=== PATIENT | male | born 1935 | race Caucasian/White ===

== ENCOUNTER 2019-03-05 07:21 | Emergency (ER) | payer MEDICARE, OTHER ==
[~2019-03-05] VITALS: Ht 182.9 cm; Wt 88.5 kg
--- OUTSIDE RECORDS SUMMARY | 2019-03-05 07:28 | XMS REPORT | Continuity of Care Document ---
Author Author [facility] Interface Address Unknown Phone Unavailable Problems Problem Status Onset Date Classification Date Reported Comments Source BLADDER CANCER W/LYMPHATIC METS Active 02/24/2019 [facility] LYMPHATIC CANCER FOLLOW UP Active 02/24/2019 [facility] LYMPHATIC CANCERFOLLOW UP Active 02/24/2019 [facility] CHEST PAIN Active 02/20/2019 [facility] LYMPHATIC CANCER CONSULT Active 02/09/2019 [facility] ACUTE PANCREATITIS, RECURRENT ABDOMINAL Active 02/04/2019 [facility] ABD PAIN, CHOLELITHIASIS Active 01/23/2019 [facility] OTHER Active 01/23/2019 [facility] DX: R10.11=RIGHT UPPER QUADRANT PAIN Active 01/20/2019 [facility] URINARY SYMPTOMS Active 01/11/2019 [facility] ABDOMINAL PAIN, ACUTE Active 01/11/2019 [facility] DX: C67.9=MALIGNANT NEOPLASM OF BLADDER, Active 11/04/2018 [facility] C18.2 / E55.9 / D62 / C67.9 / Z51.11 / Z Active 07/18/2018 [facility] C67.8 Active 03/02/2018 [facility] C87.8 Active 03/02/2018 [facility] C67.9, Z51.11 Active 08/23/2017 [facility] A FIB W/ RVR Active 06/25/2017 [facility] PALPATATIONS Active 06/25/2017 [facility] UNK Active 06/17/2017 [facility] C67.9 Active 02/16/2017 [facility] DX; C67.9=MALIGNANT NEOPLASM OF BLADDER, Active 11/23/2016 [facility] Discharge Diagnosis: Generalized weakness 11/09/2016 11/12/2016 [facility] Discharge Diagnosis: Acute UTI 11/09/2016 11/12/2016 [facility] Discharge Diagnosis: Dehydration 11/09/2016 11/12/2016 [facility] SYNCOPE Active 11/09/2016 [facility] BLADDER CA Active 06/10/2016 [facility] DX: C57.8=MALIGNANT NEOPLASM OF OVERLAPP Active 05/26/2016 [facility] C67.2 MALIGNANT NEOPLASM OF LATERAL WALL Active 03/10/2016 [facility] CHEST PAIN RULE OUT ACS Active 12/11/2015 [facility] I88.9 Active 06/17/2015 [facility] 599.71 GROSS HEMATURIA / 236.7 BLADDER N Active 05/29/2015 [facility] 591 ABNORMAL RENAL FUNCTION Active 02/12/2015 [facility] Discharge Diagnosis: Weakness 01/29/2015 02/01/2015 [facility] FATIGUE Active 01/29/2015 [facility] 236.7/36528 Active 12/19/2014 [facility] MASS Active 11/20/2014 [facility] LIVER LESIONS Active 11/20/2014 [facility] COLONA CANCER Active 10/30/[address] [facility] [address] UROGRAM DX:599.72=BENIGN ESSENTIAL M Active 10/16/2014 [facility] BLADDER CANCER Active 10/16/2014 [facility] [place] - Myocardial infarction Resolved 09/27/2006 Problem 03/02/2019 [facility] Anemia Active Problem 03/02/2019 [facility] Benign bladder tumor Active Problem 03/02/2019 [facility] Cancer of colon Resolved Problem 03/02/2019 [facility] CHF - Congestive heart failure Active Problem 03/02/2019 [facility] Hematuria Resolved Problem 03/02/2019 [facility] HTN - Hypertension Active Problem 03/02/2019 [facility] CAD (<span ID="[id number]">Confirmed</span>) Active Problem 03/02/2019 [facility] Colostomy in place Resolved Problem 03/02/2019 [facility] COUSHATTA (<span ID="[id number]">Confirmed</span>) Resolved Problem 03/02/2019 [facility] Bladder cancer Active Problem 03/02/2019 [facility] Pacemaker Resolved Problem 03/02/2019 [facility] Primary colon cancer Resolved Problem 03/02/2019 [facility] Vitamin D deficiency, unspecified 02/20/2019 [facility] Encounter for screening for other disorder 02/20/2019 [facility] Acute pancreatitis without necrosis or infection, unspecified 02/09/2019 [facility] Chronic kidney disease, unspecified Active Problem 02/24/2019 [facility] Mixed hyperlipidemia Active Problem 02/24/2019 [facility], [place] Pulmonary hypertension, secondary Active Problem 02/24/2019 [facility], [facility] Atherosclerotic heart disease of [place] coronary artery with unspecified angina pectoris Active Problem 02/24/2019 Reed Plaza MD, ANTOINETTE Mixed hyperlipidemia Active Problem 02/24/2019 [facility], [place] Atherosclerotic heart disease of [place] coronary artery without angina pectoris Active Problem 02/24/2019 Reed Plaza MD, ANTOINETTE Bradycardia, unspecified Active Problem 02/24/2019 Reed Plaza MD, ANTOINETTE Peripheral vascular disease, unspecified Active Problem 02/24/2019 Reed Plaza MD, ANTOINETTE Ventricular premature depolarization Active Problem 02/24/2019 Reed Plaza MD, ANTOINETTE Old myocardial infarction Active Problem 02/24/2019 [facility], [place] Coronary angioplasty status Active Problem 02/24/2019 Reed Plaza MD PA Other premature beats Active Problem 02/24/2019 [facility], [facility] Peripheral vascular disease Active Problem 02/24/2019 [facility], [facility] Chronic kidney disease, unspecified Active Problem 02/24/2019 [facility], [facility] Malignant neoplasm of ascending colon Active Problem 02/24/2019 [facility], [facility] Coronary atherosclerosis of [place] coronary artery Active Problem 02/24/2019 [facility] MD, [place] Malignant neoplasm of bladder, part unspecified Active Problem 02/24/2019 [facility], [place] Postprocedural PCI status Active Problem 02/24/2019 [facility], [place] Malignant neoplasm of bladder, unspecified [facility] Old [facility] infarction Active Problem 02/24/2019 [facility], [place] Malignant neoplasm of ascending colon Active [facility] Sick sinus syndrome Active Problem 02/24/2019 [facility] MD, [place] Chronic kidney disease, stage 3 Active Problem 02/24/2019 Reed [facility] MD, [place] Presence of cardiac pacemaker Active Problem 02/24/2019 [facility] MD, [place] Unspecified atherosclerosis of [place] arteries of extremities, left leg Active Problem 02/24/2019 [facility] MD, [place] Paroxysmal atrial fibrillation Active Problem 02/24/2019 Reed [facility] MD, [place] MICROSCOPIC HEMATURIA Active [facility] BLADDER NEOPLASM NOS Active [facility] MALIG RODRIGO ASCEND COLON Active [facility] LIVER DISORDERS NEC Active [facility] UNC BEHAV RODRIGO BLADDER Active [facility] GROSS HEMATURIA Active [facility] HYDRONEPHROSIS Active [facility] MALIGNANT NEOPLASM OF ASCENDING COLON Active [facility] MALIG RODRIGO BLADDER NOS Active [facility] MALIGNANT NEOPLASM OF LATERAL WALL OF BL Active [facility] MALIGNANT NEOPLASM OF BLADDER, UNSPECIFI Active [facility] MALIGNANT NEOPLASM OF OVERLAPPING SITES Active [facility] ENCOUNTER FOR ANTINEOPLASTIC CHEMOTHERAP Active [facility] UNSPECIFIED ATRIAL FIBRILLATION Active [facility] VITAMIN D DEFICIENCY, UNSPECIFIED Active [facility] ACUTE POSTHEMORRHAGIC ANEMIA Active [facility] RIGHT UPPER QUADRANT PAIN Active [facility] ACUTE PANCREATITIS WITHOUT NECROSIS OR I Active [facility] UNSPECIFIED ABDOMINAL PAIN Active [facility] MALIGNANT NEOPLASM OF PROSTATE Active [facility] CHEST PAIN, UNSPECIFIED Active [facility] SECONDARY AND UNSP MALIGNANT NEOPLASM OF Active [facility] Medications Medication Details Route Status Patient Instructions Ordering Provider Order Date Source clopidogrel 75 mg, 1 tab, Route: PO, Drug form: TAB, Daily, Dosing Weight 90.909, kg, Start date: 02/24/19 9:00:00 CDT, Duration: 30 day, Stop date: 03/25/19 9:00:00 CDTNotes: (Same As: Plavix) No Longer Active 02/24/2019 [facility] Aspirin 81 MG Enteric Coated Tablet 81 mg, Route: PO, Drug form: ECTAB, Daily, Dosing Weight 90.909, kg, Start date: 02/24/19 9:00:00 CDT, Duration: 30 day, Stop date: 03/25/19 9:00:00 CDT No Longer Active 02/24/2019 [facility] lisinopril 2.5 mg oral tablet 2.5 mg=1 tab, PO, Daily, # 30 tab, 0 Refill(s), Pharmacy: [facility] [id number] Active 02/24/2019 [facility] pantoprazole 40 mg oral enteric coated tablet 40 mg=1 tab, PO, Before Breakfast, # 30 tab, 0 Refill(s), Pharmacy: [place] [id number] Active 02/23/2019 [facility] clopidogrel 75 mg oral tablet 75 mg=1 tab, PO, Daily, # 30 tab, 0 Refill(s), Pharmacy: [place] [id number] Active 02/23/2019 [facility] Aspirin 81 MG Enteric Coated Tablet 81 mg=1 tab, PO, Daily, # 30 tab, 0 Refill(s), Pharmacy: [place] [id number] Active 02/23/2019 [facility] Nitroglycerin 0.4 mg, 1 tab, Route: SL, Drug form: TAB, Q5Min, Dosing Weight 90.909, kg, PRN Chest Pain, Start date: 02/23/19 12:15:00 CDT, Duration: 3 doses or times, Stop date: Limited # of timesNotes: (Same as: Nitroquick, Nitrostat) "Do Not Crush" Sublingual tablet Inactive 02/23/2019 [facility] Sodium Chloride 0.9% IV 750 mL 750 mL, Rate: 75 ml/hr, Infuse over: 10 hr, Route: IV, Dosing Weight 90.909 kg, Total Volume: 750, Start date: 02/23/19 12:15:00 CDT, Duration: 10 hr, Stop date: 02/23/19 22:14:00 CDT, 2.16, m2 Inactive 02/23/2019 [facility] Plavix 1 tablet Orally Active 75 mg Orally Once a day [place] 02/23/2019 Reed [facility] [place], [place] Sodium Chloride 0.9% (Bolus) IV 250 mL, 250 ml/hr, Infuse Over: 1 hr, Route: IV, 250, Drug form: INJ, ONCALL, Priority: Routine, Dosing Weight 90.909 kg, Start date: 02/22/19 13:00:00 CDT, Duration: 1 doses or times, Stop date: 02/23/19 0:00:00 CDT No Longer Active 02/22/2019 [facility] Sodium Chloride 0.9% IV 750 mL 750 mL, Rate: 75 ml/hr, Infuse over: 10 hr, Route: IV, Dosing Weight 90.909 kg, Total Volume: 750, Start date: 02/22/19 12:47:00 CDT, Duration: 24 hr, Stop date: 02/23/19 12:46:00 CDT, 2.16, m2 No Longer Active 02/22/2019 [facility] 24 HR Metoprolol Tartrate 50 MG Extended Release Tablet [Toprol] 50 mg, 1 tab, Route: PO, Drug form: ERTAB, Daily, Start date: 02/22/19 9:00:00 CDT, Duration: 30 day, Stop date: 03/23/19 9:00:00 CDTNotes: (Same as: Toprol XL) May split tab, but do not crush. No Longer Active 02/22/2019 [facility] Simvastatin 40 mg, 1 tab, Route: PO, Drug form: TAB, Bedtime, Dosing Weight 90.909, kg, Start date: 02/21/19 21:00:00 CDT, Duration: 30 day, Stop date: 03/22/19 21:00:00 CDTNotes: (Same as: Zocor) No Longer Active 02/22/2019 [facility] Eliquis 5 mg, 1 tab, Route: PO, Drug form: TAB, Q12H, Dosing Weight 90.909, kg, Start date: 02/21/19 21:00:00 CDT, Duration: 30 day, Stop date: 03/23/19 9:00:00 CDTNotes: Same as: Eliquis No Longer Active 02/22/2019 [facility] Aspirin 81 MG Enteric Coated Tablet 81 mg, 1 tab, Route: PO, Drug form: ECTAB, Daily, Dosing Weight 90.909, kg, Start date: 02/21/19 9:00:00 CDT, Duration: 30 day, Stop date: 03/22/19 9:00:00 CDTNotes: Do not crush or chew. (Same As: Ecotrin) No Longer Active 02/21/2019 [facility] Protonix 40 mg, 1 tab, Route: PO, Drug form: ECTAB, Before Breakfast, Dosing Weight 90.909, kg, Start date: 02/21/19 7:30:00 CDT, Duration: 30 day, Stop date: 03/22/19 7:30:00 CDTNotes: Tablet should not be c hewed or crushed. (Same as: Protonix) No Longer Active 02/21/2019 [facility] cefdinir 300 MG Oral Capsule [Omnicef] 300 mg, 1 cap, Route: PO, Drug form: CAP, [id number], Dosing Weight 90.909, kg, Start date: 02/20/19 23:00:00 CDT, Duration: 5 day, Stop date: 02/25/19 11:00:00 CDTNotes: (Same As: Omnicef) No Longer Active 02/21/2019 [facility] Dilaudid 0.5 mg, 0.5 mL, Route: IVP, Drug form: SOLN, Q4H, Dosing Weight 90.909, kg, PRN Pain Score 7-10, Start date: 02/20/19 17:50:00 CDT, Duration: 30 day, Stop date: 03/22/19 17:49:00 CDTNotes: (Same as: Dilaudid) No Longer Active 02/20/2019 [facility] Tessalon Perles 100 mg, 1 cap, Route: PO, Drug form: CAP, TID, Dosing Weight 90.909, kg, PRN Cough, Start date: 02/20/19 17:12:00 CDT, Duration: 30 day, Stop date: 03/22/19 17:11:00 CDTNotes: (Same As: Tessalon Alayna es) "Do Not Crush" No Longer Active 02/20/2019 [facility] Seroquel 25 mg, 1 tab, Route: PO, Drug form: TAB, BID, Dosing Weight 90.909, kg, PRN Agitation, Start date: 02/20/19 17:12:00 CDT, Duration: 30 day, Stop date: 03/22/19 17:11:00 CDTNotes: (Same as: SEROquel) No Longer Active 02/20/2019 [facility] Acetaminophen 325 MG / Hydrocodone Bitartrate 5 MG Oral Tablet [[place] 5/325] 1 tab, Route: PO, Drug Form: TAB, Dosing Weight 90.909, kg, Q6H, PRN Pain Score 1-3, Start date: 02/20/19 17:12:00 CDT, Duration: 30 day, Stop date: 03/22/19 17:11:00 CDTNotes: (Same as: [place] 325/5) Do not exceed 4gm/day of acetaminophen. No Longer Active 02/20/2019 [facility] Simethicone 80 mg, 1 tab, Route: CHEW, Drug form: CHEWTAB, QID-After Meals, Dosing Weight 90.909, kg, PRN as needed for gas, Start date: 02/20/19 17:12:00 CDT, Duration: 30 day, Stop date: 03/22/19 17:11:00 CDTNotes: (Same as: Mylicon) No Longer Active 02/20/2019 [facility] Mucinex 600 mg, 1 tab, Route: PO, Drug form: ERTAB, Q12H, Dosing Weight 90.909, kg, PRN Congestion, Start date: 02/20/19 17:12:00 CDT, Duration: 30 day, Stop date: 03/22/19 17:11:00 CDTNotes: (Same as: Guaifenesin LA, Humibid LA, Mucinex) "Do Not Crush" Take medication with plenty of water. No Longer Active 02/20/2019 [facility] Albuterol 0.833 MG/ML / Ipratropium [place] 0.167 MG/ML Inhalant Solution [DuoNeb] 3 ml, Route: NEB, Drug Form: SOLN, Dosing Weight 90.909, kg, PRN, PRN Respiratory Pathway, Start date: 02/20/19 17:12:00 CDT, Duration: 30 day, Stop date: 03/22/19 17:11:00 CDTNotes: (Same as: Duoneb) No Longer Active 02/20/2019 [facility] Maalox Advanced Regular Strength SUSP 30 mL, Route: PO, Drug Form: SUSP, Dosing Weight 90.909, kg, QID-After Meals, PRN as needed for indigestion, Routine, Start date: 02/20/19 17:12:00 CDT, Duration: 30 day, Stop date: 03/22/19 17:11:00 CDTNotes: (aluminum hydroxide-magnesium hyd-simethicone [phone]/5ml 30 ml ud SALEEM) No Longer Active 02/20/2019 [facility] Nicotine 21 mg, 1 patch, Route: TOP, Drug form: ERFILM, Daily, Dosing Weight 90.909, kg, PRN as needed for smoking cessation, Start date: 02/20/19 17:12:00 CDT, Duration: 30 day, Stop date: 03/22/19 17:11:00 CDT Notes: (Same as: Habitrol) "Remove old patch before application of new patch" WASTE: F/P - P Waste Black; E - P Waste Black No Longer Active 02/20/2019 [facility] Hydralazine 10 mg, 0.5 mL, Route: IVP, Drug form: INJ, Q4H, Dosing Weight 90.909, kg, PRN Hypertension, Priority: Routine, Start date: 02/20/19 17:12:00 CDT, Duration: 30 day, Stop date: 03/22/19 17:11:00 CDTNotes: (Same as: Apresoline) Push over 5 minutes No Longer Active 02/20/2019 [facility] Bisacodyl 10 mg, 1 supp, Route: UT, Drug form: SUPP, Daily, Dosing Weight 90.909, kg, PRN Constipation, Start date: 02/20/19 17:12:00 CDT, Duration: 30 day, Stop date: 03/22/19 17:11:00 CDTNotes: (Same As: Dulcolax, Bisco-Lax) No Longer Active 02/20/2019 [facility] Ondansetron 4 mg, 2 mL, Route: IVP, Drug form: INJ, Q6H, Dosing Weight 90.909, kg, PRN Nausea & Vomiting, Start date: 02/20/19 17:12:00 CDT, Duration: 30 day, Stop date: 03/22/19 17:11:00 CDTNotes: (Same as: Zofran) MEDICATION WASTE Product Size: 4 mg Product Wasted: ___ mg No Longer Active 02/20/2019 [facility] Trazodone 50 mg, 1 tab, Route: PO, Drug form: TAB, Bedtime, Dosing Weight 90.909, kg, PRN Insomnia, Start date: 02/20/19 17:12:00 CDT, Duration: 30 day, Stop date: 03/22/19 17:11:00 CDTNotes: (Same As: Desyrel) No Longer Active 02/20/2019 [facility] Melatonin 3 mg, 1 tab, Route: PO, Drug form: TAB, Bedtime, Dosing Weight 90.909, kg, PRN Insomnia, Start date: 02/20/19 17:12:00 CDT, Duration: 30 day, Stop date: 03/22/19 17:11:00 CDTNotes: (Same as: Melatonin) No Longer Active 02/20/2019 [facility] Diphenhydramine 25 mg, 1 tab, Route: PO, Drug form: TAB, Q6H, Dosing Weight 90.909, kg, PRN as needed for allergy symptoms, Start date: 02/20/19 17:12:00 CDT, Duration: 30 day, Stop date: 03/22/19 17:11:00 CDT No Longer Active 02/20/2019 [facility] Glucagon 1 mg, Route: IM, Drug form: PDR/INJ, PRN, Dosing Weight 90.909, kg, PRN Blood Glucose Results, Start date: 02/20/19 17:12:00 CDT, Duration: 30 day, Stop date: 03/22/19 17:11:00 CDT No Longer Active 02/20/2019 [facility] Dextrose 50% Syringe 25 gm, 50 mL, Route: IVP, Drug Form: INJ, Dosing Weight 90.909, kg, PRN, PRN Blood Glucose Results, Start date: 02/20/19 17:12:00 CDT, Duration: 30 day, Stop date: 03/22/19 17:11:00 CDT No Longer Active 02/20/2019 [facility] POLYETHYLENE GLYCOL 3350 17 gm, 1 pkt, Route: PO, Drug form: PWDR, Daily, Dosing Weight 90.909, kg, PRN Constipation, Start date: 02/20/19 17:12:00 CDT, Duration: 30 day, Stop date: 03/22/19 17:11:00 CDTNotes: Dissolve in 8 oz of water or juice. (Same as: Miralax) No Longer Active 02/20/2019 [facility] Docusate 100 mg, 1 cap, Route: PO, Drug form: CAP, BID, Dosing Weight 90.909, kg, PRN as needed for constipation, Start date: 02/20/19 17:12:00 CDT, Duration: 30 day, Stop date: 03/22/19 17:11:00 CDTNotes: (Same as: Colace) (Do Not Crush) No Longer Active 02/20/2019 [facility] Acetaminophen 650 mg, 2 tab, Route: PO, Drug form: TAB, Q6H, Dosing Weight 90.909, kg, PRN For Temp > 100.4 F, Start date: 02/20/19 17:12:00 CDT, Duration: 30 day, Stop date: 03/22/19 17:11:00 CDTNotes: Do not exceed 4 gm/day. (Same as: Tylenol) No Longer Active 02/20/2019 [facility] heparin additive 25,000 unit [11 unit/kg/hr] + Premix Diluent Dextrose 5% 500 mL 500 mL, Rate: 20 ml/hr, Infuse over: 25 hr, Route: IV, Dosing Weight 90.909 kg, Total Volume: 500 mL, Start date: 02/20/19 16:17:00 CDT, Duration: 30 day, Stop date: 03/22/19 16:16:00 CDT, 2.16, m2 Inactive 02/20/2019 [facility] Heparin 30 unit/kg Bolus (Heparin Dosing Weight) Route: IVP, PRN, 2,700 unit, 2.7 mL, Drug form: INJ, PRN, Heparin Protocol, Start date: 02/20/19 16:17:00 CDT Stop date: 03/22/19 16:16:00 CDT, 30 day Inactive 02/20/2019 [facility] Aspirin 324 mg, 4 tab, Route: CHEW, Drug form: CHEWTAB, ONCE, Dosing Weight 90.909, kg, Priority: STAT, Start date: 02/20/19 16:16:00 CDT, Stop date: 02/20/19 16:16:00 CDTNotes: Take with food. Inactive 02/20/2019 [facility] Dilaudid 0.5 mg, 0.5 mL, Route: IVP, Drug form: SOLN, ONCE, Dosing Weight 90.909, kg, Priority: STAT, Start date: 02/20/19 15:32:00 CDT, Stop date: 02/20/19 15:32:00 CDTNotes: (Same as: Dilaudid) Inactive 02/20/2019 [facility] ketOROLAC 15 mg/mL injectable solution 15 mg, Route: IVP, Drug form: INJ, ONCE, Dosing Weight 90.909, kg, Priority: STAT, Start date: 02/20/19 14:51:00 CDT, Stop date: 02/20/19 14:51:00 CDT Inactive 02/20/2019 [facility] Ondansetron 4 mg, Route: IVP, Drug form: INJ, ONCE, Dosing Weight 90.909, kg, Priority: STAT, Start date: 02/20/19 14:47:00 CDT, Stop date: 02/20/19 14:47:00 CDT Inactive 02/20/2019 [facility] Saline Flush 0.9% 10 mL, Route: IVP, Drug Form: INJ, Dosing Weight 91.364, kg, PRN, PRN Line Flush, Start date: 02/20/19 13:09:00 CDT, Duration: 30 day, Stop date: 03/22/19 13:08:00 CDTNotes: (Same as: BD Posiflush) No Longer Active 02/20/2019 [facility] Dilaudid 0 Refill(s) Active 02/13/2019 [facility] Acetaminophen 325 MG / Hydrocodone Bitartrate 5 MG Oral Tablet [[place] 5/325] 1 tab, PO, Q6H, X 5 day, # 20 tab, 0 Refill(s), given to patient Active 02/07/2019 [facility] Sodium Chloride 0.9% IV 500 mL 500 mL, Rate: 25 ml/hr, Infuse over: 20 hr, Route: IV, Dosing Weight 90.909 kg, Total Volume: 500, Start date: 02/07/19 7:54:00 CDT, Duration: 1 day, Stop date: 02/08/19 7:53:00 CDT, 2.16, m2 Inactive 02/07/2019 [facility] Dilaudid 1 mg, 1 mL, Route: IVP, Drug form: SOLN, Q3H, Dosing Weight 90.909, kg, PRN Pain Score 7-10, Start date: 02/06/19 14:58:00 CDT, Duration: 30 day, Stop date: 03/08/19 14:57:00 CDTNotes: (Same as: Dila udid) No Longer Active 02/06/2019 [facility] Dilaudid 0.2 mg, 0.2 mL, Route: IVP, Drug form: SOLN, Q6H, Dosing Weight 90.909, kg, PRN Pain Score 4-6, Start date: 02/06/19 14:57:00 CDT, Duration: 30 day, Stop date: 03/08/19 14:56:00 CDTNotes: (Same as: D ilaudid) No Longer Active 02/06/2019 [facility] Acetaminophen 325 MG / Hydrocodone Bitartrate 5 MG Oral Tablet [[place] 5/325] 1 tab, Route: PO, Drug Form: TAB, Dosing Weight 90.909, kg, Q6H, PRN Pain Score 1-3, Start date: 02/06/19 14:56:00 CDT, Duration: 30 day, Stop date: 03/08/19 14:55:00 CDTNotes: (Same as: [place] 325/5) Do not exceed 4gm/day of acetaminophen. No Longer Active 02/06/2019 [facility] Miralax 17 gm, 1 pkt, Route: PO, Drug form: PWDR, BID, Dosing Weight 90.909, kg, Start date: 02/06/19 13:34:00 CDT, Duration: 30 day, Stop date: 03/08/19 9:00:00 CDTNotes: Dissolve in 8 oz of water or juice. (Same as: Miralax) No Longer Active 02/06/2019 [facility] Docusate 100 mg, 1 cap, Route: PO, Drug form: CAP, BID, Dosing Weight 90.909, kg, PRN Constipation, Start date: 02/06/19 9:23:00 CDT, Duration: 30 day, Stop date: 03/08/19 9:22:00 CDTNotes: (Same as: Colace) (Do Not Crush) No Longer Active 02/06/2019 [facility] Dextromethorphan Hydrobromide 2 MG/ML / Guaifenesin 20 MG/ML Oral Solution 10 mL, Route: PO, Drug Form: LIQ, Dosing Weight 90.909, kg, Q4H, PRN Cough, Start date: 02/06/19 9:22:00 CDT, Duration: 30 day, Stop date: 03/08/19 9:21:00 CDTNotes: (dextromethorphan-guaifenesin 10-100/5 ml LIQ) (Same as: Robitussin-DM) No Longer Active 02/06/2019 [facility] Diphenhydramine 25 mg, 1 tab, Route: PO, Drug form: TAB, Q6H, Dosing Weight 90.909, kg, PRN Itching, Start date: 02/06/19 9:22:00 CDT, Duration: 30 day, Stop date: 03/08/19 9:21:00 CDT No Longer Active 02/06/2019 [facility] Aluminum Hydroxide 40 MG/ML / Magnesium Hydroxide 40 MG/ML / Simethicone 4 MG/ML Oral Suspension 30 mL, Route: PO, Drug Form: SUSP, Dosing Weight 90.909, kg, Q4H, PRN Indigestion, Start date: 02/06/19 9:22:00 CDT, Duration: 30 day, Stop date: 03/08/19 9:21:00 CDTNotes: (aluminum hydroxide-magnesium hyd-simethicone [phone]/5ml 30 ml ud SALEEM) No Longer Active 02/06/2019 [facility] Simethicone 80 mg, 1 tab, Route: PO, Drug form: CHEWTAB, Q6H, Dosing Weight 90.909, kg, PRN Gas, Start date: 02/06/19 9:22:00 CDT, Duration: 2 doses or times, Stop date: Limited # of timesNotes: (Same as: Mylico n) No Longer Active 02/06/2019 [facility] Simvastatin 40 mg, 1 tab, Route: PO, Drug form: TAB, Bedtime, Dosing Weight 90.909, kg, Start date: 02/06/19 9:00:00 CDT, Stop date: 03/07/19 21:00:00 CDTNotes: (Same as: Zocor) No Longer Active 02/06/2019 [facility] 24 HR Metoprolol Tartrate 50 MG Extended Release Tablet [Toprol] 50 mg, 1 tab, Route: PO, Drug form: ERTAB, BID, Start date: 02/06/19 9:00:00 CDT, Stop date: 03/07/19 18:00:00 CDTNotes: (Same as: Toprol XL) May split tab, but do not crush. No Longer Active 02/06/2019 [facility] Eliquis 5 mg, 1 tab, Route: PO, Drug form: TAB, Q12H, Dosing Weight 90.909, kg, Start date: 02/06/19 9:00:00 CDT, Duration: 30 day, Stop date: 03/07/19 21:00:00 CDTNotes: Same as: Eliquis No Longer Active 02/06/2019 [facility] Naloxone 0.04 mg, 0.04 mL, Route: IVP, Drug form: INJ, Q2MIN, Dosing Weight 90.909, kg, PRN Narcotic Reversal, Start date: 02/05/19 12:38:00 CDT, Duration: 30 day, Stop date: 03/07/19 12:37:00 CDTNotes: (Same as: Narcan) MEDICATION WASTE Product Size: 2 mg Product Wasted: ___ mg No Longer Active 02/05/2019 [facility] Hydromorphone 15 mg, 30 mL, Route: IV, Initial Loading Dose: 0.4mg, PARKING ATTENDANT Dose: 0.2 mg, PARKING ATTENDANT Lockout: 10 minutes, Continuous Basal Rate: 0 mg, 4 Hour Limit (In MG): 6, Drug Form: INJ, Continuous, Start date: 02/05/19 12:38:00 CDT, Duration: 30 day, Stop date: 03/07/19...Notes: (Same as: Dilaudid) conc=0.5 mg/ml Hydromorphone PARKING ATTENDANT Dose: ;Delay: ;Basal: No Longer Active 02/05/2019 [facility] Saline Flush 0.9% 10 ml, Route: IVP, Drug Form: INJ, Dosing Weight 90.909, kg, Q12H, Start date: 02/05/19 9:00:00 CDT, Duration: 30 day, Stop date: 03/06/19 21:00:00 CDTNotes: (Same as: BD Posiflush) No Longer Active 02/05/2019 [facility] heparin 5,000 unit, 1 mL, Route: SUB-Q, Drug form: INJ, Q12H, Dosing Weight 90.909, kg, Start date: 02/05/19 9:00:00 CDT, Stop date: 03/06/19 21:00:00 CDTNotes: porcine heparin No Longer Active 02/05/2019 [facility] pantoprazole 40 mg, Route: IVP, Drug form: INJ, BID-Before Meals, Dosing Weight 90.909, kg, Start date: 02/05/19 7:30:00 CDT, Duration: 30 day, Stop date: 03/06/19 16:30:00 CDTNotes: For IV push reconstitute with 10 ml 0.9% sodium chloride and push over 2 minutes. (Same as: Protonix) No Longer Active 02/05/2019 [facility] Saline Flush 0.9% 10 ml, Route: IVP, Drug Form: INJ, Dosing Weight 90.909, kg, PRN, PRN Line Flush, Start date: 02/05/19 2:41:00 CDT, Duration: 30 day, Stop date: 03/07/19 2:40:00 CDTNotes: (Same as: BD Posiflush) No Longer Active 02/05/2019 [facility] Nitroglycerin 0.4 mg, 1 tab, Route: SL, Drug form: TAB, Q5Min, Dosing Weight 90.909, kg, PRN Chest Pain, Start date: 02/05/19 2:41:00 CDT, Duration: 3 doses or times, Stop date: Limited # of timesNotes: (Same as:N itroquick, Nitrostat) "Do Not Crush" Sublingual tablet No Longer Active 02/05/2019 [facility] Hydromorphone 1 mg, 1 mL, Route: IVP, Drug form: SOLN, Q4H, Dosing Weight 90.909, kg, PRN Pain Score 7-10, Start date: 02/05/19 2:39:00 CDT, Duration: 30 day, Stop date: 03/07/19 2:38:00 CDTNotes: (Same as: Ebony id) Inactive 02/05/2019 [facility] Ondansetron 4 mg, 2 mL, Route: IVP, Drug form: INJ, Q8H, Dosing Weight 90.909, kg, PRN Nausea & Vomiting, Start date: 02/05/19 2:39:00 CDT, Duration: 30 day, Stop date: 03/07/19 2:38:00 CDTNotes: (Same as: Alisha) MEDICATION WASTE Product Size: 4 mg Product Wasted: ___ mg No Longer Active 02/05/2019 [facility] Bisacodyl 10 mg, 1 supp, Route: UT, Drug form: SUPP, Daily, Dosing Weight 90.909, kg, PRN Constipation, Start date: 02/05/19 2:39:00 CDT, Duration: 30 day, Stop date: 03/07/19 2:38:00 CDTNotes: (Same As: Dulcolax, Bisco-Lax) No Longer Active 02/05/2019 [facility] Acetaminophen 650 mg, 2 tab, Route: PO, Drug form: TAB, Q4H, Dosing Weight 90.909, kg, PRN Pain 1-3/Temp > 100.4 F, Start date: 02/05/19 2:39:00 CDT, Duration: 30 day, Stop date: 03/07/19 2:38:00 CDTNotes: Do not exceed 4 gm/day. (Same as: Tylenol) No Longer Active 02/05/2019 [facility] Melatonin 3 mg, 1 tab, Route: PO, Drug form: TAB, Bedtime, Dosing Weight 90.909, kg, PRN Insomnia, Start date: 02/05/19 2:39:00 CDT, Duration: 30 day, Stop date: 03/07/19 2:38:00 CDTNotes: (Same as: Melatonin) No Longer Active 02/05/2019 [facility] Saline Flush 0.9% 10 ml, Route: IVP, Drug Form: INJ, Dosing Weight 90.909, kg, PRN, PRN Line Flush, Start date: 02/05/19 2:39:00 CDT, Duration: 30 day, Stop date: 03/07/19 2:38:00 CDTNotes: (Same as: BD Posiflush) No Longer Active 02/05/2019 [facility] Sodium Chloride 0.9% IV 1,000 mL 1,000 mL, Rate: 50 ml/hr, Infuse over: 20 hr, Route: IV, Dosing Weight 90.909 kg, Total Volume: 1,000, Start date: 02/05/19 2:39:00 CDT, Duration: 30 day, Stop date: 03/07/19 2:38:00 CDT, 2.16, m2 No Longer Active 02/05/2019 [facility] Glucagon 1 mg, Route: IM, Drug form: PDR/INJ, PRN, Dosing Weight 90.909, kg, PRN Blood Glucose Results, Start date: 02/05/19 2:39:00 CDT, Duration: 30 day, Stop date: 03/07/19 2:38:00 CDT No Longer Active 02/05/2019 [facility] Dextrose 50% Syringe 12.5 gm, 25 mL, Route: IVP, Drug Form: INJ, Dosing Weight 90.909, kg, PRN, PRN Blood Glucose Results, Start date: 02/05/19 2:39:00 CDT, Duration: 30 day, Stop date: 03/07/19 2:38:00 CDT No Longer Active 02/05/2019 [facility] Hydromorphone 1 mg, Route: IV, ONCE, Dosing Weight 90.909, kg, Start date: 02/05/19 1:03:00 CDT, Stop date: 02/05/19 1:03:00 CDT Inactive 02/05/2019 [facility] Zofran 4 mg, Route: IVP, Drug form: INJ, ONCE, Dosing Weight 90.909, kg, Priority: STAT, Start date: 02/04/19 23:13:00 CDT, Stop date: 02/04/19 23:13:00 CDT Inactive 02/05/2019 [facility] Dilaudid 1 mg, Route: IVP, ONCE, Dosing Weight 90.909, kg, Priority: STAT, Start date: 02/04/19 23:12:00 CDT, Stop date: 02/04/19 23:12:00 CDT Inactive 02/05/2019 [facility] Dilaudid 0.2 mg, Route: IVP, ONCE, Dosing Weight 90.909, kg, Start date: 01/25/19 11:57:00 CDT, Stop date: 01/25/19 11:57:00 CDT Inactive 01/25/2019 [facility] Dilaudid 0.3 mg, Route: IVP, ONCE, Dosing Weight 90.909, kg, Start date: 01/25/19 11:50:00 CDT, Stop date: 01/25/19 11:50:00 CDT Inactive 01/25/2019 [facility] Ofirmev 1,000 mg, Route: IV, ONCE, Dosing Weight 90.909, kg, Start date: 01/25/19 11:42:00 CDT, Stop date: 01/25/19 11:42:00 CDT Inactive 01/25/2019 [facility] ondansetron (ANES) Route: IV, Drug form: INJ, ONCE, Stop date: 01/25/19 11:20:00 CDT Inactive 01/25/2019 [facility] glycopyrrolate (ANES) Route: IV, Drug form: INJ, ONCE, Stop date: 01/25/19 11:20:00 CDT Inactive 01/25/2019 [facility] neostigmine (ANES) Route: IV, Drug form: INJ, ONCE, Stop date: 01/25/19 11:20:00 CDT Inactive 01/25/2019 [facility] phenylephrine (ANES) Route: IV, Drug form: INJ, ONCE, Stop date: 01/25/19 11:19:00 CDT Inactive 01/25/2019 [facility] dexamethasone (ANES) Route: IV, Drug form: INJ, ONCE, Stop date: 01/25/19 11:09:00 CDT Inactive 01/25/2019 [facility] Amidate (ANES) Route: IV, Drug form: INJ, ONCE, Stop date: 01/25/19 11:04:00 CDT Inactive 01/25/2019 [facility] rocuronium (ANES) Route: IV, Drug form: INJ, ONCE, Stop date: 01/25/19 11:04:00 CDT Inactive 01/25/2019 [facility] propofol (ANES) Route: IV, Drug form: INJ, ONCE, Stop date: 01/25/19 10:59:00 CDT Inactive 01/25/2019 [facility] fentaNYL (ANES) Route: IV, Drug form: INJ, ONCE, Stop date: 01/25/19 10:59:00 CDT Inactive 01/25/2019 [facility] lidocaine (ANES) Route: IV, Drug form: INJ, ONCE, Stop date: 01/25/19 10:59:00 CDT Inactive 01/25/2019 [facility] Lactated Ringers Injection IV (ANES) 1000 mL Route: IV, Total Volume: 1,000, Start date: 01/25/19 9:58:00 CDT, Stop date: 01/25/19 10:58:00 CDT Inactive 01/25/2019 [facility] Hydromorphone 0.5 mg, Route: IVP, Q5Min, Dosing Weight 90.909, kg, PRN Pain Score 7-10, Start date: 01/24/19 19:24:00 CDT, Duration: 4 doses or times, Stop date: Limited # of times Inactive 01/25/2019 [facility] Fentanyl 25 microgram, Route: IVP, Q5Min, Dosing Weight 90.909, kg, PRN Pain Score 4-6, Priority: Routine, Start date: 01/24/19 19:24:00 CDT, Duration: 4 doses or times, Stop date: Limited # of times Inactive 01/25/2019 [facility] Flumazenil 0.2 mg, Route: IVP, PRN, Dosing Weight 90.909, kg, PRN Benzodiazepine Reversal, Initial dose, Start date: 01/24/19 19:24:00 CDT, Duration: 30 day, Stop date: 02/23/19 19:23:00 CDT Inactive 01/25/2019 [facility] Naloxone 0.4 mg, Route: IVP, Q2MIN, Dosing Weight 90.909, kg, PRN Narcotic Reversal, Start date: 01/24/19 19:24:00 CDT, Duration: 8 doses or times, Stop date: Limited # of times Inactive 01/25/2019 [facility] Meperidine 12.5 mg, Route: IVP, Q30Min, Dosing Weight 90.909, kg, PRN Other -See Comment, For shivering, Start date: 01/24/19 19:24:00 CDT, Duration: 2 doses or times, Stop date: Limited # of times Inactive 01/25/2019 [facility] Ondansetron 4 mg, Route: IVP, ONCE, Dosing Weight 90.909, kg, PRN Nausea & Vomiting, Start date: 01/24/19 19:24:00 CDT Inactive 01/25/2019 [facility] Promethazine 6.25 mg, Route: IVPB, ONCE, Dosing Weight 90.909, kg, PRN Nausea & Vomiting, Start date: 01/24/19 19:24:00 CDT Inactive 01/25/2019 [facility] Simvastatin 40 mg, 1 tab, Route: PO, Drug form: TAB, Daily, Dosing Weight 90.909, kg, Start date: 01/24/19 9:00:00 CDT, Duration: 30 day, Stop date: 02/21/19 21:00:00 CDTNotes: (Same as: Zocor) No Longer Active 01/24/2019 [facility] metoprolol tartrate 25 mg, 1 tab, Route: PO, Drug form: TAB, Q12H, Dosing Weight 90.909, kg, Start date: 01/23/19 21:00:00 CDT, Duration: 30 day, Stop date: 02/22/19 9:00:00 CDTNotes: (Same as: Lopressor) No Longer Active 01/24/2019 [facility] Eliquis 5 mg, 1 tab, Route: PO, Drug form: TAB, Q12H, Dosing Weight 90.909, kg, Start date: 01/23/19 21:00:00 CDT, Duration: 30 day, Stop date: 02/22/19 9:00:00 CDTNotes: Same as: Eliquis No Longer Active 01/24/2019 [facility] heparin 5,000 unit, 1 mL, Route: SUB-Q, Drug form: INJ, Q8H, Dosing Weight 90.909, kg, Start date: 01/23/19 16:00:00 CDT, Stop date: 02/22/19 8:00:00 CDTNotes: porcine heparin Inactive 01/23/2019 [facility] Ceftriaxone 1 gm, Route: IVP, [id number], Dosing Weight 90.909, kg, Start date: 01/23/19 16:00:00 CDT, Duration: 3 day, Stop date: 01/25/19 16:00:00 CDT, ABX Indication: Urinary Tract InfectionNotes: (Same As: Rocephin). Use with 100 mL NS and infuse over 30 min MEDICATION WASTE Product Size: 1000 mg Product Wasted: ___ mg No Longer Active 01/23/2019 [facility] Streptococcus pneumoniae serotype 1 capsular antigen diphtheria [id number] protein conjugate vaccine / Streptococcus pneumoniae serotype 14 capsular antigen diphtheria [id number] protein conjugate vaccine / Streptococcus pneumoniae serotype 18C capsular antigen d 0.5 mL, Route: IM, Drug Form: INJ, ONCALL, Start date: 01/23/19 14:58:47 CDT, Stop date: 02/22/19 14:53:47 CDTNotes: Shake well prior to use (Same as: Prevnar 13) No Longer Active 01/23/2019 [facility] tramadol hydrochloride 50 MG Oral Tablet 50 mg, 1 tab, Route: PO, Drug form: TAB, Q6H, Dosing Weight 90.909, kg, PRN Pain Score 4-6, Start date: 01/23/19 14:47:00 CDT, Duration: 30 day, Stop date: 02/22/19 14:46:00 CDTNotes: Not to exceed 400mg/day. (Same As: Ultram) No Longer Active 01/23/2019 [facility] NS 1,000 mL 1,000 mL, Rate: 75 ml/hr, Infuse over: 13.3 hr, Route: IV, Dosing Weight 90.909 kg, Total Volume: 1,000, Start date: 01/23/19 14:47:00 CDT, Duration: 30 day, Stop date: 02/22/19 14:46:00 CDT, 2.19, m2 No Longer Active 01/23/2019 [facility] Dilaudid 0.5 mg, 0.5 mL, Route: IVP, Drug form: SOLN, Q4H, Dosing Weight 90.909, kg, PRN Pain Score 7-10, Start date: 01/23/19 12:11:00 CDT, Duration: 30 day, Stop date: 02/22/19 12:10:00 CDTNotes: (Same as: Dilaudid) No Longer Active 01/23/2019 [facility] Dextrose 50% Syringe 12.5 gm, 25 mL, Route: IVP, Drug Form: INJ, Dosing Weight 90.909, kg, PRN, PRN Blood Glucose Results, Start date: 01/23/19 12:09:00 CDT, Duration: 30 day, Stop date: 02/22/19 12:08:00 CDT No Longer Active 01/23/2019 [facility] Ondansetron 4 mg, 2 mL, Route: IVP, Drug form: INJ, Q8H, Dosing Weight 90.909, kg, PRN Nausea & Vomiting, Start date: 01/23/19 12:09:00 CDT, Duration: 30 day, Stop date: 02/22/19 12:08:00 CDTNotes: (Same as: Zofran) MEDICATION WASTE Product Size: 4 mg Product Wasted: ___ mg No Longer Active 01/23/2019 [facility] Glucagon 1 mg, Route: IM, Drug form: PDR/INJ, PRN, Dosing Weight 90.909, kg, PRN Blood Glucose Results, Start date: 01/23/19 12:09:00 CDT, Duration: 30 day, Stop date: 02/22/19 12:08:00 CDT No Longer Active 01/23/2019 [facility] Ketorolac 15 mg, Route: IVP, Drug form: INJ, ONCE, Dosing Weight 90.909, kg, Priority: STAT, Start date: 01/23/19 11:10:00 CDT, Stop date: 01/23/19 11:10:00 CDT Inactive 01/23/2019 [facility] Ketorolac 15 mg, 0.5 mL, Route: IVP, Drug form: INJ, ONCE, Dosing Weight 90.909, kg, Priority: STAT, Start date: 01/23/19 10:42:00 CDT, Stop date: 01/23/19 10:42:00 CDTNotes: (Same as:Toradol) IV bolus must be given >15 seconds. Give IM administration slowly and deeply into the muscle. Not for use > 4 days MEDICATION WASTE Product Size: 30 mg Product Wasted: ___ mg Inactive 01/23/2019 [facility] Dilaudid 1 mg, 1 mL, Route: IVP, Drug form: SOLN, ONCE, Dosing Weight 90.909, kg, Priority: STAT, Start date: 01/23/19 7:37:00 CDT, Stop date: 01/23/19 7:37:00 CDTNotes: (Same as: Dilaudid) Inactive 01/23/2019 [facility] Dilaudid 1 mg, 1 mL, Route: IVP, Drug form: INJ, ONCE, Dosing Weight 90.909, kg, Priority: STAT, Start date: 01/23/19 7:19:00 CDT, Stop date: 01/23/19 7:19:00 CDTNotes: Same as: Dilaudid Inactive 01/23/2019 [facility] Saline Flush 0.9% 10 mL, Route: IVP, Drug Form: INJ, Dosing Weight 90.909, kg, PRN, PRN Line Flush, Start date: 01/23/19 6:33:00 CDT, Duration: 30 day, Stop date: 02/22/19 6:32:00 CDTNotes: Same as: BD Posiflush Sterile No Longer Active 01/23/2019 [facility] Ondansetron 4 mg, Route: IVP, Drug form: INJ, ONCE, Dosing Weight 90.909, kg, Priority: STAT, Start date: 01/23/19 6:31:00 CDT, Stop date: 01/23/19 6:31:00 CDT Inactive 01/23/2019 [facility] Dilaudid 0.5 mg, Route: IVP, ONCE, Dosing Weight 90.909, kg, Priority: STAT, Start date: 01/23/19 6:31:00 CDT, Stop date: 01/23/19 6:31:00 CDT Inactive 01/23/2019 [facility] NS (Bolus) IV 500 mL, 500 ml/hr, Infuse Over: 1 hr, Route: IV, ONCE, Priority: STAT, Dosing Weight 90.909 kg, Start date: 01/23/19 6:31:00 CDT, Stop date: 01/23/19 6:31:00 CDT Inactive 01/23/2019 [facility] Simvastatin 40 mg, 1 tab, Route: PO, Drug form: TAB, Bedtime, Dosing Weight 90.909, kg, Start date: 01/12/19 21:00:00 CDT, Duration: 30 day, Stop date: 02/10/19 21:00:00 CDTNotes: (Same as: Zocor) Inactive 01/13/2019 [facility] tramadol hydrochloride 50 MG Oral Tablet 50 mg=1 tab, PO, Q8H, PRN Pain, X 3 day, # 12 tab, 0 Refill(s) Active 01/12/2019 [facility] ciprofloxacin 500 mg oral tablet 500 mg=1 tab, PO, [id number], X 5 day, # 10 tab, 0 Refill(s), Pharmacy: [id number] Active 01/12/2019 [facility] Cipro 500 mg, 1 tab, Route: PO, Drug form: TAB, [id number], Dosing Weight 90.909, kg, Start date: 01/12/19 12:00:00 CDT, Duration: 5 day, Stop date: 01/17/19 0:00:00 CDT, ABX Indication: Urinary Tract InfectionNotes: May interfere w/enteral feedings - Take 1 hr before or 2 hrs after antacids, dairy pdt & minerals. On empty stomach. Inactive 01/12/2019 [facility] Docusate 100 mg, 1 cap, Route: PO, Drug form: CAP, BID, Dosing Weight 90.909, kg, Start date: 01/12/19 9:00:00 CDT, Duration: 30 day, Stop date: 02/10/19 17:00:00 CDTNotes: (Same as: Colace) (Do Not Crush) Inactive 01/12/2019 [facility] Eliquis 5 mg, 1 tab, Route: PO, Drug form: TAB, Q12H, Dosing Weight 90.909, kg, Start date: 01/12/19 9:00:00 CDT, Duration: 30 day, Stop date: 02/10/19 21:00:00 CDTNotes: Same as: Eliquis Inactive 01/12/2019 [facility] metoprolol tartrate 50 mg, 1 tab, Route: PO, Drug form: ERTAB, Q12H, Dosing Weight 90.909, kg, Start date: 01/11/19 23:52:00 CDT, Duration: 30 day, Stop date: 02/10/19 21:00:00 CDTNotes: (Same as: Toprol XL) May split tab, but do not crush. No Longer Active 01/12/2019 [facility] Sodium Chloride 0.9% IV 1,000 mL 1,000 mL, Rate: 75 ml/hr, Infuse over: 13.3 hr, Route: IV, Dosing Weight 90.909 kg, Total Volume: 1,000, Start date: 01/11/19 23:42:00 CDT, Duration: 30 day, Stop date: 02/10/19 23:41:00 CDT, 2.16, m2 No Longer Active 01/12/2019 [facility] Hydromorphone 0.5 mg, 0.5 mL, Route: IVP, Drug form: SOLN, Q4H, Dosing Weight 90.909, kg, PRN Pain Score 7-10, Start date: 01/11/19 23:42:00 CDT, Duration: 30 day, Stop date: 02/10/19 23:41:00 CDTNotes: (Same as: Dilaudid) No Longer Active 01/12/2019 [facility] Saline Flush 0.9% 10 ml, Route: IVP, Drug Form: INJ, Dosing Weight 90.909, kg, PRN, PRN Line Flush, Start date: 01/11/19 23:42:00 CDT, Duration: 30 day, Stop date: 02/10/19 23:41:00 CDTNotes: (Same as: BD Posiflush) No Longer Active 01/12/2019 [facility] Dextrose 50% Syringe 12.5 gm, 25 mL, Route: IVP, Drug Form: INJ, Dosing Weight 90.909, kg, PRN, PRN Blood Glucose Results, Start date: 01/11/19 23:42:00 CDT, Duration: 30 day, Stop date: 02/10/19 23:41:00 CDT No Longer Active 01/12/2019 [facility] Glucagon 1 mg, Route: IM, Drug form: PDR/INJ, PRN, Dosing Weight 90.909, kg, PRN Blood Glucose Results, Start date: 01/11/19 23:42:00 CDT, Duration: 30 day, Stop date: 02/10/19 23:41:00 CDT No Longer Active 01/12/2019 [facility] Ondansetron 4 mg, 2 mL, Route: IVP, Drug form: INJ, Q8H, Dosing Weight 90.909, kg, PRN Nausea & Vomiting, Start date: 01/11/19 23:42:00 CDT, Duration: 30 day, Stop date: 02/10/19 23:41:00 CDTNotes: (Same as: Zofran) MEDICATION WASTE Product Size: 4 mg Product Wasted: ___ mg No Longer Active 01/12/2019 [facility] Eliquis 5 mg, PO, Q12H, 0 Refill(s) Active 01/12/2019 [facility] metoprolol 50 mg oral tablet, extended release 50 mg=1 tab, PO, BID, 0 Refill(s) Active 01/12/2019 [facility] NS 1,000 mL 1,000 mL, Rate: 125 ml/hr, Infuse over: 8 hr, Route: IV, Dosing Weight 93.182 kg, Total Volume: 1,000, Start date: 01/11/19 20:24:00 CDT, Duration: 30 day, Stop date: 02/10/19 20:23:00 CDT, 2.19, m2 Inactive 01/12/2019 [facility] Dilaudid 0.5 mg, 0.5 mL, Route: IVP, Drug form: SOLN, ONCE, Dosing Weight 93.182, kg, Priority: STAT, Start date: 01/11/19 19:13:00 CDT, Stop date: 01/11/19 19:13:00 CDTNotes: (Same as: Dilaudid) Inactive 01/12/2019 [facility] Dilaudid 0.2 mg, Route: IVP, ONCE, Dosing Weight 93.182, kg, Priority: STAT, Start date: 01/11/19 17:32:00 CDT, Stop date: 01/11/19 17:32:00 CDT Inactive 01/11/2019 [facility] Zofran 4 mg, 2 mL, Route: IVP, Drug form: INJ, ONCE, Dosing Weight 93.182, kg, Priority: STAT, Start date: 01/11/19 16:54:00 CDT, Stop date: 01/11/19 16:54:00 CDTNotes: (Same as: Zofran) MEDICATION WASTE Product Size: 4 mg Product Wasted: ___ mg Inactive 01/11/2019 [facility] Morphine 4 mg, 1 mL, Route: IVP, Drug form: SOLN, ONCE, Dosing Weight 90.909, kg, Priority: STAT, Start date: 01/11/19 14:33:00 CDT, Stop date: 01/11/19 14:33:00 CDTNotes: (Same as:MORPhine Sulfate) Inactive 01/11/2019 [facility] Ondansetron 4 mg, 2 mL, Route: IVP, Drug form: INJ, ONCE, Dosing Weight 90.909, kg, Priority: STAT, Start date: 01/11/19 14:33:00 CDT, Stop date: 01/11/19 14:33:00 CDTNotes: (Same as: Zofran) MEDICATION WASTE Product Size: 4 mg Product Wasted: ___ mg Inactive 01/11/2019 [facility] Sodium Chloride 0.9% (Bolus) IV 1,000 mL, 1000 ml/hr, Infuse Over: 1 hr, Route: IV, 1,000, Drug form: INJ, ONCE, Priority: STAT, Dosing Weight 90.909 kg, Start date: 01/11/19 14:33:00 CDT, Stop date: 01/11/19 14:33:00 CDT Inactive 01/11/2019 [facility] Saline Flush 0.9% 10 mL, Route: IVP, Drug Form: INJ, Dosing Weight 90.909, kg, PRN, PRN Line Flush, Start date: 01/11/19 14:33:00 CDT, Duration: 30 day, Stop date: 02/10/19 14:32:00 CDTNotes: Same as: BD Posiflush Sterile No Longer Active 01/11/2019 [facility] metoprolol tartrate 25 mg, 1 tab, Route: PO, Drug form: TAB, Q12H, Dosing Weight 90.909, kg, Start date: 06/27/17 21:00:00 CDT, Duration: 30 day, Stop date: 07/27/17 9:00:00 CDTNotes: (Same as: Lopressor) Inactive 06/28/2017 [facility] Eliquis 1 tablet Orally Active 5 MG [facility] a [facility] [place] Warfarin Sodium 1 tablet Orally Active 5 MG Orally Once a day [facility]/2017 [facility] [place] warfarin 5 mg oral tablet 5 mg=1 tab, PO, QPM, # 14 tab, 0 Refill(s), further refill request to be sent to ; Dr Reed Plaza Active 06/27/2017 [facility] warfarin 5 mg oral tablet 5 mg=1 tab, PO, QPM, # 14 tab, 0 Refill(s), further refill request to be sent to ; Dr Reed Plaza Inactive 06/27/2017 [facility] metoprolol tartrate 25 mg oral tablet 25 mg=1 tab, PO, Q12H, # 60 tab, 0 Refill(s) Active 06/27/2017 [facility] Enoxaparin 60 mg, 0.6 mL, Route: SUB-Q, Drug form: INJ, [id number], Dosing Weight 90.909, kg, Priority: STAT, Start date: 06/27/17 10:45:00 CDT, Duration: 30 day, Stop date: 07/26/17 22:45:00 CDTNotes: Nurse to ensure documentation of patient education per anticoagulation policy. (Same as: Lovenox) Inactive 06/27/2017 [facility] Lisinopril 20 mg, 1 tab, Route: PO, Drug form: TAB, Bedtime, Dosing Weight 90.909, kg, Start date: 06/26/17 21:00:00 CDT, Duration: 30 day, Stop date: 07/25/17 21:00:00 CDTNotes: (Same as: Prinivil, Zestril) No Longer Active 06/27/2017 [facility] Simvastatin 40 mg, 1 tab, Route: PO, Drug form: TAB, Bedtime, Dosing Weight 90.909, kg, Start date: 06/26/17 21:00:00 CDT, Duration: 30 day, Stop date: 07/25/17 21:00:00 CDTNotes: (Same as: Zocor) No Longer Active 06/27/2017 [facility] Plavix 75 mg, 1 tab, Route: PO, Drug form: TAB, Daily, Dosing Weight 90.909, kg, Start date: 06/26/17 9:00:00 CDT, Duration: 30 day, Stop date: 07/25/17 9:00:00 CDTNotes: (Same As: Plavix) No Longer Active 06/26/2017 [facility] Vitamin D3 1000 intl units oral tablet 1,000 IntlUnit, 1 tab, Route: PO, Drug form: TAB, Daily, Dosing Weight 90.909, kg, Start date: 06/26/17 9:00:00 CDT, Duration: 30 day, Stop date: 07/25/17 9:00:00 CDTNotes: Same as : Vitamin D3 No Longer Active 06/26/2017 [facility] Minocycline 100 mg, 2 cap, Route: PO, Drug form: CAP, Q12H, Dosing Weight 90.909, kg, Start date: 06/26/17 9:00:00 CDT, Duration: 30 day, Stop date: 07/25/17 21:00:00 CDTNotes: (Same as:Minocin) No milk/antacids/iron. No Longer Active 06/26/2017 [facility] metoprolol tartrate 25 mg, 1 tab, Route: PO, Drug form: TAB, Q8H, Dosing Weight 90.909, kg, Start date: 06/26/17 0:00:00 CDT, Stop date: 07/25/17 16:00:00 CDTNotes: (Same as: Lopressor) No Longer Active 06/26/2017 [facility] Enoxaparin 40 mg, 0.4 mL, Route: SUB-Q, Drug form: INJ, [id number], Dosing Weight 90.909, kg, Start date: 06/26/17 0:00:00 CDT, Duration: 30 day, Stop date: 07/25/17 0:00:00 CDTNotes: (Same as: Lovenox) No Longer Active 06/26/2017 [facility] Acetaminophen 325 mg, 1 tab, Route: PO, Drug form: TAB, Q4H, Dosing Weight 90.909, kg, PRN Pain Score 4-6, Start date: 06/25/17 23:08:00 CDT, Duration: 30 day, Stop date: 07/25/17 23:07:00 CDTNotes: Do not exceed 4 gm/day. (Same as: Tylenol) No Longer Active 06/26/2017 [facility] Ondansetron 4 mg, 2 mL, Route: IVP, Drug form: INJ, Q6H, Dosing Weight 90.909, kg, PRN Nausea & Vomiting, Start date: 06/25/17 23:08:00 CDT, Duration: 30 day, Stop date: 07/25/17 23:07:00 CDTNotes: (Same as: Zofran) MEDICATION WASTE Product Size: 4 mg Product Wasted: ___ mg No Longer Active 06/26/2017 [facility] Morphine 2 mg, 1 mL, Route: IVP, Drug form: SOLN, Q4H, Dosing Weight 90.909, kg, PRN Pain Score 7-10, Start date: 06/25/17 23:08:00 CDT, Duration: 30 day, Stop date: 07/25/17 23:07:00 CDT No Longer Active 06/26/2017 [facility] Metoprolol 5 mg, Route: IVP, Drug form: INJ, ONCE, Dosing Weight 90.909, kg, Priority: STAT, Start date: 06/25/17 22:47:00 CDT, Stop date: 06/25/17 22:47:00 CDT Inactive 06/26/2017 [facility] Metoprolol 5 mg, Route: IVP, Drug form: INJ, ONCE, Dosing Weight 90.909, kg, Priority: STAT, Start date: 06/25/17 21:59:00 CDT, Stop date: 06/25/17 21:59:00 CDT Inactive 06/26/2017 [facility] Cardizem 10 mg, 2 mL, Route: IVP, Drug form: INJ, ONCE, Dosing Weight 90.909, kg, Priority: STAT, Start date: 06/25/17 21:53:00 CDT, Stop date: 06/25/17 21:53:00 CDTNotes: (Same as: Cardizem) Inactive 06/26/2017 [facility] Saline Flush 0.9% 10 mL, Route: IVP, Drug Form: INJ, Dosing Weight 97.727, kg, PRN, PRN Line Flush, Start date: 06/25/17 21:35:00 CDT, Duration: 30 day, Stop date: 07/25/17 21:34:00 CDTNotes: (Same as: BD Posiflush) No Longer Active 06/26/2017 [facility] minocycline 50 mg oral capsule 100 mg=2 cap, PO, Q12H, # 20 cap, 0 Refill(s) Active 06/22/2017 [facility] Simvastatin 40 mg, 1 tab, Route: PO, Drug form: TAB, Daily, Dosing Weight 97.727, kg, Start date: 06/22/17 9:00:00 CDT, Duration: 30 day, Stop date: 07/21/17 9:00:00 CDTNotes: (Same as: Zocor) Inactive 06/22/2017 [facility] Plavix 75 mg, 1 tab, Route: PO, Drug form: TAB, Daily, Dosing Weight 97.727, kg, Start date: 06/22/17 9:00:00 CDT, Duration: 30 day, Stop date: 07/21/17 9:00:00 CDTNotes: (Same As: Plavix) Inactive 06/22/2017 [facility] Vitamin D3 1000 intl units oral tablet 1,000 IntlUnit, 1 tab, Route: PO, Drug form: TAB, Daily, Dosing Weight 97.727, kg, Start date: 06/22/17 9:00:00 CDT, Duration: 30 day, Stop date: 07/21/17 9:00:00 CDTNotes: Same as : Vitamin D3 Inactive 06/22/2017 [facility] Minocycline 100 mg, 2 cap, Route: PO, Drug form: CAP, Q12H, Dosing Weight 97.727, kg, Start date: 06/22/17 9:00:00 CDT, Duration: 7 day, Stop date: 06/28/17 21:00:00 CDTNotes: (Same as:Minocin) No milk/antacids/iron. Inactive 06/22/2017 [facility] influenza virus vaccine, inactivated 0.5 mL, Route: IM, Drug Form: SUSP, Daily, Start date: 06/22/17 9:00:00 CDT, Duration: 1 doses or times, Stop date: 06/22/17 9:00:00 CDTNotes: (Same as: Fluzone Quadrivalent, Fluarix Quadrivalent) For 3 years of age and older (0.5 mL IM) Shake well before use Inactive 06/22/2017 [facility] Lisinopril 20 mg, 1 tab, Route: PO, Drug form: TAB, Bedtime, Dosing Weight 97.727, kg, Start date: 06/21/17 21:00:00 CDT, Duration: 30 day, Stop date: 07/20/17 21:00:00 CDTNotes: (Same as: Prinivil, Zestril) No Longer Active 06/22/2017 [facility] Epinephrine 0.005 MG/ML / Lidocaine Hydrochloride 10 MG/ML Injection 60 mL, Route: SUB-Q, Drug Form: INJ, Dosing Weight 97.727, kg, ONCE, Start date: 06/21/17 8:54:00 CDT, Stop date: 06/21/17 8:54:00 CDTNotes: Preservative-free. (Same as: Xylocaine-MPF w/Epinephrine) Inactive 06/21/2017 [facility] Vitamin D3 1000 intl units oral capsule 1,000 IntlUnit=1 cap, PO, Daily, # 100 cap, 0 Refill(s) Active 06/21/2017 [facility] Ciprofloxacin 500 MG Oral Tablet [Cipro] 500 mg=1 tab, PO, Q12H, X 7 day, # 14 tab, 0 Refill(s) Active 11/09/2016 [facility] Cipro 400 mg, Route: IVPB, ONCE, Dosing Weight 90.909, kg, Priority: STAT, Start date: 11/09/16 10:54:00 S[employer]IOR [employer]ODUCTION [employer], Stop date: 11/09/16 10:54:00 S[employer]IOR PRODUCTION PL[employer]NER Inactive 11/09/2016 [facility] Sodium Chloride 0.154 MEQ/ML Injectable Solution 1,000 mL, Infuse Over: 1 hr, Route: IV, ONCE, Priority: STAT, Dosing Weight 90.909 kg, Start date: 11/09/16 10:53:00 SENIOR PRODUCTION PLANNER, Duration: 1 doses or times, Stop date: 11/09/16 10:53:00 SENIOR PRODUCTION PLANNER Inactive 11/09/2016 [facility] Saline Flush 0.9% 10 mL, Route: IVP, Drug Form: INJ, Dosing Weight 90.909, kg, PRN, PRN Line Flush, Start date: 11/09/16 8:16:00 SENIOR PRODUCTION PLANNER, Duration: 30 day, Stop date: 12/09/16 9:15:00 CDTNotes: (Same as: BD Posiflush) Inactive 11/09/2016 [facility] Sodium Chloride 0.154 MEQ/ML Injectable Solution 500 mL, 500 ml/hr, Infuse Over: 1 hr, Route: IV, 500, Drug form: INJ, ONCE, Priority: STAT, Dosing Weight 90.909 kg, Start date: 11/09/16 8:16:00 SENIOR PRODUCTION PLANNER, Duration: 1 doses or times, Stop date: 11/09/16 8:16:00 SENIOR PRODUCTION PLANNER Inactive 11/09/2016 [facility] metoclopramide (ANES) Route: IV, Drug form: INJ, ONCE, Stop date: 06/30/16 8:44:00 CDT Inactive 06/30/2016 [facility] famotidine (ANES) Route: IV, Drug form: INJ, ONCE, Stop date: 06/30/16 8:44:00 CDT Inactive 06/30/2016 [facility] ondansetron (ANES) Route: IV, Drug form: INJ, ONCE, Stop date: 06/30/16 8:44:00 CDT Inactive 06/30/2016 [facility] fentaNYL (ANES) Route: IV, Drug form: INJ, ONCE, Stop date: 06/30/16 8:39:00 CDT Inactive 06/30/2016 [facility] propofol (ANES) Route: IV, Drug form: INJ, ONCE, Stop date: 06/30/16 8:39:00 CDT Inactive 06/30/2016 [facility] lidocaine (ANES) Route: IV, Drug form: INJ, ONCE, Stop date: 06/30/16 8:39:00 CDT Inactive 06/30/2016 [facility] midazolam (ANES) Route: IV, Drug form: SOLN, ONCE, Stop date: 06/30/16 8:39:00 CDT Inactive 06/30/2016 [facility] Acetaminophen 300 MG / Codeine Phosphate 30 MG Oral Tablet [Tylenol with Codeine #3] 1 tab, PO, Q6H, PRN pain, X 7 day, # 28 tab, 0 Refill(s) Active 06/30/2016 [facility] Docusate Sodium 100 MG Oral Capsule [Colace] 100 mg=1 cap, PO, BID, PRN Constipation, # 20 cap, 0 Refill(s) Active 06/30/2016 [facility] Albuterol 0.833 MG/ML / Ipratropium Douds 0.167 MG/ML Inhalant Solution 3 mL, NEB, ONCE, 0 Refill(s) Active 06/30/2016 [facility] LR 1000 mL INJ (ANES) Route: IV, Total Volume: 1,000, Start date: 06/30/16 7:30:00 CDT, Stop date: 06/30/16 8:30:00 CDT Inactive 06/30/2016 [facility] vancomycin (ANES) (ANES) Route: IV, Drug form: INJ, Start date: 06/30/16 7:30:00 CDT, Stop date: 06/30/16 8:30:00 CDT Inactive 06/30/2016 [facility] Albuterol 0.833 MG/ML / Ipratropium Douds 0.167 MG/ML Inhalant Solution 3 mL, Route: NEB, Drug Form: SOLN, Dosing Weight 90.909, kg, ONCE, STAT, Start date: 06/30/16 6:48:00 CDT, Stop date: 06/30/16 6:48:00 CDTNotes: (Same as: Obi) Inactive 06/30/2016 [facility] Sodium Chloride 0.154 MEQ/ML Injectable Solution 500 mL, Rate: 25 ml/hr, Infuse over: 20 hr, Route: IV, Dosing Weight 90.909 kg, Total Volume: 500, Start date: 06/30/16 6:48:00 CDT, Duration: 1 day, Stop date: 07/01/16 6:47:00 CDT Inactive 06/30/2016 [facility] Calcium Chloride 0.0014 MEQ/ML / Potassium Chloride 0.004 MEQ/ML / Sodium Chloride 0.103 MEQ/ML / Sodium Lactate 0.028 MEQ/ML Injectable Solution 1,000 mL, Rate: 25 ml/hr, Infuse over: 40 hr, Route: IV, Dosing Weight 90.909 kg, Total Volume: 1,000, Start date: 06/30/16 6:48:00 CDT, Duration: 1 day, Stop date: 07/01/16 6:47:00 CDT Inactive 06/30/2016 [facility] Nitroglycerin 0.4 mg, 1 tab, Route: SL, Drug form: TAB, Q5Min, Dosing Weight 90.909, kg, PRN Chest Pain, Start date: 12/19/15 11:53:00, Duration: 3 doses or times, Stop date: Limited # of timesNotes: (Same as:Dallas Ornelastajazmine) "Do Not Crush" Sublingual tablet Inactive 12/19/2015 [facility] Sodium Chloride 0.154 MEQ/ML Injectable Solution 250 mL, Rate: 1 ml/hr, Infuse over: 250 hr, Route: IV, Dosing Weight 90.909 kg, Total Volume: 250, Start date: 12/19/15 11:53:00, Duration: 1 doses or times, Stop date: 12/29/15 21:52:00 Inactive 12/19/2015 [facility] normal saline 0.9% IV 1,000 mL 1,000 mL, Rate: 75 ml/hr, Infuse over: 13.3 hr, Route: IV, Dosing Weight 90.909 kg, Total Volume: 1,000, Start date: 12/19/15 11:46:00, Duration: 30 day, Stop date: 01/18/16 11:45:00 Inactive 12/19/2015 [facility] Simvastatin 40 mg, 1 tab, Route: PO, Drug form: TAB, Daily, Dosing Weight 90.909, kg, Start date: 12/19/15 9:00:00, Duration: 30 day, Stop date: 01/17/16 9:00:00Notes: (Same as: Zocor) Inactive 12/19/2015 [facility] Plavix 75 mg, 1 tab, Route: PO, Drug form: TAB, Daily, Dosing Weight 90.909, kg, Start date: 12/19/15 9:00:00, Duration: 30 day, Stop date: 01/17/16 9:00:00Notes: (Same As: Plavix) Inactive 12/19/2015 [facility] Aspirin 81 mg, Route: PO, Daily, Dosing Weight 90.909, kg, Start date: 12/19/15 9:00:00, Duration: 30 day, Stop date: 01/17/16 9:00:00 No Longer Active 12/19/2015 [facility] Aspirin 81 MG Chewable Tablet 81 mg, 1 tab, Route: PO, Drug form: CHEWTAB, Daily, Dosing Weight 90.909, kg, Start date: 12/19/15 9:00:00, Duration: 30 day, Stop date: 01/17/16 9:00:00Notes: Take with food. Inactive 12/19/2015 [facility] Lisinopril 20 mg, 1 tab, Route: PO, Drug form: TAB, Bedtime, Dosing Weight 90.909, kg, Start date: 12/18/15 21:00:00, Duration: 30 day, Stop date: 01/16/16 21:00:00Notes: (Same as: Prinivil, Zestril) No Longer Active 12/19/2015 [facility] Saline Flush 0.9% 10 ml, Route: IVP, Drug Form: INJ, Dosing Weight 90.909, kg, Q12H, Start date: 12/18/15 21:00:00, Duration: 30 day, Stop date: 01/17/16 9:00:00Notes: (Same as: BD Posiflush) No Longer Active 12/19/2015 [facility] Sodium Chloride 0.154 MEQ/ML Injectable Solution 250 mL, 250 ml/hr, Infuse Over: 1 hr, Route: IV, 250, Drug form: INJ, ONCALL, Priority: Routine, Dosing Weight 90.909 kg, Start date: 12/18/15 18:00:00, Duration: 1 doses or times No Longer Active 12/18/2015 [facility] Enoxaparin 40 mg, 0.4 mL, Route: SUB-Q, Drug form: INJ, [id number], Dosing Weight 90.909, kg, Start date: 12/18/15 18:00:00, Duration: 30 day, Stop date: 01/16/16 18:00:00Notes: (Same as: Lovenox) No Longer Active 12/18/2015 [facility] Sodium Chloride 0.154 MEQ/ML Injectable Solution 750 mL, Rate: 75 ml/hr, Infuse over: 10 hr, Route: IV, Dosing Weight 90.909 kg, Total Volume: 750, Start date: 12/18/15 17:20:00, Duration: 10 hr, Stop date: 12/19/15 3:19:00 No Longer Active 12/18/2015 [facility] Saline Flush 0.9% 10 ml, Route: IVP, Drug Form: INJ, Dosing Weight 90.909, kg, PRN, PRN Line Flush, Start date: 12/18/15 15:05:00, Duration: 30 day, Stop date: 01/17/16 15:04:00Notes: (Same as: BD Posiflush) No Longer Active 12/18/2015 [facility] Ondansetron 4 mg, 1 tab, Route: PO, Drug form: TAB, Q8H, Dosing Weight 90.909, kg, PRN Nausea & Vomiting, Start date: 12/18/15 15:05:00, Duration: 30 day, Stop date: 01/17/16 15:04:00Notes: (Same as: Zofran) Inactive 12/18/2015 [facility] Morphine 2 mg, 1 mL, Route: IVP, Drug form: INJ, Q2H, Dosing Weight 90.909, kg, PRN Pain Score 4-6, Start date: 12/18/15 15:05:00, Duration: 30 day, Stop date: 01/17/16 15:04:00Notes: (Same as:MORPhine Sulfate) No Longer Active 12/18/2015 [facility] Nitroglycerin 0.4 mg, 1 tab, Route: SL, Drug form: TAB, Q5Min, Dosing Weight 90.909, kg, PRN Chest Pain, Start date: 12/18/15 15:05:00, Duration: 3 doses or times, Stop date: Limited # of timesNotes: (Same as:Nitr oquick, Nitrostat) "Do Not Crush" Sublingual tablet No Longer Active 12/18/2015 [facility] Aspirin 81 mg, PO, Daily, 0 Refill(s) Active 12/18/2015 [facility] clopidogrel 75 MG Oral Tablet [Plavix] 75 mg=1 tab, PO, Daily, 0 Refill(s) Active 12/18/2015 [facility] Aspirin 324 mg, Route: PO, ONCE, Dosing Weight 90.909, kg, Priority: STAT, Start date: 12/18/15 12:03:00, Stop date: 12/18/15 12:03:00 Inactive 12/18/2015 [facility] Saline Flush 0.9% 10 mL, Route: IVP, Drug Form: INJ, Dosing Weight 90.909, kg, PRN, PRN Line Flush, Start date: 12/18/15 12:03:00, Duration: 30 day, Stop date: 01/17/16 12:02:00Notes: (Same as: BD Posiflush) No Longer Active 12/18/2015 [facility] Clopidogrel Bisulfate 1 tablet Orally Active 75 MG Orally Once a day [facility] 12/17/2015 [place] Clopidogrel Bisulfate 1 tablet Orally Active 75 MG Orally Once a day [facility] 12/17/2015 [place] Docusate Sodium 100 MG Oral Capsule [Colace] 100 mg=1 cap, PO, BID, PRN Constipation, # 40 cap, 0 Refill(s) Active 01/10/2015 [facility] Acetaminophen 300 MG / Codeine Phosphate 30 MG Oral Tablet [Tylenol with Codeine #3] 1 tab, PO, Q4H, PRN for pain, # 30 tab, 0 Refill(s) Inactive 01/10/2015 [facility] Simvastatin 40 mg, 1 tab, Route: PO, Drug form: TAB, Bedtime, Dosing Weight 88.1, kg, Start date: 01/06/15 21:00:00, Duration: 30 day, Stop date: 02/04/15 21:00:00Notes: (Same as: Zocor) No Longer Active 01/07/2015 [facility] Simethicone 40 mg, 0.5 tab, Route: CHEW, Drug form: CHEWTAB, [id number], Dosing Weight 88.1, kg, PRN Gas, Start date: 01/06/15 18:20:00, Duration: 30 day, Stop date: 02/05/15 18:19:00Notes: (Same as: Mylicon) No Longer Active 01/06/2015 [facility] Lorazepam 1 mg, 0.5 mL, Route: IVP, Drug form: INJ, Q6H, Dosing Weight 88.1, kg, PRN Anxiety, Start date: 01/06/15 18:19:00, Duration: 30 day, Stop date: 02/05/15 18:18:00Notes: (Same as: Ativan) Inactive 01/06/2015 [facility] Reglan 10 mg, 2 mL, Route: IVP, Drug form: INJ, Q6H, Dosing Weight 88.1, kg, PRN Hiccups, Start date: 01/06/15 16:55:00, Duration: 30 day, Stop date: 02/05/15 16:54:00Notes: (Same as: Reglan) No Longer Active 01/06/2015 [facility] Rocephin 1 gm, Route: IVPB, [id number], Dosing Weight 88.1, kg, Start date: 01/06/15 12:00:00, Duration: 30 day, Stop date: 02/04/15 12:00:00Notes: (Same As: Rocephin). Use with 100ml NS mini-bag PLUS and infuse over 30 min MEDICATION WASTE Product Size: 1000 mg Product Wasted: ___ mg No Longer Active 01/06/2015 [facility] Hydromorphone 2 mg, 2 mL, Route: IVP, Drug form: INJ, ONCE, Dosing Weight 88.1, kg, Priority: STAT, Start date: 01/05/15 20:58:00, Stop date: 01/05/15 20:58:00 Inactive 01/06/2015 [facility] Sodium Chloride 0.45% IV 1,000 mL 1,000 mL, Rate: 150 ml/hr, Infuse over: 6.7 hr, Route: IV, Dosing Weight 88.1 kg, Total Volume: 1,000, Start date: 01/05/15 18:42:00, Stop date: 02/04/15 18:41:00 No Longer Active 01/05/2015 [facility] Sodium Chloride 0.154 MEQ/ML Injectable Solution 1,000 mL, 1,000 ml/hr, Infuse Over: 1 hr, Route: IV, 1,000, Drug form: INJ, ONCE, Priority: STAT, Dosing Weight 88.1 kg, Start date: 01/05/15 13:06:00, Duration: 1 doses or times, Stop date: 01/05/15 13:06:00 Inactive 01/05/2015 [facility] Entereg 12 mg, 1 cap, Route: PO, Drug form: CAP, BID, Dosing Weight 88.1, kg, Start date: 01/04/15 9:00:00, Duration: 7 day, Stop date: 01/10/15 17:00:00Notes: Same as: Entereg Maximum of 15 doses Alert Restricted medication Alvimopan (Entergen) order form must be completed prior to dispensing. No Longer Active 01/04/2015 [facility] docusate sodium 100 mg oral capsule 100 mg, 1 cap, Route: PO, Drug form: CAP, BID, Dosing Weight 88.1, kg, Start date: 01/04/15 9:00:00, Duration: 30 day, Stop date: 02/02/15 17:00:00Notes: (Same as: Colace) (Do Not Crush) No Longer Active 01/04/2015 [facility] Famotidine 20 mg, 1 tab, Route: PO, Drug form: TAB, Q12H, Dosing Weight 88.1, kg, Start date: 01/04/15 9:00:00, Duration: 30 day, Stop date: 02/02/15 21:00:00Notes: (Same as: Pepcid) No Longer Active 01/04/2015 [facility] Enoxaparin 40 mg, 0.4 mL, Route: SUB-Q, Drug form: INJ, Q6AM, Dosing Weight 88.1, kg, Start date: 01/04/15 6:00:00, Duration: 30 day, Stop date: 02/02/15 6:00:00Notes: (Same as: Lovenox) No Longer Active 01/04/2015 [facility] Ciprofloxacin 10 MG/ML Injectable Solution 400 mg, 200 mL, Route: IVPB, Drug form: INJ, [id number], Dosing Weight 88.1, kg, Start date: 01/03/15 22:00:00, Duration: 1 doses or times, Stop date: 01/03/15 22:00:00Notes: Do not refrigerate Inactive 01/04/2015 [facility] Ondansetron 4 mg, 2 mL, Route: IVP, Drug form: INJ, Q6H, Dosing Weight 88.1, kg, PRN Nausea & Vomiting, Start date: 01/03/15 21:02:00, Duration: 30 day, Stop date: 02/02/15 21:01:00Notes: (Same as: Alisha) MEDICATION WASTE Product Size: 4 mg Product Wasted: ___ mg No Longer Active 01/04/2015 [facility] Diphenhydramine 25 mg, 1 tab, Route: PO, Drug form: TAB, Bedtime, Dosing Weight 88.1, kg, PRN Insomnia, Start date: 01/03/15 21:02:00, Duration: 30 day, Stop date: 02/02/15 21:01:00 No Longer Active 01/04/2015 [facility] Calcium Chloride 0.0014 MEQ/ML / Potassium Chloride 0.004 MEQ/ML / Sodium Chloride 0.103 MEQ/ML / Sodium Lactate 0.028 MEQ/ML Injectable Solution 1,000 mL, Rate: 125 ml/hr, Infuse over: 8 hr, Route: IV, Dosing Weight 88.1 kg, Total Volume: 1,000, Start date: 01/03/15 21:02:00, Duration: 30 day, Stop date: 02/02/15 21:01:00 No Longer Active 01/04/2015 [facility] Hydromorphone 15 mg, 30 mL, Route: IV, Initial Loading Dose: 0.4mg, PARKING ATTENDANT Dose: 0.2 mg, PARKING ATTENDANT Lockout: 10 minutes, Continuous Basal Rate: 0 mg, 4 Hour Limit (In MG): 6, Drug Form: INJ, Continuous, Start date: 01/03/15 18 :30:00, Duration: 30 day, Stop date: 02/02/15 18:...Notes: (Same as: Dilaudid) conc=0.5 mg/ml Hydromorphone PARKING ATTENDANT Dose: ;Delay: ;Basal: No Longer Active 01/03/2015 [facility] Naloxone 0.04 mg, 0.04 mL, Route: IVP, Drug form: INJ, Q2MIN, Dosing Weight 90.909, kg, PRN Narcotic Reversal, Start date: 01/03/15 18:05:00, Duration: 30 day, Stop date: 02/02/15 18:04:00Notes: (Same as: Narcan) MEDICATION WASTE Product Size: 2 mg Product Wasted: ___ mg No Longer Active 01/03/2015 [facility] Ondansetron 4 mg, 2 mL, Route: IVP, Drug form: INJ, ONCE, Dosing Weight 90.909, kg, PRN Nausea & Vomiting, Start date: 01/03/15 18:05:00Notes: (Same as: Zofran) MEDICATION WASTE Product Size: 4 mg Product Wasted: ___ mg No Longer Active 01/03/2015 [facility] Flumazenil 0.2 mg, 2 mL, Route: IVP, Drug form: INJ, PRN, Dosing Weight 90.909, kg, PRN Benzodiazepine Reversal, Initial dose, Start date: 01/03/15 18:05:00, Duration: 30 day, Stop date: 02/02/15 18:04:00Notes: (Same as: Romazicon) No Longer Active 01/03/2015 [facility] Fentanyl 25 microgram, 0.5 mL, Route: IVP, Drug form: INJ, Q5Min, Dosing Weight 90.909, kg, PRN Pain Score 4-6, Start date: 01/03/15 18:05:00, Duration: 4 doses or times, Stop date: Limited # of timesNotes: (Same as: Sublimaze) Preservative free. No Longer Active 01/03/2015 [facility] Hydromorphone 0.5 mg, 0.5 mL, Route: IVP, Drug form: INJ, Q5Min, Dosing Weight 90.909, kg, PRN Pain Score 7-10, Start date: 01/03/15 18:05:00, Duration: 4 doses or times, Stop date: Limited # of times No Longer Active 01/03/2015 [facility] Hydralazine 10 mg, 0.5 mL, Route: IVP, Drug form: INJ, Q20Min, Dosing Weight 90.909, kg, PRN Elevated BP, Start date: 01/03/15 18:05:00, Duration: 2 doses or times, Stop date: Limited # of timesNotes: (Same as: Apresoline) Push over 5 minutes No Longer Active 01/03/2015 [facility] Labetalol 10 mg, 2 mL, Route: IVP, Drug form: INJ, Q5Min, Dosing Weight 90.909, kg, PRN Elevated BP, Start date: 01/03/15 18:05:00, Duration: 5 doses or times, Stop date: Limited # of timesNotes: (Same as: Normod yne, Trandate) Push over 2 minutes Give bolus over 2-3 minutes. No Longer Active 01/03/2015 [facility] Diphenhydramine 12.5 mg, Route: IVP, Drug form: INJ, Q6H, Dosing Weight 90.909, kg, PRN Itching, Start date: 01/03/15 17:11:00, Duration: 30 day, Stop date: 02/02/15 17:10:00 Inactive 01/03/2015 [facility] Promethazine 6.25 mg, Route: IVPB, ONCE, Dosing Weight 90.909, kg, PRN Nausea & Vomiting, Start date: 01/03/15 17:11:00 Inactive 01/03/2015 [facility] Ondansetron 4 mg, Route: IVP, ONCE, Dosing Weight 90.909, kg, PRN Nausea & Vomiting, Start date: 01/03/15 17:11:00 Inactive 01/03/2015 [facility] Hydromorphone 0.5 mg, Route: IVP, Q5Min, Dosing Weight 90.909, kg, PRN Pain Score 7-10, Start date: 01/03/15 17:11:00, Duration: 4 doses or times, Stop date: Limited # of times Inactive 01/03/2015 [facility] Morphine 2 mg, Route: IVP, Q5Min, Dosing Weight 90.909, kg, PRN Pain Score 4-6, Start date: 01/03/15 17:11:00, Duration: 5 doses or times, Stop date: Limited # of times Inactive 01/03/2015 [facility] Fentanyl 50 microgram, Route: IVP, Q5Min, Dosing Weight 90.909, kg, PRN Pain Score 7-10, Start date: 01/03/15 17:11:00, Duration: 2 doses or times, Stop date: Limited # of times Inactive 01/03/2015 [facility] Naloxone 0.04 mg, Route: IVP, Q2MIN, Dosing Weight 90.909, kg, PRN Narcotic Reversal, Start date: 01/03/15 17:11:00, Duration: 8 doses or times, Stop date: Limited # of times Inactive 01/03/2015 [facility] Flumazenil 0.2 mg, Route: IVP, PRN, Dosing Weight 90.909, kg, PRN Benzodiazepine Reversal, Initial dose, Start date: 01/03/15 17:11:00, Duration: 30 day, Stop date: 02/02/15 17:10:00 Inactive 01/03/2015 [facility] Meperidine 12.5 mg, Route: IVP, Q30Min, Dosing Weight 90.909, kg, PRN Other -See Comment, For shivering, Start date: 01/03/15 17:11:00, Duration: 2 doses or times, Stop date: Limited # of times Inactive 01/03/2015 [facility] Calcium Chloride 0.0014 MEQ/ML / Potassium Chloride 0.004 MEQ/ML / Sodium Chloride 0.103 MEQ/ML / Sodium Lactate 0.028 MEQ/ML Injectable Solution 1,000 mL, Rate: 125 ml/hr, Infuse over: 8 hr, Route: IV, Dosing Weight 90.909 kg, Total Volume: 1,000, Start date: 01/03/15 17:11:00, Duration: 30 day, Stop date: 02/02/15 17:10:00 Inactive 01/03/2015 [facility] Oxycodone Hydrochloride 1 MG/ML Oral Solution 10 mg, Route: NG, Drug form: LIQ, Q4H, Dosing Weight 90.909, kg, PRN Pain Score 7-10, Start date: 01/03/15 17:11:00, Duration: 30 day, Stop date: 02/02/15 17:10:00 Inactive 01/03/2015 [facility] Oxycodone 10 mg, Route: PO, Drug form: TAB, Q4H, Dosing Weight 90.909, kg, PRN Pain Score 7-10, Start date: 01/03/15 17:11:00, Duration: 30 day, Stop date: 02/02/15 17:10:00 Inactive 01/03/2015 [facility] Acetaminophen 1,000 mg, Route: IVPB, Drug form: INJ, ONCE, Dosing Weight 90.909, kg, PRN Pain Score 1-3, Start date: 01/03/15 17:11:00, Duration: 1 doses or times, Stop date: Limited # of times Inactive 01/03/2015 [facility] Ketorolac 30 mg, Route: IVP, ONCE, Dosing Weight 90.909, kg, Start date: 01/03/15 17:11:00, Duration: 1 doses or times, Stop date: 01/03/15 17:11:00 Inactive 01/03/2015 [facility] Cefoxitin 1 gm, Route: IVPB, ONCE, Dosing Weight 90.909, kg, Start date: 01/03/15 16:50:00, Stop date: 01/03/15 16:50:00 Inactive 01/03/2015 [facility] Cefoxitin 1 gm, Route: IVPB, ONCE, Dosing Weight 90.909, kg, Start date: 01/03/15 14:50:00, Stop date: 01/03/15 14:50:00 Inactive 01/03/2015 [facility] Cefoxitin 1 gm, Route: IVPB, ONCE, Dosing Weight 90.909, kg, Start date: 01/03/15 12:50:00, Stop date: 01/03/15 12:50:00 Inactive 01/03/2015 [facility] Cefoxitin 1 gm, Route: IVPB, ONCE, Dosing Weight 90.909, kg, Start date: 01/03/15 11:38:00, Stop date: 01/03/15 11:38:00 Inactive 01/03/2015 [facility] Cefoxitin 2 gm, Route: IVPB, ONCE, Dosing Weight 90.909, kg, Start date: 01/03/15 11:37:00, Stop date: 01/03/15 11:37:00 Inactive 01/03/2015 [facility] Entereg 12 mg, Route: PO, ONCE, Dosing Weight 90.909, kg, Start date: 01/03/15 7:53:00, Stop date: 01/03/15 7:53:00 Inactive 01/03/2015 [facility] Calcium Chloride 0.0014 MEQ/ML / Potassium Chloride 0.004 MEQ/ML / Sodium Chloride 0.103 MEQ/ML / Sodium Lactate 0.028 MEQ/ML Injectable Solution 1,000 mL, Rate: 25 ml/hr, Infuse over: 40 hr, Route: IV, Dosing Weight 90.909 kg, Total Volume: 1,000, Start date: 01/03/15 7:34:00, Duration: 30 day, Stop date: 02/02/15 7:33:00 Inactive 01/03/2015 [facility] Cipro 400 mg, Route: IVPB, ONCE, Dosing Weight 90.909, kg, Start date: 01/03/15 7:30:00, Stop date: 01/03/15 7:30:00 Inactive 01/03/2015 [facility] Calcium Chloride 0.0014 MEQ/ML / Potassium Chloride 0.004 MEQ/ML / Sodium Chloride 0.103 MEQ/ML / Sodium Lactate 0.028 MEQ/ML Injectable Solution 1,000 mL, Rate: 25 ml/hr, Infuse over: 40 hr, Route: IV, Dosing Weight 90.909 kg, Total Volume: 1,000, Start date: 01/03/15 7:26:00, Duration: 30 day, Stop date: 02/02/15 7:25:00 Inactive 01/03/2015 [facility] Indocyanine Green 25 mg, Route: IV, Drug form: PDR/INJ, ONCE, Dosing Weight 90.909, kg, Start date: 01/03/15 7:16:00, Stop date: 01/03/15 7:16:00Notes: (Same as: Cardio Green) Non-Formulary Drug. Inactive 01/03/2015 [facility] Cefoxitin 2 gm, Route: IVPB, ONCALL, Dosing Weight 90.909, kg, Start date: 12/31/14 23:00:00, Duration: 30 day, Stop date: 01/30/15 22:59:00Notes: (Same As: Mefoxin) MEDICATION WASTE Product Size: 2000 mg Product Wasted: ___ mg No Longer Active 01/01/2015 [facility] Co Q-10 0 Refill(s) Active 12/26/2014 [facility] Acetaminophen 325 MG / Hydrocodone Bitartrate 10 MG Oral Tablet [[place] 10/325] 1 tab, Route: PO, Drug Form: TAB, Dosing Weight 91.364, kg, Q6H, PRN Pain, Start date: 10/26/14 9:05:00, Duration: 30 day, Stop date: 11/25/14 9:04:00 Inactive 10/26/2014 [facility] Ofirmev 1,000 mg, Route: IV, Drug form: INJ, ONCE, Dosing Weight 91.364, kg, PRN Pain, for > or=50 kg, Start date: 10/26/14 9:05:00 Inactive 10/26/2014 [facility] Ketorolac 30 mg, 1 mL, Route: IVP, Drug form: INJ, ONCE, Dosing Weight 91.364, kg, Start date: 10/26/14 9:05:00, Duration: 1 doses or times, Stop date: 10/26/14 9:05:00Notes: (Same as:Toradol) IV bolus must be given >15 seconds. Give IM administration slowly and deeply into the muscle. Not for use > 4 days Inactive 10/26/2014 [facility] Fentanyl 50 microgram, Route: IVP, Q5Min, Dosing Weight 91.364, kg, PRN Pain Score 7-10, Start date: 10/26/14 9:05:00, Duration: 2 doses or times, Stop date: Limited # of times Inactive 10/26/2014 [facility] Flumazenil 0.2 mg, Route: IVP, PRN, Dosing Weight 91.364, kg, PRN Benzodiazepine Reversal, Initial dose, Start date: 10/26/14 9:05:00, Duration: 30 day, Stop date: 11/25/14 9:04:00 Inactive 10/26/2014 [facility] Ondansetron 4 mg, Route: IVP, ONCE, Dosing Weight 91.364, kg, PRN Nausea & Vomiting, Start date: 10/26/14 9:05:00 Inactive 10/26/2014 [facility] Naloxone 0.04 mg, Route: IVP, Q2MIN, Dosing Weight 91.364, kg, PRN Narcotic Reversal, Start date: 10/26/14 9:05:00, Duration: 8 doses or times, Stop date: Limited # of times Inactive 10/26/2014 [facility] Acetaminophen 300 MG / Codeine Phosphate 60 MG Oral Tablet [Tylenol with Codeine #4] 1 - 2 tab, PO, Q4H, Pain, # 20 tab, 0 Refill(s) Active 10/26/2014 [facility] Rocephin 1 gm, Route: IVPB, Drug form: PDR/INJ, ONCE, Dosing Weight 91.364, kg, Start date: 10/26/14 8:29:00, Stop date: 10/26/14 8:29:00 Inactive 10/26/2014 [facility] Calcium Chloride 0.0014 MEQ/ML / Potassium Chloride 0.004 MEQ/ML / Sodium Chloride 0.103 MEQ/ML / Sodium Lactate 0.028 MEQ/ML Injectable Solution 1,000 mL, Rate: 25 ml/hr, Infuse over: 40 hr, Route: IV, Dosing Weight 91.364 kg, Total Volume: 1,000, Start date: 10/26/14 6:57:00, Duration: 30 day, Stop date: 11/25/14 6:56:00 Inactive 10/26/2014 [facility] Ciprofloxacin 400 mg, Route: IVPB, ONCALL, Dosing Weight 90.909, kg, Start date: 10/25/14 12:00:00, Duration: 30 day, Stop date: 11/24/14 11:59:00 No Longer Active 10/25/2014 [facility] Lisinopril 1 tablet PO Active 20 PO every day (qd) Bola Plaza MD, PA Simvastatin 1 tablet PO Active 40 PO once every night Bola Plaza MD, PA Opdivo not defined Intravenous Active 100 MG/10ML Intravenous Bola Plaza MD, PA Metoprolol Tartrate 1 tablet Orally Active 50 mg Orally Twice a day Bola Plaza MD, PA Aspirin 1 tablet Orally Active 81 MG Orally Once a day Bola Plaza MD, PA Opdivo not defined Intravenous Active 100 MG/10ML Intravenous Bola Plaza MD, PA Aspirin 1 tablet Orally Active 81 MG Orally Once a day Bola Plaza MD, PA Metoprolol Tartrate 1 tablet with food Orally Active 25 MG Orally Twice a day Bola Plaza MD, PA Simvastatin 1 tablet PO Active 40 PO once every night Bola Plaza MD, PA Omeprazole 1 capsule Orally Active 40 MG Orally Once a day Bola Plaza MD, PA Aspirin 1 tablet Orally Active 81 MG Orally Once a day Bola Plaza MD, PA Lisinopril 1 tablet PO Active 20 PO every day (qd) Bola Plaza MD, PA Lisinopril 1 tablet PO Active 20 PO every day (qd) Bola Plaza MD, PA Allergies, Adverse Reactions, Alerts Substance Category Reaction Severity Reaction type Status Date Reported Comments Source penicillin Adverse Reaction Info Not Available Adverse Reaction Active 04/06/2018 Reed Plaza MD, PA Amiodarone HCl Adverse Reaction Info Not Available Adverse Reaction Active 09/22/2018 Reed Plaza MD, PA Pacerone Assertion Drug allergy Active [facility] penicillins Assertion Drug allergy Active [facility] morphine Assertion Drug allergy Active [facility] Immunizations Immunization Date Given Site Status Last Updated Comments Source influenza virus vaccine, inactivated 06/22/2017 Left Deltoid completed [facility] Results Order Name Results Value Reference Range Date Interpretation Comments Source CHEM PANEL eGFR 54 mL/min/1.73m2 02/23/2019 Result Comment: The eGFR is calculated using the CKD-EPI formula. In most young, healthy individuals the eGFR will be >90 mL/min/1.73m2. The eGFR declines with age. An eGFR of 60-89 may be normal in some populations, particularly the elderly, for whom the CKD-EPI formula has not been extensively validated. Use of the eGFR is not recommended in the following populations: Individuals with unstable creatinine concentrations, including patients and those with serious co-morbid conditions. Patients with extremes in muscle mass or diet. The data above are obtained from the National Kidney Disease Education Program (NKDEP) which additionally recommends that when the eGFR is used in patients with extremes of body mass index for purposes of drug dosing, the eGFR should be multiplied by the estimated BMI. [facility] CHEM PANEL Creatinine Lvl 1.21 mg/dL 0.50 - 1.40 02/23/2019 [facility] HEMATOLOGY Platelet 198 K/CMM 133 - 450 02/23/2019 [facility] MPV 7.8 fL 7.4 - 10.4 02/23/2019 [facility] MCH 30.8 pg 27.0 - 31.0 02/23/2019 [facility] MCHC 33.1 g/dL 32.0 - 36.0 02/23/2019 [facility] RDW 14.7 % 11.5 - 14.5 02/23/2019 [facility] MCV 93.2 fL 80.0 - 94.0 02/23/2019 [facility] Hct 40.2 % 42.0 - 54.0 02/23/2019 [facility] RBC 4.31 M/CMM 4.70 - 6.10 02/23/2019 [facility] WBC 7.8 K/CMM 3.7 - 10.4 02/23/2019 [facility] Hgb 13.3 g/dL 14.0 - 18.0 02/23/2019 [facility] Segs 83.1 % 45.0 - 75.0 02/23/2019 [facility] Eosinophils # 0.1 K/CMM 0.0 - 0.5 02/23/2019 [facility] Monocytes # 0.6 K/CMM 0.0 - 0.8 02/23/2019 [facility] Lymphocytes # 0.7 K/CMM 1.0 - 5.5 02/23/2019 [facility] Neutrophils # 6.5 K/CMM 1.5 - 8.1 02/23/2019 [facility] HEMATOLOGY Basophils 0.4 % 0.0 - 1.0 02/23/2019 [facility] Monocytes 7.2 % 2.0 - 12.0 02/23/2019 [facility] Lymphocytes 8.5 % 20.0 - 40.0 02/23/2019 [facility] Eosinophils 0.8 % 0.0 - 4.0 02/23/2019 [facility] ELECTROLYTES AGAP 9.5 meq/L 10.0 - 20.0 02/22/2019 [facility] ELECTROLYTES eGFR 49 mL/min/1.73m2 02/22/2019 Result Comment: The eGFR is calculated using the CKD-EPI formula. In most young, healthy individuals the eGFR will be >90 mL/min/1.73m2. The eGFR declines with age. An eGFR of 60-89 may be normal in some populations, particularly the elderly, for whom the CKD-EPI formula has not been extensively validated. Use of the eGFR is not recommended in the following populations: Individuals with unstable creatinine concentrations, including patients and those with serious co-morbid conditions. Patients with extremes in muscle mass or diet. The data above are obtained from the National Kidney Disease Education Program (NKDEP) which additionally recommends that when the eGFR is used in patients with extremes of body mass index for purposes of drug dosing, the eGFR should be multiplied by the estimated BMI. [facility] ELECTROLYTES BUN 23 mg/dL 7 - 22 02/22/2019 [facility] ELECTROLYTES Creatinine Lvl 1.32 mg/dL 0.50 - 1.40 02/22/2019 [facility] ELECTROLYTES CO2 25 meq/L 24 - 32 02/22/2019 [facility] ELECTROLYTES Chloride Lvl 107 meq/L 95 - 109 02/22/2019 [facility] ELECTROLYTES Potassium Lvl 4.5 meq/L 3.5 - 5.1 02/22/2019 [facility] ELECTROLYTES Sodium Lvl 137 meq/L 135 - 145 02/22/2019 [facility] ELECTROLYTES Calcium Lvl 9.2 mg/dL 8.5 - 10.5 02/22/2019 [facility] ELECTROLYTES Glucose Lvl 124 mg/dL 70 - 99 02/22/2019 [facility] RBC 4.19 M/CMM 4.70 - 6.10 02/22/2019 [facility] WBC 7.0 K/CMM 3.7 - 10.4 02/22/2019 [facility] Hgb 13.0 g/dL 14.0 - 18.0 02/22/2019 [facility] RDW 14.2 % 11.5 - 14.5 02/22/2019 [facility] Platelet 204 K/CMM 133 - 450 02/22/2019 [facility] MPV 7.9 fL 7.4 - 10.4 02/22/2019 [facility] MCV 93.2 fL 80.0 - 94.0 02/22/2019 [facility] Hct 39.1 % 42.0 - 54.0 02/22/2019 [facility] HEMATOLOGY MCH 31.0 pg 27.0 - 31.0 02/22/2019 [facility] HEMATOLOGY MCHC 33.3 g/dL 32.0 - 36.0 02/22/2019 [facility] Cardiac SPECT multi studies NM Cardiac SPECT multi studies NM EXAM: Cardiac SPECT multi studies NM INDICATION: Angina REPORT: Pharmacologic stress testing was performed with 0.4 mg/5 mL of intravenous regadenoson per protocol. The heart rate ed from 80 beats per minute to 86 per minute at peak stress which is 63% of the maximum predicted heart rate. The blood pressure changed from 132/71 mmHg at rest to 121/70 mmHg during stress, which is a normal response. The patient developed no significant symptoms. The resting ECG showed normal sinus rhythm and did not show any ST-segment changes consistent with myocardial ischemia. MYOCARDIAL PERFUSION IMAGING: Myocardial perfusion SPECT imaging was performed at rest following the injection of 12 mCi of intravenous Tc-99m sestamibi. At peak pharmacologic effect, the patient was injected with 32 mCi of intravenous Tc-99m sestamibi. Gated post- stress tomographic imaging was performed. The overall quality of the study is adequate. Attenuation artifact was mild. Left ventricular cavity was noted to be normal on the rest and stress studies. SPECT images demonstrate a moderate-sized partially reversible inferior defect. Gated SPECT imaging reveals normal myocardial thickening and wall motion. The left ventricular ejection fraction was calculated to be 54%. IMPRESSION: 1. Myocardial perfusion imaging is abnormal. 2. 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 3. Overall left ventricular systolic function was preserved without regional wall motion abnormalities. 02/21/2019 - - Read by: Reed Plaza MD Dictated Date/time: 02/23/19 10:34 Electronically Signed by: Reed Plaza MD 02/23/19 10:37 FINAL REPORT [facility] CARDIAC ENZYMES Troponin-I null 0.00 - 0.40 02/21/2019 [facility] ELECTROLYTES AGAP 10.4 meq/L 10.0 - 20.0 02/21/2019 [facility] ELECTROLYTES eGFR 50 mL/min/1.73m2 02/21/2019 Result Comment: The eGFR is calculated using the CKD-EPI formula. In most young, healthy individuals the eGFR will be >90 mL/min/1.73m2. The eGFR declines with age. An eGFR of 60-89 may be normal in some populations, particularly the elderly, for whom the CKD-EPI formula has not been extensively validated. Use of the eGFR is not recommended in the following populations: Individuals with unstable creatinine concentrations, including patients and those with serious co-morbid conditions. Patients with extremes in muscle mass or diet. The data above are obtained from the National Kidney Disease Education Program (NKDEP) which additionally recommends that when the eGFR is used in patients with extremes of body mass index for purposes of drug dosing, the eGFR should be multiplied by the estimated BMI. [facility] ELECTROLYTES Sodium Lvl 134 meq/L 135 - 145 02/21/2019 [facility] ELECTROLYTES Creatinine Lvl 1.29 mg/dL 0.50 - 1.40 02/21/2019 [facility] ELECTROLYTES Potassium Lvl 5.4 meq/L 3.5 - 5.1 02/21/2019 [facility] ELECTROLYTES CO2 24 meq/L 24 - 32 02/21/2019 [facility] ELECTROLYTES Chloride Lvl 105 meq/L 95 - 109 02/21/2019 [facility] ELECTROLYTES Calcium Lvl 8.6 mg/dL 8.5 - 10.5 02/21/2019 [facility] ELECTROLYTES Glucose Lvl 113 mg/dL 70 - 99 02/21/2019 [facility] BUN 20 mg/dL 7 - 22 02/21/2019 [facility] MCHC 34.0 g/dL 32.0 - 36.0 02/21/2019 [facility] RDW 14.3 % 11.5 - 14.5 02/21/2019 [facility] MCH 31.3 pg 27.0 - 31.0 02/21/2019 [facility] Platelet 203 K/CMM 133 - 450 02/21/2019 [facility] MPV 7.9 fL 7.4 - 10.4 02/21/2019 [facility] Hgb 13.2 g/dL 14.0 - 18.0 02/21/2019 [facility] RBC 4.23 M/CMM 4.70 - 6.10 02/21/2019 [facility] WBC 7.8 K/CMM 3.7 - 10.4 02/21/2019 [facility] MCV 92.0 fL 80.0 - 94.0 02/21/2019 [facility] Hct 38.9 % 42.0 - 54.0 02/21/2019 [facility] Eosinophils # 0.1 K/CMM 0.0 - 0.5 02/21/2019 [facility] HEMATOLOGY Monocytes # 0.8 K/CMM 0.0 - 0.8 02/21/2019 [facility] HEMATOLOGY Basophils # 0.1 K/CMM 0.0 - 0.2 02/21/2019 [facility] HEMATOLOGY Lymphocytes 9.7 % 20.0 - 40.0 02/21/2019 [facility] HEMATOLOGY Segs 77.9 % 45.0 - 75.0 02/21/2019 [facility] HEMATOLOGY Eosinophils 0.9 % 0.0 - 4.0 02/21/2019 [facility] HEMATOLOGY Basophils 0.8 % 0.0 - 1.0 02/21/2019 [facility] Monocytes 10.7 % 2.0 - 12.0 02/21/2019 [facility] Lymphocytes # 0.8 K/CMM 1.0 - 5.5 02/21/2019 [facility] Neutrophils # 6.1 K/CMM 1.5 - 8.1 02/21/2019 [facility] LIPIDS Chol 123 mg/dL <=199 mg/dL 02/21/2019 [facility] LIPIDS HDL 37 mg/dL >=61 mg/dL 02/21/2019 [facility] LIPIDS Trig 104 mg/dL <=149 mg/dL 02/21/2019 [facility] LIPIDS LDL (Calculated) 65 mg/dL <=99 mg/dL 02/21/2019 [facility] LIPIDS VLDL 21 02/21/2019 [facility] LIPIDS CHD Risk 3.32 4.00 - 7.30 02/21/2019 [facility] SPECIAL CHEMISTRY Hgb A1C 6.3 % <=5.6 % 02/21/2019 [facility] CARDIAC ENZYMES Troponin-I null 0.00 - 0.40 02/21/2019 [facility] Abdomen AP DX Abdomen AP DX CLINICAL INDICATION: Abdominal pain. COMPARISON: None. FINDINGS: The AP supine view of the abdomen shows a nonspecific bowel gas pattern. There is no abnormal dilatation of bowel loops. No abnormal calcifications along the expected course of the renal collecting systems are identified. No acute osseous abnormality is identified. Degenerative changes are seen in the spine. Bones may be osteopenic. IMPRESSION: Unremarkable single view of the abdomen. SL: [id number] 02/20/2019 - - Read by: Wilmar Gaxiola MD Dictated Date/time: 02/21/19 13:12 Electronically Signed by: Wilmar Gaxiola MD 02/21/19 13:14 FINAL REPORT [facility] HEMATOLOGY PTT 36.2 s 22.9 - 35.8 02/20/2019 [facility] HEMATOLOGY INR 1.30 0.85 - 1.17 02/20/2019 [facility] HEMATOLOGY PT 15.9 s 12.0 - 14.7 02/20/2019 [facility] URINE AND STOOL UA Tr Phos Marge Occasional /HPF None Seen /HPF 02/20/2019 [facility] URINE AND STOOL UA Urobilinogen <=1.0 mg/dL 0.1 - 1.0 02/20/2019 [facility] URINE AND STOOL UA Ketones Negative mg/dL Negative mg/dL 02/20/2019 [facility] URINE AND STOOL UA Bili Negative *NA* (02/20/19 3:05 PM) Negative 02/20/2019 [facility] URINE AND STOOL UA Protein Negative mg/dL Negative mg/dL 02/20/2019 [facility] URINE AND STOOL UA Glucose Negative mg/dL Negative mg/dL 02/20/2019 [facility] URINE AND STOOL UA pH 8.0 5.0 - 8.0 02/20/2019 [facility] URINE AND STOOL UA Leuk Est Large *ABN* (02/20/19 3:05 PM) Negative 02/20/2019 [facility] URINE AND STOOL UA Sq Epi Occasional /LPF Few /LPF 02/20/2019 [facility] URINE AND STOOL UA Blood Moderate *ABN* (02/20/19 3:05 PM) Negative 02/20/2019 [facility] URINE AND STOOL UA WBC 8 /HPF 0 - 5 02/20/2019 [facility] URINE AND STOOL UA Nitrite Positive *ABN* (02/20/19 3:05 PM) Negative 02/20/2019 [facility] URINE AND STOOL UA Amorph Marge Occasional /HPF None Seen /HPF 02/20/2019 [facility] URINE AND STOOL UA RBC 2 /HPF 0 - 2 02/20/2019 [facility] URINE AND STOOL UA Bacteria Many /HPF None Seen /HPF 02/20/2019 [facility] URINE AND STOOL UA Spec Grav 1.008 <=1.030 02/20/2019 [facility] URINE AND STOOL UA Turbidity Marked *ABN* (02/20/19 3:05 PM) Clear 02/20/2019 [facility] URINE AND STOOL UA Color Yellow *NA* (02/20/19 3:05 PM) Yellow 02/20/2019 [facility] CARDIAC ENZYMES BNP 73 pg/mL <=100 pg/mL 02/20/2019 [facility] CARDIAC ENZYMES Troponin-I null 0.00 - 0.40 02/20/2019 [facility] CHEM PANEL Bili Total 0.5 mg/dL 0.2 - 1.3 02/20/2019 [facility] CHEM PANEL Alk Phos 70 unit/L 39 - 136 02/20/2019 [facility] CHEM PANEL AST 37 unit/L 0 - 37 02/20/2019 [facility] CHEM PANEL Calcium Lvl 9.1 mg/dL 8.5 - 10.5 02/20/2019 [facility] CHEM PANEL ALT 18 unit/L 0 - 65 02/20/2019 [facility] CHEM PANEL Total Protein 7.6 g/dL 6.4 - 8.4 02/20/2019 [facility] CHEM PANEL Albumin Lvl 3.2 g/dL 3.5 - 5.0 02/20/2019 [facility] CHEM PANEL CO2 20 meq/L 24 - 32 02/20/2019 [facility] CHEM PANEL Chloride Lvl 103 meq/L 95 - 109 02/20/2019 [facility] CHEM PANEL Sodium Lvl 133 meq/L 135 - 145 02/20/2019 [facility] CHEM PANEL Potassium Lvl 4.8 meq/L 3.5 - 5.1 02/20/2019 [facility] CHEM PANEL BUN 19 mg/dL 7 - 22 02/20/2019 [facility] CHEM PANEL Glucose Lvl 152 mg/dL 70 - 99 02/20/2019 [facility] CHEM PANEL Globulin 4.4 g/dL 2.7 - 4.2 02/20/2019 [facility] CHEM PANEL B/C Ratio 14 6 - 25 02/20/2019 [facility] CHEM PANEL AGAP 14.8 meq/L 10.0 - 20.0 02/20/2019 [facility] CHEM PANEL A/G Ratio 0.7 0.7 - 1.6 02/20/2019 [facility] CHEM PANEL Lipase Lvl 195 unit/L 73 - 393 02/20/2019 [facility] HEMATOLOGY Lymphocytes # 0.8 K/CMM 1.0 - 5.5 02/20/2019 [facility] HEMATOLOGY Monocytes # 0.7 K/CMM 0.0 - 0.8 02/20/2019 [facility] HEMATOLOGY Neutrophils # 8.2 K/CMM 1.5 - 8.1 02/20/2019 [facility] HEMATOLOGY Eosinophils 0.3 % 0.0 - 4.0 02/20/2019 [facility] HEMATOLOGY Basophils 0.3 % 0.0 - 1.0 02/20/2019 [facility] HEMATOLOGY Lymphocytes 8.1 % 20.0 - 40.0 02/20/2019 [facility] HEMATOLOGY Monocytes 7.3 % 2.0 - 12.0 02/20/2019 [facility] HEMATOLOGY Segs 84.0 % 45.0 - 75.0 02/20/2019 [facility] Chest 1view DX Chest 1view DX Chest 1view DX CLINICAL HISTORY: - chest pain COMPARISON: 02/04/2019 FINDINGS: Limited AP portable study. SUPPORT DEVICES: The various support lines and tubes are stable in position in comparison to previous study. LUNGS: Lungs are reasonably well inflated. No consolidation or any significant effusion. No pneumothorax is evident. CARDIOVASCULAR: Cardiac silhouette size is within normal limits. No pulmonary edema. MEDIASTINUM/GARY: Trachea is midline. No contour abnormality is noted. BONE AND SOFT TISSUES: No acute abnormality is noted. Multiple EKG leads and other wires project over the patient's chest. IMPRESSION: No acute abnormality is noted in the chest. SL: [id number] 02/20/2019 - - Read by: Mynor Malik MD Dictated Date/time: 02/20/19 13:30 Electronically Signed by: Mynor Malik MD 02/20/19 13:30 FINAL REPORT [facility] CHEM PANEL eGFR 55 mL/min/1.73m2 02/07/2019 Result Comment: The eGFR is calculated using the CKD-EPI formula. In most young, healthy individuals the eGFR will be >90 mL/min/1.73m2. The eGFR declines with age. An eGFR of 60-89 may be normal in some populations, particularly the elderly, for whom the CKD-EPI formula has not been extensively validated. Use of the eGFR is not recommended in the following populations: Individuals with unstable creatinine concentrations, including patients and those with serious co-morbid conditions. Patients with extremes in muscle mass or diet. The data above are obtained from the National Kidney Disease Education Program (NKDEP) which additionally recommends that when the eGFR is used in patients with extremes of body mass index for purposes of drug dosing, the eGFR should be multiplied by the estimated BMI. [facility] CHEM PANEL Calcium Lvl 9.1 mg/dL 8.5 - 10.5 02/07/2019 [facility] CHEM PANEL Potassium Lvl 4.4 meq/L 3.5 - 5.1 02/07/2019 [facility] CHEM PANEL Sodium Lvl 142 meq/L 135 - 145 02/07/2019 [facility] CHEM PANEL Creatinine Lvl 1.19 mg/dL 0.50 - 1.40 02/07/2019 [facility] CHEM PANEL Glucose Lvl 106 mg/dL 70 - 99 02/07/2019 [facility] CHEM PANEL Chloride Lvl 109 meq/L 95 - 109 02/07/2019 [facility] CHEM PANEL BUN 13 mg/dL 7 - 22 02/07/2019 [facility] CHEM PANEL CO2 22 meq/L 24 - 32 02/07/2019 [facility] CHEM PANEL AGAP 15.4 meq/L 10.0 - 20.0 02/07/2019 [facility] HEMATOLOGY PTT 35.3 s 22.9 - 35.8 02/07/2019 [facility] HEMATOLOGY MPV 8.0 fL 7.4 - 10.4 02/07/2019 [facility] Platelet 226 K/CMM 133 - 450 02/07/2019 [facility] MCH 30.9 pg 27.0 - 31.0 02/07/2019 [facility] MCV 93.6 fL 80.0 - 94.0 02/07/2019 [facility] MCHC 33.0 g/dL 32.0 - 36.0 02/07/2019 [facility] Hgb 12.8 g/dL 14.0 - 18.0 02/07/2019 [facility] RBC 4.15 M/CMM 4.70 - 6.10 02/07/2019 [facility] WBC 5.3 K/CMM 3.7 - 10.4 02/07/2019 [facility] Hct 38.8 % 42.0 - 54.0 02/07/2019 [facility] RDW 14.1 % 11.5 - 14.5 02/07/2019 [facility] INR 1.12 0.85 - 1.17 02/07/2019 [facility] PT 14.2 s 12.0 - 14.7 02/07/2019 [facility] Monocytes # 0.4 K/CMM 0.0 - 0.8 02/07/2019 [facility] Lymphocytes # 0.6 K/CMM 1.0 - 5.5 02/07/2019 [facility] Neutrophils # 4.3 K/CMM 1.5 - 8.1 02/07/2019 [facility] Basophils 0.4 % 0.0 - 1.0 02/07/2019 [facility] HEMATOLOGY Eosinophils 0.6 % 0.0 - 4.0 02/07/2019 [facility] HEMATOLOGY Monocytes 6.8 % 2.0 - 12.0 02/07/2019 [facility] HEMATOLOGY Segs 80.4 % 45.0 - 75.0 02/07/2019 [facility] HEMATOLOGY Lymphocytes 11.8 % 20.0 - 40.0 02/07/2019 [facility] HEMATOLOGY MCV 92.4 fL 80.0 - 94.0 02/05/2019 [facility] HEMATOLOGY Hct 39.4 % 42.0 - 54.0 02/05/2019 [facility] HEMATOLOGY Hgb 13.4 g/dL 14.0 - 18.0 02/05/2019 [facility] HEMATOLOGY RBC 4.27 M/CMM 4.70 - 6.10 02/05/2019 [facility] HEMATOLOGY WBC 6.9 K/CMM 3.7 - 10.4 02/05/2019 [facility] MCH 31.4 pg 27.0 - 31.0 02/05/2019 [facility] MPV 7.9 fL 7.4 - 10.4 02/05/2019 [facility] Platelet 238 K/CMM 133 - 450 02/05/2019 [facility] RDW 13.9 % 11.5 - 14.5 02/05/2019 [facility] MCHC 34.0 g/dL 32.0 - 36.0 02/05/2019 [facility] Lymphocytes # 0.8 K/CMM 1.0 - 5.5 02/05/2019 [facility] HEMATOLOGY Neutrophils # 5.5 K/CMM 1.5 - 8.1 02/05/2019 [facility] Monocytes # 0.5 K/CMM 0.0 - 0.8 02/05/2019 [facility] HEMATOLOGY Eosinophils # 0.1 K/CMM 0.0 - 0.5 02/05/2019 [facility] HEMATOLOGY Basophils 0.6 % 0.0 - 1.0 02/05/2019 [facility] HEMATOLOGY Eosinophils 1.2 % 0.0 - 4.0 02/05/2019 [facility] HEMATOLOGY Monocytes 7.9 % 2.0 - 12.0 02/05/2019 [facility] HEMATOLOGY Lymphocytes 11.1 % 20.0 - 40.0 02/05/2019 [facility] HEMATOLOGY Segs 79.2 % 45.0 - 75.0 02/05/2019 [facility] CARDIAC ENZYMES Troponin-I null 0.00 - 0.40 02/05/2019 [facility] CARDIAC ENZYMES Troponin-I null 0.00 - 0.40 02/05/2019 [facility] CHEM PANEL Lipase Lvl 1127 unit/L 73 - 393 02/05/2019 [facility] CHEM PANEL A/G Ratio 0.8 0.7 - 1.6 02/05/2019 [facility] CHEM PANEL eGFR 45 mL/min/1.73m2 02/05/2019 Result Comment: The eGFR is calculated using the CKD-EPI formula. In most young, healthy individuals the eGFR will be >90 mL/min/1.73m2. The eGFR declines with age. An eGFR of 60-89 may be normal in some populations, particularly the elderly, for whom the CKD-EPI formula has not been extensively validated. Use of the eGFR is not recommended in the following populations: Individuals with unstable creatinine concentrations, including patients and those with serious co-morbid conditions. Patients with extremes in muscle mass or diet. The data above are obtained from the National Kidney Disease Education Program (NKDEP) which additionally recommends that when the eGFR is used in patients with extremes of body mass index for purposes of drug dosing, the eGFR should be multiplied by the estimated BMI. [facility] CHEM PANEL ALT 26 unit/L 0 - 65 02/05/2019 [facility] CHEM PANEL AST 40 unit/L 0 - 37 02/05/2019 [facility] CHEM PANEL Calcium Lvl 8.8 mg/dL 8.5 - 10.5 02/05/2019 [facility] CHEM PANEL Total Protein 7.2 g/dL 6.4 - 8.4 02/05/2019 [facility] CHEM PANEL Albumin Lvl 3.2 g/dL 3.5 - 5.0 02/05/2019 [facility] CHEM PANEL CO2 26 meq/L 24 - 32 02/05/2019 [facility] CHEM PANEL Sodium Lvl 137 meq/L 135 - 145 02/05/2019 [facility] CHEM PANEL Chloride Lvl 103 meq/L 95 - 109 02/05/2019 [facility] CHEM PANEL Creatinine Lvl 1.42 mg/dL 0.50 - 1.40 02/05/2019 [facility] CHEM PANEL Potassium Lvl 4.7 meq/L 3.5 - 5.1 02/05/2019 [facility] CHEM PANEL Globulin 4.0 g/dL 2.7 - 4.2 02/05/2019 [facility] CHEM PANEL B/C Ratio 11 6 - 25 02/05/2019 [facility] CHEM PANEL Alk Phos 72 unit/L 39 - 136 02/05/2019 [facility] CHEM PANEL AGAP 12.7 meq/L 10.0 - 20.0 02/05/2019 [facility] CHEM PANEL Bili Total 0.5 mg/dL 0.2 - 1.3 02/05/2019 [facility] CHEM PANEL BUN 16 mg/dL 7 - 22 02/05/2019 [facility] CHEM PANEL Glucose Lvl 111 mg/dL 70 - 99 02/05/2019 [facility] HEMATOLOGY Platelet 231 K/CMM 133 - 450 02/05/2019 [facility] MCHC 33.8 g/dL 32.0 - 36.0 02/05/2019 [facility] MPV 8.1 fL 7.4 - 10.4 02/05/2019 [facility] RDW 13.8 % 11.5 - 14.5 02/05/2019 [facility] Hgb 12.8 g/dL 14.0 - 18.0 02/05/2019 [facility] WBC 6.7 K/CMM 3.7 - 10.4 02/05/2019 [facility] Hct 38.0 % 42.0 - 54.0 02/05/2019 [facility] RBC 4.12 M/CMM 4.70 - 6.10 02/05/2019 [facility] MCV 92.3 fL 80.0 - 94.0 02/05/2019 [facility] MCH 31.2 pg 27.0 - 31.0 02/05/2019 [facility] Neutrophils # 5.1 K/CMM 1.5 - 8.1 02/05/2019 [facility] Eosinophils # 0.1 K/CMM 0.0 - 0.5 02/05/2019 [facility] Lymphocytes # 0.9 K/CMM 1.0 - 5.5 02/05/2019 [facility] Monocytes # 0.6 K/CMM 0.0 - 0.8 02/05/2019 [facility] HEMATOLOGY Segs 75.9 % 45.0 - 75.0 02/05/2019 [facility] Lymphocytes 13.3 % 20.0 - 40.0 02/05/2019 [facility] Basophils 0.3 % 0.0 - 1.0 02/05/2019 [facility] Monocytes 8.8 % 2.0 - 12.0 02/05/2019 [facility] HEMATOLOGY Eosinophils 1.7 % 0.0 - 4.0 02/05/2019 [facility] CARDIAC ENZYMES CK MB Index 1.9 0.0 - 2.5 02/05/2019 [facility] CARDIAC ENZYMES Troponin-I null 0.00 - 0.40 02/05/2019 [facility] CARDIAC ENZYMES BNP 28 pg/mL <=100 pg/mL 02/05/2019 [facility] CARDIAC ENZYMES Total CK 70 unit/L 12 - 191 02/05/2019 [facility] CARDIAC ENZYMES CK MB 1.3 ng/mL 0.5 - 3.6 02/05/2019 [facility] CHEM PANEL Lipase Lvl 618 unit/L 73 - 393 02/05/2019 [facility] CHEM PANEL eGFR 42 mL/min/1.73m2 02/05/2019 Result Comment: The eGFR is calculated using the CKD-EPI formula. In most young, healthy individuals the eGFR will be >90 mL/min/1.73m2. The eGFR declines with age. An eGFR of 60-89 may be normal in some populations, particularly the elderly, for whom the CKD-EPI formula has not been extensively validated. Use of the eGFR is not recommended in the following populations: Individuals with unstable creatinine concentrations, including patients and those with serious co-morbid conditions. Patients with extremes in muscle mass or diet. The data above are obtained from the National Kidney Disease Education Program (NKDEP) which additionally recommends that when the eGFR is used in patients with extremes of body mass index for purposes of drug dosing, the eGFR should be multiplied by the estimated BMI. [facility] CHEM PANEL Globulin 4.3 g/dL 2.7 - 4.2 02/05/2019 [facility] CHEM PANEL A/G Ratio 0.8 0.7 - 1.6 02/05/2019 [facility] CHEM PANEL Glucose Lvl 90 mg/dL 70 - 99 02/05/2019 [facility] CHEM PANEL BUN 18 mg/dL 7 - 22 02/05/2019 [facility] CHEM PANEL Creatinine Lvl 1.49 mg/dL 0.50 - 1.40 02/05/2019 [facility] CHEM PANEL Bili Total 0.4 mg/dL 0.2 - 1.3 02/05/2019 [facility] CHEM PANEL Alk Phos 70 unit/L 39 - 136 02/05/2019 [facility] CHEM PANEL AGAP 10.1 meq/L 10.0 - 20.0 02/05/2019 [facility] CHEM PANEL B/C Ratio 12 6 - 25 02/05/2019 [facility] CHEM PANEL Chloride Lvl 102 meq/L 95 - 109 02/05/2019 [facility] CHEM PANEL AST 27 unit/L 0 - 37 02/05/2019 [facility] CHEM PANEL ALT 24 unit/L 0 - 65 02/05/2019 [facility] CHEM PANEL Albumin Lvl 3.3 g/dL 3.5 - 5.0 02/05/2019 [facility] CHEM PANEL Total Protein 7.6 g/dL 6.4 - 8.4 02/05/2019 [facility] CHEM PANEL Calcium Lvl 9.1 mg/dL 8.5 - 10.5 02/05/2019 [facility] CHEM PANEL CO2 26 meq/L 24 - 32 02/05/2019 [facility] CHEM PANEL Potassium Lvl 4.1 meq/L 3.5 - 5.1 02/05/2019 [facility] CHEM PANEL Sodium Lvl 134 meq/L 135 - 145 02/05/2019 [facility] HEMATOLOGY Eosinophils # 0.2 K/CMM 0.0 - 0.5 02/05/2019 [facility] Abdomen RUQ US Abdomen RUQ US Clinical Indication: - recent annabella, possible retained stone. Comparison: None. TECHNIQUE: Grayscale and limited color sonographic evaluation of the right upper quadrant of the abdomen and gallbladder region was performed with standard technique. FINDINGS: LIVER: The visualized liver shows normal contour. There is normal liver size, based on sonography. There is normal liver parenchymal echotexture. The portal vein region appears unremarkable. BILE DUCTS: The intrahepatic and extrahepatic bile ducts are not dilated with the common bile duct measuring 4 mm. GALLBLADDER: Status post cholecystectomy PANCREAS: Not visualized KIDNEY: The right kidney measures 11.4 x 5.5 x 5.4 cm. There is normal renal contour and morphology. There is normal parenchymal echotexture. There is no hydronephrosis. There is a 3.8 x 2.6 x 3.0 cm cyst at the upper pole of right kidney. Another small cyst measuring 1.1 x 0.8 x 0.8 cm is noted in the right kidney. AORTA AND INFERIOR VENA CAVA: Aorta and IVC are not visualized ASCITES: There is no right abdominal ascites. IMPRESSION: Status post cholecystectomy. Right renal cysts. SL: BMJEY 02/04/2019 - - Read by: Mariam Calles MD Dictated Date/time: 02/05/19 00:08 Electronically Signed by: Mariam Calles MD 02/05/19 00:11 FINAL REPORT [facility] Abdomen/Pelvis w IV contrast CT Abdomen/Pelvis w IV contrast CT CT ABDOMEN AND PELVIS WITH CONTRAST DATED : 02/13/2019. CLINICAL INDICATION: Chest pain that is more centered, started few hours ago. Shortness of breath.. COMPARISON: 01/23/2019. TECHNIQUE: A CT of the abdomen and pelvis was performed using helical images from the thoracic outlet through the pubic symphysis after the administration of oral and intravenous contrast. Sagittal and coronal reconstructions were performed. IV CONTRAST: 100cc Omnipaque 300 GI CONTRAST: Yes CT Radiation Dose: VOL=[id number] mGy-cm FINDINGS: SOLID ORGANS: Interval cholecystectomy. Liver, spleen, pancreas and bilateral adrenal glands are unremarkable. Slightly prominent and tongue extrahepatic duct, most likely due to postcholecystectomy ectasia. Multiple bilateral renal cysts are identified largest exophytic in the left kidney measuring 10.0 x 10.9 x 9.0 cm. No hydronephrosis seen bilaterally. BOWEL: Postsurgical changes of right hemicolectomy with right lower flank ostomy is stable. Moderate fecal load in the colon. 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 Appendix is not visualized. PERITONEUM: No free intraperitoneal air or significant free intraperitoneal fluid. RETROPERITONEUM: The abdominal aorta is normal in caliber. Calcified plaques are noted in the abdominal aorta and iliac arteries. Retroperitoneal adenopathy in the para-aortic area, retrocaval and interaortocaval region, grossly stable as compared to the prior study. PELVIS postsurgical changes of cystoprostatectomy with ileal conduit, stable. LOWER CHEST: The lung bases appear clear of acute disease. Small hiatal hernia seen. Coronary arterial calcification is present. Artifact from the pacer leads. ADDITIONAL COMMENTS: Mild to moderate degenerative changes in thoracolumbar spine. IMPRESSION: 1. Interval cholecystectomy. Otherwise No appreciable interval change since prior study 2. Stable post surgical changes of right hemicolectomy and cystoprostatectomy with ileal conduit formation. Small bowel containing parastomal hernia without evidence of obstruction. 3. Stable upper abdominal retroperitoneal adenopathy. 4. Atherosclerosis. 5. Bilateral renal cysts. No hydronephrosis seen. SL:WING 02/04/2019 - - Read by: Arsh Moraes MD Dictated Date/time: 02/05/19 00:25 Electronically Signed by: Arsh Moraes MD 02/05/19 00:43 FINAL REPORT [facility] Chest 1view DX Chest 1view DX Clinical Indication: - chest pain; Comparison: 06/25/2017 Technique: X-ray chest frontal projection FINDINGS: Left Port-A-Cath is noted with its tip in the superior vena cava. A right chest wall pacemaker is noted. There is no consolidation, pleural effusion or pneumothorax. The heart is normal in size. The mediastinum and gary are unremarkable. The visualized bones and soft tissues are within normal limits. IMPRESSION: No chest radiographic evidence of acute cardiopulmonary disease. SL: LEIGH ANN 02/04/2019 - - Read by: Mariam Calles MD Dictated Date/time: 02/04/19 23:40 Electronically Signed by: Mariam Calles MD 02/04/19 23:41 FINAL REPORT [facility] Lymphocytes # 0.5 K/CMM 1.0 - 5.5 01/26/2019 [facility] Neutrophils # 6.7 K/CMM 1.5 - 8.1 01/26/2019 [facility] Monocytes # 0.5 K/CMM 0.0 - 0.8 01/26/2019 [facility] Monocytes 6.5 % 2.0 - 12.0 01/26/2019 [facility] Lymphocytes 5.9 % 20.0 - 40.0 01/26/2019 [facility] Segs 87.6 % 45.0 - 75.0 01/26/2019 [facility] MPV 8.1 fL 7.4 - 10.4 01/26/2019 [facility] MCHC 34.4 g/dL 32.0 - 36.0 01/26/2019 [facility] RDW 13.9 % 11.5 - 14.5 01/26/2019 [facility] Platelet 199 K/CMM 133 - 450 01/26/2019 [facility] MCH 31.8 pg 27.0 - 31.0 01/26/2019 [facility] MCV 92.4 fL 80.0 - 94.0 01/26/2019 [facility] Hgb 12.3 g/dL 14.0 - 18.0 01/26/2019 [facility] Hct 35.7 % 42.0 - 54.0 01/26/2019 [facility] HEMATOLOGY WBC 7.7 K/CMM 3.7 - 10.4 01/26/2019 [facility] HEMATOLOGY RBC 3.86 M/CMM 4.70 - 6.10 01/26/2019 [facility] HEMATOLOGY INR 1.17 0.85 - 1.17 01/25/2019 [facility] PT 14.7 s 12.0 - 14.7 01/25/2019 [facility] Hgb 11.9 g/dL 14.0 - 18.0 01/25/2019 [facility] RBC 3.76 M/CMM 4.70 - 6.10 01/25/2019 [facility] WBC 4.6 K/CMM 3.7 - 10.4 01/25/2019 [facility] Platelet 187 K/CMM 133 - 450 01/25/2019 [facility] MPV 8.0 fL 7.4 - 10.4 01/25/2019 [facility] MCV 92.6 fL 80.0 - 94.0 01/25/2019 [facility] Hct 34.8 % 42.0 - 54.0 01/25/2019 [facility] MCH 31.6 pg 27.0 - 31.0 01/25/2019 [facility] RDW 13.7 % 11.5 - 14.5 01/25/2019 [facility] MCHC 34.1 g/dL 32.0 - 36.0 01/25/2019 [facility] Eosinophils # 0.1 K/CMM 0.0 - 0.5 01/25/2019 [facility] Basophils 0.5 % 0.0 - 1.0 01/25/2019 [facility] Neutrophils # 3.2 K/CMM 1.5 - 8.1 01/25/2019 [facility] Lymphocytes # 0.8 K/CMM 1.0 - 5.5 01/25/2019 [facility] Monocytes 10.8 % 2.0 - 12.0 01/25/2019 [facility] HEMATOLOGY Eosinophils 2.0 % 0.0 - 4.0 01/25/2019 [facility] Monocytes # 0.5 K/CMM 0.0 - 0.8 01/25/2019 [facility] HEMATOLOGY Segs 69.5 % 45.0 - 75.0 01/25/2019 [facility] Lymphocytes 17.2 % 20.0 - 40.0 01/25/2019 [facility] ELECTROLYTES AGAP 12.6 meq/L 10.0 - 20.0 01/24/2019 [facility] ELECTROLYTES B/C Ratio 14 6 - 25 01/24/2019 [facility] ELECTROLYTES Globulin 3.5 g/dL 2.7 - 4.2 01/24/2019 [facility] ELECTROLYTES A/G Ratio 0.8 0.7 - 1.6 01/24/2019 [facility] ELECTROLYTES ALT 16 unit/L 0 - 65 01/24/2019 [facility] ELECTROLYTES AST 24 unit/L 0 - 37 01/24/2019 [facility] Albumin Lvl 2.7 g/dL 3.5 - 5.0 01/24/2019 [facility] ELECTROLYTES Bili Total 0.4 mg/dL 0.2 - 1.3 01/24/2019 [facility] ELECTROLYTES Alk Phos 55 unit/L 39 - 136 01/24/2019 [facility] eGFR 51 mL/min/1.73m2 01/24/2019 Result Comment: The eGFR is calculated using the CKD-EPI formula. In most young, healthy individuals the eGFR will be >90 mL/min/1.73m2. The eGFR declines with age. An eGFR of 60-89 may be normal in some populations, particularly the elderly, for whom the CKD-EPI formula has not been extensively validated. Use of the eGFR is not recommended in the following populations: Individuals with unstable creatinine concentrations, including patients and those with serious co-morbid conditions. Patients with extremes in muscle mass or diet. The data above are obtained from the National Kidney Disease Education Program (NKDEP) which additionally recommends that when the eGFR is used in patients with extremes of body mass index for purposes of drug dosing, the eGFR should be multiplied by the estimated BMI. [facility] ELECTROLYTES Total Protein 6.2 g/dL 6.4 - 8.4 01/24/2019 [facility] ELECTROLYTES Chloride Lvl 108 meq/L 95 - 109 01/24/2019 [facility] ELECTROLYTES Creatinine Lvl 1.28 mg/dL 0.50 - 1.40 01/24/2019 [facility] ELECTROLYTES CO2 23 meq/L 24 - 32 01/24/2019 [facility] ELECTROLYTES Calcium Lvl 8.4 mg/dL 8.5 - 10.5 01/24/2019 [facility] ELECTROLYTES Glucose Lvl 90 mg/dL 70 - 99 01/24/2019 [facility] ELECTROLYTES BUN 18 mg/dL 7 - 22 01/24/2019 [facility] ELECTROLYTES Sodium Lvl 139 meq/L 135 - 145 01/24/2019 [facility] ELECTROLYTES Potassium Lvl 4.6 meq/L 3.5 - 5.1 01/24/2019 [facility] HEMATOLOGY RDW 14.0 % 11.5 - 14.5 01/24/2019 [facility] MCH 31.9 pg 27.0 - 31.0 01/24/2019 [facility] MCHC 34.5 g/dL 32.0 - 36.0 01/24/2019 [facility] HEMATOLOGY MCV 92.5 fL 80.0 - 94.0 01/24/2019 [facility] HEMATOLOGY RBC 3.80 M/CMM 4.70 - 6.10 01/24/2019 [facility] HEMATOLOGY Hct 35.1 % 42.0 - 54.0 01/24/2019 [facility] WBC 4.9 K/CMM 3.7 - 10.4 01/24/2019 [facility] Hgb 12.1 g/dL 14.0 - 18.0 01/24/2019 [facility] Platelet 193 K/CMM 133 - 450 01/24/2019 [facility] MPV 7.9 fL 7.4 - 10.4 01/24/2019 [facility] HEMATOLOGY Basophils 0.5 % 0.0 - 1.0 01/24/2019 [facility] HEMATOLOGY Eosinophils 2.1 % 0.0 - 4.0 01/24/2019 [facility] Segs 71.0 % 45.0 - 75.0 01/24/2019 [facility] Lymphocytes 15.6 % 20.0 - 40.0 01/24/2019 [facility] Monocytes 10.8 % 2.0 - 12.0 01/24/2019 [facility] Eosinophils # 0.1 K/CMM 0.0 - 0.5 01/24/2019 [facility] Monocytes # 0.5 K/CMM 0.0 - 0.8 01/24/2019 [facility] HEMATOLOGY Neutrophils # 3.5 K/CMM 1.5 - 8.1 01/24/2019 [facility] Lymphocytes # 0.8 K/CMM 1.0 - 5.5 01/24/2019 [facility] BLOOD BANK RESULTS ABO/Rh A POS 01/23/2019 [facility] BLOOD BANK RESULTS Antibody Scrn Negative (01/23/19 6:45 AM) 01/23/2019 [facility] CARDIAC ENZYMES Troponin-I null 0.00 - 0.40 01/23/2019 [facility] CHEM PANEL Lipase Lvl 820 unit/L 73 - 393 01/23/2019 [facility] CHEM PANEL Magnesium Lvl 2.1 mg/dL 1.8 - 2.4 01/23/2019 [facility] CHEM PANEL eGFR 50 mL/min/1.73m2 01/23/2019 Result Comment: The eGFR is calculated using the CKD-EPI formula. In most young, healthy individuals the eGFR will be >90 mL/min/1.73m2. The eGFR declines with age. An eGFR of 60-89 may be normal in some populations, particularly the elderly, for whom the CKD-EPI formula has not been extensively validated. Use of the eGFR is not recommended in the following populations: Individuals with unstable creatinine concentrations, including patients and those with serious co-morbid conditions. Patients with extremes in muscle mass or diet. The data above are obtained from the National Kidney Disease Education Program (NKDEP) which additionally recommends that when the eGFR is used in patients with extremes of body mass index for purposes of drug dosing, the eGFR should be multiplied by the estimated BMI. [facility] CHEM PANEL Alk Phos 59 unit/L 39 - 136 01/23/2019 [facility] CHEM PANEL Bili Total 0.7 mg/dL 0.2 - 1.3 01/23/2019 [facility] CHEM PANEL Albumin Lvl 3.2 g/dL 3.5 - 5.0 01/23/2019 [facility] CHEM PANEL Total Protein 7.1 g/dL 6.4 - 8.4 01/23/2019 [facility] CHEM PANEL Calcium Lvl 8.7 mg/dL 8.5 - 10.5 01/23/2019 [facility] CHEM PANEL AST 25 unit/L 0 - 37 01/23/2019 [facility] CHEM PANEL ALT 18 unit/L 0 - 65 01/23/2019 [facility] CHEM PANEL Potassium Lvl 4.2 meq/L 3.5 - 5.1 01/23/2019 [facility] CHEM PANEL Sodium Lvl 138 meq/L 135 - 145 01/23/2019 [facility] CHEM PANEL Chloride Lvl 109 meq/L 95 - 109 01/23/2019 [facility] CHEM PANEL CO2 20 meq/L 24 - 32 01/23/2019 [facility] CHEM PANEL Creatinine Lvl 1.30 mg/dL 0.50 - 1.40 01/23/2019 [facility] CHEM PANEL Glucose Lvl 110 mg/dL 70 - 99 01/23/2019 [facility] CHEM PANEL BUN 21 mg/dL 7 - 22 01/23/2019 [facility] CHEM PANEL A/G Ratio 0.8 0.7 - 1.6 01/23/2019 [facility] CHEM PANEL Globulin 3.9 g/dL 2.7 - 4.2 01/23/2019 [facility] CHEM PANEL AGAP 13.2 meq/L 10.0 - 20.0 01/23/2019 [facility] CHEM PANEL B/C Ratio 16 6 - 25 01/23/2019 [facility] HEMATOLOGY Eosinophils 0.9 % 0.0 - 4.0 01/23/2019 [facility] HEMATOLOGY Eosinophils # 0.1 K/CMM 0.0 - 0.5 01/23/2019 [facility] HEMATOLOGY Basophils 0.5 % 0.0 - 1.0 01/23/2019 [facility] URINE AND STOOL UA Urobilinogen <=1.0 mg/dL 0.1 - 1.0 01/23/2019 [facility] URINE AND STOOL UA Mucus Few /LPF None Seen /LPF 01/23/2019 [facility] URINE AND STOOL UA Bacteria Occasional /HPF None Seen /HPF 01/23/2019 [facility] URINE AND STOOL UA RBC 22 /HPF 0 - 2 01/23/2019 [facility] URINE AND STOOL UA Sq Epi Occasional /LPF Few /LPF 01/23/2019 [facility] URINE AND STOOL UA WBC 54 /HPF 0 - 5 01/23/2019 [facility] URINE AND STOOL UA Leuk Est Small *ABN* (01/23/19 6:45 AM) Negative 01/23/2019 [facility] URINE AND STOOL UA Nitrite Negative (01/23/19 6:45 AM) Negative 01/23/2019 [facility] URINE AND STOOL UA Blood Moderate *ABN* (01/23/19 6:45 AM) Negative 01/23/2019 [facility] URINE AND STOOL UA Glucose Negative mg/dL Negative mg/dL 01/23/2019 [facility] URINE AND STOOL UA Protein Negative mg/dL Negative mg/dL 01/23/2019 [facility] URINE AND STOOL UA Bili Negative *NA* (01/23/19 6:45 AM) Negative 01/23/2019 [facility] URINE AND STOOL UA Ketones Negative mg/dL Negative mg/dL 01/23/2019 [facility] URINE AND STOOL UA pH 6.0 5.0 - 8.0 01/23/2019 [facility] URINE AND STOOL UA Turbidity Slight *ABN* (01/23/19 6:45 AM) Clear 01/23/2019 [facility] URINE AND STOOL UA Spec Grav 1.014 <=1.030 01/23/2019 [facility] URINE AND STOOL UA Color Yellow *NA* (01/23/19 6:45 AM) Yellow 01/23/2019 [facility] Culture: Urine 50,000 - 100,000 CFU/mL Staphylococcus Species, Not S. aureus If Identification Or Sensitivity Required, contact Microbiology At [phone] Within 48 Hours. 01/23/2019 [facility] Gallbladder scan HIDA wo meds NM Gallbladder scan HIDA wo meds NM Study: Gallbladder scan HIDA wo meds NM 01/23/2019 11:06 CDT Patient Name: EDWARD NORMAN MR: [id number] : 1935; Age: 83 years y/o Male Ordering Physician: Alex Seymour MD Clinical Indication: Right upper abdominal quadrant pain. Comparison: CT abdomen and pelvis 01/23/2019. TECHNIQUE: Hepatobiliary scan was performed using 5.7 mCi of Tc-99m Choletec administered intravenously. IV Site: Left Antecubital Static imaging was performed over 60 minutes at 5 minute intervals in the frontal plane beginning 5 minutes after radiotracer administration. FINDINGS: Prompt radiotracer visualization is seen within the liver, bile ducts, and small bowel. Gallbladder filling is first noted at 15 minutes past radiotracer injection. IMPRESSION: Normal hepatobiliary scan demonstrating radiotracer in the gallbladder, biliary system, and small bowel. SL: [id number] 01/23/2019 - - Read by: Kale Olvera MD Dictated Date/time: 01/23/19 12:44 Electronically Signed by: Kale Olvera MD 01/23/19 12:46 FINAL REPORT [facility] Abdomen RUQ US Abdomen RUQ US Patient Name: EDWARD NORMAN : 1935; Age: 83 years Male MR: [id number] Study: Abdomen RUQ US 01/23/2019 6:33 CDT CLINICAL INDICATION: - Abdominal pain COMPARISON: Ultrasound and CT on 01/11/2019 TECHNIQUE: Grayscale and limited color sonographic evaluation of the right upper quadrant of the abdomen and gallbladder region was performed with standard technique. FINDINGS: Liver: The liver demonstrates normal echogenicity and is normal in size, measuring 14.6 cm. No focal liver lesion identified. The main portal vein demonstrates normal hepatopedal flow. Gallbladder: Few echogenic and shadowing stones. Hypoechoic lesion (1.3 x 1.3 x 1.5 cm) within the gallbladder fundus. No distention, wall thickening, or pericholecystic fluid. Biliary: No intra or extrahepatic biliary ductal dilatation. The common bile duct measures 0.5 cm. Pancreas: The visualized portions of the pancreatic body are unremarkable. Kidney: The right kidney measures 11.6 cm in length. Normal renal echogenicity without evidence of hydronephrosis. Multiple anechoic cysts within the right kidney, the largest measuring 3.2 cm. Aorta and IVC: The visualized portions are unremarkable. No evidence of free fluid. IMPRESSION: Cholelithiasis. Hypoechoic lesion (1.3 x 1.3 x 1.5 cm) within the gallbladder fundus, not significantly changed since 01/11/2019, and likely related to focal adenomyomatosis. Multiple stable right renal cysts. SL: [id number] 01/23/2019 - - Read by: Sergio Wilson MD Dictated Date/time: 01/23/19 09:05 Electronically Signed by: Sergio Wilson MD 01/23/19 09:08 FINAL REPORT [facility] ED Abdomen/Pelvis IV contrast only CT ED Abdomen/Pelvis IV contrast only CT EXAM: CT ABDOMEN PELVIS WITH CONTRAST CLINICAL INDICATION: 83 years old Male with abdominal pain, nausea, vomiting, history of gallbladder issues. TECHNIQUE: GI CONTRAST: None. IV CONTRAST: 100 cc of Omnipaque-300 Axial post-contrast images were obtained from the lower chest to the symphysis pubis. Coronal and sagittal reconstruction images were performed. CT imaging performed at this location utilizes radiation dose optimization techniques which include one or more of the following: -Automated exposure control -Adjustment of the mA and/or kV according to patient size -Use of iterative reconstruction technique CT Radiation Dose DLP 1293.86 mGy-cm COMPARISON: CT abdomen/pelvis 01/11/2019 FINDINGS: LOWER CHEST: Mild dependent atelectasis in the bilateral lung bases. Coronary artery calcifications. SOLID ORGANS: No focal hepatic lesion or intrahepatic biliary ductal dilatation is seen. Calcified gallstones noted. No gallbladder wall thickening or pericholecystic fluid. The spleen, pancreas, and adrenal glands are normal in appearance. Both kidneys demonstrate normal corticomedullary phase of enhancement. No renal/ureteral calculus, hydronephrosis, or mass is apparent. Bilateral renal cysts; the largest measures 12.2 cm in the left upper pole. Nonspecific bilateral perinephric stranding. BOWEL: Prior right hemicolectomy. The small bowel and colon are normal in caliber without wall thickening. Sigmoid diverticulosis without evidence of acute diverticulitis. PERITONEUM: No free intraperitoneal fluid or air. Small fat-containing left inguinal hernia. RETROPERITONEUM: Normal caliber of the abdominal aorta is noted. Atherosclerotic ossifications throughout the aorta. Redemonstration of bulky retroperitoneal lymphadenopathy, not significantly changed from the prior exam. Largest lymph node conglomerate noted in the left periaortic region measuring 4.6 x 3.5 cm. PELVIS: Prior cystoproctectomy with right lower quadrant ileal conduit. Redemonstration of peristomal hernia with multiple small bowel loops, though without evidence of obstruction. MUSCULOSKELETAL: No acute osseous abnormality is seen. No destructive lytic or blastic osseous lesion is noted. Degenerative changes in the spine. IMPRESSION: 1. Redemonstration of upper abdominal retroperitoneal lymphadenopathy, not significantly changed from the prior exam. 2. Cholelithiasis without evidence of significant gallbladder inflammatory changes. 3. Bilateral renal cysts. 4. Sigmoid diverticulosis without evidence of acute diverticulitis. 5. Atherosclerosis. 6. Post surgical changes of right hemicolectomy and cystoprostatectomy with ileal conduit formation. Small bowel containing parastomal hernia without evidence of obstruction. SL: [id number] 01/23/2019 - - Read by: Taryn Serna MD Dictated Date/time: 01/23/19 08:56 Electronically Signed by: Taryn Serna MD 01/23/19 09:08 FINAL REPORT [facility] URINE AND STOOL UA pH >=9.0 *ABN* (01/12/19 7:48 AM) 5.0 - 8.0 01/12/2019 [facility] URINE AND STOOL UA Turbidity Marked *ABN* (01/12/19 7:48 AM) Clear 01/12/2019 [facility] URINE AND STOOL UA Color Ltyellow 01/12/2019 [facility] URINE AND STOOL UA Spec Grav 1.011 <=1.030 01/12/2019 [facility] URINE AND STOOL UA RBC 3 /HPF 0 - 2 01/12/2019 [facility] URINE AND STOOL UA Bacteria Moderate /HPF None Seen /HPF 01/12/2019 [facility] URINE AND STOOL UA [place] Yeast Occasional /HPF None Seen /HPF 01/12/2019 [facility] URINE AND STOOL UA Mucus Moderate /LPF None Seen /LPF 01/12/2019 [facility] URINE AND STOOL UA Urobilinogen <=1.0 mg/dL 0.1 - 1.0 01/12/2019 [facility] URINE AND STOOL UA Blood Negative (01/12/19 7:48 AM) Negative 01/12/2019 [facility] URINE AND STOOL UA Sq Epi Occasional /LPF Few /LPF 01/12/2019 [facility] URINE AND STOOL UA Leuk Est Small *ABN* (01/12/19 7:48 AM) Negative 01/12/2019 [facility] URINE AND STOOL UA Glucose Negative *NA* (01/12/19 7:48 AM) Negative 01/12/2019 [facility] URINE AND STOOL UA Protein Negative (01/12/19 7:48 AM) Negative 01/12/2019 [facility] URINE AND STOOL UA Bili Negative *NA* (01/12/19 7:48 AM) Negative 01/12/2019 [facility] URINE AND STOOL UA Ketones Negative *NA* (01/12/19 7:48 AM) Negative 01/12/2019 [facility] URINE AND STOOL UA WBC 12 /HPF 0 - 5 01/12/2019 [facility] URINE AND STOOL UA Nitrite Positive *ABN* (01/12/19 7:48 AM) Negative 01/12/2019 [facility] Culture: Urine Specimen contains 3 or more potential pathogens; recommend correlation with urinalysis; if catheterized specimen recommend removal and recollection. If clinical situation warrants please call the laboratory for further testing. [place] [facility] [phone]. 01/12/2019 [facility] CHEM PANEL eGFR 51 mL/min/1.73m2 01/12/2019 Result Comment: The eGFR is calculated using the CKD-EPI formula. In most young, healthy individuals the eGFR will be >90 mL/min/1.73m2. The eGFR declines with age. An eGFR of 60-89 may be normal in some populations, particularly the elderly, for whom the CKD-EPI formula has not been extensively validated. Use of the eGFR is not recommended in the following populations: Individuals with unstable creatinine concentrations, including patients and those with serious co-morbid conditions. Patients with extremes in muscle mass or diet. The data above are obtained from the National Kidney Disease Education Program (NKDEP) which additionally recommends that when the eGFR is used in patients with extremes of body mass index for purposes of drug dosing, the eGFR should be multiplied by the estimated BMI. [facility] CHEM PANEL BUN 14 mg/dL 7 - 22 01/12/2019 [facility] CHEM PANEL Creatinine Lvl 1.28 mg/dL 0.50 - 1.40 01/12/2019 [facility] CHEM PANEL CO2 24 meq/L 24 - 32 01/12/2019 [facility] CHEM PANEL Potassium Lvl 4.3 meq/L 3.5 - 5.1 01/12/2019 [facility] CHEM PANEL Sodium Lvl 138 meq/L 135 - 145 01/12/2019 [facility] CHEM PANEL Glucose Lvl 105 mg/dL 70 - 99 01/12/2019 [facility] CHEM PANEL Chloride Lvl 109 meq/L 95 - 109 01/12/2019 [facility] CHEM PANEL Calcium Lvl 8.6 mg/dL 8.5 - 10.5 01/12/2019 [facility] CHEM PANEL AGAP 9.3 meq/L 10.0 - 20.0 01/12/2019 [facility] Lymphocytes # 0.9 K/CMM 1.0 - 5.5 01/12/2019 [facility] HEMATOLOGY Eosinophils # 0.1 K/CMM 0.0 - 0.5 01/12/2019 [facility] Monocytes # 0.7 K/CMM 0.0 - 0.8 01/12/2019 [facility] Lymphocytes 14.9 % 20.0 - 40.0 01/12/2019 [facility] Segs 71.6 % 45.0 - 75.0 01/12/2019 [facility] HEMATOLOGY Eosinophils 1.4 % 0.0 - 4.0 01/12/2019 [facility] Monocytes 11.6 % 2.0 - 12.0 01/12/2019 [facility] Neutrophils # 4.4 K/CMM 1.5 - 8.1 01/12/2019 [facility] Basophils 0.5 % 0.0 - 1.0 01/12/2019 [facility] MPV 7.6 fL 7.4 - 10.4 01/12/2019 [facility] Platelet 191 K/CMM 133 - 450 01/12/2019 [facility] WBC 6.2 K/CMM 3.7 - 10.4 01/12/2019 [facility] RBC 4.13 M/CMM 4.70 - 6.10 01/12/2019 [facility] Hgb 12.9 g/dL 14.0 - 18.0 01/12/2019 [facility] Hct 38.1 % 42.0 - 54.0 01/12/2019 [facility] MCV 92.2 fL 80.0 - 94.0 01/12/2019 [facility] MCH 31.3 pg 27.0 - 31.0 01/12/2019 [facility] MCHC 34.0 g/dL 32.0 - 36.0 01/12/2019 [facility] RDW 14.0 % 11.5 - 14.5 01/12/2019 [facility] CHEM PANEL Lipase Lvl 215 unit/L 73 - 393 01/11/2019 [facility] CHEM PANEL eGFR 49 mL/min/1.73m2 01/11/2019 Result Comment: The eGFR is calculated using the CKD-EPI formula. In most young, healthy individuals the eGFR will be >90 mL/min/1.73m2. The eGFR declines with age. An eGFR of 60-89 may be normal in some populations, particularly the elderly, for whom the CKD-EPI formula has not been extensively validated. Use of the eGFR is not recommended in the following populations: Individuals with unstable creatinine concentrations, including patients and those with serious co-morbid conditions. Patients with extremes in muscle mass or diet. The data above are obtained from the National Kidney Disease Education Program (NKDEP) which additionally recommends that when the eGFR is used in patients with extremes of body mass index for purposes of drug dosing, the eGFR should be multiplied by the estimated BMI. [facility] CHEM PANEL ALT 19 unit/L 0 - 65 01/11/2019 [facility] CHEM PANEL Albumin Lvl 3.7 g/dL 3.5 - 5.0 01/11/2019 [facility] CHEM PANEL AST 26 unit/L 0 - 37 01/11/2019 [facility] CHEM PANEL Alk Phos 72 unit/L 39 - 136 01/11/2019 [facility] CHEM PANEL Bili Total 0.5 mg/dL 0.2 - 1.3 01/11/2019 [facility] CHEM PANEL Potassium Lvl 4.1 meq/L 3.5 - 5.1 01/11/2019 [facility] CHEM PANEL Calcium Lvl 9.2 mg/dL 8.5 - 10.5 01/11/2019 [facility] CHEM PANEL Total Protein 8.1 g/dL 6.4 - 8.4 01/11/2019 [facility] CHEM PANEL Sodium Lvl 134 meq/L 135 - 145 01/11/2019 [facility] CHEM PANEL Chloride Lvl 105 meq/L 95 - 109 01/11/2019 [facility] CHEM PANEL CO2 27 meq/L 24 - 32 01/11/2019 [facility] CHEM PANEL BUN 16 mg/dL 7 - 22 01/11/2019 [facility] CHEM PANEL Glucose Lvl 99 mg/dL 70 - 99 01/11/2019 [facility] CHEM PANEL Creatinine Lvl 1.31 mg/dL 0.50 - 1.40 01/11/2019 [facility] CHEM PANEL Globulin 4.4 g/dL 2.7 - 4.2 01/11/2019 [facility] CHEM PANEL A/G Ratio 0.8 0.7 - 1.6 01/11/2019 [facility] CHEM PANEL B/C Ratio 12 6 - 25 01/11/2019 [facility] CHEM PANEL AGAP 6.1 meq/L 10.0 - 20.0 01/11/2019 [facility] HEMATOLOGY Neutrophils # 5.6 K/CMM 1.5 - 8.1 01/11/2019 [facility] HEMATOLOGY Monocytes # 0.7 K/CMM 0.0 - 0.8 01/11/2019 [facility] HEMATOLOGY Lymphocytes # 0.9 K/CMM 1.0 - 5.5 01/11/2019 [facility] HEMATOLOGY Segs 76.0 % 45.0 - 75.0 01/11/2019 [facility] HEMATOLOGY Monocytes 9.8 % 2.0 - 12.0 01/11/2019 [facility] HEMATOLOGY Lymphocytes 12.7 % 20.0 - 40.0 01/11/2019 [facility] HEMATOLOGY Eosinophils 1.1 % 0.0 - 4.0 01/11/2019 [facility] HEMATOLOGY Basophils 0.4 % 0.0 - 1.0 01/11/2019 [facility] HEMATOLOGY Eosinophils # 0.1 K/CMM 0.0 - 0.5 01/11/2019 [facility] HEMATOLOGY RDW 14.1 % 11.5 - 14.5 01/11/2019 [facility] HEMATOLOGY Platelet 220 K/CMM 133 - 450 01/11/2019 [facility] HEMATOLOGY MPV 8.1 fL 7.4 - 10.4 01/11/2019 [facility] HEMATOLOGY MCHC 33.4 g/dL 32.0 - 36.0 01/11/2019 [facility] MCV 93.4 fL 80.0 - 94.0 01/11/2019 [facility] MCH 31.2 pg 27.0 - 31.0 01/11/2019 [facility] Hct 42.5 % 42.0 - 54.0 01/11/2019 [facility] Hgb 14.2 g/dL 14.0 - 18.0 01/11/2019 [facility] RBC 4.55 M/CMM 4.70 - 6.10 01/11/2019 [facility] WBC 7.4 K/CMM 3.7 - 10.4 01/11/2019 [facility] Abdomen RUQ US Abdomen RUQ US Patient Name: EDWARD NORMAN : 1935; Age: 83 years y/o Male MR: [id number] Study: Abdomen RUQ US 01/11/2019 14:33 CDT Ordering Physician: Pierre Ventura Clinical Indication: - abd pain. Comparison: None TECHNIQUE: Grayscale and limited color sonographic evaluation of the right upper quadrant abdomen was performed with standard technique. FINDINGS: LIVER: The visualized liver shows normal contour, size, and morphology with normal parenchymal echo texture. BILE DUCTS: The common bile duct measures about 4.4 mm. GALLBLADDER: No definite gallstones. Nonspecific complex area is present within the gallbladder fundus may represent focal adenomyomatosis or gallbladder malignancy. PANCREAS: The visualized pancreas appears unremarkable. KIDNEY: The right kidney measures 10.7 cm x 5.9 cm x 7.3 cm. A 3.0 cm x 3.6 x 2.7 cm and 2.1 cm x 2.3 cm x 2.2 cm lateral right renal cysts are present. IMPRESSION: 1. No definite gallstones. Nonspecific complex area is present within the gallbladder fundus may represent focal adenomyomatosis or gallbladder malignancy. Dedicated contrast-enhanced CT or MRI abdomen can be performed for further evaluation. 2. A 3.0 cm x 3.6 x 2.7 cm and 2.1 cm x 2.3 cm x 2.2 cm lateral right renal cysts are present. SL: [id number] 01/11/2019 - - Read by: Kevan Finney MD Dictated Date/time: 01/11/19 16:00 Electronically Signed by: Kevan Finney MD 01/11/19 16:05 FINAL REPORT [facility] ED Abdomen/Pelvis IV contrast only CT ED Abdomen/Pelvis IV contrast only CT Clinical Indication: - abd pain. Right upper quadrant abdominal pain, nausea, vomiting Comparison: None TECHNIQUE: Helical imaging was performed from the diaphragm through the symphysis with multiplanar reformations obtained. IV CONTRAST: 100 mL Omnipaque 300 GI CONTRAST: None CT imaging performed at this location utilizes radiation dose optimization techniques which include one or more of the following: -Automated exposure control -Adjustment of the mA and/or kV according to patient size -Use of iterative reconstruction technique CT Radiation Dose DLP 1280 mGy-cm FINDINGS: LUNG BASES: Distal aspect of cardiac pacer device is seen at the right atrium and right ventricle. There are coronary artery calcifications. HEPATOBILIARY: The liver is normal. There is a calcified gallstone. SPLEEN: The spleen enhances normally. PANCREAS: The pancreas enhances normally. ADRENAL GLANDS: The adrenal glands are normal. KIDNEYS: The kidneys enhance symmetrically. There is mild symmetric fullness of the bilateral renal collecting systems and bilateral ureters and the level of the ileal conduit. There are bilateral renal cortical cysts some which may demonstrate thin, barely perceptible internal septation. BOWEL: Small sliding hiatal hernia. Small bowel loops are fluid-filled but normal in caliber. There are postsurgical changes of right hemicolectomy. There is sigmoid diverticulosis. RETROPERITONEUM/PERITONEUM: There is no free fluid. No free air. LYMPH NODES: There is lymphadenopathy in the abdomen. Bulky retroperitoneal lymph nodes are seen measuring up to 3.2 cm in short axis. Necrotic appearing pericaval node measures 1.7 cm short axis (2, 32). Poorly enhancing peripancreatic node measures 1.7 cm (2, 27). There are suspicious retrocrural and periaortic nodes at the lower chest/upper abdomen. VASCULATURE: Atheromatous changes are present within the aorta without aneurysm. PELVIS: There are postsurgical changes of cystoprostatectomy. There is a right lower quadrant ileal conduit and urostomy. There is a parastomal hernia containing small bowel loops. MUSCULOSKELETAL: Degenerative changes are present in the lumbar spine. There are probable Schmorl's nodes at multiple levels. IMPRESSION: 1. Lymphadenopathy in the upper abdomen is highly suspicious for metastatic disease in this patient with history of cancer. 2. There are postsurgical changes of cystoprostatectomy with right lower quadrant ileal conduit and urostomy. There is a small bowel containing parastomal hernia. No bowel dilatation to suggest obstruction. There are nonspecific fluid- filled loops of normal caliber small bowel. 3. Cholelithiasis without appreciable acute inflammatory changes. 4. Bilateral Bosniak 1 and 2 renal cortical cysts. 5. Diverticulosis SL: CLOTILDE 01/11/2019 - - Read by: Khalida Kelley MD Dictated Date/time: 01/11/19 19:04 Electronically Signed by: Khalida Kelley MD 01/11/19 19:15 FINAL REPORT [facility] PET CT Other Tumor PET CT Other Tumor Patient Name: EDWARD NORMAN : 1935; Age: 83 years Male MR: [id number] Study: PET CT Other Tumor 11/10/2018 15:00 [employer] Clinical Indication: Restaging - C67.9 Malignant neoplasm of bladder, unspecified. Dose: UKV=673.73 mGy*cm , CTDIvol=8.62 mGy COMPARISON: 08/02/[address] TECHNIQUE: Positron emission tomography imaging is performed 45 minutes after intravenous administration of 14.6 mCi of F-18 labeled FDG, from the skull base to the mid thigh region. PET images were reviewed in the axial, coronal and sagittal orthogonal projections. Non-contrast enhanced CT imaging was for performed for attenuation correction, localization and limited diagnostic purposes. INJECTION SITE: Right antecubital Serum glucose: 91 mg/dL. FINDINGS: NECK: Left posterior cervical triangle lymph node measures 1.8 cm versus 1.8 cm, image 55, SUV 8.9 versus 9.1. CHEST: There are no foci of abnormal metabolic activity. Right retrocrural lymph node image 134 measures 1.2 cm versus 1.2 cm, SUV 1.5 versus 1.6. ABDOMEN: Aortocaval lymph node image 155 measures 2.8 cm versus 2.5 cm, SUV 5.1 versus 9.5. Right periaortic lymph node at the level of the right kidney image 166 measures 3.7 cm versus 2.5 cm, SUV 26.4 versus 9.5. Left perinephric lymph node image 165 measures 4.1 cm versus 4.5 cm, SUV 19.7 versus 19.7. New small lymph node at the level of the pancreatic head on image 144 measures 1 cm, SUV 5.4. Numerous bilateral renal cysts. PELVIS: There are no foci of abnormal metabolic activity. Post surgical change to the colon. Small left inguinal hernia. BONES: There are no foci of abnormal metabolic activity. Physiologic F-18 labeled FDG distribution is noted in the brain, heart, liver, spleen, gastrointestinal and genitourinary tracts. IMPRESSION: 1. The majority of lymph nodes have decreased in size and/or activity. The right periaortic activity at the level of the right kidney demonstrates marked increase in size and activity. 2. New lymph node in the region of the pancreatic head. FDG PET is known to show little to no uptake in malignant disease with low metabolic activity including bronchoalveolar carcinoma (renamed adenocarcinoma in situ, minimally invasive adenocarcinoma) or carcinoid. There are studies showing malignant pleural mesothelioma with SUV values ranging from less than 1 to greater than 12 depending on metabolic activity of the tumor. SL: [id number] 11/10/2018 - - Read by: Froilan Lee MD Dictated Date/time: 11/11/18 11:02 Electronically Signed by: Froilan Lee MD 11/11/18 11:18 FINAL REPORT [facility] PET CT Other Tumor PET CT Other Tumor PET CT Other Tumor TECHNIQUE: 16.4 mCis of FDG were administered intravenously and a series of overlapping images were obtained from the skull base to the proximal thighs utilizing a PET/CT hybrid device. The CT was utilized for attenuation correction and anatomic correlation and not as an independent diagnostic study. BLOOD GLUCOSE: 127 mg/dl COMPARISON: 04/16/2018 CLINICAL HISTORY: - Malignant neoplasm of ascending colon; Malignant neoplasm of bladder; FINDINGS: HEAD AND NECK: 1.8 cm left supraclavicular lymph node is unchanged in size from previous PET scan of 03/17/2018. Maximum SUV on the current study is 9.1 on image 37, previously 11.2. CHEST: No abnormal activity is visualized. Stable cardiomegaly. Continued decrease in size of right retrocrural lymph node which now measures 11 mm and demonstrates maximum SUV of 1.6, previously 2.8. Aortocaval lymph node demonstrates maximum SUV on the current study at 9.5, previously 11.7. Lymphadenopathy in the left renal hilum has markedly worsened. The annie mass in this region now measuring approximately 4.8 cm in size. Maximum SUV is 19.7 on image 146, previously 6.7. ABDOMEN AND PELVIS: Postoperative changes related to bladder resection and ileal conduit creation are again noted. MUSCULOSKELETAL: No abnormal activity is visualized IMPRESSION: No new lymphadenopathy is noted on the current study. Majority of the lymph nodes are stable in size and demonstrate mild interval decrease in FDG avidity. However, annie disease at the left renal hilum has markedly worsened with extensive interval increase in metabolic activity. SL:[id number] 08/02/2018 - - Read by: Mynor Malik MD Dictated Date/time: 08/03/18 13:06 Electronically Signed by: Mynor Malik MD 08/03/18 13:26 FINAL REPORT [facility] PET CT Other Tumor PET CT Other Tumor PET CT Other Tumor TECHNIQUE: 15.9 mCis of FDG were administered intravenously and a series of overlapping images were obtained from the skull base to the proximal thighs utilizing a PET/CT hybrid device. The CT was utilized for attenuation correction and anatomic correlation and not as an independent diagnostic study. BLOOD GLUCOSE: 103 mg/dl COMPARISON: 12/09/2017 CLINICAL HISTORY: Restaging - C67.8 Malignant neoplasm of overlapping sites of bladder - TZZ=636.01 mGy*cm , CTDIvol=8.31 mGy; FINDINGS: HEAD AND NECK: Continued increase in metabolic activity in the left supraclavicular lymph node. Maximum SUV on the current study is 11.2 on image 53, previously 9.4. CHEST: No abnormal activity is visualized. ABDOMEN AND PELVIS: Interval decrease in size of right retrocrural lymph node now measuring 1.7cm, previously 2.2 cm. Metabolic activity has markedly decreased in the interim. Maximum SUV on the current study is 2.8, previously 12.1. Right aortocaval lymph node is stable in size but demonstrates mild interval decrease in metabolic activity. Maximum SUV is 11.7 on image 154, previously 13.3. Interval development of new 1.7 cm FDG avid lymph node in the right portacaval region. Maximum SUV is 12.1 on image 148. New left renal hilar lymph node measures approximately 1.9 cm with maximum SUV of 6.7 on image 161. Postoperative changes related to bladder resection and creation of ileal conduit are again noted. Bilateral renal cysts. Cholelithiasis. MUSCULOSKELETAL: No abnormal activity is visualized IMPRESSION: Interval progression of metastatic disease with new lymph nodes noted in the right portacaval and left renal hilar locations. There is significant interval decrease in metabolic activity in the right retrocrural lymph node. Mild increase in metabolic activity in the left supraclavicular lymph node with mild decrease in metabolic activity of the right portacaval lymph node. [id number] 03/17/2018 - - Read by: Mynor Malik MD Dictated Date/time: 03/17/18 13:53 Electronically Signed by: Mynor Malik MD 03/17/18 14:10 FINAL REPORT [facility] PET CT Other Tumor PET CT Other Tumor PET CT Other Tumor TECHNIQUE: 16.3 mCis of FDG were administered intravenously and a series of overlapping images were obtained from the skull base to the proximal thighs utilizing a PET/CT hybrid device. The CT was utilized for attenuation correction and anatomic correlation and not as an independent diagnostic study. BLOOD GLUCOSE: 91 mg/dl COMPARISON: 09/02/2017 CLINICAL HISTORY: restaging - C67.9 Malignant neoplasm of bladder, unspecified - GZF=949.93 mGy*cm , CTDIvol=8.31 mGy; FINDINGS: HEAD AND NECK: Interval increase in metabolic activity of the left supraclavicular lymph node. Maximum SUV on the current study is 9.4, previously 6.4. CHEST: No abnormal activity is visualized. ABDOMEN AND PELVIS: Interval decrease in metabolic activity associated with the right retrocrural lymph nodes. Maximum SUV on the current study is 12.1 on image 133, previously 17.2 Right aortocaval lymph node has mildly increased in size with maximum SUV of 13.3, previously 14.6. Postoperative changes related to bladder resection and ileal conduit are again noted. Physiologic activity is visualized in the solid organs, genitourinary tract and gastrointestinal tract. MUSCULOSKELETAL: No abnormal activity is visualized IMPRESSION: No significant interval change from recent PET scan of 09/02/2017. Some of the FDG avid lymph nodes demonstrate increase in metabolic activity while others demonstrate decrease in metabolic activity. No new focus of abnormal activity is noted on the current study. [id number] 12/09/2017 - - Read by: Mynor Malik MD Dictated Date/time: 12/10/17 07:43 Electronically Signed by: Mynor Malik MD 12/10/17 08:12 FINAL REPORT [facility] PET CT Other Tumor PET CT Other Tumor PET CT Other Tumor TECHNIQUE: 16 mCis of FDG were administered intravenously and a series of overlapping images were obtained from the skull base to the proximal thighs utilizing a PET/CT hybrid device. The CT was utilized for attenuation correction and anatomic correlation and not as an independent diagnostic study. BLOOD GLUCOSE: 99 mg/dl COMPARISON: 06/03/2017 CLINICAL HISTORY: Bladder Ca Restaging--C67.9 Malignant neoplasm of bladder, unspecified - FAI=503.66 mgy-cm, CTDIvol=8.55 mGy; FINDINGS: HEAD AND NECK: Interval decrease in size and metabolic activity of these lymph nodes left base of neck. Maximum SUV on the current study is 4.4, previously 16.3. New 10 mm lymph node is visualized in the left supraclavicular region with maximum SUV of 6.4 and image 51. CHEST: No abnormal activity is visualized. ABDOMEN AND PELVIS: Increase in size and metabolic activity of the right retrocrural lymph nodes. Maximum SUV on the current study is 17.2 on image 136 previously 6.7. Mild increase in size and metabolic activity of the right aortocaval lymph node with maximum SUV on the current study at 14.6, previously 10.9. The previously noted lymph nodes adjacent to the SMA and pancreas have resolved in the interim. Postoperative changes related to bilateral resection and ileal conduit are again noted. Physiologic activity is otherwise noted in the solid organs and the gastrointestinal tract. MUSCULOSKELETAL: No abnormal activity is visualized IMPRESSION: Mixed response with resolution and decrease in metabolic activity of some of the lymph nodes but other lymph nodes demonstrate increase in size and metabolic activity. New FDG avid lymph nodes are visualized in the left supraclavicular region and right retrocrural region. SL:[id number] 09/02/2017 - - Read by: Mynor Malik MD Dictated Date/time: 09/03/17 08:48 Electronically Signed by: Mynor Malik MD 09/03/17 09:09 FINAL REPORT [facility] HEMATOLOGY INR 1.04 0.85 - 1.17 06/27/2017 [facility] HEMATOLOGY PT 13.8 s 12.0 - 14.7 06/27/2017 [facility] CHEM PANEL eGFR 46 mL/min/1.73m2 06/27/2017 Result Comment: The eGFR is calculated using the CKD-EPI formula. In most young, healthy individuals the eGFR will be >90 mL/min/1.73m2. The eGFR declines with age. An eGFR of 60-89 may be normal in some populations, particularly the elderly, for whom the CKD-EPI formula has not been extensively validated. Use of the eGFR is not recommended in the following populations: Individuals with unstable creatinine concentrations, including patients and those with serious co-morbid conditions. Patients with extremes in muscle mass or diet. The data above are obtained from the National Kidney Disease Education Program (NKDEP) which additionally recommends that when the eGFR is used in patients with extremes of body mass index for purposes of drug dosing, the eGFR should be multiplied by the estimated BMI. [facility] CHEM PANEL Calcium Lvl 8.9 mg/dL 8.5 - 10.5 06/27/2017 [facility] CHEM PANEL CO2 22 meq/L 24 - 32 06/27/2017 [facility] CHEM PANEL Chloride Lvl 107 meq/L 95 - 109 06/27/2017 [facility] CHEM PANEL Potassium Lvl 4.5 meq/L 3.5 - 5.1 06/27/2017 [facility] CHEM PANEL Sodium Lvl 137 meq/L 135 - 145 06/27/2017 [facility] CHEM PANEL Creatinine Lvl 1.40 mg/dL 0.50 - 1.40 06/27/2017 [facility] CHEM PANEL BUN 24 mg/dL 7 - 22 06/27/2017 [facility] CHEM PANEL Glucose Lvl 96 mg/dL 70 - 99 06/27/2017 [facility] CHEM PANEL AGAP 12.5 meq/L 10.0 - 20.0 06/27/2017 [facility] CHEM PANEL Phosphorus 3.2 mg/dL 2.5 - 4.5 06/27/2017 [facility] CHEM PANEL Magnesium Lvl 2.2 mg/dL 1.8 - 2.4 06/27/2017 [facility] HEMATOLOGY Monocytes # 0.6 K/CMM 0.0 - 0.8 06/27/2017 [facility] HEMATOLOGY Lymphocytes # 1.1 K/CMM 1.0 - 5.5 06/27/2017 [facility] HEMATOLOGY Segs-Bands # 4.1 K/CMM 1.5 - 8.1 06/27/2017 [facility] HEMATOLOGY Eosinophils # 0.1 K/CMM 0.0 - 0.5 06/27/2017 [facility] HEMATOLOGY Eosinophils 1.5 % 0.0 - 4.0 06/27/2017 [facility] HEMATOLOGY Monocytes 10.3 % 2.0 - 12.0 06/27/2017 [facility] HEMATOLOGY Basophils 0.4 % 0.0 - 1.0 06/27/2017 [facility] HEMATOLOGY Segs 69.0 % 45.0 - 75.0 06/27/2017 [facility] Lymphocytes 18.8 % 20.0 - 40.0 06/27/2017 [facility] Hgb 14.6 g/dL 14.0 - 18.0 06/27/2017 [facility] RBC 4.56 M/CMM 4.70 - 6.10 06/27/2017 [facility] MCV 92.8 fL 80.0 - 94.0 06/27/2017 [facility] Hct 42.4 % 42.0 - 54.0 06/27/2017 [facility] MCHC 34.5 g/dL 32.0 - 36.0 06/27/2017 [facility] MCH 32.0 pg 27.0 - 31.0 06/27/2017 [facility] WBC 5.9 K/CMM 3.7 - 10.4 06/27/2017 [facility] MPV 8.2 fL 7.4 - 10.4 06/27/2017 [facility] Platelet 182 K/CMM 133 - 450 06/27/2017 [facility] RDW 14.9 % 11.5 - 14.5 06/27/2017 [facility] CARDIAC ENZYMES CK MB Index 2.2 0.0 - 2.5 06/26/2017 [facility] CARDIAC ENZYMES CK MB 1.8 ng/mL 0.5 - 3.6 06/26/2017 [facility] CARDIAC ENZYMES Troponin-I null 0.00 - 0.40 06/26/2017 [facility] CARDIAC ENZYMES Total CK 82 unit/L 06/26/2017 [facility] CARDIAC ENZYMES CK MB 1.7 ng/mL 0.5 - 3.6 06/26/2017 [facility] CARDIAC ENZYMES CK MB Index 1.7 0.0 - 2.5 06/26/2017 [facility] CARDIAC ENZYMES Troponin-I null 0.00 - 0.40 06/26/2017 [facility] CARDIAC ENZYMES Total CK 98 unit/L 06/26/2017 [facility] CHEM PANEL eGFR 42 mL/min/1.73m2 06/26/2017 Result Comment: The eGFR is calculated using the CKD-EPI formula. In most young, healthy individuals the eGFR will be >90 mL/min/1.73m2. The eGFR declines with age. An eGFR of 60-89 may be normal in some populations, particularly the elderly, for whom the CKD-EPI formula has not been extensively validated. Use of the eGFR is not recommended in the following populations: Individuals with unstable creatinine concentrations, including patients and those with serious co-morbid conditions. Patients with extremes in muscle mass or diet. The data above are obtained from the National Kidney Disease Education Program (NKDEP) which additionally recommends that when the eGFR is used in patients with extremes of body mass index for purposes of drug dosing, the eGFR should be multiplied by the estimated BMI. [facility] CHEM PANEL CO2 21 meq/L 24 - 32 06/26/2017 [facility] CHEM PANEL Calcium Lvl 8.6 mg/dL 8.5 - 10.5 06/26/2017 [facility] CHEM PANEL Sodium Lvl 137 meq/L 135 - 145 06/26/2017 [facility] CHEM PANEL Glucose Lvl 104 mg/dL 70 - 99 06/26/2017 [facility] CHEM PANEL Potassium Lvl 4.5 meq/L 3.5 - 5.1 06/26/2017 [facility] CHEM PANEL Chloride Lvl 106 meq/L 95 - 109 06/26/2017 [facility] CHEM PANEL BUN 24 mg/dL 7 - 22 06/26/2017 [facility] CHEM PANEL Creatinine Lvl 1.50 mg/dL 0.50 - 1.40 06/26/2017 [facility] CHEM PANEL AGAP 14.5 meq/L 10.0 - 20.0 06/26/2017 [facility] HEMATOLOGY Eosinophils # 0.1 K/CMM 0.0 - 0.5 06/26/2017 [facility] HEMATOLOGY Monocytes # 0.7 K/CMM 0.0 - 0.8 06/26/2017 [facility] HEMATOLOGY Segs-Bands # 5.3 K/CMM 1.5 - 8.1 06/26/2017 [facility] HEMATOLOGY Monocytes 9.5 % 2.0 - 12.0 06/26/2017 [facility] HEMATOLOGY Basophils 0.4 % 0.0 - 1.0 06/26/2017 [facility] HEMATOLOGY Lymphocytes # 1.0 K/CMM 1.0 - 5.5 06/26/2017 [facility] HEMATOLOGY Eosinophils 1.6 % 0.0 - 4.0 06/26/2017 [facility] HEMATOLOGY Segs 73.9 % 45.0 - 75.0 06/26/2017 [facility] HEMATOLOGY Lymphocytes 14.6 % 20.0 - 40.0 06/26/2017 [facility] HEMATOLOGY Hct 42.0 % 42.0 - 54.0 06/26/2017 [facility] HEMATOLOGY Hgb 14.3 g/dL 14.0 - 18.0 06/26/2017 [facility] HEMATOLOGY RBC 4.50 M/CMM 4.70 - 6.10 06/26/2017 [facility] HEMATOLOGY WBC 7.2 K/CMM 3.7 - 10.4 06/26/2017 [facility] HEMATOLOGY MPV 8.2 fL 7.4 - 10.4 06/26/2017 [facility] HEMATOLOGY RDW 14.9 % 11.5 - 14.5 06/26/2017 [facility] HEMATOLOGY Platelet 188 K/CMM 133 - 450 06/26/2017 [facility] HEMATOLOGY MCHC 33.9 g/dL 32.0 - 36.0 06/26/2017 [facility] MCH 31.7 pg 27.0 - 31.0 06/26/2017 [facility] HEMATOLOGY MCV 93.4 fL 80.0 - 94.0 06/26/2017 [facility] CARDIAC ENZYMES BNP 23 pg/mL <=100 pg/mL 06/26/2017 [facility] CARDIAC ENZYMES Troponin-I null 0.00 - 0.40 06/26/2017 [facility] CARDIAC ENZYMES CK MB 1.5 ng/mL 0.5 - 3.6 06/26/2017 [facility] CARDIAC ENZYMES Total CK 107 unit/L 12 - 191 06/26/2017 [facility] CARDIAC ENZYMES CK MB Index 1.4 0.0 - 2.5 06/26/2017 [facility] CHEM PANEL Calcium Lvl 8.6 mg/dL 8.5 - 10.5 06/26/2017 [facility] CHEM PANEL Potassium Lvl 3.9 meq/L 3.5 - 5.1 06/26/2017 [facility] CHEM PANEL CO2 23 meq/L 24 - 32 06/26/2017 [facility] CHEM PANEL AGAP 14.9 meq/L 10.0 - 20.0 06/26/2017 [facility] CHEM PANEL Globulin 3.9 g/dL 2.7 - 4.2 06/26/2017 [facility] CHEM PANEL Bili Total 0.3 mg/dL 0.2 - 1.3 06/26/2017 [facility] CHEM PANEL B/C Ratio 16 6 - 25 06/26/2017 [facility] CHEM PANEL A/G Ratio 0.9 0.7 - 1.6 06/26/2017 [facility] CHEM PANEL Glucose Lvl 123 mg/dL 70 - 99 06/26/2017 [facility] CHEM PANEL BUN 27 mg/dL 7 - 22 06/26/2017 [facility] CHEM PANEL Creatinine Lvl 1.70 mg/dL 0.50 - 1.40 06/26/2017 [facility] CHEM PANEL Total Protein 7.6 g/dL 6.4 - 8.4 06/26/2017 [facility] CHEM PANEL ALT 17 unit/L 0 - 65 06/26/2017 [facility] CHEM PANEL Sodium Lvl 139 meq/L 135 - 145 06/26/2017 [facility] CHEM PANEL Chloride Lvl 105 meq/L 95 - 109 06/26/2017 [facility] CHEM PANEL Alk Phos 69 unit/L 39 - 136 06/26/2017 [facility] CHEM PANEL Albumin Lvl 3.7 g/dL 3.5 - 5.0 06/26/2017 [facility] CHEM PANEL AST 17 unit/L 0 - 37 06/26/2017 [facility] CHEM PANEL eGFR 36 mL/min/1.73m2 06/26/2017 Result Comment: The eGFR is calculated using the CKD-EPI formula. In most young, healthy individuals the eGFR will be >90 mL/min/1.73m2. The eGFR declines with age. An eGFR of 60-89 may be normal in some populations, particularly the elderly, for whom the CKD-EPI formula has not been extensively validated. Use of the eGFR is not recommended in the following populations: Individuals with unstable creatinine concentrations, including patients and those with serious co-morbid conditions. Patients with extremes in muscle mass or diet. The data above are obtained from the National Kidney Disease Education Program (NKDEP) which additionally recommends that when the eGFR is used in patients with extremes of body mass index for purposes of drug dosing, the eGFR should be multiplied by the estimated BMI. [facility] HEMATOLOGY MPV 8.3 fL 7.4 - 10.4 06/26/2017 [facility] HEMATOLOGY RDW 14.9 % 11.5 - 14.5 06/26/2017 [facility] Platelet 182 K/CMM 133 - 450 06/26/2017 [facility] MCHC 34.4 g/dL 32.0 - 36.0 06/26/2017 [facility] HEMATOLOGY Hgb 14.1 g/dL 14.0 - 18.0 06/26/2017 [facility] Hct 41.2 % 42.0 - 54.0 06/26/2017 [facility] MCH 32.3 pg 27.0 - 31.0 06/26/2017 [facility] MCV 93.9 fL 80.0 - 94.0 06/26/2017 [facility] WBC 7.4 K/CMM 3.7 - 10.4 06/26/2017 [facility] RBC 4.38 M/CMM 4.70 - 6.10 06/26/2017 [facility] Monocytes # 0.8 K/CMM 0.0 - 0.8 06/26/2017 [facility] Eosinophils # 0.2 K/CMM 0.0 - 0.5 06/26/2017 [facility] Lymphocytes # 1.3 K/CMM 1.0 - 5.5 06/26/2017 [facility] Eosinophils 2.2 % 0.0 - 4.0 06/26/2017 [facility] Basophils 0.6 % 0.0 - 1.0 06/26/2017 [facility] Segs-Bands # 5.1 K/CMM 1.5 - 8.1 06/26/2017 [facility] Monocytes 10.6 % 2.0 - 12.0 06/26/2017 [facility] Segs 68.4 % 45.0 - 75.0 06/26/2017 [facility] Lymphocytes 18.2 % 20.0 - 40.0 06/26/2017 [facility] Chest 1view DX Chest 1view DX Study: Frontal chest x-ray compared to 06/22/17 History: Chest pain Comments: The trachea is midline. The cardiomediastinal silhouette is normal in size. Right chest wall pacemaker and left subclavian Port-A-Cath unchanged No pneumonia. No pleural effusions or pneumothorax. Impression: No acute cardiopulmonary disease. 06/25/2017 - - Read by: Juana Ojeda MD Dictated Date/time: 06/25/17 21:45 Electronically Signed by: Juana Ojeda MD 06/25/17 21:50 FINAL REPORT [facility] 2 views DX Chest 2 views DX Patient Name: EDWARD NORMAN : 1935; Age: 81 years y/o Male MR: [id number] * CHEST, 2 views HISTORY:- Status post PPM/ICD Implantation COMPARISON: Yesterday. CT images through the chest from a PET computed tomography scan of 06/03/2017 were reviewed. TECHNIQUE: Frontal and lateral radiographs of the chest were obtained. FINDINGS: The lungs are clear. There is no pneumothorax. There are no pleural effusions. The heart and pulmonary vasculature are within normal limits. The regional skeleton is unremarkable. The right subclavian dual-lead transvenous pacemaker is stable in position. There is a left IJ single lumen Port-A-Cath which terminates in the upper superior vena cava. IMPRESSION: 1. No active disease. 2. Right subclavian dual-lead transvenous pacemaker in good position. There is no pneumothorax. 3. There is a left IJ single lumen Port-A-Cath which terminates in the upper superior vena cava. SL: [id number] 06/22/2017 - - Read by: Ted De Leon MD Dictated Date/time: 06/22/17 09:32 Electronically Signed by: Ted De Leon MD 06/22/17 09:36 FINAL REPORT [facility] Chest 1 v for Placement DX Chest 1 v for Placement DX Patient Name: EDWARD NORMAN : 1935; Age: 81 years y/o Male MR: [id number] Study: Chest 1 v for Placement DX 06/21/2017 10:52 AM CDT Ordering Physician: MD Idalia Saunders MD Clinical Indication: Line Placement - Status post PPM/ICD Implantation; Comparison: 11/09/2016 Chest one view New pacemaker implant in the right chest wall with leads extending via the subclavian vein into the right atrium and ventricle. No pneumothorax or pleural effusion is evident. The lung somers are clear. Heart size within normal limits. No evidence for congestive heart failure or pulmonary edema. There is a MediPort reservoir within the left anterior chest wall, its catheter entering the jugular vein, and its tip at the SVC as before. IMPRESSION: New pacemaker implant. No pneumothorax, pleural effusion or other acute finding. SL: [id number] 06/21/2017 - - Read by: Lyndon Nixon MD Dictated Date/time: 06/21/17 16:13 Electronically Signed by: Lyndon Nixon MD 06/21/17 16:16 FINAL REPORT [facility] ELECTROLYTES AGAP 14.5 meq/L 10.0 - 20.0 06/21/2017 [facility] ELECTROLYTES eGFR 42 mL/min/1.73m2 06/21/2017 Result Comment: The eGFR is calculated using the CKD-EPI formula. In most young, healthy individuals the eGFR will be >90 mL/min/1.73m2. The eGFR declines with age. An eGFR of 60-89 may be normal in some populations, particularly the elderly, for whom the CKD-EPI formula has not been extensively validated. Use of the eGFR is not recommended in the following populations: Individuals with unstable creatinine concentrations, including patients and those with serious co-morbid conditions. Patients with extremes in muscle mass or diet. The data above are obtained from the National Kidney Disease Education Program (NKDEP) which additionally recommends that when the eGFR is used in patients with extremes of body mass index for purposes of drug dosing, the eGFR should be multiplied by the estimated BMI. [facility] ELECTROLYTES Calcium Lvl 8.7 mg/dL 8.5 - 10.5 06/21/2017 [facility] ELECTROLYTES CO2 23 meq/L 24 - 32 06/21/2017 [facility] ELECTROLYTES Chloride Lvl 106 meq/L 95 - 109 06/21/2017 [facility] ELECTROLYTES Sodium Lvl 139 meq/L 135 - 145 06/21/2017 [facility] ELECTROLYTES Potassium Lvl 4.5 meq/L 3.5 - 5.1 06/21/2017 [facility] ELECTROLYTES Creatinine Lvl 1.50 mg/dL 0.50 - 1.40 06/21/2017 [facility] ELECTROLYTES BUN 19 mg/dL 7 - 22 06/21/2017 [facility] ELECTROLYTES Glucose Lvl 96 mg/dL 70 - 99 06/21/2017 [facility] HEMATOLOGY Eosinophils 1.6 % 0.0 - 4.0 06/21/2017 [facility] HEMATOLOGY Basophils 0.5 % 0.0 - 1.0 06/21/2017 [facility] HEMATOLOGY Monocytes 9.8 % 2.0 - 12.0 06/21/2017 [facility] Lymphocytes 14.6 % 20.0 - 40.0 06/21/2017 [facility] HEMATOLOGY Segs 73.5 % 45.0 - 75.0 06/21/2017 [facility] Monocytes # 0.6 K/CMM 0.0 - 0.8 06/21/2017 [facility] HEMATOLOGY Eosinophils # 0.1 K/CMM 0.0 - 0.5 06/21/2017 [facility] Lymphocytes # 0.9 K/CMM 1.0 - 5.5 06/21/2017 [facility] Segs-Bands # 4.5 K/CMM 1.5 - 8.1 06/21/2017 [facility] INR 0.99 0.85 - 1.17 06/21/2017 [facility] PTT 29.1 s 22.9 - 35.8 06/21/2017 [facility] PT 13.3 s 12.0 - 14.7 06/21/2017 [facility] WBC 6.1 K/CMM 3.7 - 10.4 06/21/2017 [facility] Platelet 176 K/CMM 133 - 450 06/21/2017 [facility] MPV 8.3 fL 7.4 - 10.4 06/21/2017 [facility] MCHC 34.5 g/dL 32.0 - 36.0 06/21/2017 [facility] RDW 14.6 % 11.5 - 14.5 06/21/2017 [facility] Hct 39.8 % 42.0 - 54.0 06/21/2017 [facility] MCV 92.3 fL 80.0 - 94.0 06/21/2017 [facility] MCH 31.8 pg 27.0 - 31.0 06/21/2017 [facility] RBC 4.31 M/CMM 4.70 - 6.10 06/21/2017 [facility] Hgb 13.7 g/dL 14.0 - 18.0 06/21/2017 [facility] PET CT Other Tumor PET CT Other Tumor EXAM: PET CT HISTORY: Bladder cancer, stage IV, restaging. Chemotherapy October 2016. No radiation therapy. COMPARISON: PET/CT 02/25/2017 TECHNIQUE: 15 mCi F-18 FDG given intravenously. Images obtained from the mid skull through the thighs approximately [address] is used for anatomic correlation. Blood sugar 81. DLP 884. CTDIvol 8.56 FINDINGS: New 1.9 cm hypermetabolic lymph node base of the left neck at the level of the left thyroid lobe with SUV of 16.3. The 1.6 cm lymph node right retrocrural region is larger with SUV of 6.7, previously 1.9, image 141. The 2.5 cm aortocaval lymph node is smaller with SUV of 10.9, previously 19.3, images 157-158. The 1 cm lymph node adjacent to the SMA is stable in size with SUV of 1.5, previously 4.3. The necrotic lymph node adjacent to the neck of the pancreas may be slightly smaller without hypermetabolic activity. The remaining exam is stable. IMPRESSION: Mixed response with new metastatic lymph node at the base of the left neck and increased size and hypermetabolic activity of the metastatic node right retrocrural region. The lymph nodes at the aortocaval and SMA region demonstrate treatment response with decreased hypermetabolism. 13 06/03/2017 - - Read by: Rick Thompson MD Dictated Date/time: 06/04/17 07:56 Electronically Signed by: Rick Thompson MD 06/04/17 08:33 FINAL REPORT [facility] PET CT Other Tumor PET CT Other Tumor PET/CT SCAN: HISTORY: Restaging - C67.9 Malignant neoplasm of bladder, unspecified - NYB=210.63 mGy-cm, CTDIvol=8.88 mGy 81-year-old male with bladder carcinoma, restaging. History of colon carcinoma. Last chemotherapy was 0 10/2016. Radical cystectomy and prostatectomy with urostomy. Comparison: PET/CT of 11/28/2016. TECHNIQUE: The patient was injected intravenously with 15.08 mCi of FDG for imaging in the right antecubital fossa. The study was carried out from the skull base to the thighs. CT was utilized for attenuation correction and anatomic correlation. DLP: 917.63 mGy-cm. FINDINGS: 1. Previous small nonspecific lymph node within the superior left mediastinum at the level of the left thyroid lobe posterior to the catheter is unchanged in size with resolution of hypermetabolic activity. Left portacatheter is present. No definite mediastinal or hilar hypermetabolic mass detected. No definite hypermetabolic pulmonary lesion detected. New indeterminate enlarged right and prominent left retrocrural nodes are present without definite corresponding hypermetabolic activity may be reactive or malignant. 2. Gallstone is present. Large exophytic bilateral renal cysts are present. 3. Interval smaller portacaval lymph node and stable size of necrotic enlarged node anterior to the superior neck of the pancreas are present with interval resolution of previous hypermetabolic activity. However, new hypermetabolic aortocaval node adjacent to the baldomero of the diaphragm is present with maximal SUV of 19.3 and left celiac node with maximal SUV of 4.3 compatible with metastatic adenopathy. Stable lower right para-aortic node is unchanged without corresponding hypermetabolic activity. 4. Stable postoperative right hemicolectomy with ileocolic anastomosis. Stable postoperative changes related to cystectomy and urostomy. Small peristomal hernia containing nondistended small bowel loops is similar to prior examination. Moderate sigmoid descending diverticulosis. Small fat-containing left inguinal hernia is present. IMPRESSION: 1. Overall, mixed response to treatment with interval resolution of previous hypermetabolic portacaval lymph node and necrotic enlarged node anterior to the superior neck of the pancreas. However, new hypermetabolic aortocaval node adjacent to the right baldomero of the diaphragm and left celiac node are present compatible with interval additional metastatic adenopathy. 2. New indeterminate enlarged right and prominent left retrocrural nodes are present without definite corresponding hypermetabolic activity may be reactive or malignant. 3. Gallstone. 4. Moderate sigmoid descending diverticulosis. 5. Small fat-containing left inguinal hernia is present. SL: [id number] 02/25/2017 - - Read by: Kevan Finney MD Dictated Date/time: 02/25/17 16:46 Electronically Signed by: Kevan Finney MD 02/25/17 17:07 FINAL REPORT [facility] PET CT Other Tumor PET CT Other Tumor EXAM: PET CT HISTORY: Bladder cancer, stage IV; cystoscopy prostatectomy. Completed chemotherapy last week. No radiation therapy. COMPARISON: PET/CT 08/27/2016 TECHNIQUE: 15 mCi F-18 FDG given intravenously. Images obtained from the mid skull through the thighs approximately [address] is used for anatomic correlation. DLP 85 FINDINGS: HEAD/NECK: New 9 mm hypermetabolic lymph node superior mediastinum at the level of the left thyroid lobe has an SUV of 4.1, image 72. Persistent tracer uptake in the region of the left fossa of Rosenmuller with SUV of 6.6, previously 8.4. ABDOMEN AND PELVIS: Portacaval lymph node is increased in size and metabolic activity with SUV of 13.6, previously 5.8. New hypermetabolic activity within an existing necrotic lymph node adjacent to the neck of the pancreas with SUV of 7.8, image 158. CHEST: No new suspicious activity. BONES: No suspicious activity. IMPRESSION: 1. Progression of disease with increased size and hypermetabolic activity of the portacaval lymph node and new hypermetabolic activity within the existing lymph node adjacent to the pancreas and new hypermetabolic lymph node in the left neck at the level of the thyroid. 2. Decreased tracer activity in the left nasopharynx at the fossa of Rosenmuller. Direct visualization is advised as neoplasm is not excluded. 13 11/28/2016 - - Read by: Rick Thompson MD Dictated Date/time: 11/30/16 13:44 Electronically Signed by: Rick Thompson MD 11/30/16 14:49 FINAL REPORT [facility] CARDIAC ENZYMES Troponin-I 0.02 ng/mL 0.00 - 0.40 11/09/2016 [facility] URINE AND STOOL UA Color Ltyellow 11/09/2016 [facility] URINE AND STOOL UA Urobilinogen <=1.0 mg/dL 0.1 - 1.0 11/09/2016 [facility] URINE AND STOOL UA Bili Negative *NA* (11/09/16 9:57 AM) Negative 11/09/2016 [facility] URINE AND STOOL UA Blood Small *ABN* (11/09/16 9:57 AM) Negative 11/09/2016 [facility] URINE AND STOOL UA Spec Grav 1.016 <=1.030 11/09/2016 [facility] URINE AND STOOL UA pH 7.0 5.0 - 8.0 11/09/2016 [facility] URINE AND STOOL UA Protein Negative mg/dL Negative mg/dL 11/09/2016 [facility] URINE AND STOOL UA Nitrite Negative (11/09/16 9:57 AM) Negative 11/09/2016 [facility] URINE AND STOOL UA Leuk Est Large *ABN* (11/09/16 9:57 AM) Negative 11/09/2016 [facility] URINE AND STOOL UA Sq Epi Occasional /LPF Few /LPF 11/09/2016 [facility] URINE AND STOOL UA WBC 46 /HPF 0 - 5 11/09/2016 [facility] URINE AND STOOL UA RBC 14 /HPF 0 - 2 11/09/2016 [facility] URINE AND STOOL UA Bacteria Occasional /HPF None Seen /HPF 11/09/2016 [facility] URINE AND STOOL UA Ketones Negative mg/dL Negative mg/dL 11/09/2016 [facility] URINE AND STOOL UA Glucose Negative mg/dL Negative mg/dL 11/09/2016 [facility] URINE AND STOOL UA [place] Yeast Occasional /HPF None Seen /HPF 11/09/2016 [facility] URINE AND STOOL UA Turbidity Slight *ABN* (11/09/16 9:57 AM) Clear 11/09/2016 [facility] CHEM PANEL Phosphorus 3.0 mg/dL 2.5 - 4.5 11/09/2016 [facility] CHEM PANEL Magnesium Lvl 1.9 mg/dL 1.8 - 2.4 11/09/2016 [facility] CARDIAC ENZYMES CK MB Index 1.4 0.0 - 2.5 11/09/2016 [facility] CARDIAC ENZYMES Total CK 49 unit/L 12 - 191 11/09/2016 [facility] CARDIAC ENZYMES BNP 20 pg/mL <=100 pg/mL 11/09/2016 [facility] CARDIAC ENZYMES CK MB 0.7 ng/mL 0.5 - 3.6 11/09/2016 [facility] CARDIAC ENZYMES Troponin-I 0.03 ng/mL 0.00 - 0.40 11/09/2016 [facility] CHEM PANEL eGFR 46 mL/min/1.73m2 11/09/2016 Result Comment: The eGFR is calculated using the CKD-EPI formula. In most young, healthy individuals the eGFR will be >90 mL/min/1.73m2. The eGFR declines with age. An eGFR of 60-89 may be normal in some populations, particularly the elderly, for whom the CKD-EPI formula has not been extensively validated. Use of the eGFR is not recommended in the following populations: Individuals with unstable creatinine concentrations, including patients and those with serious co-morbid conditions. Patients with extremes in muscle mass or diet. The data above are obtained from the National Kidney Disease Education Program (NKDEP) which additionally recommends that when the eGFR is used in patients with extremes of body mass index for purposes of drug dosing, the eGFR should be multiplied by the estimated BMI. [facility] CHEM PANEL Sodium Lvl 135 meq/L 135 - 145 11/09/2016 [facility] CHEM PANEL Creatinine Lvl 1.40 mg/dL 0.50 - 1.40 11/09/2016 [facility] CHEM PANEL Potassium Lvl 4.2 meq/L 3.5 - 5.1 11/09/2016 [facility] CHEM PANEL Bili Total 0.4 mg/dL 0.2 - 1.3 11/09/2016 [facility] CHEM PANEL ALT 24 unit/L 0 - 65 11/09/2016 [facility] CHEM PANEL AST 18 unit/L 0 - 37 11/09/2016 [facility] CHEM PANEL Albumin Lvl 3.7 g/dL 3.5 - 5.0 11/09/2016 [facility] CHEM PANEL Chloride Lvl 100 meq/L 95 - 109 11/09/2016 [facility] CHEM PANEL CO2 21 meq/L 24 - 32 11/09/2016 [facility] CHEM PANEL Alk Phos 44 unit/L 39 - 136 11/09/2016 [facility] CHEM PANEL Total Protein 6.9 g/dL 6.4 - 8.4 11/09/2016 [facility] CHEM PANEL Calcium Lvl 8.6 mg/dL 8.5 - 10.5 11/09/2016 [facility] CHEM PANEL AGAP 18.2 meq/L 10.0 - 20.0 11/09/2016 [facility] CHEM PANEL Globulin 3.2 g/dL 2.7 - 4.2 11/09/2016 [facility] CHEM PANEL B/C Ratio 23 6 - 25 11/09/2016 [facility] CHEM PANEL A/G Ratio 1.2 0.7 - 1.6 11/09/2016 [facility] CHEM PANEL Glucose Lvl 93 mg/dL 70 - 99 11/09/2016 [facility] CHEM PANEL BUN 32 mg/dL 7 - 22 11/09/2016 [facility] HEMATOLOGY Segs 67.1 % 45.0 - 75.0 11/09/2016 [facility] HEMATOLOGY Eosinophils 0.4 % 0.0 - 4.0 11/09/2016 [facility] HEMATOLOGY Lymphocytes 25.5 % 20.0 - 40.0 11/09/2016 [facility] HEMATOLOGY Monocytes 6.5 % 2.0 - 12.0 11/09/2016 [facility] HEMATOLOGY Monocytes # 0.3 K/CMM 0.0 - 0.8 11/09/2016 [facility] HEMATOLOGY Segs-Bands # 3.5 K/CMM 1.5 - 8.1 11/09/2016 [facility] HEMATOLOGY Basophils 0.5 % 0.0 - 1.0 11/09/2016 [facility] HEMATOLOGY Lymphocytes # 1.3 K/CMM 1.0 - 5.5 11/09/2016 [facility] HEMATOLOGY PTT 26.1 s 22.9 - 35.8 11/09/2016 [facility] HEMATOLOGY PT 12.6 s 12.0 - 14.7 11/09/2016 [facility] HEMATOLOGY INR 0.92 0.85 - 1.17 11/09/2016 [facility] HEMATOLOGY RBC 3.53 M/CMM 4.70 - 6.10 11/09/2016 [facility] WBC 5.2 K/CMM 3.7 - 10.4 11/09/2016 [facility] Platelet 227 K/CMM 133 - 450 11/09/2016 [facility] MPV 8.9 fL 7.4 - 10.4 11/09/2016 [facility] Hct 34.1 % 42.0 - 54.0 11/09/2016 [facility] Hgb 11.7 g/dL 14.0 - 18.0 11/09/2016 [facility] MCV 96.6 fL 80.0 - 94.0 11/09/2016 [facility] MCH 33.1 pg 27.0 - 31.0 11/09/2016 [facility] MCHC 34.2 g/dL 32.0 - 36.0 11/09/2016 [facility] RDW 17.4 % 11.5 - 14.5 11/09/2016 [facility] Brain wo contrast CT Brain wo contrast CT CT BRAIN WITHOUT CONTRAST INDICATION: Generalized weakness, Weakness ,Patient c/o near syncopal episode. Patient is having chemo last treatment was Wednesday PT has a hx of colon and bladder ca on chemo, CT dose DLP 981.84 mGy-cm COMPARISON: None DISCUSSION: There are generalized involutional changes of the brain and microangiopathic changes of the white matter. There is no evidence of acute vascular insults, space occupying lesions, hemorrhage, hydrocephalus, midline shift, or extra- axial fluid collections. The calvarium is intact. IMPRESSION: Chronic age-related changes of the brain. No acute intracranial abnormalities are visualized. SL:16 11/09/2016 - - Read by: Benny Vargas MD Dictated Date/time: 11/09/16 10:01 Electronically Signed by: Benny Vargas MD 11/09/16 10:02 FINAL REPORT [facility] Chest Pulmonary Embolism CTA Chest Pulmonary Embolism CTA Chest Pulmonary Embolism CTA CLINICAL HX: Shortness of Breath Weakness Pt having SBO hx of ca on chemo R/O PE ,Patient c/o near syncopal episode. Patient is having chemo last treatment was Wednesday PT has a hx of colon and bladder ca on chemo. CT dose DLP 852.67 mGy-cm 75 cc visi GFR 46 CRE 1.4 COMPARISON: Chest one view 11/09/2016 TECHNIQUE: Dynamic imaging of the pulmonary arteries was performed during administration of IV contrast. Reformats performed in sagittal and coronal projections. 3-D reformations were performed on a dedicated workstation. Routine images of the chest are also submitted for review. CT CHEST: PULMONARY ARTERIES: The main pulmonary trunk, right and left main pulmonary arteries and the lobar branches are reasonably well opacified with contrast. No intraluminal filling defect to suggest pulmonary emboli. SUPPORT DEVICES: Left IJ Port-A-Cath terminates in the SVC. LOWER NECK: Subcentimeter nodule left lobe of thyroid gland. LUNGS AND AIRWAYS: Minimal basilar atelectasis. No consolidation, effusion or any significant pulmonary edema. The trachea and the proximal bronchi are patent. CARDIOVASCULAR: Mild cardiomegaly. Coronary artery calcifications.. The aorta demonstrates normal morphology. No evidence for dissection or aneurysm. MEDIASINUM AND GARY: No significant mediastinal or hilar lymphadenopathy. SOFT TISSUE AND BONES: . No significant bony abnormality is noted. ESOPHAGUS AND UPPER ABDOMEN: The esophagus demonstrates normal morphology. Limited images of the upper abdomen reveals a very large cyst arising from the upper pole of left kidney, incompletely visualized. Smaller cyst is visualized in the upper pole of right kidney. Cholelithiasis. IMPRESSION: There is no evidence for pulmonary emboli. Mild cardiomegaly. Coronary artery calcifications. Bilateral renal cysts. Cholelithiasis. SL: [id number] 11/09/2016 - - Read by: Mynor Malik MD Dictated Date/time: 11/09/16 10:37 Electronically Signed by: Mynor Malik MD 11/09/16 10:43 FINAL REPORT [facility] Chest 1view DX Chest 1view DX Chest 1view DX CLINICAL HISTORY:Dizziness COMPARISON: 06/30/2016 FINDINGS: Limited AP portable study. SUPPORT DEVICES: Stable position of left IJ Port-A-Cath. LUNGS: Lungs are reasonably well inflated. No consolidation or any significant effusion. No pneumothorax is evident. CARDIOVASCULAR: Cardiac silhouette size is within normal limits. No pulmonary edema. MEDIASTINUM/GARY: Trachea is midline. No contour abnormality is noted. BONE AND SOFT TISSUES: No significant abnormality is evident. Multiple EKG leads and other wires project over the patient's chest. IMPRESSION: No acute abnormality is noted in the chest. SL: [id number] 11/09/2016 - - Read by: Mynor Malik MD Dictated Date/time: 11/09/16 08:55 Electronically Signed by: Mynor Malik MD 11/09/16 08:56 FINAL REPORT [facility] PET CT Other Tumor PET CT Other Tumor PET CT Other Tumor TECHNIQUE: 14.9 mCis of FDG were administered intravenously and a series of overlapping images were obtained from the skull base to the proximal thighs utilizing a PET/CT hybrid device. The CT was utilized for attenuation correction and anatomic correlation and not as an independent diagnostic study. BLOOD GLUCOSE: 91 mg/dl COMPARISON: PET scan 06/04/2016 Total DLP 872.34 CLINICAL HISTORY: Restaging -- C67.9 Malignant neoplasm of bladder, unspecified; last chemotherapy treatment 08/18/2016. Patient with also previous history of colon cancer. FINDINGS: HEAD AND NECK: Small focus of increased metabolic activity is noted in the nasopharynx in the left fossa of Rosenmuller. This is new from previous scan and demonstrates maximum SUV of 8.4 on image 29. Annie disease noted at the left base of neck has resolved in the interim. CHEST: Interval resolution of FDG avid lymph nodes in the anterior mediastinum. Stable cardiomegaly. Coronary artery calcifications. ABDOMEN AND PELVIS: There is significant interval decrease in the lymphadenopathy in the upper abdomen. Few residual lymph nodes with mild increase in metabolic activity are noted in the portacaval region, maximum SUV of 5.8, previously 16.8. Multiple bilateral renal cysts. Cholelithiasis. Stable postoperative changes related to cystectomy and urostomy. SKELETON: No abnormal activity is visualized IMPRESSION: Annie disease in the neck and chest has resolved in the interim. Annie disease in the upper abdomen has significantly decreased from previous PET scan of 06/04/2016. Few mildly hypermetabolic lymph nodes remain in the portacaval region. New focus of abnormal activity is visualized in the left fossa of Rosenmuller. Differential considerations include neoplasm. ENT consultation for endoscopic evaluation is recommended. SL:[id number] 08/27/2016 - - Read by: Mynor Malik MD Dictated Date/time: 08/28/16 08:43 Electronically Signed by: Mynor Malik MD 08/28/16 09:20 FINAL REPORT [facility] Chest 1view DX Chest 1view DX Patient Name: EDWARD NORMAN : 1935; Age: 80 years y/o Male MR: [id number] Study: Chest 1view DX 06/30/2016 8:34 AM CDT Ordering Physician: Cristy Magallanes MD Clinical Indication: Line Placement; Comparison: 12/18/2015 1 view chest There is a MediPort reservoir in the left chest wall, with the catheter entering the left jugular vein, its tip at the SVC. There is no pneumothorax or pleural effusion. Lungs are clear. Mild cardiomegaly, without overt congestive heart failure or pulmonary edema. IMPRESSION: MediPort catheter in position. No pneumothorax appreciated. SL: [id number] 06/30/2016 - - Read by: Lyndon Nixon MD Dictated Date/time: 06/30/16 09:25 Electronically Signed by: Lyndon Nixon MD 06/30/16 09:26 FINAL REPORT [facility] CHEM PANEL eGFR 45 mL/min/1.73m2 06/25/2016 Result Comment: The eGFR is calculated using the CKD-EPI formula. In most young, healthy individuals the eGFR will be >90 mL/min/1.73m2. The eGFR declines with age. An eGFR of 60-89 may be normal in some populations, particularly the elderly, for whom the CKD-EPI formula has not been extensively validated. Use of the eGFR is not recommended in the following populations: Individuals with unstable creatinine concentrations, including patients and those with serious co-morbid conditions. Patients with extremes in muscle mass or diet. The data above are obtained from the National Kidney Disease Education Program (NKDEP) which additionally recommends that when the eGFR is used in patients with extremes of body mass index for purposes of drug dosing, the eGFR should be multiplied by the estimated BMI. [facility] CHEM PANEL Bili Total 0.2 mg/dL 0.2 - 1.3 06/25/2016 [facility] CHEM PANEL Alk Phos 60 unit/L 39 - 136 06/25/2016 [facility] CHEM PANEL AST 14 unit/L 0 - 37 06/25/2016 [facility] CHEM PANEL Chloride Lvl 106 meq/L 95 - 109 06/25/2016 [facility] CHEM PANEL CO2 26 meq/L 24 - 32 06/25/2016 [facility] CHEM PANEL Calcium Lvl 8.9 mg/dL 8.5 - 10.5 06/25/2016 [facility] CHEM PANEL Total Protein 8.0 g/dL 6.4 - 8.4 06/25/2016 [facility] CHEM PANEL Sodium Lvl 137 meq/L 135 - 145 06/25/2016 [facility] CHEM PANEL Potassium Lvl 4.6 meq/L 3.5 - 5.1 06/25/2016 [facility] CHEM PANEL BUN 28 mg/dL 7 - 22 06/25/2016 [facility] CHEM PANEL Creatinine Lvl 1.44 mg/dL 0.50 - 1.40 06/25/2016 [facility] CHEM PANEL ALT 15 unit/L 0 - 65 06/25/2016 [facility] CHEM PANEL Albumin Lvl 3.8 g/dL 3.5 - 5.0 06/25/2016 [facility] CHEM PANEL Glucose Lvl 99 mg/dL 70 - 99 06/25/2016 [facility] CHEM PANEL B/C Ratio 19 6 - 25 06/25/2016 [facility] CHEM PANEL Globulin 4.2 g/dL 2.7 - 4.2 06/25/2016 [facility] CHEM PANEL AGAP 9.6 meq/L 10.0 - 20.0 06/25/2016 [facility] CHEM PANEL A/G Ratio 0.9 0.7 - 1.6 06/25/2016 [facility] HEMATOLOGY Lymphocytes # 1.0 K/CMM 1.0 - 5.5 06/25/2016 [facility] HEMATOLOGY Segs-Bands # 3.6 K/CMM 1.5 - 8.1 06/25/2016 [facility] HEMATOLOGY Eosinophils # 0.1 K/CMM 0.0 - 0.5 06/25/2016 [facility] HEMATOLOGY Monocytes # 0.5 K/CMM 0.0 - 0.8 06/25/2016 [facility] HEMATOLOGY Eosinophils 2.3 % 0.0 - 4.0 06/25/2016 [facility] HEMATOLOGY Basophils 0.6 % 0.0 - 1.0 06/25/2016 [facility] HEMATOLOGY Monocytes 9.3 % 2.0 - 12.0 06/25/2016 [facility] HEMATOLOGY Lymphocytes 19.3 % 20.0 - 40.0 06/25/2016 [facility] HEMATOLOGY Segs 68.5 % 45.0 - 75.0 06/25/2016 [facility] HEMATOLOGY Hgb 13.7 g/dL 14.0 - 18.0 06/25/2016 [facility] HEMATOLOGY WBC 5.3 K/CMM 3.7 - 10.4 06/25/2016 [facility] HEMATOLOGY Platelet 217 K/CMM 133 - 450 06/25/2016 [facility] MPV 8.7 fL 7.4 - 10.4 06/25/2016 [facility] MCHC 33.8 g/dL 32.0 - 36.0 06/25/2016 [facility] RDW 14.7 % 11.5 - 14.5 06/25/2016 [facility] Hct 40.6 % 42.0 - 54.0 06/25/2016 [facility] MCV 89.1 fL 80.0 - 94.0 06/25/2016 [facility] MCH 30.1 pg 27.0 - 31.0 06/25/2016 [facility] RBC 4.55 M/CMM 4.70 - 6.10 06/25/2016 [facility] Biopsy abdominal mass VR Biopsy abdominal mass VR Patient Name: EDWARD NORMAN : 1935; Age: 80 years y/o Male MR: [id number] PROCEDURE: CT-guided biopsy of right upper quadrant pre caval lymph node. PHYSICIAN PROVIDING SERVICE: Tde De Leon M.D. 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 The patient was referred for biopsy. After review of the PET/CT scan, the lymph node with the most activity was in the right upper quadrant anterior to the inferior vena cava. It was felt that this lymph node would be the most accessible and also provide the highest yield for biopsy. Therefore, it was elected to biopsy this node. SEDATION: Intravenous Versed and fentanyl. 3 mg of Versed and 100 mcg of fentanyl were utilized. "Face to face" sedation time: 22 minutes CONSENT: The procedure, risks, benefits and alternatives were discussed with the patient and his and written informed consent was obtained. IMAGING STUDIES REVIEWED: PET/CT scan of 06/04/2016, computed tomography scan of the abdomen and pelvis without contrast of 05/22/2016. TECHNIQUE: Preliminary CT images were obtained through the upper abdomen with the patient in the prone position. Due to the location of the lesion anterior to the inferior vena cava and posterior to the pancreas, portal structures, and gastric antrum and the hepatic vessels and gallbladder laterally, the only approach was from a posterior lateral aspect. A suitable right posterior lateral lower intercostal location for biopsy was chosen by CT scanning. A generous portion of the right flank was prepped with ChloraPrep and draped. The biopsy skin site was anesthetized with 1% lidocaine. A 17-gauge guide needle was carefully advanced into the periphery of the mass utilizing CT guidance. Repeat CT images demonstrate good position of the needle. Multiple core biopsies were obtained utilizing an 18-gauge Troy-Cut type needle. The specimens were placed in formalin and sent to pathology. Follow-up CT images demonstrate no evidence of significant bleeding or other complication. The patient tolerated the procedure well and suffered no immediate complications. IMPRESSION: CT-guided biopsy of enlarged right upper quadrant precaval lymph node.. SL: [id number] 06/19/2016 - - Read by: Ted De Leon MD Dictated Date/time: 06/19/16 11:24 Electronically Signed by: Ted De Leon MD 06/19/16 11:37 FINAL REPORT [facility] PET CT Tumor imaging-whole body PET CT Tumor imaging-whole body PET CT Tumor imaging-whole body TECHNIQUE: 15.8 mCis of FDG were administered intravenously and a series of overlapping images were obtained from the skull base to the proximal thighs utilizing a PET/CT hybrid device. The CT was utilized for attenuation correction and anatomic correlation and not as an independent diagnostic study. BLOOD GLUCOSE: 96 mg/dl COMPARISON: CT abdomen pelvis, 05/22/2016 CLINICAL HISTORY: C67.9 Malignant neoplasm of bladder, unspecified; C67.8 Malignant neoplasm of overlapping sites of bladder; C67.2 Malignant neoplasm of lateral wall of bladder; PET CT Tumor imaging-whole body FINDINGS: HEAD AND NECK: Mildly enlarged FDG avid lymph nodes are visualized at the left base of neck. Maximum SUV is 5.6 on image 91. CHEST: Additional enlarged FDG avid lymph nodes are visualized in the anterior mediastinum. Maximum SUV is 5.9 on image 113. Mild stable cardiomegaly. ABDOMEN AND PELVIS: Mildly enlarged and FDG avid lymph nodes are noted in the right retrocrural, portacaval, paracaval, aortocaval and left para-aortic locations. Maximum SUV is 16.8 on image 182. No abnormal activity is noted in the liver. Multiple bilateral renal cysts. Cholelithiasis. Postoperative changes related to cystectomy and urostomy are stable from previous study. SKELETON: No abnormal activity is visualized LOWER EXTREMITIES: No abnormal activity is visualized. IMPRESSION: FDG avid lymph nodes are visualized at the base of neck, anterior mediastinum, retrocrural, and retroperitoneal locations as discussed above. Given the patient's history of recent urothelial and colonic malignancies, findings most likely reflect metastatic disease. SL:[id number] 06/04/2016 - - Read by: Mynor Malik MD Dictated Date/time: 06/04/16 16:28 Electronically Signed by: Mynor Malik MD 06/04/16 16:47 FINAL REPORT [facility] Abdomen/Pelvis wo IV contrast CT Abdomen/Pelvis wo IV contrast CT Patient Name: EDWARD NORMAN : 1935; Age: 80 years y/o Male MR: [id number] Study: Abdomen/Pelvis wo IV contrast CT 05/22/2016 9:30 AM CDT Ordering Physician: Ag Mendoza MD Clinical Indication: C67.2 Malignant neoplasm of lateral wall of bladder; Comparison: None TECHNIQUE: Helical imaging was performed diaphragm through the symphysis with multiplanar reformations obtained. FINDINGS: Evaluation is limited due to lack of intravenous contrast. LOWER CHEST: Lung bases are clear. No pleural or pericardial effusion is identified. Coronary artery calcification is seen. Subcentimeter periaortic lymph nodes are again seen with fatty gary, which are nonspecific. SOLID ORGANS: Gallbladder is contracted. Small gallstone is seen. Liver, spleen, pancreas, and bilateral adrenal glands are grossly within normal limits. Bilateral renal cysts are again seen, measuring up to 10.6 cm on the left. There is no hydroureteronephrosis. BOWEL: Large and small bowel is normal in caliber. Colon and small bowel anastomotic staple lines are again seen. Moderate amount stool is seen in the colon. Appendix is normal. PERITONEUM: No intraperitoneal free air is seen. No intraperitoneal free fluid is identified. Mild haziness of the mesenteric fat is again. There has been interval enlargement of peripancreatic and periportal lymph nodes. For example there is a 2.9 cm periportal lymph node (series 3, image 25), previously measuring 1.5 cm. A 2.3 cm lymph node between the IVC and portal vein has increased in size from 1.4 cm. RETROPERITONEUM: 2.2 cm aortocaval lymph node is new since prior examination.. No aortic aneurysm is seen. PELVIS: Urinary bladder is absent. An ileal conduit is again seen in the right lower quadrant. Small parastomal hernia is identified without inflammation or obstruction. MUSCULOSKELETAL: No osseous destructive lesions are seen. IMPRESSION: 1. Bulky periportal and aortocaval lymphadenopathy most likely representing metastatic disease. Findings were discussed with Dr. Mendoza by phone on 05/22/2016 at 10:11 AM. 2. Otherwise no significant interval change compared to prior examination. SL: [id number] 05/22/2016 - - Read by: Román Salvador MD Dictated Date/time: 05/22/16 09:59 Electronically Signed by: Román Salvador MD 05/22/16 10:11 FINAL REPORT [facility] LIPIDS LDL (Calculated) 65 mg/dL <=99 mg/dL 12/19/2015 [facility] LIPIDS Chol 128 mg/dL <=199 mg/dL 12/19/2015 [facility] LIPIDS CHD Risk 4.27 4.00 - 7.30 12/19/2015 [facility] LIPIDS HDL 30 mg/dL >=61 mg/dL 12/19/2015 [facility] LIPIDS VLDL 33 12/19/2015 [facility] LIPIDS Trig 164 mg/dL <=149 mg/dL 12/19/2015 [facility] CARDIAC ENZYMES Total CK 62 unit/L 12 - 191 12/19/2015 [facility] CARDIAC ENZYMES Troponin-I null 0.00 - 0.40 12/19/2015 [facility] CHEM PANEL eGFR 49 mL/min/1.73m2 12/19/2015 Result Comment: The eGFR is calculated using the CKD-EPI formula. In most young, healthy individuals the eGFR will be >90 mL/min/1.73m2. The eGFR declines with age. An eGFR of 60-89 may be normal in some populations, particularly the elderly, for whom the CKD-EPI formula has not been extensively validated. Use of the eGFR is not recommended in the following populations: Individuals with unstable creatinine concentrations, including patients and those with serious co-morbid conditions. Patients with extremes in muscle mass or diet. The data above are obtained from the National Kidney Disease Education Program (NKDEP) which additionally recommends that when the eGFR is used in patients with extremes of body mass index for purposes of drug dosing, the eGFR should be multiplied by the estimated BMI. [facility] CHEM PANEL Creatinine Lvl 1.34 mg/dL 0.50 - 1.40 12/19/2015 [facility] HEMATOLOGY Platelet 195 K/CMM 133 - 450 12/19/2015 [facility] CARDIAC ENZYMES Total CK 65 unit/L 12 - 191 12/18/2015 [facility] CARDIAC ENZYMES Troponin-I null 0.00 - 0.40 12/18/2015 [facility] CARDIAC ENZYMES CK MB Index 1.9 0.0 - 2.5 12/18/2015 [facility] CARDIAC ENZYMES CK MB 1.5 ng/mL 0.5 - 3.6 12/18/2015 [facility] CARDIAC ENZYMES Troponin-I null 0.00 - 0.40 12/18/2015 [facility] CARDIAC ENZYMES Total CK 78 unit/L 12 - 191 12/18/2015 [facility] CHEM PANEL eGFR 45 mL/min/1.73m2 12/18/2015 Result Comment: The eGFR is calculated using the CKD-EPI formula. In most young, healthy individuals the eGFR will be >90 mL/min/1.73m2. The eGFR declines with age. An eGFR of 60-89 may be normal in some populations, particularly the elderly, for whom the CKD-EPI formula has not been extensively validated. Use of the eGFR is not recommended in the following populations: Individuals with unstable creatinine concentrations, including patients and those with serious co-morbid conditions. Patients with extremes in muscle mass or diet. The data above are obtained from the National Kidney Disease Education Program (NKDEP) which additionally recommends that when the eGFR is used in patients with extremes of body mass index for purposes of drug dosing, the eGFR should be multiplied by the estimated BMI. [facility] CHEM PANEL Total Protein 7.7 g/dL 6.4 - 8.4 12/18/2015 [facility] CHEM PANEL Calcium Lvl 8.8 mg/dL 8.5 - 10.5 12/18/2015 [facility] CHEM PANEL A/G Ratio 1.0 0.7 - 1.6 12/18/2015 [facility] CHEM PANEL Bili Total 0.4 mg/dL 0.2 - 1.3 12/18/2015 [facility] CHEM PANEL Alk Phos 62 unit/L 39 - 136 12/18/2015 [facility] CHEM PANEL Globulin 3.9 g/dL 2.0 - 4.0 12/18/2015 [facility] CHEM PANEL B/C Ratio 19 6 - 25 12/18/2015 [facility] CHEM PANEL AGAP 11.7 meq/L 10.0 - 20.0 12/18/2015 [facility] CHEM PANEL ALT 20 unit/L 0 - 65 12/18/2015 [facility] CHEM PANEL Albumin Lvl 3.8 g/dL 3.5 - 5.0 12/18/2015 [facility] CHEM PANEL AST 13 unit/L 0 - 37 12/18/2015 [facility] CHEM PANEL Chloride Lvl 107 meq/L 95 - 109 12/18/2015 [facility] CHEM PANEL CO2 21 meq/L 24 - 32 12/18/2015 [facility] CHEM PANEL Sodium Lvl 135 meq/L 135 - 145 12/18/2015 [facility] CHEM PANEL Creatinine Lvl 1.45 mg/dL 0.50 - 1.40 12/18/2015 [facility] CHEM PANEL Potassium Lvl 4.7 meq/L 3.5 - 5.1 12/18/2015 [facility] CHEM PANEL BUN 28 mg/dL 7 - 22 12/18/2015 [facility] CHEM PANEL Glucose Lvl 94 mg/dL 70 - 99 12/18/2015 [facility] HEMATOLOGY Lymphocytes # 1.0 K/CMM 1.0 - 5.5 12/18/2015 [facility] HEMATOLOGY Segs-Bands # 5.1 K/CMM 1.5 - 8.1 12/18/2015 [facility] HEMATOLOGY Eosinophils # 0.1 K/CMM 0.0 - 0.5 12/18/2015 [facility] HEMATOLOGY Monocytes # 0.6 K/CMM 0.0 - 0.8 12/18/2015 [facility] HEMATOLOGY Lymphocytes 14.7 % 20.0 - 40.0 12/18/2015 [facility] HEMATOLOGY Segs 74.3 % 45.0 - 75.0 12/18/2015 [facility] HEMATOLOGY Eosinophils 0.9 % 0.0 - 4.0 12/18/2015 [facility] HEMATOLOGY Monocytes 9.5 % 2.0 - 12.0 12/18/2015 [facility] HEMATOLOGY Basophils 0.6 % 0.0 - 1.0 12/18/2015 [facility] HEMATOLOGY PTT 29.6 s 22.9 - 35.8 12/18/2015 [facility] HEMATOLOGY PT 13.8 s 12.0 - 14.7 12/18/2015 [facility] HEMATOLOGY INR 1.03 0.85 - 1.17 12/18/2015 [facility] HEMATOLOGY WBC 6.8 K/CMM 3.7 - 10.4 12/18/2015 [facility] HEMATOLOGY RBC 4.89 M/CMM 4.70 - 6.10 12/18/2015 [facility] HEMATOLOGY Hgb 15.0 g/dL 14.0 - 18.0 12/18/2015 [facility] MCH 30.6 pg 27.0 - 31.0 12/18/2015 [facility] MCV 92.1 fL 80.0 - 94.0 12/18/2015 [facility] MCHC 33.2 g/dL 32.0 - 36.0 12/18/2015 [facility] MPV 8.7 fL 7.4 - 10.4 12/18/2015 [facility] Hct 45.0 % 42.0 - 54.0 12/18/2015 [facility] Platelet 235 K/CMM 133 - 450 12/18/2015 [facility] RDW 14.2 % 11.5 - 14.5 12/18/2015 [facility] Chest 1view DX Chest 1view DX Chest 1view DX CLINICAL HISTORY:Chest pain COMPARISON: 08/08/2015 FINDINGS: Limited AP portable study. Lungs are reasonably well inflated. No consolidation, effusion or pneumothorax. Trachea is midline. Cardiomediastinal silhouette is within normal limits. No pulmonary edema. No significant bony abnormality is noted. IMPRESSION: No acute abnormality is noted in the chest. SL: [id number] 12/18/2015 - - Read by: Lyndon Nixon MD Dictated Date/time: 12/18/15 12:14 Electronically Signed by: Lyndon Nixon MD 12/18/15 12:15 FINAL REPORT [facility] Abdomen/Pelvis wo IV contrast CT Abdomen/Pelvis wo IV contrast CT CT Abdomen without Contrast, CT Pelvis without Contrast: TECHNIQUE: Contiguous transaxial images of the abdomen and pelvis were performed from the lung bases to the superior pubic rami without IV or oral contrast. COMPARISON: 06/17/2015 CLINICAL HX: Bladder cancer CT ABDOMEN: Lower Chest: The lung bases are clear. GI Tract: Surgical clips are noted in the right lower abdomen. There is no evidence for free fluid or free air in the abdomen. Tract: Postoperative changes related to cystectomy and urinary diversion are evident. Right lower quadrant ostomy with herniation of a few small bowel loops into the subcutaneous tissues of the abdominal wall, alongside the ostomy. No bowel wall thickening or evidence for obstruction. Multiple bilateral renal cysts similar to previous study. No significant retroperitoneal lymphadenopathy is noted. Abdominal Viscera: Discounting the limitation of lack of IV contrast, no gross abnormality is visualized in the liver, spleen, pancreas, and both adrenals. Cholelithiasis. Vasculature: Extensive aortoiliac atherosclerotic disease. Bone and Soft tissues: No significant bony abnormality is noted. CT PELVIS: Status post cystectomy. Normal size prostate gland. No free fluid is present in the pelvis. IMPRESSION: Changes of cystectomy and urinary diversion are stable from previous study. No hydronephrosis. There is herniation of a few small bowel loops in the subcutaneous tissues adjacent to the ostomy similar to previous study. No evidence to suggest small bowel obstruction. Bilateral renal cysts, unchanged. Cholelithiasis. Extensive aortoiliac atherosclerotic disease. No other significant abnormality is noted on the noncontrast CT of the abdomen or pelvis. SL:13 10/14/2015 - - Read by: Mynor Malik MD Dictated Date/time: 10/14/15 14:45 Electronically Signed by: Mynor Malik MD 10/14/15 15:00 FINAL REPORT [facility] Chest 2 views DX Chest 2 views DX CHEST RADIOGRAPH 2 VIEWS INDICATION: Colon and bladder cancer COMPARISON: Chest radiograph 01/06/2015 FINDINGS: There is no consolidation, pleural effusion, or pneumothorax. There is a calcified granuloma at the right lung base. No suspicious pulmonary nodules are identified. The cardiomediastinal silhouette and pulmonary vasculature are within normal limits. No acute bony abnormalities are seen. IMPRESSION: No acute intrathoracic abnormalities or metastatic disease are visualized. SL: 16 08/08/2015 - - Read by: Benny Vargas MD Dictated Date/time: 08/08/15 13:22 Electronically Signed by: Benny Vargas MD 08/08/15 13:23 FINAL REPORT [facility] Abdomen/Pelvis wo IV contrast CT Abdomen/Pelvis wo IV contrast CT HISTORY: Bladder neoplasm. CT abdomen and pelvis without IV or oral contrast. Comparison CT abdomen and pelvis 10/24/2014. PET CT scan 11/15/2014. FINDINGS: Visualized lung bases are clear. Gallstones incidentally noted. Liver, pancreas, adrenal glands, spleen are otherwise normal. Numerous bilateral renal cysts unchanged from previous. No hydronephrosis. The patient is status post cystectomy and ureteral diversion. Right lower quadrant ostomy with subcutaneous herniation of numerous small bowel loops. There is no bowel distention or obstruction, otherwise. No mesenteric or retroperitoneal adenopathy. Nonenlarged 10 mm right inguinal lymph node. No other pelvic adenopathy.Small left inguinal fat-containing hernia. Degenerative changes are present in the lumbar spine. No discrete lumbar or pelvic bony lesion. IMPRESSION: Status post cystectomy. No hydronephrosis. Numerous stable renal cysts. Cholelithiasis without acute biliary finding. SL:13 06/17/2015 - - Read by: Lyndon Nixon MD Dictated Date/time: 06/17/15 15:51 Electronically Signed by: Lyndon Nixon MD 06/17/15 16:06 FINAL REPORT [facility] Retroperitoneal Complete US Retroperitoneal Complete US BILATERAL RENAL ULTRASOUND: The right kidney is 12.0 cm in length and 5.7 x 5.0 cm in transverse dimension. The left kidney is 11.2 cm in length and 5.9 x 4.4 cm in transverse dimension. There is normal thickness and echogenicity of the renal parenchyma. Multiple bilateral renal cysts are seen, the largest involving the upper pole of the left kidney measuring approximately 12 cm in size. There is a 3.2 cm cyst in the lower pole left kidney and several other smaller cyst in the Small cysts in the right kidney are seen measuring 3.2 cm and 3.4 cm in size. There is no evidence of mass, hydronephrosis, or calculi. Satisfactory qualitative color-flow is demonstrated bilaterally. The bladder has been removed per the history. There is no significant change compared to 01/05/2015. IMPRESSION: No evidence of hydronephrosis or other acute ultrasound abnormalities of the kidneys. SL:13 02/26/2015 - - Read by: Richmond Montemayor MD Dictated Date/time: 02/26/15 14:49 Electronically Signed by: Richmond Montemayor MD 02/26/15 14:54 FINAL REPORT [facility] CHEM PANEL A/G Ratio 1.0 0.7 - 1.6 01/29/2015 [facility] CHEM PANEL AGAP 11.7 meq/L 10.0 - 20.0 01/29/2015 [facility] CHEM PANEL B/C Ratio 12 6 - 25 01/29/2015 [facility] CHEM PANEL Globulin 3.6 g/dL 2.0 - 4.0 01/29/2015 [facility] CHEM PANEL Sodium Lvl 137 meq/L 135 - 145 01/29/2015 [facility] CHEM PANEL Chloride Lvl 106 meq/L 95 - 109 01/29/2015 [facility] CHEM PANEL Potassium Lvl 4.7 meq/L 3.5 - 5.1 01/29/2015 [facility] CHEM PANEL eGFR 43 mL/min/1.73m2 01/29/2015 1Result Comment: The eGFR is calculated using the CKD-EPI formula. In most young, healthy individuals the eGFR will be >90 mL/min/1.73m2. The eGFR declines with age. An eGFR of 60-89 may be normal in some populations, particularly the elderly, for whom the CKD-EPI formula has not been extensively validated. Use of the eGFR is not recommended in the following populations: Individuals with unstable creatinine concentrations, including patients and those with serious co-morbid conditions. Patients with extremes in muscle mass or diet. The data above are obtained from the National Kidney Disease Education Program (NKDEP) which additionally recommends that when the eGFR is used in patients with extremes of body mass index for purposes of drug dosing, the eGFR should be multiplied by the estimated BMI. [facility] CHEM PANEL Albumin Lvl 3.6 g/dL 3.5 - 5.0 01/29/2015 [facility] CHEM PANEL Total Protein 7.2 g/dL 6.4 - 8.4 01/29/2015 [facility] CHEM PANEL ALT 13 unit/L 0 - 65 01/29/2015 [facility] CHEM PANEL AST 8 unit/L 0 - 37 01/29/2015 [facility] CHEM PANEL Bili Total 0.4 mg/dL 0.2 - 1.3 01/29/2015 [facility] CHEM PANEL Alk Phos 55 unit/L 39 - 136 01/29/2015 [facility] CHEM PANEL CO2 24 meq/L 24 - 32 01/29/2015 [facility] CHEM PANEL BUN 18 mg/dL 7 - 22 01/29/2015 [facility] CHEM PANEL Creatinine Lvl 1.5 mg/dL 0.5 - 1.4 01/29/2015 [facility] CHEM PANEL Calcium Lvl 9.0 mg/dL 8.5 - 10.5 01/29/2015 [facility] CHEM PANEL Glucose Lvl 109 mg/dL 70 - 99 01/29/2015 2Interpretive Data: Adult reference range values reflect the clinical guidelines of the [employer] [employer]. [facility] HEMATOLOGY RBC 3.68 M/CMM 4.70 - 6.10 01/29/2015 [facility] HEMATOLOGY Hgb 11.4 g/dL 14.0 - 18.0 01/29/2015 [facility] Hct 34.2 % 42.0 - 54.0 01/29/2015 [facility] MCV 93.0 fL 80.0 - 94.0 01/29/2015 [facility] MCH 30.9 pg 27.0 - 31.0 01/29/2015 [facility] MCHC 33.2 g/dL 32.0 - 36.0 01/29/2015 [facility] RDW 15.2 % 11.5 - 14.5 01/29/2015 [facility] Platelet 217 K/CMM 133 - 450 01/29/2015 [facility] MPV 8.7 fL 7.4 - 10.4 01/29/2015 [facility] WBC 6.1 K/CMM 3.7 - 10.4 01/29/2015 [facility] Segs-Bands # 4.3 K/CMM 1.5 - 8.1 01/29/2015 [facility] Monocytes # 0.6 K/CMM 0.0 - 0.8 01/29/2015 [facility] HEMATOLOGY Lymphocytes # 1.0 K/CMM 1.0 - 5.5 01/29/2015 [facility] Eosinophils # 0.1 K/CMM 0.0 - 0.5 01/29/2015 [facility] Segs 71.4 % 45.0 - 75.0 01/29/2015 [facility] Monocytes 10.0 % 2.0 - 12.0 01/29/2015 [facility] Lymphocytes 16.3 % 20.0 - 40.0 01/29/2015 [facility] HEMATOLOGY Eosinophils 1.8 % 0.0 - 4.0 01/29/2015 [facility] HEMATOLOGY Basophils 0.5 % 0.0 - 1.0 01/29/2015 [facility] THYROID PANEL TSH 1.360 uIU/mL 0.360 - 3.740 01/29/2015 [facility] CHEM PANEL eGFR 47 mL/min/1.73m2 01/09/2015 2Result Comment: The eGFR is calculated using the CKD-EPI formula. In most young, healthy individuals the eGFR will be >90 mL/min/1.73m2. The eGFR declines with age. An eGFR of 60-89 may be normal in some populations, particularly the elderly, for whom the CKD-EPI formula has not been extensively validated. Use of the eGFR is not recommended in the following populations: Individuals with unstable creatinine concentrations, including patients and those with serious co-morbid conditions. Patients with extremes in muscle mass or diet. The data above are obtained from the National Kidney Disease Education Program (NKDEP) which additionally recommends that when the eGFR is used in patients with extremes of body mass index for purposes of drug dosing, the eGFR should be multiplied by the estimated BMI. [facility] CHEM PANEL Glucose Lvl 113 mg/dL 70 - 99 01/09/2015 5Interpretive Data: Adult reference range values reflect the clinical guidelines of the [employer] [employer]. [facility] CHEM PANEL BUN 18 mg/dL 7 - 22 01/09/2015 [facility] CHEM PANEL Sodium Lvl 139 meq/L 135 - 145 01/09/2015 [facility] CHEM PANEL Creatinine Lvl 1.4 mg/dL 0.5 - 1.4 01/09/2015 [facility] CHEM PANEL CO2 21 meq/L 24 - 32 01/09/2015 [facility] CHEM PANEL Chloride Lvl 109 meq/L 95 - 109 01/09/2015 [facility] CHEM PANEL Potassium Lvl 4.0 meq/L 3.5 - 5.1 01/09/2015 [facility] CHEM PANEL Calcium Lvl 7.6 mg/dL 8.5 - 10.5 01/09/2015 [facility] CHEM PANEL AGAP 13.0 meq/L 10.0 - 20.0 01/09/2015 [facility] HEMATOLOGY Segs 75.6 % 45.0 - 75.0 01/09/2015 [facility] HEMATOLOGY Eosinophils 3.4 % 0.0 - 4.0 01/09/2015 [facility] HEMATOLOGY Monocytes 9.2 % 2.0 - 12.0 01/09/2015 [facility] HEMATOLOGY Lymphocytes 11.5 % 20.0 - 40.0 01/09/2015 [facility] HEMATOLOGY Segs-Bands # 4.7 K/CMM 1.5 - 8.1 01/09/2015 [facility] HEMATOLOGY Basophils 0.3 % 0.0 - 1.0 01/09/2015 [facility] HEMATOLOGY Eosinophils # 0.2 K/CMM 0.0 - 0.5 01/09/2015 [facility] HEMATOLOGY Monocytes # 0.6 K/CMM 0.0 - 0.8 01/09/2015 [facility] HEMATOLOGY Lymphocytes # 0.7 K/CMM 1.0 - 5.5 01/09/2015 [facility] HEMATOLOGY WBC 6.2 K/CMM 3.7 - 10.4 01/09/2015 [facility] Platelet 180 K/CMM 133 - 450 01/09/2015 [facility] RDW 14.3 % 11.5 - 14.5 01/09/2015 [facility] MCHC 34.2 g/dL 32.0 - 36.0 01/09/2015 [facility] MCH 32.1 pg 27.0 - 31.0 01/09/2015 [facility] MCV 93.8 fL 80.0 - 94.0 01/09/2015 [facility] Hct 26.9 % 42.0 - 54.0 01/09/2015 [facility] Hgb 9.2 g/dL 14.0 - 18.0 01/09/2015 [facility] RBC 2.87 M/CMM 4.70 - 6.10 01/09/2015 [facility] MPV 8.6 fL 7.4 - 10.4 01/09/2015 [facility] CHEM PANEL BUN 24 mg/dL 7 - 22 01/08/2015 [facility] CHEM PANEL eGFR 51 mL/min/1.73m2 01/08/2015 3Result Comment: The eGFR is calculated using the CKD-EPI formula. In most young, healthy individuals the eGFR will be >90 mL/min/1.73m2. The eGFR declines with age. An eGFR of 60-89 may be normal in some populations, particularly the elderly, for whom the CKD-EPI formula has not been extensively validated. Use of the eGFR is not recommended in the following populations: Individuals with unstable creatinine concentrations, including patients and those with serious co-morbid conditions. Patients with extremes in muscle mass or diet. The data above are obtained from the National Kidney Disease Education Program (NKDEP) which additionally recommends that when the eGFR is used in patients with extremes of body mass index for purposes of drug dosing, the eGFR should be multiplied by the estimated BMI. [facility] CHEM PANEL CO2 20 meq/L 24 - 32 01/08/2015 [facility] CHEM PANEL Calcium Lvl 7.5 mg/dL 8.5 - 10.5 01/08/2015 [facility] CHEM PANEL Chloride Lvl 109 meq/L 95 - 109 01/08/2015 [facility] CHEM PANEL Potassium Lvl 4.0 meq/L 3.5 - 5.1 01/08/2015 [facility] CHEM PANEL Sodium Lvl 137 meq/L 135 - 145 01/08/2015 [facility] CHEM PANEL Creatinine Lvl 1.3 mg/dL 0.5 - 1.4 01/08/2015 [facility] CHEM PANEL Glucose Lvl 81 mg/dL 70 - 99 01/08/2015 6Interpretive Data: Adult reference range values reflect the clinical guidelines of the [employer] [employer]. [facility] CHEM PANEL AGAP 12.0 meq/L 10.0 - 20.0 01/08/2015 [facility] HEMATOLOGY Segs 77.2 % 45.0 - 75.0 01/08/2015 [facility] HEMATOLOGY Lymphocytes 10.7 % 20.0 - 40.0 01/08/2015 [facility] HEMATOLOGY Monocytes 9.4 % 2.0 - 12.0 01/08/2015 [facility] HEMATOLOGY Eosinophils # 0.2 K/CMM 0.0 - 0.5 01/08/2015 [facility] HEMATOLOGY Lymphocytes # 0.7 K/CMM 1.0 - 5.5 01/08/2015 [facility] HEMATOLOGY Segs-Bands # 4.9 K/CMM 1.5 - 8.1 01/08/2015 [facility] HEMATOLOGY Eosinophils 2.4 % 0.0 - 4.0 01/08/2015 [facility] HEMATOLOGY Basophils 0.3 % 0.0 - 1.0 01/08/2015 [facility] HEMATOLOGY Monocytes # 0.6 K/CMM 0.0 - 0.8 01/08/2015 [facility] HEMATOLOGY MPV 8.1 fL 7.4 - 10.4 01/08/2015 [facility] HEMATOLOGY WBC 6.4 K/CMM 3.7 - 10.4 01/08/2015 [facility] RBC 2.68 M/CMM 4.70 - 6.10 01/08/2015 [facility] Hct 25.2 % 42.0 - 54.0 01/08/2015 [facility] HEMATOLOGY Hgb 8.5 g/dL 14.0 - 18.0 01/08/2015 [facility] HEMATOLOGY Platelet 168 K/CMM 133 - 450 01/08/2015 [facility] MCH 31.8 pg 27.0 - 31.0 01/08/2015 [facility] HEMATOLOGY RDW 14.5 % 11.5 - 14.5 01/08/2015 [facility] MCHC 33.9 g/dL 32.0 - 36.0 01/08/2015 [facility] HEMATOLOGY MCV 93.8 fL 80.0 - 94.0 01/08/2015 [facility] ELECTROLYTES AGAP 13.2 meq/L 10.0 - 20.0 01/07/2015 [facility] ELECTROLYTES eGFR 40 mL/min/1.73m2 01/07/2015 4Result Comment: The eGFR is calculated using the CKD-EPI formula. In most young, healthy individuals the eGFR will be >90 mL/min/1.73m2. The eGFR declines with age. An eGFR of 60-89 may be normal in some populations, particularly the elderly, for whom the CKD-EPI formula has not been extensively validated. Use of the eGFR is not recommended in the following populations: Individuals with unstable creatinine concentrations, including patients and those with serious co-morbid conditions. Patients with extremes in muscle mass or diet. The data above are obtained from the National Kidney Disease Education Program (NKDEP) which additionally recommends that when the eGFR is used in patients with extremes of body mass index for purposes of drug dosing, the eGFR should be multiplied by the estimated BMI. [facility] ELECTROLYTES Creatinine Lvl 1.6 mg/dL 0.5 - 1.4 01/07/2015 [facility] ELECTROLYTES Glucose Lvl 93 mg/dL 70 - 99 01/07/2015 7Interpretive Data: Adult reference range values reflect the clinical guidelines of the [place] [employer]. [facility] ELECTROLYTES BUN 33 mg/dL 7 - 22 01/07/2015 [facility] ELECTROLYTES Sodium Lvl 139 meq/L 135 - 145 01/07/2015 [facility] ELECTROLYTES Calcium Lvl 7.2 mg/dL 8.5 - 10.5 01/07/2015 [facility] ELECTROLYTES Potassium Lvl 4.2 meq/L 3.5 - 5.1 01/07/2015 [facility] ELECTROLYTES Chloride Lvl 109 meq/L 95 - 109 01/07/2015 [facility] ELECTROLYTES CO2 21 meq/L 24 - 32 01/07/2015 [facility] HEMATOLOGY Eosinophils # 0.1 K/CMM 0.0 - 0.5 01/07/2015 [facility] HEMATOLOGY Monocytes # 0.8 K/CMM 0.0 - 0.8 01/07/2015 [facility] HEMATOLOGY Segs-Bands # 7.1 K/CMM 1.5 - 8.1 01/07/2015 [facility] HEMATOLOGY Lymphocytes # 0.9 K/CMM 1.0 - 5.5 01/07/2015 [facility] HEMATOLOGY Monocytes 8.9 % 2.0 - 12.0 01/07/2015 [facility] HEMATOLOGY Eosinophils 0.7 % 0.0 - 4.0 01/07/2015 [facility] HEMATOLOGY Basophils 0.1 % 0.0 - 1.0 01/07/2015 [facility] Segs 80.2 % 45.0 - 75.0 01/07/2015 [facility] Lymphocytes 10.1 % 20.0 - 40.0 01/07/2015 [facility] MCV 94.7 fL 80.0 - 94.0 01/07/2015 [facility] MCH 31.9 pg 27.0 - 31.0 01/07/2015 [facility] Hct 26.1 % 42.0 - 54.0 01/07/2015 [facility] Hgb 8.8 g/dL 14.0 - 18.0 01/07/2015 [facility] MPV 8.9 fL 7.4 - 10.4 01/07/2015 [facility] MCHC 33.7 g/dL 32.0 - 36.0 01/07/2015 [facility] Platelet 166 K/CMM 133 - 450 01/07/2015 [facility] RDW 14.9 % 11.5 - 14.5 01/07/2015 [facility] WBC 8.9 K/CMM 3.7 - 10.4 01/07/2015 [facility] RBC 2.75 M/CMM 4.70 - 6.10 01/07/2015 [facility] Chest 2 views DX Chest 2 views DX NAME: EDWARD NORMAN: 1935 SEX: M Ordering Physician: Ag Mendoza Chest 2 views : Jan 06, 2015 03:32:00 PM. CLINICAL INDICATION: Fever. Comparison Examination: 08/23/2012. FINDINGS: Cardiac and mediastinal structures are stable including aortic calcification. Mild reticular opacity in the left lung base likely atelectasis. Right internal jugular catheter tip is in expected region of the SVC. No other focal infiltrate identified within the lungs, no edema, no pleural effusions and no pneumothorax. Degenerative changes are seen about the thoracic spine. SL: 14 01/06/2015 - - Read by: Elias Ríos MD Dictated Date/time: 01/06/15 15:44 Electronically Signed by: Elias Ríos MD 01/06/15 15:45 FINAL REPORT [facility] URINE CHEM U Protein 149.1 mg/dL 01/05/2015 9Interpretive Data: No established reference ranges. [facility] URINE CHEM U Creatinine 250.7 mg/dL 01/05/2015 8Interpretive Data: No established reference ranges. [facility] URINE CHEM U Sodium 32 meq/L 01/05/2015 10Interpretive Data: No established reference ranges. [facility] URINE CHEM U Prot/Creat 0.6 01/05/2015 [facility] HEMATOLOGY Basophils # 0.1 K/CMM 0.0 - 0.2 01/05/2015 [facility] URINE CHEM U Eos None Seen (01/05/15 5:53 AM) None Seen 01/05/2015 [facility] Retroperitoneal limited US Retroperitoneal limited US RETROPERITONEAL LIMITED ULTRASOUND INDICATION: Renal insufficiency COMPARISON: CT abdomen/pelvis 10/24/2014 FINDINGS: The right kidney measures 11 cm in length and the left kidney measures 10.9 cm in length. There is increased renal cortical echogenicity. Two right renal cysts are visible, measuring as large as 2.9 cm. There are three left renal cysts, ranging in size from 3 cm to 11.6 cm. The 3 cm cyst at the interpolar region of the left kidney is mildly complex, containing a few thin septations and possible calcifications. There is no hydronephrosis. No shadowing urolithiasis is identified. The bladder is not visible. IMPRESSION: 1. Increased renal cortical echogenicity suggests medical renal disease. 2. Bilateral renal cysts, measuring as large as 11.6 cm on the left side. There is a mildly complex 3 cm cyst of the interpolar region of the left kidney. SL: 16 01/05/2015 - - Read by: Benny Vargas MD Dictated Date/time: 01/05/15 13:47 Electronically Signed by: Benny Vargas MD 01/05/15 13:53 FINAL REPORT [facility] PTT 36.9 s 22.9 - 35.8 01/04/2015 13Interpretive Data: Heparin Therapeutic Range: 57 - 92 Seconds [facility] PT 16.1 s 12.0 - 14.7 01/04/2015 [facility] INR 1.28 0.85 - 1.17 01/04/2015 11Interpretive Data: RECOMMENDED RANGES FOR PROTIME INR: 2.0-3.0 for most medical and surgical thromboembolic states. 2.5-3.5 for artificial heart valves and recurrent embolism. INR SHOULD BE USED ONLY FOR PATIENTS ON STABLE ANTICOAGULANT THERAPY. [facility] BACTERIAL - SEROLOGY MRSA by PCR Negative 15 (01/03/15 5:54 PM) 01/03/2015 15Interpretive Data: Interpretive Data: The [employer] Light[employer] MRSA assay is a qualitative test for the direct detection of nasal colonization with methicillin-resistant Staphylococcus aureus (MRSA) to aid in the prevention and control of MRSA infections in healthcare settings. A positive result does not indicate an infection or require treatment. A negative result does not exclude colonization or infection. The polymerase chain reaction (PCR) assay detects a proprietary sequence indicative of the integration of the SCCmec cassette into the Staphylococcus aureus chromosome, indicating the presence of MRSA DNA. The assay utilizes FDA cleared IVD reagents. Performance characteristics have been verified by the [facility] within the [facility]. The [facility] is authorized under the Clinical Laboratory Improvement Amendment of 1988 (CLIA-88) to perform high complexity testing. [facility] BLOOD BANK RESULTS Antibody Scrn Negative (01/03/15 7:39 AM) 01/03/2015 [facility] BLOOD BANK RESULTS ABO/Rh A POS 01/03/2015 [facility] BLOOD BANK RESULTS RBC product Product available 1 (01/03/15 7:24 AM) 01/03/2015 1Result Comment: 01/03/2015 08:49 [id number] Notified Maureen 01/03/2015 08:49 AD [facility] HEMATOLOGY PTT 33.9 s 22.9 - 35.8 12/26/2014 14Interpretive Data: Heparin Therapeutic Range: 57 - 92 Seconds [facility] HEMATOLOGY PT 13.2 s 12.0 - 14.7 12/26/2014 [facility] HEMATOLOGY INR 1.00 0.85 - 1.17 12/26/2014 12Interpretive Data: RECOMMENDED RANGES FOR PROTIME INR: 2.0-3.0 for most medical and surgical thromboembolic states. 2.5-3.5 for artificial heart valves and recurrent embolism. INR SHOULD BE USED ONLY FOR PATIENTS ON STABLE ANTICOAGULANT THERAPY. [facility] Abdomen w/wo contrast MRI Abdomen w/wo contrast MRI MR ABDOMEN WITHOUT AND WITH CONTRAST TECHNIQUE: Multiplanar imaging sequences including in- and [id number] imaging was performed. Additionally multiphasic postcontrast imaging after the administration of gadolinium contrast was obtained. HISTORY: Liver lesion on PET/CT, history of colon cancer COMPARISON: PET/CT dated 11/07/2009 and 11/15/2014, noncontrast CT abdomen dated 10/24/2014, and contrast-enhanced MRI dated 09/28/2010 FINDINGS: The ill-defined increased activity in the left hepatic lobe on most recent prior PET/CT relative to the remainder of the background liver activity shows no corresponding abnormality on this exam. There is no liver metastatic disease or enhancing liver mass. The activity described on PET/CT is most compatible with heterogenous background physiologic hepatic activity. There is a tiny 2 mm cyst in the left hepatic lobe which is unchanged since 2010. The liver is otherwise normal. No gallstones. No biliary dilation. The spleen, pancreas, and adrenal glands are normal. Multiple bilateral small and large kidney cysts are again noted. No enhancing renal mass. No hydronephrosis. IMPRESSION: No liver metastatic disease. SL: 16 11/21/2014 - - Read by: Alfie Li MD Dictated Date/time: 11/22/14 10:44 Electronically Signed by: Alfie Li MD 11/22/14 10:59 FINAL REPORT [facility] PET CT Colorectal CA restaging PET CT Colorectal CA restaging PET/CT SCAN: TECHNIQUE: 14.9 mCi of FDG were administered intravenously and a series of overlapping emission images were obtained from the skull base to the proximal thighs utilizing a PET/CT hybrid device. The CT was utilized for attenuation correction and anatomic correlation and not as an independent diagnostic study. BLOOD GLUCOSE: The patient is not diabetic. COMPARISON: 11/07/2009 CLINICAL HX: Recent diagnosis of sarcomatoid urothelial carcinoma of the bladder. Previous diagnosis of colon cancer with partial right colon resection, 2009. FINDINGS: HEAD AND NECK: No abnormal activity is visualized. CHEST: No abnormal activity is visualized. Mild cardiomegaly ABDOMEN AND PELVIS: 10 mm focus of increased metabolic activity is noted in the left lobe of liver, with maximum SUV of 4.8. Activity in the liver is somewhat heterogeneous with other scattered areas demonstrating mild heterogeneous increase in metabolic activity. 11 mm cyst is visualized in the left kidney. Other smaller cysts are noted in both kidneys. Extensive increase in metabolic activity is visualized in the in the bladder lumen. Findings consistent with presence of excreted tracer in the urine. This limits evaluation of local disease. No local hypermetabolic lymphadenopathy is evident. SKELETON: No abnormal activity is noted. IMPRESSION: Presence of excreted tracer in the urine of the bladder limits evaluation of the primary bladder tumor. No local lymphadenopathy is evident in the pelvis. Small focus of increased metabolic activity is visualized in the liver. Differential considerations include metastatic disease. Further evaluation with contrast MRI of liver is recommended. SL:13 11/15/2014 - - Read by: Mynor Malik MD Dictated Date/time: 11/16/14 09:13 Electronically Signed by: Mynor Malik MD 11/16/14 09:45 FINAL REPORT [facility] CHEM PANEL Glucose Lvl 97 mg/dL 70 - 99 10/25/2014 2Interpretive Data: Adult reference range values reflect the clinical guidelines of the [place] [employer]. [facility] CHEM PANEL BUN 30 mg/dL 7 - 22 10/25/2014 [facility] CHEM PANEL CO2 25 meq/L 24 - 32 10/25/2014 [facility] CHEM PANEL eGFR 32 mL/min/1.73m2 10/25/2014 1Result Comment: The eGFR is calculated using the CKD-EPI formula. In most young, healthy individuals the eGFR will be >90 mL/min/1.73m2. The eGFR declines with age. An eGFR of 60-89 may be normal in some populations, particularly the elderly, for whom the CKD-EPI formula has not been extensively validated. Use of the eGFR is not recommended in the following populations: Individuals with unstable creatinine concentrations, including patients and those with serious co-morbid conditions. Patients with extremes in muscle mass or diet. The data above are obtained from the National Kidney Disease Education Program (NKDEP) which additionally recommends that when the eGFR is used in patients with extremes of body mass index for purposes of drug dosing, the eGFR should be multiplied by the estimated BMI. [facility] CHEM PANEL Calcium Lvl 9.0 mg/dL 8.5 - 10.5 10/25/2014 [facility] CHEM PANEL Potassium Lvl 4.8 meq/L 3.5 - 5.1 10/25/2014 [facility] CHEM PANEL Sodium Lvl 136 meq/L 135 - 145 10/25/2014 [facility] CHEM PANEL Chloride Lvl 104 meq/L 95 - 109 10/25/2014 [facility] CHEM PANEL Creatinine Lvl 1.9 mg/dL 0.5 - 1.4 10/25/2014 [facility] CHEM PANEL AGAP 11.8 meq/L 10.0 - 20.0 10/25/2014 [facility] HEMATOLOGY RDW 13.6 % 11.5 - 14.5 10/25/2014 [facility] Platelet 212 K/CMM 133 - 450 10/25/2014 [facility] MPV 9.2 fL 7.4 - 10.4 10/25/2014 [facility] WBC 6.1 K/CMM 3.7 - 10.4 10/25/2014 [facility] Hgb 14.0 g/dL 14.0 - 18.0 10/25/2014 [facility] RBC 4.49 M/CMM 4.70 - 6.10 10/25/2014 [facility] Hct 41.6 % 42.0 - 54.0 10/25/2014 [facility] MCV 92.7 fL 80.0 - 94.0 10/25/2014 [facility] MCHC 33.6 g/dL 32.0 - 36.0 10/25/2014 [facility] MCH 31.1 pg 27.0 - 31.0 10/25/2014 [facility] Segs 65.5 % 45.0 - 75.0 10/25/2014 [facility] Eosinophils # 0.1 K/CMM 0.0 - 0.5 10/25/2014 [facility] Lymphocytes 20.5 % 20.0 - 40.0 10/25/2014 [facility] Monocytes 11.2 % 2.0 - 12.0 10/25/2014 [facility] Lymphocytes # 1.3 K/CMM 1.0 - 5.5 10/25/2014 [facility] Monocytes # 0.7 K/CMM 0.0 - 0.8 10/25/2014 [facility] Basophils 0.7 % 0.0 - 1.0 10/25/2014 [facility] Segs-Bands # 4.0 K/CMM 1.5 - 8.1 10/25/2014 [facility] Eosinophils 2.1 % 0.0 - 4.0 10/25/2014 [facility] Abdomen/Pelvis wo IV contrast CT Abdomen/Pelvis wo IV contrast CT CT RENAL STONE WITHOUT CONTRAST INDICATION: Gross hematuria COMPARISON: None DISCUSSION: URINARY TRACT: There are two bladder calculi, measuring as large as 6 mm. The bladder is otherwise grossly unremarkable. No nephrolithiasis is visualized. There is no hydronephrosis. There are multiple bilateral renal cysts, greater in size and number on the left side. The largest right renal cyst measures 3.8 cm and the largest left renal cyst, measures approximately 11.7 cm. There is the 3.2 cm hyperdense cyst at the inferior pole of the left kidney, measuring 23 Hounsfield units in density. ABDOMEN/PELVIS: The visible lung bases are clear. The liver, spleen, pancreas, gallbladder, and adrenal glands are grossly normal in morphology. There are postoperative changes of the cecum. There is an indeterminate 4.5 cm exophytic hyperdense mass of the wall of the cecum, adjacent to the ileocecal valve. The stomach and small bowel are grossly unremarkable. No free fluid or abnormal fluid collections are seen. The abdominal aorta is normal in caliber. The prostate is unremarkable. BONES: No acute bony abnormalities are seen. IMPRESSION: 1. Two bladder calculi, measuring as large as 6 mm. 2. Multiple bilateral renal cysts, measuring as large as 11.7 cm on the left side. A 3.2 cm hyperdense cyst of the left kidney is also noted. No definite solid renal masses are identified. 3. Postoperative changes of the cecum. There is an indeterminate 4.5 cm hyperdense exophytic mass of the wall of the cecum. 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 SL: 16 10/24/2014 - - Read by: Benny Vargas MD Dictated Date/time: 10/24/14 12:27 Electronically Signed by: Benny Vargas MD 10/24/14 12:37 FINAL REPORT [facility] Vital Signs Vital Sign Value Date Comments Source Heart Rate 71 02/23/2019 [facility] Respitory Rate 20 02/23/2019 [facility] Systolic (mm Hg) 134 02/23/2019 [facility] Diastolic (mm Hg) 73 02/23/2019 [facility] Heart Rate 70 02/23/2019 [facility] Respitory Rate 18 02/23/2019 [facility] Systolic (mm Hg) 123 02/23/2019 [facility] Diastolic (mm Hg) 64 02/23/2019 [facility] Heart Rate 70 02/23/2019 [facility] Respitory Rate 18 02/23/2019 [facility] Systolic (mm Hg) 124 02/23/2019 [facility] Diastolic (mm Hg) 65 02/23/2019 [facility] Temperature Oral (F) 97.9 F 02/23/2019 [facility] Temperature Oral (F) 98.1 F 02/23/2019 [facility] Temperature Oral (F) 98.0 F 02/23/2019 [facility] Weight 90.909 02/20/2019 [facility] BMI Calculated 27.18 02/20/2019 [facility] Height 182.88 cm 02/20/2019 [facility] BMI Calculated 27.32 02/13/2019 [facility] Height 182.88 cm 02/13/2019 [facility] Weight 91.364 02/13/2019 [facility] Heart Rate 74 02/13/2019 [facility] Respitory Rate 18 02/13/2019 [facility] Systolic (mm Hg) 147 02/13/2019 [facility] Diastolic (mm Hg) 73 02/13/2019 [facility] Respitory Rate 16 02/07/2019 [facility] Heart Rate 73 02/07/2019 [facility] Temperature Oral (F) 98.3 F 02/07/2019 [facility] Systolic (mm Hg) 138 02/07/2019 [facility] Diastolic (mm Hg) 69 02/07/2019 [facility] Respitory Rate 16 02/07/2019 [facility] Systolic (mm Hg) 150 02/07/2019 [facility] Diastolic (mm Hg) 79 02/07/2019 [facility] Heart Rate 74 02/07/2019 [facility] Temperature Oral (F) 97.6 F 02/07/2019 [facility] Systolic (mm Hg) 131 02/07/2019 [facility] Diastolic (mm Hg) 71 02/07/2019 [facility] Respitory Rate 17 02/07/2019 [facility] Temperature Oral (F) 98.6 F 02/07/2019 [facility] Heart Rate 73 02/05/2019 [facility] BMI Calculated 27.18 02/05/2019 [facility] Weight 90.909 02/05/2019 [facility] Height 182.88 cm 02/05/2019 [facility] Height 182.88 cm 02/05/2019 [facility] Weight 90.909 02/05/2019 [facility] BMI Calculated 27.18 02/05/2019 [facility] Temperature Oral (F) 97.4 F 01/26/2019 [facility] Systolic (mm Hg) 162 01/26/2019 [facility] Diastolic (mm Hg) 82 01/26/2019 [facility] Respitory Rate 18 01/26/2019 [facility] Temperature Oral (F) 97.6 F 01/26/2019 [facility] Systolic (mm Hg) 120 01/26/2019 [facility] Diastolic (mm Hg) 65 01/26/2019 [facility] Respitory Rate 18 01/26/2019 [facility] Systolic (mm Hg) 126 01/26/2019 [facility] Diastolic (mm Hg) 69 01/26/2019 [facility] Temperature Oral (F) 98 F 01/26/2019 [facility] Respitory Rate 19 01/26/2019 [facility] Heart Rate 71 01/25/2019 [facility] Heart Rate 73 01/25/2019 [facility] Heart Rate 72 01/25/2019 [facility] Height 187.96 cm 01/23/2019 [facility] Weight 90.909 01/23/2019 [facility] BMI Calculated 25.73 01/23/2019 [facility] Respitory Rate 18 01/12/2019 [facility] Temperature Oral (F) 98.2 F 01/12/2019 [facility] Heart Rate 69 01/12/2019 [facility] Systolic (mm Hg) 122 01/12/2019 [facility] Diastolic (mm Hg) 73 01/12/2019 [facility] Systolic (mm Hg) 133 01/12/2019 [facility] Diastolic (mm Hg) 69 01/12/2019 [facility] Respitory Rate 18 01/12/2019 [facility] Temperature Oral (F) 97.7 F 01/12/2019 [facility] Heart Rate 70 01/12/2019 [facility] Respitory Rate 18 01/12/2019 [facility] Heart Rate 70 01/12/2019 [facility] Temperature Oral (F) 97.9 F 01/12/2019 [facility] Systolic (mm Hg) 130 01/12/2019 [facility] Diastolic (mm Hg) 67 01/12/2019 [facility] Height 182.88 cm 01/12/2019 [facility] Weight 90.909 01/12/2019 [facility] BMI Calculated 27.18 01/12/2019 [facility] Weight 93.182 01/11/2019 [facility] Height 182.88 cm 01/11/2019 [facility] BMI Calculated 27.86 01/11/2019 [facility] Weight 204 09/22/2018 [facility] Heart Rate 70 09/22/2018 [facility] Diastolic (mm Hg) 60 09/22/2018 [facility] Systolic (mm Hg) 130 09/22/2018 [facility] Weight 204 04/06/2018 [facility] Heart Rate 70 04/06/2018 [facility] Diastolic (mm Hg) 80 04/06/2018 [facility] Systolic (mm Hg) 122 04/06/2018 [facility] Weight 204 10/04/2017 [facility] Heart Rate 69 10/04/2017 [facility] Diastolic (mm Hg) 80 10/04/2017 [facility] Systolic (mm Hg) 138 10/04/2017 [facility] Weight 200 07/06/2017 [facility] Heart Rate 60 07/06/2017 [facility] Diastolic (mm Hg) 60 07/06/2017 [facility] Systolic (mm Hg) 135 07/06/2017 [facility] Weight 208 06/28/2017 [facility] Heart Rate 61 06/28/2017 [facility] Diastolic (mm Hg) 62 06/28/2017 [facility] Systolic (mm Hg) 134 06/28/2017 [facility] Heart Rate 63 06/27/2017 [facility] Systolic (mm Hg) 136 06/27/2017 [facility] Diastolic (mm Hg) 70 06/27/2017 [facility] Temperature Oral (F) 98.1 F 06/27/2017 [facility] Temperature Oral (F) 98.2 F 06/27/2017 [facility] Systolic (mm Hg) 137 06/27/2017 [facility] Diastolic (mm Hg) 79 06/27/2017 [facility] Heart Rate 63 06/27/2017 [facility] Systolic (mm Hg) 144 06/27/2017 [facility] Diastolic (mm Hg) 73 06/27/2017 [facility] Respitory Rate 16 06/27/2017 [facility] Temperature Oral (F) 98.0 F 06/27/2017 [facility] Heart Rate 60 06/27/2017 [facility] Respitory Rate 16 06/27/2017 [facility] Respitory Rate 16 06/27/2017 [facility] Weight 90.909 06/26/2017 [facility] Systolic (mm Hg) 131 06/22/2017 [facility] Diastolic (mm Hg) 68 06/22/2017 [facility] Temperature Oral (F) 97.6 F 06/22/2017 [facility] Respitory Rate 18 06/22/2017 [facility] Heart Rate 60 06/22/2017 [facility] Systolic (mm Hg) 145 06/22/2017 [facility] Diastolic (mm Hg) 75 06/22/2017 [facility] Respitory Rate 18 06/22/2017 [facility] Temperature Oral (F) 98.3 F 06/22/2017 [facility] Heart Rate 61 06/22/2017 [facility] Systolic (mm Hg) 124 06/22/2017 [facility] Diastolic (mm Hg) 67 06/22/2017 [facility] Respitory Rate 18 06/22/2017 [facility] Temperature Oral (F) 98.4 F 06/22/2017 [facility] Heart Rate 63 06/22/2017 [facility] Weight 97.727 06/21/2017 [facility] BMI Calculated 29.22 06/21/2017 [facility] Height 182.88 cm 06/21/2017 [facility] Weight 214 06/17/2017 [facility] Height 72 06/17/2017 [facility] Heart Rate 52 06/17/2017 [facility] Diastolic (mm Hg) 60 06/17/2017 [facility] Systolic (mm Hg) 132 06/17/2017 [facility] Weight 200 02/01/2017 [facility] Heart Rate 64 02/01/2017 [facility] Diastolic (mm Hg) 61 02/01/2017 [facility] Systolic (mm Hg) 160 02/01/2017 [facility] Respitory Rate 18 11/09/2016 [facility] Systolic (mm Hg) 157 11/09/2016 [facility] Diastolic (mm Hg) 69 11/09/2016 [facility] Temperature Oral (F) 98 F 11/09/2016 [facility] Systolic (mm Hg) 139 11/09/2016 [facility] Diastolic (mm Hg) 67 11/09/2016 [facility] Respitory Rate 20 11/09/2016 [facility] Systolic (mm Hg) 151 11/09/2016 [facility] Diastolic (mm Hg) 64 11/09/2016 [facility] Respitory Rate 18 11/09/2016 [facility] BMI Calculated 27.18 11/09/2016 [facility] Height 182.88 cm 11/09/2016 [facility] Weight 90.909 11/09/2016 [facility] Heart Rate 60 11/09/2016 [facility] Temperature Oral (F) 97.5 F 11/09/2016 [facility] Weight 205 08/06/2016 [facility] Heart Rate 65 08/06/2016 [facility] Diastolic (mm Hg) 70 08/06/2016 [facility] Systolic (mm Hg) 140 08/06/2016 [facility] Systolic (mm Hg) 131 06/30/2016 [facility] Diastolic (mm Hg) 52 06/30/2016 [facility] Systolic (mm Hg) 91 06/30/2016 [facility] Diastolic (mm Hg) 75 06/30/2016 [facility] Respitory Rate 12 06/30/2016 [facility] Systolic (mm Hg) 134 06/30/2016 [facility] Diastolic (mm Hg) 56 06/30/2016 [facility] Respitory Rate 11 06/30/2016 [facility] Respitory Rate 12 06/30/2016 [facility] Heart Rate 56 06/30/2016 [facility] Heart Rate 55 06/25/2016 [facility] Temperature Oral (F) 98.1 F 06/25/2016 [facility] BMI Calculated 27.18 06/25/2016 [facility] Weight 90.909 06/25/2016 [facility] Height 182.88 cm 06/25/2016 [facility] Weight 90 06/19/2016 [facility] BMI Calculated 26.91 06/19/2016 [facility] Height 182.88 cm 06/19/2016 [facility] Weight 197 04/28/2016 [facility], [facility] Heart Rate 59 04/28/2016 [facility] Diastolic (mm Hg) 61 04/28/2016 [facility] Systolic (mm Hg) 138 04/28/2016 [facility]e [facility] MD, [facility] Weight 200 01/09/2016 [facility] Heart Rate 56 01/09/2016 [facility] Diastolic (mm Hg) 60 01/09/2016 [facility] Systolic (mm Hg) 130 01/09/2016 [facility] Heart Rate 70 12/19/2015 [facility] Systolic (mm Hg) 144 12/19/2015 [facility] Diastolic (mm Hg) 63 12/19/2015 [facility] Systolic (mm Hg) 137 12/19/2015 [facility] Diastolic (mm Hg) 62 12/19/2015 [facility] Heart Rate 63 12/19/2015 [facility] Systolic (mm Hg) 137 12/19/2015 [facility] Diastolic (mm Hg) 62 12/19/2015 [facility] Heart Rate 61 12/19/2015 [facility] Temperature Oral (F) 97.4 F 12/19/2015 [facility] Respitory Rate 18 12/19/2015 [facility] Respitory Rate 18 12/19/2015 [facility] Temperature Oral (F) 98.4 F 12/19/2015 [facility] Temperature Oral (F) 97.7 F 12/19/2015 [facility] Respitory Rate 18 12/19/2015 [facility] Weight 90.909 12/18/2015 [facility] BMI Calculated 27.18 12/18/2015 [facility] Height 182.88 cm 12/18/2015 [facility] BMI Calculated 27.18 12/18/2015 [facility] Height 182.88 cm 12/18/2015 [facility] Weight 90.909 12/18/2015 [facility] Weight 200 12/17/2015 [facility], [facility] Heart Rate 47 12/17/2015 [facility], [facility] Diastolic (mm Hg) 70 12/17/2015 [facility] Systolic (mm Hg) 110 12/17/2015 [facility] Weight 200 10/08/2015 [facility], [facility] Heart Rate 60 10/08/2015 [facility] Diastolic (mm Hg) 68 10/08/2015 [facility] Systolic (mm Hg) 134 10/08/2015 [facility] Systolic (mm Hg) 157 01/29/2015 [facility] Diastolic (mm Hg) 75 01/29/2015 [facility] Respitory Rate 16 01/29/2015 [facility] Heart Rate 63 01/29/2015 [facility] Temperature Oral (F) 97.9 F 01/29/2015 [facility] Respitory Rate 17 01/29/2015 [facility] Heart Rate 63 01/29/2015 [facility] Weight 90.909 01/29/2015 [facility] BMI Calculated 27.18 01/29/2015 [facility] Height 182.88 cm 01/29/2015 [facility] Systolic (mm Hg) 144 01/29/2015 [facility] Diastolic (mm Hg) 70 01/29/2015 [facility] Temperature Oral (F) 97.8 F 01/29/2015 [facility] Heart Rate 59 01/29/2015 [facility] Respitory Rate 18 01/29/2015 [facility] Heart Rate 82 01/10/2015 [facility] Temperature Oral (F) 98.8 F 01/10/2015 [facility] Respitory Rate 17 01/10/2015 [facility] Systolic (mm Hg) 162 01/10/2015 [facility] Diastolic (mm Hg) 76 01/10/2015 [facility] Temperature Oral (F) 98.2 F 01/10/2015 [facility] Heart Rate 68 01/10/2015 [facility] Respitory Rate 16 01/10/2015 [facility] Systolic (mm Hg) 130 01/10/2015 [facility] Diastolic (mm Hg) 68 01/10/2015 [facility] Systolic (mm Hg) 133 01/10/2015 [facility] Diastolic (mm Hg) 65 01/10/2015 [facility] Respitory Rate 16 01/10/2015 [facility] Heart Rate 74 01/10/2015 [facility] Temperature Oral (F) 98.9 F 01/10/2015 [facility] Weight 88.1 01/03/2015 [facility] Weight 90.909 12/26/2014 [facility] BMI Calculated 27.18 12/26/2014 [facility] Height 182.88 cm 12/26/2014 [facility] Diastolic (mm Hg) 53 10/26/2014 [facility] Systolic (mm Hg) 124 10/26/2014 [facility] Systolic (mm Hg) 133 10/26/2014 [facility] Diastolic (mm Hg) 58 10/26/2014 [facility] Systolic (mm Hg) 119 10/26/2014 [facility] Diastolic (mm Hg) 55 10/26/2014 [facility] Respitory Rate 15 10/26/2014 [facility] Respitory Rate 14 10/26/2014 [facility] Respitory Rate 13 10/26/2014 [facility] Heart Rate 56 10/26/2014 [facility] Weight 91.364 10/25/2014 [facility] BMI Calculated 27.32 10/25/2014 [facility] Height 182.88 cm 10/25/2014 [facility] Temperature Oral (F) 98.0 F 10/25/2014 [facility] Heart Rate 61 10/25/2014 [facility] Encounters Location Location Details Encounter Type Encounter Number Reason For Visit Attending Provider ADM Date DC Date Status Source [facility] Outpatient [id number] Ag [facility] 10/24/2014 10/25/2014 [facility] OBS Day Surgery [id number] Ag [facility] 10/26/2014 10/26/2014 [facility] Outpatient [id number] Teresa Abdullahi 11/15/2014 11/16/2014 [facility] Outpatient [id number] Teresa KejeanLamar 11/21/2014 11/22/2014 [facility] Inpatient [id number] Ag [facility] 01/03/2015 01/10/2015 [facility] [id number] Greg Bullock 01/29/2015 01/29/2015 [facility] Outpatient [id number] [facility] 02/26/2015 02/27/2015 [facility] Outpatient [id number] AG [facility] 06/17/2015 [facility] Outpatient [id number] gA [facility] 06/17/2015 06/18/2015 [facility] Outpatient [id number] Teresa KejeanLamar 08/08/2015 08/09/2015 [facility] Reed Plaza MD, PA Follow-Up [id number] 10/08/2015 10/08/2015 [facility] MD, [place] [facility] MD, [facility] Follow-Up [id number] 10/08/2015 10/08/2015 [facility] MD, [facility] MD, [facility] Follow-Up [id number] 10/08/2015 10/08/2015 [facility] Follow-Up [id number] 10/08/2015 10/08/2015 [facility] Follow-Up [id number] 10/08/2015 10/08/2015 [facility] MD, [facility] Follow-Up [id number] 10/08/2015 10/08/2015 [facility] MD, [facility] Follow-Up [id number] 10/08/2015 10/08/2015 [facility] MD, [facility] MD[facility] Follow-Up [id number] 10/08/2015 10/08/2015 [facility] Follow-Up [id number] 10/08/2015 10/08/2015 [facility] Outpatient [id number] [facility] 10/14/2015 [facility] Outpatient [id number] [facility] 10/14/2015 10/15/2015 [facility] Outpatient [id number] [facility] 11/25/2015 Active [facility] Reed Plaza MD, PA Follow-Up [id number] 12/17/2015 12/17/2015 [facility] MD, [facility] Follow-Up [id number] 12/17/2015 12/17/2015 Rede Plaza MD, PA [facility], [facility] Follow-Up [id number] 12/17/2015 12/17/2015 [facility], [facility] MD, [facility] Follow-Up [id number] 12/17/2015 12/17/2015 [facility] MD, [facility] Follow-Up [id number] 12/17/2015 12/17/2015 [facility] MD, [facility] Follow-Up [id number] 12/17/2015 12/17/2015 [facility] Follow-Up [id number] 12/17/2015 12/17/2015 [facility] Follow-Up [id number] 12/17/2015 12/17/2015 Reed Plaza MD, PA [facility] OBS Observation Patient [id number] [facility] 12/18/2015 12/19/2015 [facility] Reed Plaza MD, PA Follow-Up [id number] 01/09/2016 01/09/2016 [facility] Follow-Up [id number] 01/09/2016 01/09/2016 [facility] MD, [facility] Follow-Up [id number] 01/09/2016 01/09/2016 [facility], [facility] MD[facility] Follow-Up [id number] 01/09/2016 01/09/2016 [facility] MD, [facility] Follow-Up [id number] 01/09/2016 01/09/2016 [facility] Follow-Up [id number] 01/09/2016 01/09/2016 [facility] Follow-Up [id number] 01/09/2016 01/09/2016 [facility] Refill [id number] 04/22/2016 04/22/2016 [facility] Refill [id number] 04/22/2016 04/22/2016 [facility] Refill [id number] 04/22/2016 04/22/2016 [facility] Refill [id number] 04/22/2016 04/22/2016 [facility] Refill [id number] 04/22/2016 04/22/2016 [facility] Refill [id number] 04/22/2016 04/22/2016 [facility] Follow-Up [id number] 04/28/2016 04/28/2016 [facility] Follow-Up [id number] 04/28/2016 04/28/2016 [facility] Follow-Up [id number] 04/28/2016 04/28/2016 [facility] Follow-Up [id number] 04/28/2016 04/28/2016 [facility] Follow-Up [id number] 04/28/2016 04/28/2016 [facility] MD[facility] echo/carotid/arterial dopplers [id number] 05/05/2016 05/05/2016 [facility], [facility] MD, [facility] echo/carotid/arterial dopplers [id number] 05/05/2016 05/05/2016 [facility] MD, [facility] echo/carotid/arterial dopplers [id number] 05/05/2016 05/05/2016 [facility] MD, [facility] MD, [facility] echo/carotid/arterial dopplers [id number] 05/05/2016 05/05/2016 [facility] Refill [id number] 05/21/2016 05/21/2016 [facility] Refill [id number] 05/21/2016 05/21/2016 [facility] Refill [id number] 05/21/2016 05/21/2016 Reed Plaza MD, PA [facility] Outpatient [id number] [facility] 05/22/2016 05/23/2016 [facility] Outpatient [id number] [facility] 05/25/2016 Active [facility] Outpatient [id number] Ag [facility] 06/04/2016 06/05/2016 [facility] Outpatient [id number] AG [facility] 06/05/2016 Active [facility] Outpatient [id number] Ag [facility] 06/19/2016 06/20/2016 [facility] Outpatient [id number] CRISTY LE 06/25/2016 Active [facility] Outpatient [id number] CRISTY LE 06/30/2016 [facility] Day Surgery [id number] Muniz Le 06/30/2016 06/30/2016 [facility] Outpatient [id number] AG [facility] 06/30/2016 Active [facility] Outpatient [id number] CRISTY LE 07/16/2016 Active [facility] Outpatient [id number] AG [facility] 07/20/2016 [facility] Reed Plaza MD, PA Follow-Up [id number] 08/06/2016 08/06/2016 [facility] Follow-Up [id number] 08/06/2016 08/06/2016 [facility] Plaza MD, PA [facility] Outpatient [id number] Teresa Abdullahi 08/27/2016 08/28/2016 [facility] MD, [facility] Refill [id number] 09/07/2016 09/07/2016 Reed Plaza MD, PA [facility] Emergency [id number] John Finney 11/09/2016 11/09/2016 [facility] Outpatient [id number] CLINICAL PATH LAB VISIT 11/18/2016 Active [facility] Outpatient [id number] [facility] 11/23/2016 [facility] Outpatient [id number] Teresa Abdullahi 11/28/2016 11/29/2016 [facility] Outpatient [id number] Teresa Abdullahi 02/25/2017 02/26/2017 [facility] Outpatient [id number] MUNIZ TEETEE 05/07/2017 [facility] Outpatient [id number] Teresa Abdullahi 06/03/2017 06/04/2017 [facility] Bedded Outpatient [id number] Idalia Sweetreggie 06/21/2017 06/22/2017 [facility] Inpatient [id number] Ed Roger 06/26/2017 06/27/2017 [facility] Outpatient [id number] Teresa Abdullahi 09/02/2017 09/03/2017 [facility] Outpatient [id number] Teresa Abdullahi 12/09/2017 12/10/2017 [facility] Outpatient [id number] Teresa Abdullahi 03/17/2018 03/18/2018 [facility] Outpatient [id number] Teresa Abdullahi 08/02/2018 08/03/2018 [facility] Outpatient [id number] Teresa Abdullahi 11/10/2018 11/11/2018 [facility] Observation [id number] Papitoanezayra Nitza 01/11/2019 01/12/2019 [facility] Inpatient [id number] Gyanendra Nitza 01/23/2019 01/26/2019 [facility] Inpatient [id number] Melinda Nwoha 02/05/2019 02/07/2019 [facility] Outpatient [id number] Muniz Teetee 02/09/2019 [facility] General Surgery [facility] Ambulatory Pre-Reg [id number] Muniz Teetee 02/09/2019 02/09/2019 [facility] Outpatient [id number] Cory Noel 02/13/2019 02/14/2019 [facility] Inpatient [id number] Zac Muniz 02/20/2019 02/24/2019 [facility] Outpatient [id number] Cory Noel 02/27/2019 02/28/2019 [facility] Procedures Procedure Code Date Perfomer Comments Source Cardiac pacemaker procedure [id number] 06/21/2017 [facility] Cardiac pacemaker procedure [id number] 06/21/2017 [facility] Insertion of tunneled centrally inserted central venous access device, with subcutaneous port; age 5 years or older [id number] 06/30/2016 [facility] Insertion of Port-a-cath [id number] 06/30/2016 [facility] Insertion of Port-a-cath [id number] 06/30/2016 [facility] Cardiac catheterization<sup>1</sup> [id number] with stents [facility] Cystoscopy and bladder biopsy [id number] [facility] Partial resection of colon 68971014 [facility] Biopsy of bladder 57922994 [facility] Colostomy [id number] [facility] Construction of urostomy [id number] [facility] Cystectomy [id number] [facility] Partial colectomy [id number] [facility] Prostatectomy 59147899 [facility] Biopsy of bladder [id number] [facility] Cardiac catheterization<sup>1</sup> [id number] with stents [facility] Construction of urostomy [id number] [facility] Cystectomy [id number] [facility] Cystoscopy and bladder biopsy [id number] [facility] Partial colectomy [id number] [facility] Partial resection of colon [id number] [facility] Prostatectomy [id number] [facility]
--- OUTSIDE RECORDS SUMMARY | 2019-03-05 07:29 | XMS REPORT | Summary of Care ---
Author Author [facility] Organization [facility] Address Unknown Phone Unavailable Encounter CAROLYN Pandya([place]OLA) [id number] Date(s): 06/03/17 - 06/03/17 [facility] [address] [place] [address]- [phone] Discharge Disposition: Home or Self Care Attending Physician: Teresa Abdullahi DO Referring Physician: Teresa Abdullahi DO Vital Signs No data available for this section Problem List Condition Effective Dates Status Health Status Informant Anemia(Confirmed) Active Benign bladder Active tumor(Confirmed) CAD (coronary artery Active disease)(Confirmed) Cancer of Resolved colon(Confirmed) Cancer of Active colon(Confirmed) CHF - Congestive Active heart failure(Confirmed) 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) [place] (hard of Resolved hearing)(Confirmed) Hematuria(Confirmed) Resolved HTN - Active Hypertension(Confirm ed) Bladder Active cancer(Confirmed) [place] - 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 Frequency: 1-2 times per month. Previous treatment: None. Alcohol use interferes with work or home: No. Drinks more than intended: No. Others hurt by drinking: No. Ready to change: No. Household alcohol concerns: No. Smoking Status Never smoker; Exposure to Tobacco Smoke None; Cigarette Smoking Last 365 Days No; Reg Smoking Cessation Counseling No Assessment and Plan No data available for this section
--- OUTSIDE RECORDS SUMMARY | 2019-03-05 07:29 | XMS REPORT | Summary of Care ---
Author Author [facility] Organization [facility] Address Unknown Phone Unavailable Encounter CAROLYN Pandya([place]) [id number] Date(s): 02/20/19 - 02/23/19 [facility] [address] [place] [address]- Discharge Disposition: Home or Self Care Attending Physician: Zac Selby DO Admitting Physician: Zac Selby DO Vital Signs 1 2 3 Most recent to oldest [Reference Range]: 182.88 cm (02/20/19 1:08 PM) Height 97.9 DegF (02/23/19 1:00 PM) 98.1 DegF (02/23/19 5:30 AM) 98.0 DegF (02/23/19 12:34 AM) Temperature Oral [96.4-99.1 DegF] 134/73 mmHg (02/23/19 4:00 PM) 123/64 mmHg (02/23/19 3:00 PM) 124/65 mmHg (02/23/19 2:00 PM) Blood Pressure [90-140/60-90 mmHg] 20 BRMIN (02/23/19 4:00 PM) 18 BRMIN (02/23/19 3:00 PM) 18 BRMIN (02/23/19 2:00 PM) Respiratory Rate [14-20 BRMIN] 71 bpm (02/23/19 4:00 PM) 70 bpm (02/23/19 3:00 PM) 70 bpm (02/23/19 2:00 PM) Peripheral Pulse Rate [60-100 bpm] 90.909 kg (02/20/19 1:08 PM) Weight 27.18 m2 (02/20/19 1:08 PM) Body Mass Index Problem List Condition Effective Dates Status Health Status Informant Anemia(Confirmed) Active Benign bladder Active tumor(Confirmed) CAD (coronary artery Active disease)(Confirmed) Cancer of Resolved colon(Confirmed) Cancer of Active colon(Confirmed) Pacemaker(Confirmed) Resolved CHF - Congestive Active heart failure(Confirmed) 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) [place] (hard of Resolved hearing)(Confirmed) Hematuria(Confirmed) Resolved HTN - Active Hypertension(Confirm ed) Bladder Active cancer(Confirmed) [place] - Myocardial < 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 (Same as: Tylenol) Start Date: 02/20/19 Stop Date: 02/23/19 Status: Discontinued aspirin 324 mg, 4 tab, Route: CHEW, Drug form: CHEWTAB, ONCE, Dosing Weight 90.909, kg, Priority: STAT, Start date: 02/20/19 16:16:00 CDT, Stop date: 02/20/19 16:16:00 CDT Notes: Take with food. Start Date: 02/20/19 Stop Date: 02/20/19 Status: Completed aspirin 81 mg tablet, enteric coated 81 mg, Route: PO, Drug form: ECTAB, Daily, Dosing Weight 90.909, kg, Start date: 02/24/19 9:00:00 CDT, Duration: 30 day, Stop date: 03/25/19 9:00:00 CDT Start Date: 02/24/19 Stop Date: 02/23/19 Status: Deleted aspirin 81 mg tablet, enteric coated 81 mg=1 tab, PO, Daily, # 30 tab, 0 Refill(s), Pharmacy: [facility] [id number] Start Date: 02/23/19 Stop Date: 03/25/19 Status: Ordered aspirin 81 mg tablet, enteric coated 81 mg, 1 tab, Route: PO, Drug form: ECTAB, Daily, Dosing Weight 90.909, kg, Star t date: 02/21/19 9:00:00 CDT, Duration: 30 day, Stop date: 03/22/19 9:00:00 CDT Notes: Do not crush or chew.(Same As: Ecotrin) Start Date: 02/21/19 Stop Date: 02/23/19 Status: Discontinued bisacodyl 10 mg, 1 supp, Route: UT, Drug form: SUPP, Daily, Dosing Weight 90.909, kg, PRN Constipation, Start date: 02/20/19 17:12:00 CDT, Duration: 30 day, Stop date: 17:11:00 CDT Notes: (Same As: Dulcolax, Bisco-Lax) Start Date: 02/20/19 Stop Date: 02/23/19 Status: Discontinued clopidogrel 75 mg, 1 tab, Route: PO, Drug form: TAB, Daily, Dosing Weight 90.909, kg, Start date: 02/24/19 9:00:00 CDT, Duration: 30 day, Stop date: 03/25/19 9:00:00 CDT Notes: (Same As: Plavix) Start Date: 02/24/19 Stop Date: 02/23/19 Status: Canceled clopidogrel 75 mg oral tablet 75 mg=1 tab, PO, Daily, # 30 tab, 0 Refill(s), Pharmacy: [facility] [id number] Start Date: 02/23/19 Stop Date: 03/25/19 Status: Ordered Dextrose 50% Syringe 25 gm, 50 mL, Route: IVP, Drug Form: INJ, Dosing Weight 90.909, kg, PRN, PRN Blo od Glucose Results, Start date: 02/20/19 17:12:00 CDT, Duration: 30 day, Stop da te: 03/22/19 17:11:00 CDT Start Date: 02/20/19 Stop Date: 02/23/19 Status: Discontinued Dextrose 50% Syringe 12.5 gm, 25 mL, Route: IVP, Drug Form: INJ, Dosing Weight 90.909, kg, PRN, PRN B lood Glucose Results, Start date: 02/20/19 17:12:00 CDT, Duration: 30 day, Stop date: 03/22/19 17:11:00 CDT Start Date: 02/20/19 Stop Date: 02/23/19 Status: Discontinued Dilaudid 0.5 mg, 0.5 mL, Route: IVP, Drug form: SOLN, ONCE, Dosing Weight 90.909, kg, Maddison ority: STAT, Start date: 02/20/19 15:32:00 CDT, Stop date: 02/20/19 15:32:00 CDT Notes: (Same as: Dilaudid) Start Date: 02/20/19 Stop Date: 02/20/19 Status: Completed Dilaudid 0.5 mg, 0.5 mL, Route: IVP, Drug form: SOLN, Q4H, Dosing Weight 90.909, kg, PRN Pain Score 7-10, Start date: 02/20/19 17:50:00 CDT, Duration: 30 day, Stop date: 03/22/19 17:49:00 CDT Notes: (Same as: Dilaudid) Start Date: 02/20/19 Stop Date: 02/23/19 Status: Discontinued diphenhydrAMINE 25 mg, 1 tab, Route: PO, Drug form: TAB, Q6H, Dosing Weight 90.909, kg, PRN as n eeded for allergy symptoms, Start date: 02/20/19 17:12:00 CDT, Duration: 30 day, Stop date: 03/22/19 17:11:00 CDT Start Date: 02/20/19 Stop Date: 02/23/19 Status: Discontinued docusate 100 mg, 1 cap, Route: PO, Drug form: CAP, BID, Dosing Weight 90.909, kg, PRN as needed for constipation, Start date: 02/20/19 17:12:00 CDT, Duration: 30 day, St op date: 03/22/19 17:11:00 CDT Notes: (Same as: Colace) (Do Not Crush) Start Date: 02/20/19 Stop Date: 02/23/19 Status: Discontinued DuoNeb inhalation solution 3 ml, Route: NEB, Drug Form: SOLN, Dosing Weight 90.909, kg, PRN, PRN Respirator y Pathway, Start date: 02/20/19 17:12:00 CDT, Duration: 30 day, Stop date: 03/22 17:11:00 CDT Notes: (Same as: Duoneb) Start Date: 02/20/19 Stop Date: 02/23/19 Status: Discontinued Eliquis 5 mg, 1 tab, Route: PO, Drug form: TAB, Q12H, Dosing Weight 90.909, kg, Start da te: 02/21/19 21:00:00 CDT, Duration: 30 day, Stop date: 03/23/19 9:00:00 CDT Notes: Same as: Eliquis Start Date: 02/21/19 Stop Date: 02/23/19 Status: Discontinued glucagon 1 mg, Route: IM, Drug form: PDR/INJ, PRN, Dosing Weight 90.909, kg, PRN Blood Gl ucose Results, Start date: 02/20/19 17:12:00 CDT, Duration: 30 day, Stop date: 0 03/22/19 17:11:00 CDT Start Date: 02/20/19 Stop Date: 02/23/19 Status: Discontinued Heparin 30 unit/kg Bolus (Heparin Dosing Weight) Route: IVP, PRN, 2,700 unit, 2.7 mL, Drug form: INJ, PRN, Heparin Protocol, Star t date: 02/20/19 16:17:00 CDT Stop date: 03/22/19 16:16:00 CDT, 30 day Start Date: 02/20/19 Stop Date: 02/20/19 Status: Discontinued heparin additive 25,000 unit [11 unit/kg/hr] + Premix Diluent Dextrose 5% 500 mL 500 mL, Rate: 20 ml/hr, Infuse over: 25 hr, Route: IV, Dosing Weight 90.909 kg, Total Volume: 500 mL, Start date: 02/20/19 16:17:00 CDT, Duration: 30 day, Stop date: 03/22/19 16:16:00 CDT, 2.16, m2 Start Date: 02/20/19 Stop Date: 02/20/19 Status: Discontinued hydrALAZINE 10 mg, 0.5 mL, Route: IVP, Drug form: INJ, Q4H, Dosing Weight 90.909, kg, PRN Hy pertension, Priority: Routine, Start date: 02/20/19 17:12:00 CDT, Duration: 30 d ay, Stop date: 03/22/19 17:11:00 CDT Notes: (Same as: Apresoline)Push over 5 minutes Start Date: 02/20/19 Stop Date: 02/23/19 Status: Discontinued ketOROLAC 15 mg/mL injectable solution 15 mg, Route: IVP, Drug form: INJ, ONCE, Dosing Weight 90.909, kg, Priority: STA T, Start date: 02/20/19 14:51:00 CDT, Stop date: 02/20/19 14:51:00 CDT Start Date: 02/20/19 Stop Date: 02/20/19 Status: Completed lisinopril 2.5 mg oral tablet 2.5 mg=1 tab, PO, Daily, # 30 tab, 0 Refill(s), Pharmacy: [facility] [id number] Start Date: 02/23/19 Status: Ordered Maalox Advanced Regular Strength SUSP 30 mL, Route: PO, Drug Form: SUSP, Dosing Weight 90.909, kg, QID-After Meals, UT N as needed for indigestion, Routine, Start date: 02/20/19 17:12:00 CDT, Duratio n: 30 day, Stop date: 03/22/19 17:11:00 CDT Notes: (aluminum hydroxide-magnesium hyd-simethicone 297-481-52io/5ml 30 ml ud S US) Start Date: 02/20/19 Stop Date: 02/23/19 Status: Discontinued melatonin 3 mg, 1 tab, Route: PO, Drug form: TAB, Bedtime, Dosing Weight 90.909, kg, PRN I nsomnia, Start date: 02/20/19 17:12:00 CDT, Duration: 30 day, Stop date: 9 17:11:00 CDT Notes: (Same as: Melatonin) Start Date: 02/20/19 Stop Date: 02/23/19 Status: Discontinued Mucinex 600 mg, 1 tab, Route: PO, Drug form: ERTAB, Q12H, Dosing Weight 90.909, kg, PRN Congestion, Start date: 02/20/19 17:12:00 CDT, Duration: 30 day, Stop date: 02/26 03/15 17:11:00 CDT Notes: (Same as: Guaifenesin LA, Humibid LA, Mucinex)"Do Not Crush" Take medica tion with plenty of water. Start Date: 02/20/19 Stop Date: 02/23/19 Status: Discontinued nicotine 21 mg, 1 patch, Route: TOP, Drug form: ERFILM, Daily, Dosing Weight 90.909, kg, PRN as needed for smoking cessation, Start date: 02/20/19 17:12:00 CDT, Duration : 30 day, Stop date: 03/22/19 17:11:00 CDT Notes: (Same as: Habitrol)"Remove old patch before application of new patch"WAST E: F/P - P Waste Black; E - P Waste Black Start Date: 02/20/19 Stop Date: 02/23/19 Status: Discontinued nitroglycerin SL Tab 0.4 mg, 1 tab, Route: SL, Drug form: TAB, Q5Min, Dosing Weight 90.909, kg, PRN C hest Pain, Start date: 02/23/19 12:15:00 CDT, Duration: 3 doses or times, Stop d ate: Limited # of times Notes: (Same as:Nitroquick, Nitrostat)"Do Not Crush" Sublingual tablet Start Date: 02/23/19 Stop Date: 02/23/19 Status: Discontinued Chamberlain 5/325 oral tablet 1 tab, Route: PO, Drug Form: TAB, Dosing Weight 90.909, kg, Q6H, PRN Pain Score 1-3, Start date: 02/20/19 17:12:00 CDT, Duration: 30 day, Stop date: 03/22/19 17 :11:00 CDT Notes: (Same as: Chamberlain 325/5) Do not exceed 4gm/day of acetaminophen. Start Date: 02/20/19 Stop Date: 02/23/19 Status: Discontinued Omnicef 300 mg oral capsule 300 mg, 1 cap, Route: PO, Drug form: CAP, FSUB18X, Dosing Weight 90.909, kg, Sta rt date: 02/20/19 23:00:00 CDT, Duration: 5 day, Stop date: 02/25/19 11:00:00 CD T Notes: (Same As: Omnicef) Start Date: 02/20/19 Stop Date: 02/23/19 Status: Discontinued ondansetron 4 mg, Route: IVP, Drug form: INJ, ONCE, Dosing Weight 90.909, kg, Priority: STAT , Start date: 02/20/19 14:47:00 CDT, Stop date: 02/20/19 14:47:00 CDT Start Date: 02/20/19 Stop Date: 02/20/19 Status: Completed ondansetron 4 mg, 2 mL, Route: IVP, Drug form: INJ, Q6H, Dosing Weight 90.909, kg, PRN Nause a & Vomiting, Start date: 02/20/19 17:12:00 CDT, Duration: 30 day, Stop date: 03/22/19 17:11:00 CDT Notes: (Same as: Alisha) MEDICATION WASTE Product Size: 4 mgProduct Was ana cristina: ___ mg Start Date: 02/20/19 Stop Date: 02/23/19 Status: Discontinued pantoprazole 40 mg oral enteric coated tablet 40 mg=1 tab, PO, Before Breakfast, # 30 tab, 0 Refill(s), Pharmacy: [facility] [id number] Start Date: 02/23/19 Stop Date: 03/25/19 Status: Ordered polyethylene glycol 3350 17 gm, 1 pkt, Route: PO, Drug form: PWDR, Daily, Dosing Weight 90.909, kg, PRN C onstipation, Start date: 02/20/19 17:12:00 CDT, Duration: 30 day, Stop date: 17:11:00 CDT Notes: Dissolve in 8 oz of water or juice.(Same as: Miralax) Start Date: 02/20/19 Stop Date: 02/23/19 Status: Discontinued Protonix 40 mg, 1 tab, Route: PO, Drug form: ECTAB, Before Breakfast, Dosing Weight 90.90 9, kg, Start date: 02/21/19 7:30:00 CDT, Duration: 30 day, Stop date: 03/22/19 7 :30:00 CDT Notes: Tablet should not be chewed or crushed.(Same as: Protonix) Start Date: 02/21/19 Stop Date: 02/23/19 Status: Discontinued Saline Flush 0.9% 10 mL, Route: IVP, Drug Form: INJ, Dosing Weight 91.364, kg, PRN, PRN Line Flush , Start date: 02/20/19 13:09:00 CDT, Duration: 30 day, Stop date: 03/22/19 13:08 :00 CDT Notes: (Same as: BD Posiflush) Start Date: 02/20/19 Stop Date: 02/23/19 Status: Discontinued SEROquel 25 mg, 1 tab, Route: PO, Drug form: TAB, BID, Dosing Weight 90.909, kg, PRN Agit ation, Start date: 02/20/19 17:12:00 CDT, Duration: 30 day, Stop date: 03/22/19 17:11:00 CDT Notes: (Same as: SEROquel) Start Date: 02/20/19 Stop Date: 02/23/19 Status: Discontinued simethicone 80 mg, 1 tab, Route: CHEW, Drug form: CHEWTAB, QID-After Meals, Dosing Weight 90 .909, kg, PRN as needed for gas, Start date: 02/20/19 17:12:00 CDT, Duration: 30 day, Stop date: 03/22/19 17:11:00 CDT Notes: (Same as: Mylicon) Start Date: 02/20/19 Stop Date: 02/23/19 Status: Discontinued simvastatin 40 mg, 1 tab, Route: PO, Drug form: TAB, Bedtime, Dosing Weight 90.909, kg, Star t date: 02/21/19 21:00:00 CDT, Duration: 30 day, Stop date: 03/22/19 21:00:00 CD T Notes: (Same as: Zocor) Start Date: 02/21/19 Stop Date: 02/23/19 Status: Discontinued Sodium Chloride 0.9% (Bolus) IV 250 mL, 250 ml/hr, Infuse Over: 1 hr, Route: IV, 250, Drug form: INJ, ONCALL, Pr iority: Routine, Dosing Weight 90.909 kg, Start date: 02/22/19 13:00:00 CDT, Dur ation: 1 doses or times, Stop date: 02/23/19 0:00:00 CDT Start Date: 02/22/19 Stop Date: 02/23/19 Status: Discontinued Sodium Chloride 0.9% IV 750 mL 750 mL, Rate: 75 ml/hr, Infuse over: 10 hr, Route: IV, Dosing Weight 90.909 kg, Total Volume: 750, Start date: 02/22/19 12:47:00 CDT, Duration: 24 hr, Stop date : 02/23/19 12:46:00 CDT, 2.16, m2 Start Date: 02/22/19 Stop Date: 02/23/19 Status: Completed Sodium Chloride 0.9% IV 750 mL 750 mL, Rate: 75 ml/hr, Infuse over: 10 hr, Route: IV, Dosing Weight 90.909 kg, Total Volume: 750, Start date: 02/23/19 12:15:00 CDT, Duration: 10 hr, Stop date : 02/23/19 22:14:00 CDT, 2.16, m2 Start Date: 02/23/19 Stop Date: 02/23/19 Status: Discontinued Tessalon Perles 100 mg, 1 cap, Route: PO, Drug form: CAP, TID, Dosing Weight 90.909, kg, PRN Cou gh, Start date: 02/20/19 17:12:00 CDT, Duration: 30 day, Stop date: 03/22/19 17: 11:00 CDT Notes: (Same As: Tessalon Perles)"Do Not Crush" Start Date: 02/20/19 Stop Date: 02/23/19 Status: Discontinued Toprol-XL 50 mg oral tablet, extended release 50 mg, 1 tab, Route: PO, Drug form: ERTAB, Daily, Start date: 02/22/19 9:00:00 C DT, Duration: 30 day, Stop date: 03/23/19 9:00:00 CDT Notes: (Same as: Toprol XL) May split tab, but do not crush. Start Date: 02/22/19 Stop Date: 02/23/19 Status: Discontinued trazodone 50 mg, 1 tab, Route: PO, Drug form: TAB, Bedtime, Dosing Weight 90.909, kg, PRN Insomnia, Start date: 02/20/19 17:12:00 CDT, Duration: 30 day, Stop date: 17:11:00 CDT Notes: (Same As: Mala) Start Date: 02/20/19 Stop Date: 02/23/19 Status: Discontinued Results 1 2 3 Most recent to oldest [Reference Range]: 6.5 K/CMM (02/23/19 1:40 PM) 6.1 K/CMM (02/21/19 4:05 AM) 8.2 K/CMM *HI* (02/20/19 1:12 PM) Neutrophils # [1.5-8.1 K/CMM] 0.7 K/CMM *LOW* (02/23/19 1:40 PM) 0.8 K/CMM *LOW* (02/21/19 4:05 AM) 0.8 K/CMM *LOW* (02/20/19 1:12 PM) Lymphocytes # [1.0-5.5 K/CMM] 0.6 K/CMM (02/23/19 1:40 PM) 0.8 K/CMM (02/21/19 4:05 AM) 0.7 K/CMM (02/20/19 1:12 PM) Monocytes # [0.0-0.8 K/CMM] 0.1 K/CMM (02/23/19 1:40 PM) 0.1 K/CMM (02/21/19 4:05 AM) Eosinophils # [0.0-0.5 K/CMM] 0.1 K/CMM (02/21/19 4:05 AM) Basophils # [0.0-0.2 K/CMM] 73 pg/mL (02/20/19 1:12 PM) BNP [<=100 pg/mL] 54 mL/min/1.73m2 1 *NA* (02/23/19 1:40 PM) 49 mL/min/1.73m2 2 *NA* (02/22/19 7:08 AM) 50 mL/min/1.73m2 3 *NA* (02/21/19 4:05 AM) eGFR 0.7 (02/20/19 1:12 PM) A/G Ratio [0.7-1.6] 3.2 g/dL *LOW* (02/20/19 1:12 PM) Albumin Lvl [3.5-5.0 g/dL] 70 unit/L (02/20/19 1:12 PM) Alk Phos [39-136 unit/L] 18 unit/L (02/20/19 1:12 PM) ALT [0-65 unit/L] 9.5 mEq/L *LOW* (02/22/19 7:08 AM) 10.4 mEq/L (02/21/19 4:05 AM) 14.8 mEq/L (02/20/19 1:12 PM) AGAP [10.0-20.0 mEq/L] 37 unit/L (02/20/19 1:12 PM) AST [0-37 unit/L] 14 (02/20/19 1:12 PM) B/C Ratio [6-25] 0.4 % (02/23/19 1:40 PM) 0.8 % (02/21/19 4:05 AM) 0.3 % (02/20/19 1:12 PM) Basophils [0.0-1.0 %] 23 mg/dL *HI* (02/22/19 7:08 AM) 20 mg/dL (02/21/19 4:05 AM) 19 mg/dL (02/20/19 1:12 PM) BUN [7-22 mg/dL] 9.2 mg/dL (02/22/19 7:08 AM) 8.6 mg/dL (02/21/19 4:05 AM) 9.1 mg/dL (02/20/19 1:12 PM) Calcium Lvl [8.5-10.5 mg/dL] 3.32 *LOW* (02/21/19 4:05 AM) CHD Risk [4.00-7.30] 123 mg/dL (02/21/19 4:05 AM) Chol [<=199 mg/dL] 107 mEq/L (02/22/19 7:08 AM) 105 mEq/L (02/21/19 4:05 AM) 103 mEq/L (02/20/19 1:12 PM) Chloride Lvl [95-109 mEq/L] 25 mEq/L (02/22/19 7:08 AM) 24 mEq/L (02/21/19 4:05 AM) 20 mEq/L *LOW* (02/20/19 1:12 PM) CO2 [24-32 mEq/L] 1.21 mg/dL (02/23/19 1:40 PM) 1.32 mg/dL (02/22/19 7:08 AM) 1.29 mg/dL (02/21/19 4:05 AM) Creatinine Lvl [0.50-1.40 mg/dL] 0.8 % (02/23/19 1:40 PM) 0.9 % (02/21/19 4:05 AM) 0.3 % (02/20/19 1:12 PM) Eosinophils [0.0-4.0 %] 4.4 g/dL *HI* (02/20/19 1:12 PM) Globulin [2.7-4.2 g/dL] 124 mg/dL *HI* (02/22/19 7:08 AM) 113 mg/dL *HI* (02/21/19 4:05 AM) 152 mg/dL *HI* (02/20/19 1:12 PM) Glucose Lvl [70-99 mg/dL] 40.2 % *LOW* (02/23/19 1:40 PM) 39.1 % *LOW* (02/22/19 7:08 AM) 38.9 % *LOW* (02/21/19 4:05 AM) Hct [42.0-54.0 %] 37 mg/dL *LOW* (02/21/19 4:05 AM) HDL [>=61 mg/dL] 13.3 g/dL *LOW* (02/23/19 1:40 PM) 13.0 g/dL *LOW* (02/22/19 7:08 AM) 13.2 g/dL *LOW* (02/21/19 4:05 AM) Hgb [14.0-18.0 g/dL] 6.3 % *HI* (02/21/19 4:05 AM) Hgb A1C [<=5.6 %] 1.30 *HI* (02/20/19 4:45 PM) INR [0.85-1.17] 4.5 mEq/L (02/22/19 7:08 AM) 5.4 mEq/L *HI* (02/21/19 4:05 AM) 4.8 mEq/L (02/20/19 1:12 PM) Potassium Lvl [3.5-5.1 mEq/L] 65 mg/dL (02/21/19 4:05 AM) LDL (Calculated) [<=99 mg/dL] 195 unit/L (02/20/19 1:12 PM) Lipase Lvl [73-393 unit/L] 8.5 % *LOW* (02/23/19 1:40 PM) 9.7 % *LOW* (02/21/19 4:05 AM) 8.1 % *LOW* (02/20/19 1:12 PM) Lymphocytes [20.0-40.0 %] 30.8 pg (02/23/19 1:40 PM) 31.0 pg (02/22/19 7:08 AM) 31.3 pg *HI* (02/21/19 4:05 AM) MCH [27.0-31.0 pg] 33.1 g/dL (02/23/19 1:40 PM) 33.3 g/dL (02/22/19 7:08 AM) 34.0 g/dL (02/21/19 4:05 AM) MCHC [32.0-36.0 g/dL] 93.2 fL (02/23/19 1:40 PM) 93.2 fL (02/22/19 7:08 AM) 92.0 fL (02/21/19 4:05 AM) MCV [80.0-94.0 fL] 7.2 % (02/23/19 1:40 PM) 10.7 % (02/21/19 4:05 AM) 7.3 % (02/20/19 1:12 PM) Monocytes [2.0-12.0 %] 7.8 fL (02/23/19 1:40 PM) 7.9 fL (02/22/19 7:08 AM) 7.9 fL (02/21/19 4:05 AM) MPV [7.4-10.4 fL] 137 mEq/L (02/22/19 7:08 AM) 134 mEq/L *LOW* (02/21/19 4:05 AM) 133 mEq/L *LOW* (02/20/19 1:12 PM) Sodium Lvl [135-145 mEq/L] 198 K/CMM (02/23/19 1:40 PM) 204 K/CMM (02/22/19 7:08 AM) 203 K/CMM (02/21/19 4:05 AM) Platelet [133-450 K/CMM] 83.1 % *HI* (02/23/19 1:40 PM) 77.9 % *HI* (02/21/19 4:05 AM) 84.0 % *HI* (02/20/19 1:12 PM) Segs [45.0-75.0 %] 7.6 g/dL (02/20/19 1:12 PM) Total Protein [6.4-8.4 g/dL] 15.9 seconds *HI* (02/20/19 4:45 PM) PT [12.0-14.7 seconds] 36.2 seconds *HI* (02/20/19 4:45 PM) PTT [22.9-35.8 seconds] 4.31 M/CMM *LOW* (02/23/19 1:40 PM) 4.19 M/CMM *LOW* (02/22/19 7:08 AM) 4.23 M/CMM *LOW* (02/21/19 4:05 AM) RBC [4.70-6.10 M/CMM] 14.7 % *HI* (02/23/19 1:40 PM) 14.2 % (02/22/19 7:08 AM) 14.3 % (02/21/19 4:05 AM) RDW [11.5-14.5 %] 0.5 mg/dL (02/20/19 1:12 PM) Bili Total [0.2-1.3 mg/dL] 104 mg/dL (02/21/19 4:05 AM) Trig [<=149 mg/dL] <0.02 ng/mL (02/21/19 4:05 AM) <0.02 ng/mL (02/20/19 10:19 PM) <0.02 ng/mL (02/20/19 1:12 PM) Troponin-I [0.00-0.40 ng/mL] Occasional /HPF *NA* (02/20/19 3:05 PM) UA Amorph Marge [None Seen /HPF] Many /HPF *ABN* (02/20/19 3:05 PM) UA Bacteria [None Seen /HPF] Negative *NA* (02/20/19 3:05 PM) UA Bili [Negative] Moderate *ABN* (02/20/19 3:05 PM) UA Blood [Negative] Yellow *NA* (02/20/19 3:05 PM) UA Color [Yellow] Negative mg/dL *NA* (02/20/19 3:05 PM) UA Glucose [Negative mg/dL] Negative mg/dL *NA* (02/20/19 3:05 PM) UA Ketones [Negative mg/dL] Large *ABN* (02/20/19 3:05 PM) UA Leuk Est [Negative] Positive *ABN* (02/20/19 3:05 PM) UA Nitrite [Negative] 8.0 (02/20/19 3:05 PM) UA pH [5.0-8.0] Negative mg/dL (02/20/19 3:05 PM) UA Protein [Negative mg/dL] 2 /HPF (02/20/19 3:05 PM) UA RBC [0-2 /HPF] 1.008 (02/20/19 3:05 PM) UA Spec Grav [<=1.030] Occasional /LPF *NA* (02/20/19 3:05 PM) UA Sq Epi [Few /LPF] Occasional /HPF *NA* (02/20/19 3:05 PM) UA Tr Phos Marge [None Seen /HPF] Marked *ABN* (02/20/19 3:05 PM) UA Turbidity [Clear] <=1.0 mg/dL *NA* (02/20/19 3:05 PM) UA Urobilinogen [0.1-1.0 mg/dL] 8 /HPF *HI* (02/20/19 3:05 PM) UA WBC [0-5 /HPF] 7.8 K/CMM (02/23/19 1:40 PM) 7.0 K/CMM (02/22/19 7:08 AM) 7.8 K/CMM (02/21/19 4:05 AM) WBC [3.7-10.4 K/CMM] 21 *NA* (02/21/19 4:05 AM) VLDL 1Result Comment: The eGFR is calculated using [...] from the National Kid[employer] Disease Education Program ( NKDEP) which additionally recommends that when the eGFR is used in patients with extremes of body mass index for purposes of drug dosing, the eGFR should be mul tiplied by the estimated BMI. 2Result Comment: The eGFR is calculated using [...] from the National Kid[employer] Education Program ( NKDEP) which additionally recommends that when the eGFR is used in patients with extremes of body mass index for purposes of drug dosing, the eGFR should be mul tiplied by the estimated BMI. 3Result Comment: The eGFR is calculated using [...] from the National Kid[employer] Disease Education Program ( NKDEP) which additionally recommends that when the eGFR is used in patients with extremes of body mass index for purposes of drug dosing, the eGFR should be mul tiplied by the estimated BMI. Immunizations Given and Recorded Vaccine Date Status Refusal Reason influenza virus vaccine, inactivated 06/22/17 Given Procedures Procedure Date Related Diagnosis Body Site Status Cardiac pacemaker procedure 06/21/17 Completed Insertion of Port-a-cath 06/30/16 Completed Biopsy of bladder Completed Cardiac catheterization1 Completed Construction of urostomy Completed Cystectomy Completed Cystoscopy and bladder biopsy Completed Partial colectomy Completed Partial resection of colon Completed Prostatectomy Completed 1with stents Social History Social History Type Response Substance Abuse Use: None. Exercise Exercise duration: 20. Exercise frequency: 3-4 times/week. Self assessment: Fair condition. Exercise type: Walking. Employment/School Status: Retired. Alcohol Past, Type Beer. Frequency: 1-2 times per month. Previous treatment: None. Alcohol use interferes with work or home: No. Drinks more than intended: No. Others hurt by drinking: No. Ready to change: No. Household alcohol concerns: No. Smoking Status Never smoker; Exposure to Tobacco Smoke None; Cigarette Smoking Last 365 Days No; Reg Smoking Cessation Counseling No entered on: 02/20/19 Assessment and Plan Extracted from: Title: Clinical Document Author: Lety Black MD Date: 02/23/19 Progress Note Gastroenterology and Hepatology Assessment/Impression: 1. Upper abdominal pain currently appears to have resolved but the intermittent pains may be related to lymphadenopathy. Prior GI and surgical work-up have been negative. 2. Atypical chest pain, positive stress test with 80% lesion needing a drug-eluting stent, started on Plavix on top of aspirin, previously on Eliquis which will be continued per cardiology. Plan: -Pain control deferred to primary -No further GI work-up recommended at this time GI will sign off. Please reconsult if necessary. Thank you for involving us in the care of this patient. Please feel free to call us with any questions or concerns. SUBJECTIVE: Patient seen and examined at bedside. Events of the day reviewed with nursing staff. No new complaints. He underwent cardiac catheterization procedure results were noted. Review of Systems: (-)=Negative,(+)=Positive 1) Const: (-) fever, (-) weight change 2) Skin: (-) rash, (-) bleeding 3) HEENT: (-) difficulty swallowing, (-) swelling 4) Eyes: (-) vision changes, (-) bleeding 5) Neuro: (-) weakness, (-) headaches 6) Resp: (-) dyspnea on exertion, (-) cough 7) Cardio: (-) chest pain, (-) orthopnea 8) GI: (-) blood in stool, (-) reflux 9) : (-) dysuria, (-) bloody discharge 10) Endo: (-) heat intolerance, (-) cold intolerance OBJECTIVE: Vitals: See below General: NAD Psych: alert , oriented x 3 Neck:supple CVS: s1s2 RRR Resp: CTA Bilaterally Abd : Soft, NT, ND , BS + Ext : No edema Skin: No rash or echymossis 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 Labs: Reviewed. VitalsTmp(F)Tmp(C)[id number] 02/23 12:30 157/78---72--98------ 02/23 12:24 131/67---70--97------ 02/23 12:15 119/60---[id number]------ 02/23 12:10 125/65---[id number]------ 02/23 12:05 139/65---[id number]------ 24 Hr Tmax: 98.3F (36.83c) at 02/22 20:07Vital Signs are the last 5 in the past 48 hours. 24 Hr Tmin: 97.8F (36.56c) at 02/22 15:33Weights are the last 5 in 60 days, plus initial. DateWt(kg)Wt(lb)Ht(cm)Ht(in)MethodBMI 02/20 (initial) 90.91 200.00Estimated 27.2 82.88 72.00Stated Most Recent Scores: 02/23/19Pain Intensity NRS (0-10)0 02/23/19Johns Velazquez Fall Score10 02/23/19Glasgow Coma Score15 02/23/19Braden Score19 Lines, Tubes, and Drains: 02/22/2019 15:51 Peripheral Lines: Forearm Left 20 gauge Over the needle catheter 02/20/2019 13:02 Peripheral Lines: Antecubital Right 20 gauge Over the needle catheter Surgical Procedures: (no date)Left Heart Cath [id number](primary surgeon unspecified) I&ORecordInOutBal 3024hr Tot 164 0 164 2924hr Tot 1400 0 1400 24hr Labs 02/23 1340 WBC7.8 RBC4.31 L Hgb13.3 L Hct40.2 L MCV93.2 MCH30.8 MCHC33.1 RDW14.7 H Qyyjymnd387 MPV7.8 Segs83.1 H Monocytes7.2 Lymphocytes8.5 L Eosinophils0.8 Basophils0.4 Neutrophils #6.5 Lymphocytes #0.7 L Monocytes #0.6 Eosinophils #0.1 Scheduled Meds (7): apixaban (Eliquis) 5 mg PO Q12H [eMAR Schedule: (02/23/19) 09:00, 21:00] aspirin (aspirin 81 mg tablet, enteric coated) 81 mg PO Daily [eMAR Schedule: (02/23/19) 09:00] [Future Dose: 02/24/19 09:00] cefdinir (Omnicef 300 mg oral capsule) 300 mg PO [id number] [eMAR Schedule: (02/23/19) 11:00, 23:00] clopidogrel 75 mg PO Daily [Future Dose: 02/24/19 09:00] metoprolol (Toprol-XL 50 mg oral tablet, extended release) 50 mg PO Daily [eMAR Schedule: (02/23/19) 09:00] [Future Dose: 02/24/19 09:00] pantoprazole (Protonix) 40 mg PO Before Breakfast [Last Rescheduled Dt/Tm: 02/21/19 7:30:00 CDT] [eMAR Schedule: (02/23/19) 07:30] [Future Dose: 02/24/19 07:30] simvastatin 40 mg PO Bedtime [eMAR Schedule: (02/23/19) 21:00] [Future Dose: 02/24/19 21:00] Unscheduled Meds (1): Sodium Chloride 0.9% IV (Sodium Chloride 0.9% (Bolus) IV) 250 mL IV ONCALL 250 ml/hr PRN Meds (23): Al hydroxide/Mg hydroxide/simethicone (Maalox Advanced Regular Strength SUSP) 30 mL PO QID-After Meals Dextrose 50% in Water IV (Dextrose 50% Syringe) 12.5 gm IVP PRN Dextrose 50% in Water IV (Dextrose 50% Syringe) 25 gm IVP PRN QUEtiapine (SEROquel) 25 mg PO BID acetaminophen-hydrocodone (Chamberlain 5/325 oral tablet) 1 tab PO Q6H acetaminophen 650 mg PO Q6H albuterol-ipratropium (DuoNeb inhalation solution) 3 ml NEB PRN benzonatate (Tessalon Perles) 100 mg PO TID bisacodyl 10 mg UT Daily diphenhydrAMINE 25 mg PO Q6H docusate 100 mg PO BID glucagon 1 mg IM PRN guaiFENesin (Mucinex) 600 mg PO Q12H hydrALAZINE 10 mg IVP Q4H hydromorphone (Dilaudid) 0.5 mg IVP Q4H melatonin 3 mg PO Bedtime nicotine 21 mg TOP Daily nitroglycerin (nitroglycerin SL Tab) 0.4 mg SL Q5Min ondansetron 4 mg IVP Q6H polyethylene glycol 3350 17 gm PO Daily simethicone 80 mg CHEW QID-After Meals sodium chloride (Saline Flush 0.9%) 10 mL IVP PRN trazodone 50 mg PO Bedtime One Time Meds: None Continuous Infusions (1): Sodium Chloride 0.9% IV 750 mL 750 mL 75 ml/hr Type of Bladder Control: Voluntary Type of Urinary Elimination: Continent Extracted from: Title: Clinical Document Author: Lety Black MD Date: 02/22/19 Initial Consult Note Gastroenterology and Hepatology Referring MD: Dr Selby Reason for Consultation: Abdominal pain Assessment/Impression: 1. Upper abdominal pain currently appears to have resolved but the intermittent pains may be related to lymphadenopathy. Prior GI and surgical work-up have been negative. 2. Atypical chest pain, positive stress test pending cardiac cath tomorrow Plan: -Pain control deferred to primary -No further GI work-up recommended at this time Follow-up in office as needed. Thank you for involving us in the care of this patient. Please feel free to call us with any questions or concerns. History Of Present Illness: This is a 83-year-old male with history of bladder cancer originally diagnosed in 2013 and had surgery in 2014, history of colon cancer in 2009 and still a progression of disease from the bladder cancer with the portacaval lymph nodes and distant lymph nodes in the left supraclavicular region neck of the pancreas is presented to the hospital multiple times with upper abdominal pain right upper quadrant pain as well as epigastric discomfort. Pain pattern appears to be intermittent with no specific triggers. He has on occasion had severe pain requiring IV Dilaudid use but today he denied any abdominal pain. On 1 of the admissions to start the pain could be from a gallstones and had cholecystectomy which did not help. On the previous admission he was given endoscopic ultrasound-guided celiac block which he initially stated that was helping but subsequently notes that the pain has come back.He has now presented back to the emergency room with the complaints of chest discomfort as well as epigastric discomfort. On questioning currently he has no complaints. He was seen by cardiology underwent a stress test and was noted to have questionable defect in the inferior aspect and there are plans for heart catheterization tomorrow. Past Medical History: [place] - Myocardial infarction: 09/27/06 Cancer of colon Hematuria [place] (hard of hearing) Colostomy in place Primary colon cancer Pacemaker Scheduled Meds (6): 02/21/19 apixaban (Eliquis) 5 mg PO Q12H 02/21/19 aspirin (aspirin 81 mg tablet, enteric coated) 81 mg PO Daily 02/20/19 cefdinir (Omnicef 300 mg oral capsule) 300 mg PO [id number] 02/22/19 metoprolol (Toprol-XL 50 mg oral tablet, extended release) 50 mg PO Daily 02/21/19 pantoprazole (Protonix) 40 mg PO Before Breakfast 02/21/19 simvastatin 40 mg PO Bedtime Continuous Infusions (1): 02/22/19 Sodium Chloride 0.9% IV 750 mL 750 mL 75 ml/hr Allergies (3) ActiveReaction morphineNone documented PaceroneNone documented penicillinsNone documented Social History: Employment/School Details: Status: Retired. Alcohol Details: Past, Type Beer. Frequency: 1-2 times per month. Previous treatment: None. Alcohol use interferes with work or home: No. Drinks more than intended: No. Others hurt by drinking: No. Ready to change: No. Household alcohol concerns: No. Exercise Details: Exercise duration: 20. Exercise frequency: 3-4 times/week. Self assessment: Fair condition. Exercise type: Walking. Tobacco Details: Use: Never smoker. Tobacco smoke exposure: None. Did the Patient Smoke Cigarettes Anytime During the Last 365 Days? No. Cessation Counseling Provided? No. Substance Abuse Details: Use: None. Family History: Father: Heart attack Mother: Cancer of colon; Heart attack Procedure History: Cardiac pacemaker procedure: 06/21/17 Insertion of Port-a-cath: 06/30/16 Partial resection of colon Cystoscopy and bladder biopsy Cardiac catheterization Biopsy of bladder Prostatectomy Partial colectomy Cystectomy Construction of urostomy Review of Systems: NEGATIVE unless bold General: weight loss, loss of appetite, fever, chills, excessive malaise, fatigue, generalized weakness HEENT : recent change in vison, eye pain, diplopia, epistaxis, sinus pain, sore throat, throat pain, acute hearing loss, ear pain or discharge RESPIRATORY: shortness of breath, hemoptysis, cough, wheezing, pleuritic pains CVS: chest pain, palpitations, irregular herat beat, low extremity swelling, heart murmurs GI: see HPI : hematuria, dysuria, incontinence,urinary frequency, impaired urine flow. recurrent UTIs MS: acute arthritis, back pain, joint swelling, gout Neurological: acute altered mentation, headaches, recent seizures, falls, recent loss of consciousness, gait problems, focal limb weakness, numbness, tingling , paraesthesia Endocrine: polydypsia, polyuria, unusual hair loss Immunological/ Hematological; acute bleeding, easy bleeding or bruising, lymph node swelling, recurrent infections Psychiatric: hallucinations. psychosis, confusion, depression, suicidal ideation Integument: rash, jaundice, generalized Vitals and Temp: VitalsTmp(F)[id number] 02/22 20:0798.351502/352225--- 02/22 15:3397.928143/59--95--- 02/22 11:5498.708722/076258--- 02/22 08:0998.856989/455960--- 02/22 04:0398.754174/303531--- 24 Hr Tmax: 98.3F (36.83c) at 02/22 20:07Vital Signs are the last 5 in the past 48 hours. 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 motor/sensory defect Labs: Labs (Last four charted values) WBC 7.0(FEBRUARY 22)7.8(FEBRUARY 21)9.8(FEBRUARY 20) Hgb L 13.0(FEBRUARY 22)L 13.2(FEBRUARY 21)14.1(FEBRUARY 20) Hct L 39.1(FEBRUARY 22)L 38.9(FEBRUARY 21)L 41.7(FEBRUARY 20) Plt 204(FEBRUARY 22)203(FEBRUARY 21)252(FEBRUARY 20) Na 137(FEBRUARY 22)L 134(FEBRUARY 21)L 133(FEBRUARY 20) K 4.5(FEBRUARY 22)H 5.4(FEBRUARY 21)4.8(FEBRUARY 20) CO2 25(FEBRUARY 22)24(FEBRUARY 21)L 20(FEBRUARY 20) Cl 107(FEBRUARY 22)105(FEBRUARY 21)103(FEBRUARY 20) Cr 1.32(FEBRUARY 22)1.29(FEBRUARY 21)1.40(FEBRUARY 20) BUN H 23(FEBRUARY 22)20(FEBRUARY 21)19(FEBRUARY 20) Glucose Random H 124(FEBRUARY 22)H 113(FEBRUARY 21)H 152(FEBRUARY 20) Ca 9.2(FEBRUARY 22)8.6(FEBRUARY 21)9.1(FEBRUARY 20) PT H 15.9(FEBRUARY 20) INR H 1.30(FEBRUARY 20) PTT H 36.2(FEBRUARY 20) Troponin <0.02(FEBRUARY 21)<0.02(FEBRUARY 20)<0.02(FEBRUARY 20) Diagnostic Studies: Reviewed. Extracted from: Title: General Admission H&P * Author: Vi Zhang MD Date: 02/20/19 Chief Complaint 02/20/2019 13:08 Pt states hours of CP with SOB. Pt complains of nausea, denies vomiting. States recently 01/25/19 gallbladder removal. Pt AOX4 PMH- HTN History of Present Illness 83-year-old male with known history of CAD with pacemaker, hypertension, bladder cancer on prior chemotherapy presents to the ED with complaints of substernal chest pain with radiation to the right shoulder and arm. Patient endorses shortness of breath nausea and vomiting associated with the chest pain. Denies any recent sickness cough congestion or any fever. Patient seen and evaluated at bedside in the ER currently doing well just complaining of pain and requesting IV Dilaudid. His vital signs were stable when I evaluated him. Cardiology already evaluated the patient. Review of Systems Pertinent positive: Substernal chest pain, shortness of breath, nausea and vomiting, abdominal pain Pertinent negative: Denies any palpitation dysuria hematuria frequency urgency lightheadedness dizziness headache cough congestion fever or any other complaints Rest of 14 point review of systems have reviewed the patient and are negative Health Status Allergies: Allergic Reactions (Selected) Severity Not Documented Morphine- No reactions were documented. Pacerone- No reactions were documented. Penicillins- No reactions were documented., Allergies (3) ActiveReaction morphineNone Documented PaceroneNone Documented penicillinsNone Documented Current medications: (Selected) Inpatient Medications Ordered Dextrose 50% Syringe: 25 mL, IVP, PRN, PRN: Blood Glucose Results Dextrose 50% Syringe: 50 mL, IVP, PRN, PRN: Blood Glucose Results DuoNeb inhalation solution: 3 ml, NEB, PRN, PRN: Respiratory Pathway Heparin 30 unit/kg Bolus (Heparin Dosing Weight): 2,700 unit, 2.7 mL, IVP, PRN, PRN: Heparin Protocol Maalox Advanced Regular Strength SUSP: 30 mL, PO, QID-After Meals, PRN: as needed for indigestion Mucinex: 600 mg, PO, Q12H, PRN: Congestion Chamberlain 5/325 oral tablet: 1 tab, PO, Q6H, PRN: Pain Score 1-3 Protonix: 40 mg, PO, Daily SEROquel: 25 mg, PO, BID, PRN: Agitation Saline Flush 0.9%: 10 mL, IVP, PRN, PRN: Line Flush Tessalon Perles: 100 mg, PO, TID, PRN: Cough acetaminophen: 650 mg, PO, Q6H, PRN: For Temp > 100.4 F bisacodyl: 10 mg, UT, Daily, PRN: Constipation diphenhydrAMINE: 25 mg, PO, Q6H, PRN: as needed for allergy symptoms docusate: 100 mg, PO, BID, PRN: as needed for constipation glucagon: 1 mg, IM, PRN, PRN: Blood Glucose Results heparin additive 25,000 unit [11 unit/kg/hr] + Premix Diluent Dextrose 5% 500 mL: 20 ml/hr, IV, Stop: 03/22/19 16:16:00 CDT hydrALAZINE: 10 mg, IVP, Q4H, PRN: Hypertension melatonin: 3 mg, PO, Bedtime, PRN: Insomnia nicotine: 21 mg, TOP, Daily, PRN: as needed for smoking cessation ondansetron: 4 mg, IVP, Q6H, PRN: Nausea & Vomiting polyethylene glycol 3350: 17 gm, PO, Daily, PRN: Constipation simethicone: 80 mg, CHEW, QID-After Meals, PRN: as needed for gas trazodone: 50 mg, PO, Bedtime, PRN: Insomnia Documented Medications Documented Dilaudid: 0 Refill(s) Eliquis: 5 mg, PO, Q12H, 0 Refill(s) Vitamin D3 1000 intl units oral capsule: 1,000 IntlUnit, 1 cap, PO, Daily, 100 cap, 0 Refill(s) metoprolol 50 mg oral tablet, extended release: 50 mg, 1 tab, PO, BID, 0 Refill(s) simvastatin: 40 mg, PO, Daily, 30 tab, Medications (24) Active Scheduled: (1) pantoprazole 40 mg, PO, Daily Continuous: (1) heparin 25,000 unit/500 mL D5W PREMIX 25,000 unit [11 unit/kg/hr] + Premix Diluent Dextrose 5% 500 500 mL, IV, 20 ml/hr PRN: (22) acetaminophen 650 mg, PO, Q6H acetaminophen-hydrocodone 1 tab, PO, Q6H Al hydroxide/Mg hydroxide/simethicone 30 mL, PO, QID-After Meals albuterol-ipratropium 3 ml, NEB, PRN benzonatate 100 mg, PO, TID bisacodyl 10 mg, UT, Daily Dextrose 50% in Water IV 25 mL, IVP, PRN Dextrose 50% in Water IV 50 mL, IVP, PRN diphenhydrAMINE 25 mg, PO, Q6H docusate 100 mg, PO, BID glucagon 1 mg, IM, PRN guaiFENesin 600 mg, PO, Q12H heparin 1000 unit/1ml 10 ml INJ VL 2,700 unit 2.7 mL, IVP, PRN hydrALAZINE 10 mg, IVP, Q4H melatonin 3 mg, PO, Bedtime nicotine 21 mg, TOP, Daily ondansetron 4 mg, IVP, Q6H polyethylene glycol 3350 17 gm, PO, Daily QUEtiapine 25 mg, PO, BID simethicone 80 mg, CHEW, QID-After Meals sodium chloride 0.9% 10 ml flush syr BD 10 mL, IVP, PRN trazodone 50 mg, PO, Bedtime Problem list: All Problems HTN - Hypertension / SNOMED CT 7734871536 / Confirmed CHF - Congestive heart failure / SNOMED CT 993780087 / Confirmed Cancer of colon / SNOMED CT 3368656344 / Confirmed CAD (coronary artery disease) / SNOMED CT [id number] / Confirmed Bladder cancer / SNOMED CT 9442679168 / Confirmed Benign bladder tumor / SNOMED CT 3838103820 / Confirmed Anemia / SNOMED CT 857226420 / Confirmed, Active Problems (7) Anemia Benign bladder tumor Bladder cancer CAD (coronary artery disease) Cancer of colon CHF - Congestive heart failure HTN - Hypertension Histories Past Medical History: Active HTN - Hypertension (0305076160) Benign bladder tumor (1565516028) CAD (coronary artery disease) ([id number]) Bladder cancer (1932380738) Resolved Cancer of colon (0140512277): Resolved. [place] - Myocardial infarction (2239620310): Resolved on 09/27/2006 at 71 years. Hematuria (42226338): Resolved. [place] (hard of hearing) (56430427): Resolved. Colostomy in place (288504168): Resolved. Primary colon cancer ([id number]): Resolved. Pacemaker (8167275377): Resolved. Family History: Cancer of colon Mother Heart attack Father Mother Procedure history: Cardiac pacemaker procedure (274085455) on 06/21/2017 at 81 Years. Insertion of Port-a-cath (905066779) on 06/30/2016 at 80 Years. Cardiac catheterization (28014464). Comments: 12/26/2014 10:54 - Geraldine Salas RN with stents Cystoscopy and bladder biopsy (613318442). Partial resection of colon (62571155). Biopsy of bladder (23174356). Partial colectomy (493817569). Prostatectomy (578359017). Construction of urostomy (9425854946). Cystectomy (4179111845). Social History Social & Psychosocial Habits Alcohol 02/13/2019 Use: Past Type: Beer Frequency: 1-2 times per month Previous treatment: None Has alcohol use interfered with work or home life? No Do you ever drink more than intended? No Has anyone been hurt or at risk by your drinking? No Ready to change: No Concerns about alcohol use in household: No Employment/School 02/13/2019 Status: Retired Substance Abuse 02/13/2019 Use: None Tobacco 02/20/2019 Use: Never smoker Exposure to Tobacco Smoke None Cigarette Smoking Last 365 Days No Reg Smoking Cessation Counseling No. Physical Examination VS/Measurements Vital Signs (last 24 hrs) Last Charted Temp Oral98.3 DegF (FEBRUARY 20:08) Heart Rate Iheflx79 bpm (FEBRUARY 20:06) Resp Rate 19 BRMIN (FEBRUARY 20 17:06) SBPH 163mmHg (FEBRUARY 20 17:06) DBP85 mmHg (FEBRUARY 20 17:06) TnK989 % (FEBRUARY 20 17:06) Mbasqs36.909 kg (FEBRUARY 20 13:08) Ccarau403.88 cm (FEBRUARY 20 13:08) BMI27.18 (FEBRUARY 20 13:08) Intake and Output I/O Intake OutputBalance 02/20/20197a-3p 0.00 0.00 0.00 3p-11p 0.50 0.00 0.50As of 22:02 11p-7a 0.00 0.00 0.00 Totals 0.50 0.00 0.50 02/19/20197a-3p 0.00 0.00 0.00 3p-11p 0.00 0.00 0.00 11p-7a 0.00 0.00 0.00 Totals 0.00 0.00 0.00 02/18/20197a-3p 0.00 0.00 0.00 3p-11p 0.00 0.00 0.00 11p-7a 0.00 0.00 0.00 Totals 0.00 0.00 0.00 General: Alert and oriented, No acute distress. Eye: Pupils are equal, round and reactive to light, Extraocular movements are intact, Normal conjunctiva. HENT: Normocephalic, Oral mucosa is moist. Neck: Supple, Non-tender, No jugular venous distention. Respiratory: Lungs are clear to auscultation, Respirations are non-labored, Breath sounds are equal. Cardiovascular: Normal rate, Regular rhythm, No murmur. Gastrointestinal: Soft, Non-tender, Non-distended, Normal bowel sounds. Genitourinary: No costovertebral angle tenderness. Musculoskeletal Normal range of motion. Normal strength. Integumentary: Warm, Dry. Neurologic: Alert, Oriented. Cognition and Speech: Oriented, Speech clear and coherent. Psychiatric: Cooperative, Appropriate mood & affect. Review / Management Results review: Labs (Last four charted values) WBC 9.8(FEBRUARY 20) Hgb 14.1(FEBRUARY 20) Hct L 41.7(FEBRUARY 20) Plt 252(FEBRUARY 20) Na L 133(FEBRUARY 20) K 4.8(FEBRUARY 20) CO2 L 20(FEBRUARY 20) Cl 103(FEBRUARY 20) Cr 1.40(FEBRUARY 20) BUN 19(FEBRUARY 20) Glucose Random H 152(FEBRUARY 20) Ca 9.1(FEBRUARY 20) Troponin <0.02(FEBRUARY 20). Chest x-ray: Negative Impression and Plan 1. Chest pain rule out ACS with pacemaker 2. Hypertension 3. History of bladder cancer Plan: Trend troponins, aspirin, statin, cardiology consultation Resume same antihypertensive medications, PRN hydralazine Antinausea medication, IV Dilaudid PT/OT eval Eliquis for DVT prophylaxis Currently home med medication are not in the system Addendum Probable UTI by Leatha, started on IV Rocepkris Burkett MD on 02/20/2019 22:05
--- OUTSIDE RECORDS SUMMARY | 2019-03-05 07:29 | XMS REPORT | Summary of Care ---
Author Author [facility] Organization [facility] Address Unknown Phone Unavailable Encounter CAROLYN Pandya([place]) [id number] Date(s): 02/25/17 - 02/25/17 [facility] [address] [place] [address]- Discharge Disposition: Home or Self Care Attending Physician: Teresa Abdullahi DO Referring Physician: Teresa Abdullahi DO Vital Signs No data available for this section Problem List Condition Effective Dates Status Health Status Informant Anemia(Confirmed) Active Benign bladder Active tumor(Confirmed) CAD (coronary artery Active disease)(Confirmed) Cancer of Resolved colon(Confirmed) Cancer of Active colon(Confirmed) CHF - Congestive Active heart failure(Confirmed) 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) [place] (hard of Resolved hearing)(Confirmed) Hematuria(Confirmed) Resolved HTN - Active Hypertension(Confirm ed) Bladder Active cancer(Confirmed) [place] - Myocardial < 09/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 ) [...]
--- OUTSIDE RECORDS SUMMARY | 2019-03-05 07:29 | XMS REPORT | Summary of Care ---
Author Author [facility] Organization [facility] Address Unknown Phone Unavailable Encounter CAROLYN Pandya([place]OLA) [id number] Date(s): 06/21/17 - 06/22/17 [facility] [address] [place] [address]- Discharge Disposition: Home or Self Care Attending Physician: Idalia Saunders MD Referring Physician: Idalia Saunders MD Vital Signs 1 2 3 Most recent to oldest [Reference Range]: 182.88 cm (06/21/17 7:07 AM) Height 97.6 DegF (06/22/17 11:41 AM) 98.3 DegF (06/22/17 7:50 AM) 98.4 DegF (06/22/17 4:00 AM) Temperature Oral [96.4-99.1 DegF] 131/68 mmHg (06/22/17 11:41 AM) 145/75 mmHg *HI* (06/22/17 7:50 AM) 124/67 mmHg (06/22/17 4:00 AM) Blood Pressure [90-140/60-90 mmHg] 18 BRMIN (06/22/17 11:41 AM) 18 BRMIN (06/22/17 7:50 AM) 18 BRMIN (06/22/17 4:00 AM) Respiratory Rate [14-20 BRMIN] 60 bpm (06/22/17 11:41 AM) 61 bpm (06/22/17 7:50 AM) 63 bpm (06/22/17 4:00 AM) Peripheral Pulse Rate [60-100 bpm] 97.727 kg (06/21/17 7:07 AM) Weight 29.22 m2 (06/21/17 7:07 AM) Body Mass Index Problem List Condition Effective Dates Status Health Status Informant Anemia(Confirmed) Active Benign bladder Active tumor(Confirmed) CAD (coronary artery Active disease)(Confirmed) Cancer of Resolved colon(Confirmed) Cancer of Active colon(Confirmed) Pacemaker(Confirmed) Resolved CHF - Congestive Active heart failure(Confirmed) 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) [place] (hard of Resolved hearing)(Confirmed) Hematuria(Confirmed) Resolved HTN - Active Hypertension(Confirm ed) Bladder Active cancer(Confirmed) MD - Myocardial < 09/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 ) Primary colon Resolved cancer(Confirmed) Allergies, Adverse Reactions, Alerts Substance Reaction Severity Status Pacerone Active penicillins Active Medications EPINEPHrine-lidocaine 1:200,000-1% preservative-free injectable solution 60 mL, Route: SUB-Q, Drug Form: INJ, Dosing Weight 97.727, kg, ONCE, Start date: 06/21/17 8:54:00 CDT, Stop date: 06/21/17 8:54:00 CDT Notes: Preservative-free. (Same as: Xylocaine-MPF w/Epinephrine) Start Date: 06/21/17 Stop Date: 06/21/17 Status: Completed influenza virus vaccine, inactivated 0.5 mL, Route: IM, Drug Form: SUSP, Daily, Start date: 06/22/17 9:00:00 CDT, Dur ation: 1 doses or times, Stop date: 06/22/17 9:00:00 CDT Notes: (Same as: Fluzone Quadrivalent, Fluarix Quadrivalent)For 3 years of age a nd older (0.5 mL IM)Shake well before use Start Date: 06/22/17 Stop Date: 06/22/17 Status: Completed lisinopril 20 mg, 1 tab, Route: PO, Drug form: TAB, Bedtime, Dosing Weight 97.727, kg, Star t date: 06/21/17 21:00:00 CDT, Duration: 30 day, Stop date: 07/20/17 21:00:00 CD T Notes: (Same as: Prinivil, Zestril) Start Date: 06/21/17 Stop Date: 06/22/17 Status: Discontinued minocycline 100 mg, 2 cap, Route: PO, Drug form: CAP, Q12H, Dosing Weight 97.727, kg, Start date: 06/22/17 9:00:00 CDT, Duration: 7 day, Stop date: 06/28/17 21:00:00 CDT Notes: (Same as:Minocin) No milk/antacids/iron. Start Date: 06/22/17 Stop Date: 06/22/17 Status: Discontinued minocycline 50 mg oral capsule 100 mg=2 cap, PO, Q12H, # 20 cap, 0 Refill(s) Start Date: 06/22/17 Stop Date: 07/03/17 Status: Ordered Plavix 75 mg, 1 tab, Route: PO, Drug form: TAB, Daily, Dosing Weight 97.727, kg, Start date: 06/22/17 9:00:00 CDT, Duration: 30 day, Stop date: 07/21/17 9:00:00 CDT Notes: (Same As: Plavix) Start Date: 06/22/17 Stop Date: 06/22/17 Status: Discontinued simvastatin 40 mg, 1 tab, Route: PO, Drug form: TAB, Daily, Dosing Weight 97.727, kg, Start date: 06/22/17 9:00:00 CDT, Duration: 30 day, Stop date: 07/21/17 9:00:00 CDT Notes: (Same as: Zocor) Start Date: 06/22/17 Stop Date: 06/22/17 Status: Discontinued Vitamin D3 1000 intl units oral capsule 1,000 IntlUnit=1 cap, PO, Daily, # 100 cap, 0 Refill(s) Start Date: 06/21/17 Status: Ordered Vitamin D3 1000 intl units oral tablet 1,000 IntlUnit, 1 tab, Route: PO, Drug form: TAB, Daily, Dosing Weight 97.727, k g, Start date: 06/22/17 9:00:00 CDT, Duration: 30 day, Stop date: 07/21/17 9:00: 00 CDT Notes: Same as : Vitamin D3 Start Date: 06/22/17 Stop Date: 06/22/17 Status: Discontinued Results ELECTROLYTES Most recent to 1 oldest [Reference Range]: Sodium Lvl [135-145 139 mEq/L mEq/L] (06/21/17 7:35 AM) Potassium Lvl 4.5 mEq/L [3.5-5.1 mEq/L] (06/21/17 7:35 AM) Chloride Lvl [95-109 106 mEq/L mEq/L] (06/21/17 7:35 AM) CO2 [24-32 mEq/L] 23 mEq/L *LOW* (06/21/17 7:35 AM) AGAP [10.0-20.0 14.5 mEq/L mEq/L] (06/21/17 7:35 AM) CHEM PANEL Most recent to 1 oldest [Reference Range]: Creatinine Lvl 1.50 mg/dL [0.50-1.40 mg/dL] *HI* (06/21/17 7:35 AM) eGFR 42 mL/min/1.73m2 1 *NA* (06/21/17 7:35 AM) BUN [7-22 mg/dL] 19 mg/dL (06/21/17 7:35 AM) Glucose Lvl [70-99 96 mg/dL mg/dL] (06/21/17 7:35 AM) Calcium Lvl 8.7 mg/dL [8.5-10.5 mg/dL] (06/21/17 7:35 AM) 1Result Comment: The eGFR is calculated using [...] be mul tiplied by the estimated BMI. HEMATOLOGY Most recent to 1 oldest [Reference Range]: WBC [3.7-10.4 K/CMM] 6.1 K/CMM (06/21/17 7:35 AM) RBC [4.70-6.10 4.31 M/CMM M/CMM] *LOW* (06/21/17 7:35 AM) Hgb [14.0-18.0 g/dL] 13.7 g/dL *LOW* (06/21/17 7:35 AM) Hct [42.0-54.0 %] 39.8 % *LOW* (06/21/17 7:35 AM) MCV [80.0-94.0 fL] 92.3 fL (06/21/17 7:35 AM) MCH [27.0-31.0 pg] 31.8 pg *HI* (06/21/17 7:35 AM) MCHC [32.0-36.0 34.5 g/dL g/dL] (06/21/17 7:35 AM) RDW [11.5-14.5 %] 14.6 % *HI* (06/21/17 7:35 AM) Platelet [133-450 176 K/CMM K/CMM] (06/21/17 7:35 AM) MPV [7.4-10.4 fL] 8.3 fL (06/21/17 7:35 AM) Segs [45.0-75.0 %] 73.5 % (06/21/17 7:35 AM) Lymphocytes 14.6 % [20.0-40.0 %] *LOW* (06/21/17 7:35 AM) Monocytes [2.0-12.0 9.8 % %] (06/21/17 7:35 AM) Eosinophils [0.0-4.0 1.6 % %] (06/21/17 7:35 AM) Basophils [0.0-1.0 0.5 % %] (06/21/17 7:35 AM) Segs-Bands # 4.5 K/CMM [1.5-8.1 K/CMM] (06/21/17 7:35 AM) Lymphocytes # 0.9 K/CMM [1.0-5.5 K/CMM] *LOW* (06/21/17 7:35 AM) Monocytes # [0.0-0.8 0.6 K/CMM K/CMM] (06/21/17 7:35 AM) Eosinophils # 0.1 K/CMM [0.0-0.5 K/CMM] (06/21/17 7:35 AM) PT [12.0-14.7 13.3 seconds seconds] (06/21/17 7:35 AM) INR [0.85-1.17] 0.99 (06/21/17 7:35 AM) PTT [22.9-35.8 29.1 seconds seconds] (06/21/17 7:35 AM) Immunizations Given and Recorded Vaccine Date Status Refusal Reason influenza virus vaccine, inactivated 06/22/17 Given Procedures Procedure Date Related Diagnosis Body Site Cardiac pacemaker procedure 06/21/17 Insertion of Port-a-cath 06/30/16 Biopsy of bladder [...]
--- OUTSIDE RECORDS SUMMARY | 2019-03-05 07:29 | XMS REPORT | Summary of Care ---
Author Author [facility] Organization [facility] Address Unknown Phone Unavailable Encounter CAROLYN Pandya([place]OL[place]) [id number] Date(s): 06/25/17 - 06/27/17 [facility] [address] [place] [address]- Discharge Disposition: Home or Self Care Attending Physician: Ed Roger MD Admitting Physician: Ed Roger MD Vital Signs 1 2 3 Most recent to oldest [Reference Range]: 98.1 DegF (06/27/17 11:32 AM) 98.2 DegF (06/27/17 7:18 AM) 98.0 DegF (06/27/17 4:00 AM) Temperature Oral [96.4-99.1 DegF] 136/70 mmHg (06/27/17 11:32 AM) 137/79 mmHg (06/27/17 7:18 AM) 144/73 mmHg *HI* (06/27/17 4:00 AM) Blood Pressure [90-140/60-90 mmHg] 16 BRMIN (06/27/17 4:00 AM) 16 BRMIN (06/27/17 1:33 AM) 16 BRMIN (06/26/17 7:54 PM) Respiratory Rate [14-20 BRMIN] 63 bpm (06/27/17 11:32 AM) 63 bpm (06/27/17 7:18 AM) 60 bpm (06/27/17 4:00 AM) Peripheral Pulse Rate [60-100 bpm] 90.909 kg (06/25/17 9:50 PM) Weight Problem List Condition Effective Dates Status Health Status Informant Anemia(Confirmed) Active Benign bladder Active tumor(Confirmed) CAD (coronary artery Active disease)(Confirmed) Cancer of Resolved colon(Confirmed) Cancer of Active colon(Confirmed) Pacemaker(Confirmed) Resolved CHF - Congestive Active heart failure(Confirmed) 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 (Same as: Tylenol) Start Date: 06/25/17 Stop Date: 06/27/17 Status: Discontinued Cardizem 10 mg, 2 mL, Route: IVP, Drug form: INJ, ONCE, Dosing Weight 90.909, kg, Priorit y: STAT, Start date: 06/25/17 21:53:00 CDT, Stop date: 06/25/17 21:53:00 CDT Notes: (Same as: Cardizem) Start Date: 06/25/17 Stop Date: 06/25/17 Status: Discontinued enoxaparin 60 mg, 0.6 mL, Route: SUB-Q, Drug form: INJ, [id number], Dosing Weight 90.909, kg, Priority: STAT, Start date: 06/27/17 10:45:00 CDT, Duration: 30 day, Stop date: 07/26/17 22:45:00 CDT Notes: Nurse to ensure documentation of patient education per anticoagulation po licy. (Same as: Lovenox) Start Date: 06/27/17 Stop Date: 06/27/17 Status: Discontinued enoxaparin 40 mg, 0.4 mL, Route: SUB-Q, Drug form: INJ, [id number], Dosing Weight 90.909, kg, Start date: 06/26/17 0:00:00 CDT, Duration: 30 day, Stop date: 07/25/17 0:00:00 CDT Notes: (Same as: Lovenox) Start Date: 06/26/17 Stop Date: 06/27/17 Status: Discontinued lisinopril 20 mg, 1 tab, Route: PO, Drug form: TAB, Bedtime, Dosing Weight 90.909, kg, Star t date: 06/26/17 21:00:00 CDT, Duration: 30 day, Stop date: 07/25/17 21:00:00 CD T Notes: (Same as: Prinivil, Zestril) Start Date: 06/26/17 Stop Date: 06/27/17 Status: Discontinued metoprolol 5 mg/5 ml INJ 5 mg, Route: IVP, Drug form: INJ, ONCE, Dosing Weight 90.909, kg, Priority: STAT , Start date: 06/25/17 22:47:00 CDT, Stop date: 06/25/17 22:47:00 CDT Start Date: 06/25/17 Stop Date: 06/25/17 Status: Completed metoprolol 5 mg/5 ml INJ 5 mg, Route: IVP, Drug form: INJ, ONCE, Dosing Weight 90.909, kg, Priority: STAT , Start date: 06/25/17 21:59:00 CDT, Stop date: 06/25/17 21:59:00 CDT Start Date: 06/25/17 Stop Date: 06/25/17 Status: Completed metoprolol tartrate 25 mg, 1 tab, Route: PO, Drug form: TAB, Q12H, Dosing Weight 90.909, kg, Start d ate: 06/27/17 21:00:00 CDT, Duration: 30 day, Stop date: 07/27/17 9:00:00 CDT Notes: (Same as: Lopressor) Start Date: 06/27/17 Stop Date: 06/27/17 Status: Canceled metoprolol tartrate 25 mg, 1 tab, Route: PO, Drug form: TAB, Q8H, Dosing Weight 90.909, kg, Start da te: 06/26/17 0:00:00 CDT, Stop date: 07/25/17 16:00:00 CDT Notes: (Same as: Lopressor) Start Date: 06/26/17 Stop Date: 06/27/17 Status: Discontinued metoprolol tartrate 25 mg oral tablet 25 mg=1 tab, PO, Q12H, # 60 tab, 0 Refill(s) Start Date: 06/27/17 Stop Date: 07/27/17 Status: Ordered minocycline 100 mg, 2 cap, Route: PO, Drug form: CAP, Q12H, Dosing Weight 90.909, kg, Start date: 06/26/17 9:00:00 CDT, Duration: 30 day, Stop date: 07/25/17 21:00:00 CDT Notes: (Same as:Minocin) No milk/antacids/iron. Start Date: 06/26/17 Stop Date: 06/27/17 Status: Discontinued morphine Sulfate 2 mg, 1 mL, Route: IVP, Drug form: SOLN, Q4H, Dosing Weight 90.909, kg, PRN Pain Score 7-10, Start date: 06/25/17 23:08:00 CDT, Duration: 30 day, Stop date: 23:07:00 CDT Start Date: 06/25/17 Stop Date: 06/27/17 Status: Discontinued ondansetron 4 mg, 2 mL, Route: IVP, Drug form: INJ, Q6H, Dosing Weight 90.909, kg, PRN Nause a & Vomiting, Start date: 06/25/17 23:08:00 CDT, Duration: 30 day, Stop date: 07/25/17 23:07:00 CDT Notes: (Same as: Alisha) MEDICATION WASTE Product Size: 4 mgProduct Was ana cristina: ___ mg Start Date: 06/25/17 Stop Date: 06/27/17 Status: Discontinued Plavix 75 mg, 1 tab, Route: PO, Drug form: TAB, Daily, Dosing Weight 90.909, kg, Start date: 06/26/17 9:00:00 CDT, Duration: 30 day, Stop date: 07/25/17 9:00:00 CDT Notes: (Same As: Plavix) Start Date: 06/26/17 Stop Date: 06/27/17 Status: Discontinued Saline Flush 0.9% 10 mL, Route: IVP, Drug Form: INJ, Dosing Weight 97.727, kg, PRN, PRN Line Flush , Start date: 06/25/17 21:35:00 CDT, Duration: 30 day, Stop date: 07/25/17 21:34 :00 CDT Notes: (Same as: BD Posiflush) Start Date: 06/25/17 Stop Date: 06/27/17 Status: Discontinued simvastatin 40 mg, 1 tab, Route: PO, Drug form: TAB, Bedtime, Dosing Weight 90.909, kg, Star t date: 06/26/17 21:00:00 CDT, Duration: 30 day, Stop date: 07/25/17 21:00:00 CD T Notes: (Same as: Zocor) Start Date: 06/26/17 Stop Date: 06/27/17 Status: Discontinued Vitamin D3 1000 intl units oral tablet 1,000 IntlUnit, 1 tab, Route: PO, Drug form: TAB, Daily, Dosing Weight 90.909, k g, Start date: 06/26/17 9:00:00 CDT, Duration: 30 day, Stop date: 07/25/17 9:00: 00 CDT Notes: Same as : Vitamin D3 Start Date: 06/26/17 Stop Date: 06/27/17 Status: Discontinued warfarin 5 mg oral tablet 5 mg=1 tab, PO, QPM, # 14 tab, 0 Refill(s), further refill request to be sent to ; Dr [facility] Start Date: 06/27/17 Stop Date: 06/27/17 Status: Discontinued warfarin 5 mg oral tablet 5 mg=1 tab, PO, QPM, # 14 tab, 0 Refill(s), further refill request to be sent to ; Dr [facility] Start Date: 06/27/17 Stop Date: 07/11/17 Status: Ordered Results ELECTROLYTES 1 2 3 Most recent to oldest [Reference Range]: 137 mEq/L (06/27/17 5:36 AM) 137 mEq/L (06/26/17 1:57 AM) 139 mEq/L (06/25/17 9:53 PM) Sodium Lvl [135-145 mEq/L] 4.5 mEq/L (06/27/17 5:36 AM) 4.5 mEq/L (06/26/17 1:57 AM) 3.9 mEq/L (06/25/17 9:53 PM) Potassium Lvl [3.5-5.1 mEq/L] 107 mEq/L (06/27/17 5:36 AM) 106 mEq/L (06/26/17 1:57 AM) 105 mEq/L (06/25/17 9:53 PM) Chloride Lvl [95-109 mEq/L] 22 mEq/L *LOW* (06/27/17 5:36 AM) 21 mEq/L *LOW* (06/26/17 1:57 AM) 23 mEq/L *LOW* (06/25/17 9:53 PM) CO2 [24-32 mEq/L] 12.5 mEq/L (06/27/17 5:36 AM) 14.5 mEq/L (06/26/17 1:57 AM) 14.9 mEq/L (06/25/17 9:53 PM) AGAP [10.0-20.0 mEq/L] CHEM PANEL 1 2 3 Most recent to oldest [Reference Range]: 1.40 mg/dL (06/27/17 5:36 AM) 1.50 mg/dL *HI* (06/26/17 1:57 AM) 1.70 mg/dL *HI* (06/25/17 9:53 PM) Creatinine Lvl [0.50-1.40 mg/dL] 46 mL/min/1.73m2 1 *NA* (06/27/17 5:36 AM) 42 mL/min/1.73m2 2 *NA* (06/26/17 1:57 AM) 36 mL/min/1.73m2 3 *NA* (06/25/17 9:53 PM) eGFR 24 mg/dL *HI* (06/27/17 5:36 AM) 24 mg/dL *HI* (06/26/17 1:57 AM) 27 mg/dL *HI* (06/25/17 9:53 PM) BUN [7-22 mg/dL] 16 (06/25/17 9:53 PM) B/C Ratio [6-25] 96 mg/dL (06/27/17 5:36 AM) 104 mg/dL *HI* (06/26/17 1:57 AM) 123 mg/dL *HI* (06/25/17 9:53 PM) Glucose Lvl [70-99 mg/dL] 7.6 g/dL (06/25/17 9:53 PM) Total Protein [6.4-8.4 g/dL] 3.7 g/dL (06/25/17 9:53 PM) Albumin Lvl [3.5-5.0 g/dL] 3.9 g/dL (06/25/17 9:53 PM) Globulin [2.7-4.2 g/dL] 0.9 (06/25/17 9:53 PM) A/G Ratio [0.7-1.6] 8.9 mg/dL (06/27/17 5:36 AM) 8.6 mg/dL (06/26/17 1:57 AM) 8.6 mg/dL (06/25/17 9:53 PM) Calcium Lvl [8.5-10.5 mg/dL] 3.2 mg/dL (06/27/17 5:36 AM) Phosphorus [2.5-4.5 mg/dL] 2.2 mg/dL (06/27/17 5:36 AM) Magnesium Lvl [1.8-2.4 mg/dL] 17 unit/L (06/25/17 9:53 PM) ALT [0-65 unit/L] 17 unit/L (06/25/17 9:53 PM) AST [0-37 unit/L] 69 unit/L (06/25/17 9:53 PM) Alk Phos [39-136 unit/L] 0.3 mg/dL (06/25/17 9:53 PM) Bili Total [0.2-1.3 mg/dL] 1Result Comment: The eGFR is calculated using [...] be mul tiplied by the estimated BMI. CARDIAC ENZYMES 1 2 3 Most recent to oldest [Reference Range]: 82 unit/L (06/26/17 12:53 PM) 98 unit/L (06/26/17 1:57 AM) 107 unit/L (06/25/17 9:53 PM) Total CK [12-191 unit/L] 1.8 ng/mL (06/26/17 12:53 PM) 1.7 ng/mL (06/26/17 1:57 AM) 1.5 ng/mL (06/25/17 9:53 PM) CK MB [0.5-3.6 ng/mL] 2.2 (06/26/17 12:53 PM) 1.7 (06/26/17 1:57 AM) 1.4 (06/25/17 9:53 PM) CK MB Index [0.0-2.5] <0.02 ng/mL (06/26/17 12:53 PM) <0.02 ng/mL (06/26/17 1:57 AM) <0.02 ng/mL (06/25/17 9:53 PM) Troponin-I [0.00-0.40 ng/mL] 23 pg/mL (06/25/17 9:53 PM) BNP [<=100 pg/mL] HEMATOLOGY 1 2 3 Most recent to oldest [Reference Range]: 5.9 K/CMM (06/27/17 5:36 AM) 7.2 K/CMM (06/26/17 1:57 AM) 7.4 K/CMM (06/25/17 9:53 PM) WBC [3.7-10.4 K/CMM] 4.56 M/CMM *LOW* (06/27/17 5:36 AM) 4.50 M/CMM *LOW* (06/26/17 1:57 AM) 4.38 M/CMM *LOW* (06/25/17 9:53 PM) RBC [4.70-6.10 M/CMM] 14.6 g/dL (06/27/17 5:36 AM) 14.3 g/dL (06/26/17 1:57 AM) 14.1 g/dL (06/25/17 9:53 PM) Hgb [14.0-18.0 g/dL] 42.4 % (06/27/17 5:36 AM) 42.0 % (06/26/17 1:57 AM) 41.2 % *LOW* (06/25/17 9:53 PM) Hct [42.0-54.0 %] 92.8 fL (06/27/17 5:36 AM) 93.4 fL (06/26/17 1:57 AM) 93.9 fL (06/25/17 9:53 PM) MCV [80.0-94.0 fL] 32.0 pg *HI* (06/27/17 5:36 AM) 31.7 pg *HI* (06/26/17 1:57 AM) 32.3 pg *HI* (06/25/17 9:53 PM) MCH [27.0-31.0 pg] 34.5 g/dL (06/27/17 5:36 AM) 33.9 g/dL (06/26/17 1:57 AM) 34.4 g/dL (06/25/17 9:53 PM) MCHC [32.0-36.0 g/dL] 14.9 % *HI* (06/27/17 5:36 AM) 14.9 % *HI* (06/26/17 1:57 AM) 14.9 % *HI* (06/25/17 9:53 PM) RDW [11.5-14.5 %] 182 K/CMM (06/27/17 5:36 AM) 188 K/CMM (06/26/17 1:57 AM) 182 K/CMM (06/25/17 9:53 PM) Platelet [133-450 K/CMM] 8.2 fL (06/27/17 5:36 AM) 8.2 fL (06/26/17 1:57 AM) 8.3 fL (06/25/17 9:53 PM) MPV [7.4-10.4 fL] 69.0 % (06/27/17 5:36 AM) 73.9 % (06/26/17 1:57 AM) 68.4 % (06/25/17 9:53 PM) Segs [45.0-75.0 %] 18.8 % *LOW* (06/27/17 5:36 AM) 14.6 % *LOW* (06/26/17 1:57 AM) 18.2 % *LOW* (06/25/17 9:53 PM) Lymphocytes [20.0-40.0 %] 10.3 % (06/27/17 5:36 AM) 9.5 % (06/26/17 1:57 AM) 10.6 % (06/25/17 9:53 PM) Monocytes [2.0-12.0 %] 1.5 % (06/27/17 5:36 AM) 1.6 % (06/26/17 1:57 AM) 2.2 % (06/25/17 9:53 PM) Eosinophils [0.0-4.0 %] 0.4 % (06/27/17 5:36 AM) 0.4 % (06/26/17 1:57 AM) 0.6 % (06/25/17 9:53 PM) Basophils [0.0-1.0 %] 4.1 K/CMM (06/27/17 5:36 AM) 5.3 K/CMM (06/26/17 1:57 AM) 5.1 K/CMM (06/25/17 9:53 PM) Segs-Bands # [1.5-8.1 K/CMM] 1.1 K/CMM (06/27/17 5:36 AM) 1.0 K/CMM (06/26/17 1:57 AM) 1.3 K/CMM (06/25/17 9:53 PM) Lymphocytes # [1.0-5.5 K/CMM] 0.6 K/CMM (06/27/17 5:36 AM) 0.7 K/CMM (06/26/17 1:57 AM) 0.8 K/CMM (06/25/17 9:53 PM) Monocytes # [0.0-0.8 K/CMM] 0.1 K/CMM (06/27/17 5:36 AM) 0.1 K/CMM (06/26/17 1:57 AM) 0.2 K/CMM (06/25/17 9:53 PM) Eosinophils # [0.0-0.5 K/CMM] 13.8 seconds (06/27/17 12:28 PM) PT [12.0-14.7 seconds] 1.04 (06/27/17 12:28 PM) INR [0.85-1.17] Immunizations Given and Recorded Vaccine Date Status [...] Smoking Cessation Counseling No Assessment and Plan Extracted from: Title: UIP Progress Note * Author: Taylor Barron MD Date: 06/27/17 Impression and Plan ASSESSMENT Afib with RVR - resolved SSS s/p PPM placed 06/21/17 CAD s/p Stents in 2006 HTN HLD Hx of Colon Cancer s/p partial colectomy Hx of Bladder Cancer s/p Cystectomy, reconstruction, and ileal conduit PLAN: Metoprolol 25mg Q12H Plavix/Lisinopril Minocycline Simvastatin Cardiac Enzymes x 3 sets; negative telemetry monitoring Cardio consult appreciated DVT PPX: Lovenox SQ Dispo: from home planned for dc today on coumadin and follow up with Cardio tomorrow Extracted from: Title: Clinical Document Author: Gerosn Travis MD Date: 06/26/17 full H&P dictated, #[id number] date/time: 06/25/2017 23:30
--- OUTSIDE RECORDS SUMMARY | 2019-03-05 07:30 | XMS REPORT | Summary of Care ---
Author Author [facility] Organization [facility] Address Unknown Phone Unavailable Encounter CAROLYN Pandya([place]) [id number] Date(s): 02/04/19 - 02/07/19 [facility] [address] [place] [address]- Encounter Diagnosis Acute pancreatitis without necrosis or infection, unspecified (Final) - Discharge Disposition: Home or Self Care Attending Physician: Melinda Ontiveros MD Admitting Physician: Melinda Ontiveros MD Vital Signs 1 2 3 Most recent to oldest [Reference Range]: 182.88 cm (02/05/19 3:38 AM) 182.88 cm (02/04/19 10:26 PM) Height 98.3 DegF (02/07/19 11:37 AM) 97.6 DegF (02/07/19 9:46 AM) 98.6 DegF (02/07/19 3:31 AM) Temperature Oral [96.4-99.1 DegF] 138/69 mmHg (02/07/19 11:37 AM) 150/79 mmHg *HI* (02/07/19 9:46 AM) 131/71 mmHg (02/07/19 9:00 AM) Blood Pressure [90-140/60-90 mmHg] 16 BRMIN (02/07/19 11:37 AM) 16 BRMIN (02/07/19 9:46 AM) 17 BRMIN (02/07/19 9:00 AM) Respiratory Rate [14-20 BRMIN] 73 bpm (02/07/19 11:37 AM) 74 bpm (02/07/19 9:46 AM) 73 bpm (02/05/19 8:00 AM) Peripheral Pulse Rate [60-100 bpm] 90.909 kg (02/05/19 3:38 AM) 90.909 kg (02/04/19 10:26 PM) Weight 27.18 m2 (02/05/19 3:38 AM) 27.18 m2 (02/04/19 10:26 PM) Body Mass Index Problem List Condition Effective Dates Status Health Status Informant Anemia(Confirmed) Active Benign bladder Active tumor(Confirmed) CAD (coronary artery Active disease)(Confirmed) Cancer of Resolved colon(Confirmed) Cancer of Active colon(Confirmed) Pacemaker(Confirmed) Resolved CHF - Congestive Active heart failure(Confirmed) 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) ONE[place] (hard of Resolved hearing)(Confirmed) Hematuria(Confirmed) Resolved HTN - Active Hypertension(Confirm ed) Bladder Active cancer(Confirmed) LA - Myocardial < 09/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 ) Primary colon Resolved cancer(Confirmed) Allergies, Adverse Reactions, Alerts Substance Reaction Severity Status penicillins Active morphine Active Pacerone Active Medications acetaminophen 650 mg, 2 tab, Route: PO, Drug form: TAB, Q4H, Dosing Weight 90.909, kg, PRN Taty n 1-3/Temp > 100.4 F, Start date: 02/05/19 2:39:00 CDT, Duration: 30 day, Stop date: 03/07/19 2:38:00 CDT Notes: Do not exceed 4 gm/day. (Same as: Tylenol) Start Date: 02/05/19 Stop Date: 02/07/19 Status: Discontinued Al hydroxide/Mg hydroxide/simethicone 200 mg-200 mg-20 mg/5 mL oral suspension 30 mL, Route: PO, Drug Form: SUSP, Dosing Weight 90.909, kg, Q4H, PRN Indigestio n, Start date: 02/06/19 9:22:00 CDT, Duration: 30 day, Stop date: 03/08/19 9:21: 00 CDT Notes: (aluminum hydroxide-magnesium hyd-simethicone [phone]/5ml 30 ml ud S US) Start Date: 02/06/19 Stop Date: 02/07/19 Status: Discontinued bisacodyl 10 mg, 1 supp, Route: NJ, Drug form: SUPP, Daily, Dosing Weight 90.909, kg, PRN Constipation, Start date: 02/05/19 2:39:00 CDT, Duration: 30 day, Stop date: 08/15 2:38:00 CDT Notes: (Same As: Dulcolax, Bisco-Lax) Start Date: 02/05/19 Stop Date: 02/07/19 Status: Discontinued dextromethorphan-guaiFENesin 10 mg-100 mg/5 mL oral liquid 10 mL, Route: PO, Drug Form: LIQ, Dosing Weight 90.909, kg, Q4H, PRN Cough, Star t date: 02/06/19 9:22:00 CDT, Duration: 30 day, Stop date: 03/08/19 9:21:00 CDT Notes: (dextromethorphan-guaifenesin 10-100/5 ml LIQ) (Same as: Robitussin-DM) Start Date: 02/06/19 Stop Date: 02/07/19 Status: Discontinued Dextrose 50% Syringe 12.5 gm, 25 mL, Route: IVP, Drug Form: INJ, Dosing Weight 90.909, kg, PRN, PRN B lood Glucose Results, Start date: 02/05/19 2:39:00 CDT, Duration: 30 day, Stop d ate: 03/07/19 2:38:00 CDT Start Date: 02/05/19 Stop Date: 02/07/19 Status: Discontinued Dextrose 50% Syringe 25 gm, 50 mL, Route: IVP, Drug Form: INJ, Dosing Weight 90.909, kg, PRN, PRN Blo od Glucose Results, Start date: 02/05/19 2:39:00 CDT, Duration: 30 day, Stop gian e: 03/07/19 2:38:00 CDT Start Date: 02/05/19 Stop Date: 02/07/19 Status: Discontinued Dilaudid 0.2 mg, 0.2 mL, Route: IVP, Drug form: SOLN, Q6H, Dosing Weight 90.909, kg, PRN Pain Score 4-6, Start date: 02/06/19 14:57:00 CDT, Duration: 30 day, Stop date: 03/08/19 14:56:00 CDT Notes: (Same as: Dilaudid) Start Date: 02/06/19 Stop Date: 02/07/19 Status: Discontinued Dilaudid 1 mg, 1 mL, Route: IVP, Drug form: SOLN, Q3H, Dosing Weight 90.909, kg, PRN Pain Score 7-10, Start date: 02/06/19 14:58:00 CDT, Duration: 30 day, Stop date: 09/14 14:57:00 CDT Notes: (Same as: Dilaudid) Start Date: 02/06/19 Stop Date: 02/07/19 Status: Discontinued Dilaudid 1 mg, Route: IVP, ONCE, Dosing Weight 90.909, kg, Priority: STAT, Start date: 23:12:00 CDT, Stop date: 02/04/19 23:12:00 CDT Start Date: 02/04/19 Stop Date: 02/04/19 Status: Completed diphenhydrAMINE 25 mg, 1 tab, Route: PO, Drug form: TAB, Q6H, Dosing Weight 90.909, kg, PRN Itch ing, Start date: 02/06/19 9:22:00 CDT, Duration: 30 day, Stop date: 03/08/19 9:2 1:00 CDT Start Date: 02/06/19 Stop Date: 02/07/19 Status: Discontinued docusate 100 mg, 1 cap, Route: PO, Drug form: CAP, BID, Dosing Weight 90.909, kg, PRN Con stipation, Start date: 02/06/19 9:23:00 CDT, Duration: 30 day, Stop date: 9:22:00 CDT Notes: (Same as: Colace) (Do Not Crush) Start Date: 02/06/19 Stop Date: 02/07/19 Status: Discontinued Eliquis 5 mg, 1 tab, Route: PO, Drug form: TAB, Q12H, Dosing Weight 90.909, kg, Start da te: 02/06/19 9:00:00 CDT, Duration: 30 day, Stop date: 03/07/19 21:00:00 CDT Notes: Same as: Eliquis Start Date: 02/06/19 Stop Date: 02/07/19 Status: Discontinued glucagon 1 mg, Route: IM, Drug form: PDR/INJ, PRN, Dosing Weight 90.909, kg, PRN Blood Gl ucose Results, Start date: 02/05/19 2:39:00 CDT, Duration: 30 day, Stop date: 2:38:00 CDT Start Date: 02/05/19 Stop Date: 02/07/19 Status: Discontinued heparin 5,000 unit, 1 mL, Route: SUB-Q, Drug form: INJ, Q12H, Dosing Weight 90.909, kg, Start date: 02/05/19 9:00:00 CDT, Stop date: 03/06/19 21:00:00 CDT Notes: porcine heparin Start Date: 02/05/19 Stop Date: 02/06/19 Status: Discontinued hydromorphone 1 mg, Route: IV, ONCE, Dosing Weight 90.909, kg, Start date: 02/05/19 1:03:00 CD T, Stop date: 02/05/19 1:03:00 CDT Start Date: 02/05/19 Stop Date: 02/05/19 Status: Completed hydromorphone 1 mg, 1 mL, Route: IVP, Drug form: SOLN, Q4H, Dosing Weight 90.909, kg, PRN Pain Score 7-10, Start date: 02/05/19 2:39:00 CDT, Duration: 30 day, Stop date: 02/25 10/15 2:38:00 CDT Notes: (Same as: Dilaudid) Start Date: 02/05/19 Stop Date: 02/05/19 Status: Discontinued HYDROmorphone 0.5mg/mL PROJECT PLANNER (15mg/30 mL) 15 mg 15 mg, 30 mL, Route: IV, Initial Loading Dose: 0.4mg, PROJECT PLANNER Dose: 0.2 mg, PROJECT PLANNER Lock out: 10 minutes, Continuous Basal Rate: 0 mg, 4 Hour Limit (In MG): 6, Drug Form : INJ, Continuous, Start date: 02/05/19 12:38:00 CDT, Duration: 30 day, Stop gian e: 03/07/19... Notes: (Same as: Dilaudid) conc=0.5 mg/mlHydromorphone PROJECT PLANNER Dose: ;Delay: ;Basal: Start Date: 02/05/19 Stop Date: 02/06/19 Status: Discontinued melatonin 3 mg, 1 tab, Route: PO, Drug form: TAB, Bedtime, Dosing Weight 90.909, kg, PRN I nsomnia, Start date: 02/05/19 2:39:00 CDT, Duration: 30 day, Stop date: 03/07/19 2:38:00 CDT Notes: (Same as: Melatonin) Start Date: 02/05/19 Stop Date: 02/07/19 Status: Discontinued MiraLax 17 gm, 1 pkt, Route: PO, Drug form: PWDR, BID, Dosing Weight 90.909, kg, Start d ate: 02/06/19 13:34:00 CDT, Duration: 30 day, Stop date: 03/08/19 9:00:00 CDT Notes: Dissolve in 8 oz of water or juice.(Same as: Miralax) Start Date: 02/06/19 Stop Date: 02/07/19 Status: Discontinued naloxone 0.04 mg, 0.04 mL, Route: IVP, Drug form: INJ, Q2MIN, Dosing Weight 90.909, kg, P RN Narcotic Reversal, Start date: 02/05/19 12:38:00 CDT, Duration: 30 day, Stop date: 03/07/19 12:37:00 CDT Notes: (Same as: Narcan) MEDICATION WASTE Product Size: 2 mgProduct Was ana cristina: ___ mg Start Date: 02/05/19 Stop Date: 02/07/19 Status: Discontinued nitroglycerin SL Tab 0.4 mg, 1 tab, Route: SL, Drug form: TAB, Q5Min, Dosing Weight 90.909, kg, PRN C hest Pain, Start date: 02/05/19 2:41:00 CDT, Duration: 3 doses or times, Stop da te: Limited # of times Notes: (Same as:Nitroquick, Nitrostat)"Do Not Crush" Sublingual tablet Start Date: 02/05/19 Stop Date: 02/07/19 Status: Discontinued Watersmeet 5/325 oral tablet 1 tab, Route: PO, Drug Form: TAB, Dosing Weight 90.909, kg, Q6H, PRN Pain Score 1-3, Start date: 02/06/19 14:56:00 CDT, Duration: 30 day, Stop date: 03/08/19 14 :55:00 CDT Notes: (Same as: Watersmeet 325/5) Do not exceed 4gm/day of acetaminophen. Start Date: 02/06/19 Stop Date: 02/07/19 Status: Discontinued Watersmeet 5/325 oral tablet 1 tab, PO, Q6H, X 5 day, # 20 tab, 0 Refill(s), given to patient Start Date: 02/07/19 Stop Date: 02/12/19 Status: Ordered ondansetron 4 mg, 2 mL, Route: IVP, Drug form: INJ, Q8H, Dosing Weight 90.909, kg, PRN Nause a & Vomiting, Start date: 02/05/19 2:39:00 CDT, Duration: 30 day, Stop date: 03/07/19 2:38:00 CDT Notes: (Same as: Alisha) MEDICATION WASTE Product Size: 4 mgProduct Was ana cristina: ___ mg Start Date: 02/05/19 Stop Date: 02/07/19 Status: Discontinued ondansetron 4 mg, 2 mL, Route: IVP, Drug form: INJ, Q8H, Dosing Weight 90.909, kg, PRN Nause a & Vomiting, Start date: 02/05/19 2:39:00 CDT, Duration: 30 day, Stop date: 03/07/19 2:38:00 CDT Notes: (Same as: Alisha) MEDICATION WASTE Product Size: 4 mgProduct Was ana cristina: ___ mg Start Date: 02/05/19 Stop Date: 02/05/19 Status: Discontinued pantoprazole 40 mg, Route: IVP, Drug form: INJ, BID-Before Meals, Dosing Weight 90.909, kg, S tart date: 02/05/19 7:30:00 CDT, Duration: 30 day, Stop date: 03/06/19 16:30:00 CDT Notes: For IV push reconstitute with 10 ml 0.9% sodium chloride and push over 2 minutes. (Same as: Protonix) Start Date: 02/05/19 Stop Date: 02/07/19 Status: Discontinued Saline Flush 0.9% 10 ml, Route: IVP, Drug Form: INJ, Dosing Weight 90.909, kg, Q12H, Start date: 0 02/05/19 9:00:00 CDT, Duration: 30 day, Stop date: 03/06/19 21:00:00 CDT Notes: (Same as: BD Posiflush) Start Date: 02/05/19 Stop Date: 02/07/19 Status: Discontinued Saline Flush 0.9% 10 ml, Route: IVP, Drug Form: INJ, Dosing Weight 90.909, kg, PRN, PRN Line Flush , Start date: 02/05/19 2:41:00 CDT, Duration: 30 day, Stop date: 03/07/19 2:40:0 0 CDT Notes: (Same as: BD Posiflush) Start Date: 02/05/19 Stop Date: 02/07/19 Status: Discontinued Saline Flush 0.9% 10 ml, Route: IVP, Drug Form: INJ, Dosing Weight 90.909, kg, PRN, PRN Line Flush , Start date: 02/05/19 2:39:00 CDT, Duration: 30 day, Stop date: 03/07/19 2:38:0 0 CDT Notes: (Same as: BD Posiflush) Start Date: 02/05/19 Stop Date: 02/07/19 Status: Discontinued simethicone 80 mg, 1 tab, Route: PO, Drug form: CHEWTAB, Q6H, Dosing Weight 90.909, kg, PRN Gas, Start date: 02/06/19 9:22:00 CDT, Duration: 2 doses or times, Stop date: Maura benitez # of times Notes: (Same as: Mylicon) Start Date: 02/06/19 Stop Date: 02/07/19 Status: Discontinued simvastatin 40 mg, 1 tab, Route: PO, Drug form: TAB, Bedtime, Dosing Weight 90.909, kg, Star t date: 02/06/19 9:00:00 CDT, Stop date: 03/07/19 21:00:00 CDT Notes: (Same as: Zocor) Start Date: 02/06/19 Stop Date: 02/07/19 Status: Discontinued Sodium Chloride 0.9% IV 1,000 mL 1,000 mL, Rate: 50 ml/hr, Infuse over: 20 hr, Route: IV, Dosing Weight 90.909 kg , Total Volume: 1,000, Start date: 02/05/19 2:39:00 CDT, Duration: 30 day, Stop date: 03/07/19 2:38:00 CDT, 2.16, m2 Start Date: 02/05/19 Stop Date: 02/07/19 Status: Discontinued Sodium Chloride 0.9% IV 500 mL 500 mL, Rate: 25 ml/hr, Infuse over: 20 hr, Route: IV, Dosing Weight 90.909 kg, Total Volume: 500, Start date: 02/07/19 7:54:00 CDT, Duration: 1 day, Stop date: 02/08/19 7:53:00 CDT, 2.16, m2 Start Date: 02/07/19 Stop Date: 02/07/19 Status: Discontinued Toprol-XL 50 mg oral tablet, extended release 50 mg, 1 tab, Route: PO, Drug form: ERTAB, BID, Start date: 02/06/19 9:00:00 CDT , Stop date: 03/07/19 18:00:00 CDT Notes: (Same as: Toprol XL) May split tab, but do not crush. Start Date: 02/06/19 Stop Date: 02/07/19 Status: Discontinued Zofran 4 mg, Route: IVP, Drug form: INJ, ONCE, Dosing Weight 90.909, kg, Priority: STAT , Start date: 02/04/19 23:13:00 CDT, Stop date: 02/04/19 23:13:00 CDT Start Date: 02/04/19 Stop Date: 02/04/19 Status: Completed Results 1 2 3 Most recent to oldest [Reference Range]: 4.3 K/CMM (02/07/19 9:42 AM) 5.5 K/CMM (02/05/19 2:52 PM) 5.1 K/CMM (02/05/19 3:21 AM) Neutrophils # [1.5-8.1 K/CMM] 0.6 K/CMM *LOW* (02/07/19 9:42 AM) 0.8 K/CMM *LOW* (02/05/19 2:52 PM) 0.9 K/CMM *LOW* (02/05/19 3:21 AM) Lymphocytes # [1.0-5.5 K/CMM] 0.4 K/CMM (02/07/19 9:42 AM) 0.5 K/CMM (02/05/19 2:52 PM) 0.6 K/CMM (02/05/19 3:21 AM) Monocytes # [0.0-0.8 K/CMM] 0.1 K/CMM (02/05/19 2:52 PM) 0.1 K/CMM (02/05/19 3:21 AM) 0.2 K/CMM (02/04/19 10:35 PM) Eosinophils # [0.0-0.5 K/CMM] 28 pg/mL (02/04/19 10:35 PM) BNP [<=100 pg/mL] 55 mL/min/1.73m2 1 *NA* (02/07/19 9:42 AM) 45 mL/min/1.73m2 2 *NA* (02/05/19 3:21 AM) 42 mL/min/1.73m2 3 *NA* (02/04/19 10:35 PM) eGFR 0.8 (02/05/19 3:21 AM) 0.8 (02/04/19 10:35 PM) A/G Ratio [0.7-1.6] 3.2 g/dL *LOW* (02/05/19 3:21 AM) 3.3 g/dL *LOW* (02/04/19 10:35 PM) Albumin Lvl [3.5-5.0 g/dL] 72 unit/L (02/05/19 3:21 AM) 70 unit/L (02/04/19 10:35 PM) Alk Phos [39-136 unit/L] 26 unit/L (02/05/19 3:21 AM) 24 unit/L (02/04/19 10:35 PM) ALT [0-65 unit/L] 15.4 mEq/L (02/07/19 9:42 AM) 12.7 mEq/L (02/05/19 3:21 AM) 10.1 mEq/L (02/04/19 10:35 PM) AGAP [10.0-20.0 mEq/L] 40 unit/L *HI* (02/05/19 3:21 AM) 27 unit/L (02/04/19 10:35 PM) AST [0-37 unit/L] 11 (02/05/19 3:21 AM) 12 (02/04/19 10:35 PM) B/C Ratio [6-25] 0.4 % (02/07/19 9:42 AM) 0.6 % (02/05/19 2:52 PM) 0.3 % (02/05/19 3:21 AM) Basophils [0.0-1.0 %] 13 mg/dL (02/07/19 9:42 AM) 16 mg/dL (02/05/19 3:21 AM) 18 mg/dL (02/04/19 10:35 PM) BUN [7-22 mg/dL] 9.1 mg/dL (02/07/19 9:42 AM) 8.8 mg/dL (02/05/19 3:21 AM) 9.1 mg/dL (02/04/19 10:35 PM) Calcium Lvl [8.5-10.5 mg/dL] 70 unit/L (02/04/19 10:35 PM) Total CK [12-191 unit/L] 1.3 ng/mL (02/04/19 10:35 PM) CK MB [0.5-3.6 ng/mL] 1.9 (02/04/19 10:35 PM) CK MB Index [0.0-2.5] 109 mEq/L (02/07/19 9:42 AM) 103 mEq/L (02/05/19 3:21 AM) 102 mEq/L (02/04/19 10:35 PM) Chloride Lvl [95-109 mEq/L] 22 mEq/L *LOW* (02/07/19 9:42 AM) 26 mEq/L (02/05/19 3:21 AM) 26 mEq/L (02/04/19 10:35 PM) CO2 [24-32 mEq/L] 1.19 mg/dL (02/07/19 9:42 AM) 1.42 mg/dL *HI* (02/05/19 3:21 AM) 1.49 mg/dL *HI* (02/04/19 10:35 PM) Creatinine Lvl [0.50-1.40 mg/dL] 0.6 % (02/07/19 9:42 AM) 1.2 % (02/05/19 2:52 PM) 1.7 % (02/05/19 3:21 AM) Eosinophils [0.0-4.0 %] 4.0 g/dL (02/05/19 3:21 AM) 4.3 g/dL *HI* (02/04/19 10:35 PM) Globulin [2.7-4.2 g/dL] 106 mg/dL *HI* (02/07/19 9:42 AM) 111 mg/dL *HI* (02/05/19 3:21 AM) 90 mg/dL (02/04/19 10:35 PM) Glucose Lvl [70-99 mg/dL] 38.8 % *LOW* (02/07/19 9:42 AM) 39.4 % *LOW* (02/05/19 2:52 PM) 38.0 % *LOW* (02/05/19 3:21 AM) Hct [42.0-54.0 %] 12.8 g/dL *LOW* (02/07/19 9:42 AM) 13.4 g/dL *LOW* (02/05/19 2:52 PM) 12.8 g/dL *LOW* (02/05/19 3:21 AM) Hgb [14.0-18.0 g/dL] 1.12 (02/07/19 9:42 AM) INR [0.85-1.17] 4.4 mEq/L (02/07/19 9:42 AM) 4.7 mEq/L (02/05/19 3:21 AM) 4.1 mEq/L (02/04/19 10:35 PM) Potassium Lvl [3.5-5.1 mEq/L] 1127 unit/L *HI* (02/05/19 3:21 AM) 618 unit/L *HI* (02/04/19 10:35 PM) Lipase Lvl [73-393 unit/L] 11.8 % *LOW* (02/07/19 9:42 AM) 11.1 % *LOW* (02/05/19 2:52 PM) 13.3 % *LOW* (02/05/19 3:21 AM) Lymphocytes [20.0-40.0 %] 30.9 pg (02/07/19 9:42 AM) 31.4 pg *HI* (02/05/19 2:52 PM) 31.2 pg *HI* (02/05/19 3:21 AM) MCH [27.0-31.0 pg] 33.0 g/dL (02/07/19 9:42 AM) 34.0 g/dL (02/05/19 2:52 PM) 33.8 g/dL (02/05/19 3:21 AM) MCHC [32.0-36.0 g/dL] 93.6 fL (02/07/19 9:42 AM) 92.4 fL (02/05/19 2:52 PM) 92.3 fL (02/05/19 3:21 AM) MCV [80.0-94.0 fL] 6.8 % (02/07/19 9:42 AM) 7.9 % (02/05/19 2:52 PM) 8.8 % (02/05/19 3:21 AM) Monocytes [2.0-12.0 %] 8.0 fL (02/07/19 9:42 AM) 7.9 fL (02/05/19 2:52 PM) 8.1 fL (02/05/19 3:21 AM) MPV [7.4-10.4 fL] 142 mEq/L (02/07/19 9:42 AM) 137 mEq/L (02/05/19 3:21 AM) 134 mEq/L *LOW* (02/04/19 10:35 PM) Sodium Lvl [135-145 mEq/L] 226 K/CMM (02/07/19 9:42 AM) 238 K/CMM (02/05/19 2:52 PM) 231 K/CMM (02/05/19 3:21 AM) Platelet [133-450 K/CMM] 80.4 % *HI* (02/07/19 9:42 AM) 79.2 % *HI* (02/05/19 2:52 PM) 75.9 % *HI* (02/05/19 3:21 AM) Segs [45.0-75.0 %] 7.2 g/dL (02/05/19 3:21 AM) 7.6 g/dL (02/04/19 10:35 PM) Total Protein [6.4-8.4 g/dL] 14.2 seconds (02/07/19 9:42 AM) PT [12.0-14.7 seconds] 35.3 seconds (02/07/19 9:42 AM) PTT [22.9-35.8 seconds] 4.15 M/CMM *LOW* (02/07/19 9:42 AM) 4.27 M/CMM *LOW* (02/05/19 2:52 PM) 4.12 M/CMM *LOW* (02/05/19 3:21 AM) RBC [4.70-6.10 M/CMM] 14.1 % (02/07/19 9:42 AM) 13.9 % (02/05/19 2:52 PM) 13.8 % (02/05/19 3:21 AM) RDW [11.5-14.5 %] 0.5 mg/dL (02/05/19 3:21 AM) 0.4 mg/dL (02/04/19 10:35 PM) Bili Total [0.2-1.3 mg/dL] <0.02 ng/mL (02/05/19 7:33 AM) <0.02 ng/mL (02/05/19 3:21 AM) <0.02 ng/mL (02/04/19 10:35 PM) Troponin-I [0.00-0.40 ng/mL] 5.3 K/CMM (02/07/19 9:42 AM) 6.9 K/CMM (02/05/19 2:52 PM) 6.7 K/CMM (02/05/19 3:21 AM) WBC [3.7-10.4 K/CMM] 1Result Comment: The eGFR is calculated using [...] History Type Response Substance Abuse Use: None. Alcohol Past, Type Beer. Frequency: 1-2 times per month. Previous treatment: None. Alcohol use interferes with work or home: No. Drinks more than intended: No. Others hurt by drinking: No. Ready to change: No. Household alcohol concerns: No. Smoking Status Never smoker; Exposure to Tobacco Smoke None; Cigarette Smoking Last 365 Days No; Reg Smoking Cessation Counseling No entered on: 02/05/19 Assessment and Plan Extracted from: Title: Clinical Document Author: Kaylee Mccollum Date: 02/07/19 PAIN MANAGEMENT PROGRESS NOTE SUBJECTIVE: Patient notes that current pain is minimal Intermittent abdominal pain Current pain: 0-1/10 No acute events overnight. Tolerating PO intake well. Regular rate No side effects to current pain medications No new complaints REVIEW OF SYSTEMS: negative unless otherwise stated in HPI. PHYSICAL EXAMINATION: GENERAL: A well-nourished, well-developed male in no apparent distress, sitting in chair. HEENT: Normocephalic, atraumatic, EOMI. CARDIOVASCULAR: Regular rate. RESPIRATORY: Unlabored breathing, no accessory muscle use. ABDOMEN: Soft, nondistended, nontender. MUSCULOSKELETAL: No edema or cyanosis. NEUROLOGIC: Spontaneous movement of all extremities. DIAGNOSTIC: CT of the abdomen and pelvis with contrast 02/05/2019: Interval cholecystectomy. Otherwise, no appreciable interval change since prior study. 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 Atherosclerosis. Bilateral renal cysts. No hydronephrosis is seen. Right upper quadrant ultrasound 02/05/19: status post cholecystectomy. Right renal cyst. ASSESSMENT AND PLAN: Mr. Reymundo Norman is an 83-year-old male with a complaint of abdominal pain due to acute pancreatitis. He may continue Watersmeet 5/325 mg q.6 hours as needed for mild to moderate pain. He may also continue Dilaudid IV 0.2 mg q.6 hours for severe pain only. Discussed proper usage of medications on today with patient. We will continue to monitor and make adjustments as needed. We have provided a discharge prescription for Watersmeet 5/325mg #15 CTRL: [id number]. Please call with any questions or concerns. Attending: Melinda Ontiveros MDPhone: Service: Internal Medicine Code status: Full Code Reason for Admission: ACUTE PANCREATITIS, RECURRENT ABDOMINAL PAIN Working DRG: Isolation: No Isolation/Standard Precautions Consulting Physicians: Krystal Zamora MDOffice: Service: Medicine, Neurology Teresa Abdullahi DOOffice: Service: Hematology, Oncology Bal Magallanes MDOffice: Service: General Surgery Anupam Patricio MDOffice: service: Hematology, Oncology, Medicine Lety Black MDOffice: Service: Gastroenterology, Medicine Reed Plaza MDOffice: Service: Cardiology Full Code Allergies: morphine, Pacerone, penicillins VitalsTmp(F)[id number] 02/07 11:[id number]--- 02/07 09:[id number]--- 02/07 09:00----[id number]--- 02/07 08:45----[id number]--- 02/07 08:[id number] 3.0L/m 24 Hr Tmax: 98.7F (37.06c) at 02/06 23:35Vital Signs are the last 5 in the past 48 hours. Medications (26) Active Scheduled Meds (6): 02/06/19 apixaban (Eliquis) 5 mg PO Q12H 02/06/19 metoprolol (Toprol-XL 50 mg oral tablet, extended release) 50 mg PO BID 02/05/19 pantoprazole 40 mg IVP BID-Before Meals 02/06/19 polyethylene glycol 3350 (MiraLax) 17 gm PO BID 02/06/19 simvastatin 40 mg PO Bedtime 02/05/19 sodium chloride (Saline Flush 0.9%) 10 ml IVP Q12H Unscheduled Meds: None PRN Meds (): 02/06/19 Al hydroxide/Mg hydroxide/simethicone (Al hydroxide/Mg hydroxide/simethicone 200 mg-200 mg-20 mg/5 mL oral suspension) 30 mL PO Q4H 02/05/19 Dextrose 50% in Water IV (Dextrose 50% Syringe) 12.5 gm IVP PRN 02/05/19 Dextrose 50% in Water IV (Dextrose 50% Syringe) 25 gm IVP PRN 02/06/19 acetaminophen-hydrocodone ([place] 5/325 oral tablet) 1 tab PO Q6H 02/05/19 acetaminophen 650 mg PO Q4H 02/05/19 bisacodyl 10 mg [place] Daily 02/06/19 dextromethorphan-guaiFENesin (dextromethorphan-guaiFENesin 10 mg-100 mg/5 mL oral liquid) 10 mL PO Q4H 02/06/19 diphenhydrAMINE 25 mg PO Q6H 02/06/19 docusate 100 mg PO BID 02/05/19 glucagon 1 mg IM PRN 02/06/19 hydromorphone (Dilaudid) 0.2 mg IVP Q6H 02/05/19 melatonin 3 mg PO Bedtime 02/05/19 naloxone 0.04 mg IVP Q2MIN 02/05/19 nitroglycerin (nitroglycerin SL Tab) 0.4 mg SL Q5Min 02/05/19 ondansetron 4 mg IVP Q8H 02/06/19 simethicone 80 mg PO Q6H 02/05/19 sodium chloride (Saline Flush 0.9%) 10 ml IVP PRN 02/05/19 sodium chloride (Saline Flush 0.9%) 10 ml IVP PRN One Time Meds: None Continuous Infusions (1): 02/05/19 Sodium Chloride 0.9% IV 1,000 mL 1,000 mL 50 ml/hr I&ORecordInOutBal 1424hr Tot 110 0 110 1324hr Tot 1196 0 1196 Lines, Tubes, and Drains: 02/05/2019 05:26 Ostomy: Ileal conduit Established Right 02/04/2019 22:32 Peripheral Lines: Antecubital Right 20 gauge Over the needle catheter Labs (Last four charted values) WBC 5.3(FEBRUARY 07)6.9(FEBRUARY 05)6.7(FEBRUARY 05)5.6(FEBRUARY 04) Hgb L 12.8(FEBRUARY 07)L 13.4(FEBRUARY 05)L 12.8(FEBRUARY 05)L 13.3(FEBRUARY 04) Hct L 38.8(FEBRUARY 07)L 39.4(FEBRUARY 05)L 38.0(FEBRUARY 05)L 40.1(FEBRUARY 04) Plt 226(FEBRUARY 07)238(FEBRUARY 05)231(FEBRUARY 05)255(FEBRUARY 04) Na 142(FEBRUARY 07)137(FEBRUARY 05)L 134(FEBRUARY 04) K 4.4(FEBRUARY 07)4.7(FEBRUARY 05)4.1(FEBRUARY 04) CO2 L 22(FEBRUARY 07)26(FEBRUARY 05)26(FEBRUARY 04) Cl 109(FEBRUARY 07)103(FEBRUARY 05)102(FEBRUARY 04) Cr 1.19(FEBRUARY 07)H 1.42(FEBRUARY 05)H 1.49(FEBRUARY 04) BUN 13(FEBRUARY 07)16(FEBRUARY 05)18(FEBRUARY 04) Glucose Random H 106(FEBRUARY 07)H 111(FEBRUARY 05)90(FEBRUARY 04) Ca 9.1(FEBRUARY 07)8.8(FEBRUARY 05)9.1(FEBRUARY 04) PT 14.2(FEBRUARY 07) INR 1.12(FEBRUARY 07) PTT 35.3(FEBRUARY 07) Troponin <0.02(FEBRUARY 05)<0.02(FEBRUARY 05)<0.02(FEBRUARY 04) CK MB 1.3(FEBRUARY 04) Total CK 70(FEBRUARY 04) Extracted from: Title: History and Physical Author: Arnoldo Jessicaalbhai Date: 02/05/19 ##Abdominal Pain - with elevated lipase to 1100, likely biochemical pancreatitis, - IVFs - diet as tolerated -pain control - PPI - check MRCP -GI consult ## given lower chest pain, will rule out for ACS - first troponin and EKG unremarkabe scd observation full code
--- OUTSIDE RECORDS SUMMARY | 2019-03-05 07:30 | XMS REPORT | Summary of Care ---
Author Author [facility] Organization [facility] Address Unknown Phone Unavailable Encounter CAROLYN Pandya([place]) [id number] Date(s): 02/27/19 - 02/27/19 [facility] [address] [place] [address]- Discharge Disposition: Home or Self Care Attending Physician: Cory Cohen MD Referring Physician: Teresa Abdullahi DO Vital Signs No data available for this section Problem List Condition Effective Dates Status Health Status Informant Anemia(Confirmed) Active Benign bladder Active tumor(Confirmed) CAD (coronary artery Active disease)(Confirmed) Cancer of Resolved colon(Confirmed) Cancer of Active colon(Confirmed) Pacemaker(Confirmed) Resolved CHF - Congestive Active heart failure(Confirmed) 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) [place] (hard of Resolved hearing)(Confirmed) Hematuria(Confirmed) Resolved HTN - Active Hypertension(Confirm ed) Bladder Active cancer(Confirmed) [place] - Myocardial < 09/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
--- OUTSIDE RECORDS SUMMARY | 2019-03-05 07:30 | XMS REPORT | Summary of Care ---
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) [place] (hard of Resolved hearing)(Confirmed) Hematuria(Confirmed) Resolved HTN - Active Hypertension(Confirm ed) Bladder Active cancer(Confirmed) [place] - Myocardial < 09/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 ) Primary colon Resolved cancer(Confirmed) Allergies, Adverse Reactions, Alerts Substance Reaction Severity Status penicillins Active Pacerone Active Medications No data available for this section Results No data available for this section Immunizations Given and Recorded Vaccine Date Status Refusal Reason influenza virus vaccine, inactivated 06/22/17 Given Procedures Procedure Date Related Diagnosis Body Site Status Cardiac pacemaker procedure 06/21/17 Completed Insertion of Port-a-cath 06/30/16 Completed Biopsy of bladder Completed Cardiac catheterization1 Completed Colostomy Completed Cystoscopy and bladder biopsy Completed Partial resection of colon Completed 1with stents Social History Social History [...] Reg Smoking Cessation Counseling No entered on: 06/25/17 Assessment and Plan No data available for this section
--- OUTSIDE RECORDS SUMMARY | 2019-03-05 07:30 | XMS REPORT | Summary of Care ---
Author Author [facility] Organization [facility] Address Unknown Phone Unavailable Encounter CAROLYN Pandya(LOLA) [id number] Date(s): 01/23/19 - 01/26/19 [facility] [id number] [place] [address]- [phone] Discharge Disposition: Home or Self Care Attending Physician: Lana Goddard MD Admitting Physician: Lana Goddard MD Vital Signs 1 2 3 Most recent to oldest [Reference Range]: 187.96 cm (01/23/19 5:26 AM) Height 97.4 DegF (01/26/19 8:31 AM) 97.6 DegF (01/26/19 3:20 AM) 98 DegF (01/25/19 7:37 PM) Temperature Oral [96.4-99.1 DegF] 162/82 mmHg *HI* (01/26/19 8:31 AM) 120/65 mmHg (01/26/19 3:20 AM) 126/69 mmHg (01/25/19 7:37 PM) Blood Pressure [90-140/60-90 mmHg] 18 BRMIN (01/26/19 8:31 AM) 18 BRMIN (01/26/19 3:20 AM) 19 BRMIN (01/25/19 7:37 PM) Respiratory Rate [14-20 BRMIN] 71 bpm (01/25/19 8:38 AM) 73 bpm (01/25/19 3:55 AM) 72 bpm (01/25/19 12:08 AM) Peripheral Pulse Rate [60-100 bpm] 90.909 kg (01/23/19 5:26 AM) Weight 25.73 m2 (01/23/19 5:26 AM) Body Mass Index Problem List Condition Effective Dates Status Health Status Informant Anemia(Confirmed) Active Benign bladder Active tumor(Confirmed) CAD (coronary artery Active disease)(Confirmed) Cancer of Resolved colon(Confirmed) Cancer of Active colon(Confirmed) Pacemaker(Confirmed) Resolved CHF - Congestive Active heart failure(Confirmed) 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) [place] (hard of Resolved hearing)(Confirmed) Hematuria(Confirmed) Resolved HTN - Active Hypertension(Confirm ed) Bladder Active cancer(Confirmed) 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 ) Primary colon Resolved cancer(Confirmed) Allergies, Adverse Reactions, Alerts Substance Reaction Severity Status penicillins Active morphine Active Pacerone Active Medications Amidate (ANES) Route: IV, Drug form: INJ, ONCE, Stop date: 01/25/19 11:04:00 CDT Start Date: 01/25/19 Stop Date: 01/25/19 Status: Completed ANES fentaNYL 25 microgram, Route: IVP, Q5Min, Dosing Weight 90.909, kg, PRN Pain Score 4-6, P riority: Routine, Start date: 01/24/19 19:24:00 CDT, Duration: 4 doses or times, Stop date: Limited # of times Start Date: 01/24/19 Stop Date: 01/24/19 Status: Discontinued ANES flumazenil 0.2 mg, Route: IVP, PRN, Dosing Weight 90.909, kg, PRN Benzodiazepine Reversal, Initial dose, Start date: 01/24/19 19:24:00 CDT, Duration: 30 day, Stop date: 19:23:00 CDT Start Date: 01/24/19 Stop Date: 01/24/19 Status: Discontinued ANES HYDROmorphone 0.5 mg, Route: IVP, Q5Min, Dosing Weight 90.909, kg, PRN Pain Score 7-10, Start date: 01/24/19 19:24:00 CDT, Duration: 4 doses or times, Stop date: Limited # of times Start Date: 01/24/19 Stop Date: 01/24/19 Status: Discontinued ANES meperidine 12.5 mg, Route: IVP, Q30Min, Dosing Weight 90.909, kg, PRN Other -See Comment, F or shivering, Start date: 01/24/19 19:24:00 CDT, Duration: 2 doses or times, Sto p date: Limited # of times Start Date: 01/24/19 Stop Date: 01/24/19 Status: Discontinued ANES naloxone 0.4 mg, Route: IVP, Q2MIN, Dosing Weight 90.909, kg, PRN Narcotic Reversal, Star t date: 01/24/19 19:24:00 CDT, Duration: 8 doses or times, Stop date: Limited # of times Start Date: 01/24/19 Stop Date: 01/24/19 Status: Discontinued ANES ondansetron 4 mg, Route: IVP, ONCE, Dosing Weight 90.909, kg, PRN Nausea & Vomiting, Start date: 01/24/19 19:24:00 CDT Start Date: 01/24/19 Stop Date: 01/24/19 Status: Discontinued ANES promethazine 6.25 mg, Route: IVPB, ONCE, Dosing Weight 90.909, kg, PRN Nausea & Vomiting, Start date: 01/24/19 19:24:00 CDT Start Date: 01/24/19 Stop Date: 01/24/19 Status: Discontinued cefTRIAXone + sterile water 10 mL 1 gm, Route: IVP, [id number], Dosing Weight 90.909, kg, Start date: 01/23/19 16:00: 00 CDT, Duration: 3 day, Stop date: 01/25/19 16:00:00 CDT, ABX Indication: Urina ry Tract Infection Notes: (Same As: Rocephin).Use with 100 mL NS and infuse over 30 min MEDICA TION WASTE Product Size: 1000 mgProduct Wasted: ___ mg Start Date: 01/23/19 Stop Date: 01/25/19 Status: Completed dexamethasone (ANES) Route: IV, Drug form: INJ, ONCE, Stop date: 01/25/19 11:09:00 CDT Start Date: 01/25/19 Stop Date: 01/25/19 Status: Completed Dextrose 50% Syringe 12.5 gm, 25 mL, Route: IVP, Drug Form: INJ, Dosing Weight 90.909, kg, PRN, PRN B lood Glucose Results, Start date: 01/23/19 12:09:00 CDT, Duration: 30 day, Stop date: 02/22/19 12:08:00 CDT Start Date: 01/23/19 Stop Date: 01/26/19 Status: Discontinued Dextrose 50% Syringe 25 gm, 50 mL, Route: IVP, Drug Form: INJ, Dosing Weight 90.909, kg, PRN, PRN Blo od Glucose Results, Start date: 01/23/19 12:09:00 CDT, Duration: 30 day, Stop da te: 02/22/19 12:08:00 CDT Start Date: 01/23/19 Stop Date: 01/26/19 Status: Discontinued Dilaudid 0.3 mg, Route: IVP, ONCE, Dosing Weight 90.909, kg, Start date: 01/25/19 11:50:0 0 CDT, Stop date: 01/25/19 11:50:00 CDT Start Date: 01/25/19 Stop Date: 01/25/19 Status: Completed Dilaudid 1 mg, 1 mL, Route: IVP, Drug form: SOLN, ONCE, Dosing Weight 90.909, kg, Priorit y: STAT, Start date: 01/23/19 7:37:00 CDT, Stop date: 01/23/19 7:37:00 CDT Notes: (Same as: Dilaudid) Start Date: 01/23/19 Stop Date: 01/23/19 Status: Completed Dilaudid 0.2 mg, Route: IVP, ONCE, Dosing Weight 90.909, kg, Start date: 01/25/19 11:57:0 0 CDT, Stop date: 01/25/19 11:57:00 CDT Start Date: 01/25/19 Stop Date: 01/25/19 Status: Completed Dilaudid 0.5 mg, 0.5 mL, Route: IVP, Drug form: SOLN, Q4H, Dosing Weight 90.909, kg, PRN Pain Score 7-10, Start date: 01/23/19 12:11:00 CDT, Duration: 30 day, Stop date: 02/22/19 12:10:00 CDT Notes: (Same as: Dilaudid) Start Date: 01/23/19 Stop Date: 01/26/19 Status: Discontinued Dilaudid 1 mg, 1 mL, Route: IVP, Drug form: INJ, ONCE, Dosing Weight 90.909, kg, Priority : STAT, Start date: 01/23/19 7:19:00 CDT, Stop date: 01/23/19 7:19:00 CDT Notes: Same as: Dilaudid Start Date: 01/23/19 Stop Date: 01/23/19 Status: Deleted Dilaudid 0.5 mg, Route: IVP, ONCE, Dosing Weight 90.909, kg, Priority: STAT, Start date: 01/23/19 6:31:00 CDT, Stop date: 01/23/19 6:31:00 CDT Start Date: 01/23/19 Stop Date: 01/23/19 Status: Completed Eliquis 5 mg, 1 tab, Route: PO, Drug form: TAB, Q12H, Dosing Weight 90.909, kg, Start da te: 01/23/19 21:00:00 CDT, Duration: 30 day, Stop date: 02/22/19 9:00:00 CDT Notes: Same as: Eliquis Start Date: 01/23/19 Stop Date: 01/26/19 Status: Discontinued fentaNYL (ANES) Route: IV, Drug form: INJ, ONCE, Stop date: 01/25/19 10:59:00 CDT Start Date: 01/25/19 Stop Date: 01/25/19 Status: Completed glucagon 1 mg, Route: IM, Drug form: PDR/INJ, PRN, Dosing Weight 90.909, kg, PRN Blood Gl ucose Results, Start date: 01/23/19 12:09:00 CDT, Duration: 30 day, Stop date: 0 02/22/19 12:08:00 CDT Start Date: 01/23/19 Stop Date: 01/26/19 Status: Discontinued glycopyrrolate (ANES) Route: IV, Drug form: INJ, ONCE, Stop date: 01/25/19 11:20:00 CDT Start Date: 01/25/19 Stop Date: 01/25/19 Status: Completed heparin 5,000 unit, 1 mL, Route: SUB-Q, Drug form: INJ, Q8H, Dosing Weight 90.909, kg, S tart date: 01/23/19 16:00:00 CDT, Stop date: 02/22/19 8:00:00 CDT Notes: porcine heparin Start Date: 01/23/19 Stop Date: 01/23/19 Status: Canceled ketOROLAC 15 mg, Route: IVP, Drug form: INJ, ONCE, Dosing Weight 90.909, kg, Priority: STA T, Start date: 01/23/19 11:10:00 CDT, Stop date: 01/23/19 11:10:00 CDT Start Date: 01/23/19 Stop Date: 01/23/19 Status: Completed ketOROLAC 15 mg, 0.5 mL, Route: IVP, Drug form: INJ, ONCE, Dosing Weight 90.909, kg, Prior ity: STAT, Start date: 01/23/19 10:42:00 CDT, Stop date: 01/23/19 10:42:00 CDT Notes: (Same as:Toradol) IV bolus must be given >15 seconds. Give IM administration slowly and deeply into the muscle.Not for use > 4 days MEDICATION WASTE Product Size: 30 mgProduct Wasted: ___ mg Start Date: 01/23/19 Stop Date: 01/23/19 Status: Completed Lactated Ringers Injection IV (ANES) 1000 mL Route: IV, Total Volume: 1,000, Start date: 01/25/19 9:58:00 CDT, Stop date: 10/15 10:58:00 CDT Start Date: 01/25/19 Stop Date: 01/25/19 Status: Completed lidocaine (ANES) Route: IV, Drug form: INJ, ONCE, Stop date: 01/25/19 10:59:00 CDT Start Date: 01/25/19 Stop Date: 01/25/19 Status: Completed metoprolol tartrate 25 mg, 1 tab, Route: PO, Drug form: TAB, Q12H, Dosing Weight 90.909, kg, Start d ate: 01/23/19 21:00:00 CDT, Duration: 30 day, Stop date: 02/22/19 9:00:00 CDT Notes: (Same as: Lopressor) Start Date: 01/23/19 Stop Date: 01/26/19 Status: Discontinued neostigmine (ANES) Route: IV, Drug form: INJ, ONCE, Stop date: 01/25/19 11:20:00 CDT Start Date: 01/25/19 Stop Date: 01/25/19 Status: Completed NS (Bolus) IV 500 mL, 500 ml/hr, Infuse Over: 1 hr, Route: IV, ONCE, Priority: STAT, Dosing We ight 90.909 kg, Start date: 01/23/19 6:31:00 CDT, Stop date: 01/23/19 6:31:00 CD T Start Date: 01/23/19 Stop Date: 01/23/19 Status: Completed NS 1,000 mL 1,000 mL, Rate: 75 ml/hr, Infuse over: 13.3 hr, Route: IV, Dosing Weight 90.909 kg, Total Volume: 1,000, Start date: 01/23/19 14:47:00 CDT, Duration: 30 day, St op date: 02/22/19 14:46:00 CDT, 2.19, m2 Start Date: 01/23/19 Stop Date: 01/26/19 Status: Discontinued Ofirmev 1,000 mg, Route: IV, ONCE, Dosing Weight 90.909, kg, Start date: 01/25/19 11:42: 00 CDT, Stop date: 01/25/19 11:42:00 CDT Start Date: 01/25/19 Stop Date: 01/25/19 Status: Completed ondansetron 4 mg, Route: IVP, Drug form: INJ, ONCE, Dosing Weight 90.909, kg, Priority: STAT , Start date: 01/23/19 6:31:00 CDT, Stop date: 01/23/19 6:31:00 CDT Start Date: 01/23/19 Stop Date: 01/23/19 Status: Completed ondansetron 4 mg, 2 mL, Route: IVP, Drug form: INJ, Q8H, Dosing Weight 90.909, kg, PRN Nause a & Vomiting, Start date: 01/23/19 12:09:00 CDT, Duration: 30 day, Stop date: 02/22/19 12:08:00 CDT Notes: (Same as: Alisha) MEDICATION WASTE Product Size: 4 mgProduct Was ana cristina: ___ mg Start Date: 01/23/19 Stop Date: 01/26/19 Status: Discontinued ondansetron (ANES) Route: IV, Drug form: INJ, ONCE, Stop date: 01/25/19 11:20:00 CDT Start Date: 01/25/19 Stop Date: 01/25/19 Status: Completed phenylephrine (ANES) Route: IV, Drug form: INJ, ONCE, Stop date: 01/25/19 11:19:00 CDT Start Date: 01/25/19 Stop Date: 01/25/19 Status: Completed pneumococcal 13-valent vaccine 0.5 mL, Route: IM, Drug Form: INJ, ONCALL, Start date: 01/23/19 14:58:47 CDT, St op date: 02/22/19 14:53:47 CDT Notes: Shake well prior to use (Same as: Prevnar 13) Start Date: 01/23/19 Stop Date: 01/26/19 Status: Discontinued propofol (ANES) Route: IV, Drug form: INJ, ONCE, Stop date: 01/25/19 10:59:00 CDT Start Date: 01/25/19 Stop Date: 01/25/19 Status: Completed rocuronium (ANES) Route: IV, Drug form: INJ, ONCE, Stop date: 01/25/19 11:04:00 CDT Start Date: 01/25/19 Stop Date: 01/25/19 Status: Completed Saline Flush 0.9% 10 mL, Route: IVP, Drug Form: INJ, Dosing Weight 90.909, kg, PRN, PRN Line Flush , Start date: 01/23/19 6:33:00 CDT, Duration: 30 day, Stop date: 02/22/19 6:32:0 0 CDT Notes: Same as: BD Posiflush Sterile Start Date: 01/23/19 Stop Date: 01/26/19 Status: Discontinued simvastatin 40 mg, 1 tab, Route: PO, Drug form: TAB, Daily, Dosing Weight 90.909, kg, Start date: 01/24/19 9:00:00 CDT, Duration: 30 day, Stop date: 02/21/19 21:00:00 CDT Notes: (Same as: Zocor) Start Date: 01/24/19 Stop Date: 01/26/19 Status: Discontinued tramadol 50 mg oral tablet 50 mg, 1 tab, Route: PO, Drug form: TAB, Q6H, Dosing Weight 90.909, kg, PRN Pain Score 4-6, Start date: 01/23/19 14:47:00 CDT, Duration: 30 day, Stop date: 01/26 06/15 14:46:00 CDT Notes: Not to exceed 400mg/day. (Same As: Ultram) Start Date: 01/23/19 Stop Date: 01/26/19 Status: Discontinued Results 1 2 3 Most recent to oldest [Reference Range]: 6.7 K/CMM (01/26/19 4:25 AM) 3.2 K/CMM (01/25/19 3:22 AM) 3.5 K/CMM (01/24/19 5:03 AM) Neutrophils # [1.5-8.1 K/CMM] 0.5 K/CMM *LOW* (01/26/19 4:25 AM) 0.8 K/CMM *LOW* (01/25/19 3:22 AM) 0.8 K/CMM *LOW* (01/24/19 5:03 AM) Lymphocytes # [1.0-5.5 K/CMM] 0.5 K/CMM (01/26/19 4:25 AM) 0.5 K/CMM (01/25/19 3:22 AM) 0.5 K/CMM (01/24/19 5:03 AM) Monocytes # [0.0-0.8 K/CMM] 0.1 K/CMM (01/25/19 3:22 AM) 0.1 K/CMM (01/24/19 5:03 AM) 0.1 K/CMM (01/23/19 6:45 AM) Eosinophils # [0.0-0.5 K/CMM] 51 mL/min/1.73m2 1 *NA* (01/24/19 5:03 AM) 50 mL/min/1.73m2 2 *NA* (01/23/19 6:45 AM) eGFR A POS *Unknown* (01/23/19 6:45 AM) ABO/Rh 0.8 (01/24/19 5:03 AM) 0.8 (01/23/19 6:45 AM) A/G Ratio [0.7-1.6] Negative (01/23/19 6:45 AM) Antibody Scrn 2.7 g/dL *LOW* (01/24/19 5:03 AM) 3.2 g/dL *LOW* (01/23/19 6:45 AM) Albumin Lvl [3.5-5.0 g/dL] 55 unit/L (01/24/19 5:03 AM) 59 unit/L (01/23/19 6:45 AM) Alk Phos [39-136 unit/L] 16 unit/L (01/24/19 5:03 AM) 18 unit/L (01/23/19 6:45 AM) ALT [0-65 unit/L] 12.6 mEq/L (01/24/19 5:03 AM) 13.2 mEq/L (01/23/19 6:45 AM) AGAP [10.0-20.0 mEq/L] 24 unit/L (01/24/19 5:03 AM) 25 unit/L (01/23/19 6:45 AM) AST [0-37 unit/L] 14 (01/24/19 5:03 AM) 16 (01/23/19 6:45 AM) B/C Ratio [6-25] 0.5 % (01/25/19 3:22 AM) 0.5 % (01/24/19 5:03 AM) 0.5 % (01/23/19 6:45 AM) Basophils [0.0-1.0 %] 18 mg/dL (01/24/19 5:03 AM) 21 mg/dL (01/23/19 6:45 AM) BUN [7-22 mg/dL] 8.4 mg/dL *LOW* (01/24/19 5:03 AM) 8.7 mg/dL (01/23/19 6:45 AM) Calcium Lvl [8.5-10.5 mg/dL] 108 mEq/L (01/24/19 5:03 AM) 109 mEq/L (01/23/19 6:45 AM) Chloride Lvl [95-109 mEq/L] 23 mEq/L *LOW* (01/24/19 5:03 AM) 20 mEq/L *LOW* (01/23/19 6:45 AM) CO2 [24-32 mEq/L] 1.28 mg/dL (01/24/19 5:03 AM) 1.30 mg/dL (01/23/19 6:45 AM) Creatinine Lvl [0.50-1.40 mg/dL] 2.0 % (01/25/19 3:22 AM) 2.1 % (01/24/19 5:03 AM) 0.9 % (01/23/19 6:45 AM) Eosinophils [0.0-4.0 %] 3.5 g/dL (01/24/19 5:03 AM) 3.9 g/dL (01/23/19 6:45 AM) Globulin [2.7-4.2 g/dL] 90 mg/dL (01/24/19 5:03 AM) 110 mg/dL *HI* (01/23/19 6:45 AM) Glucose Lvl [70-99 mg/dL] 35.7 % *LOW* (01/26/19 4:25 AM) 34.8 % *LOW* (01/25/19 3:22 AM) 35.1 % *LOW* (01/24/19 5:03 AM) Hct [42.0-54.0 %] 12.3 g/dL *LOW* (01/26/19 4:25 AM) 11.9 g/dL *LOW* (01/25/19 3:22 AM) 12.1 g/dL *LOW* (01/24/19 5:03 AM) Hgb [14.0-18.0 g/dL] 1.17 (01/25/19 3:22 AM) INR [0.85-1.17] 4.6 mEq/L (01/24/19 5:03 AM) 4.2 mEq/L (01/23/19 6:45 AM) Potassium Lvl [3.5-5.1 mEq/L] 820 unit/L *HI* (01/23/19 6:45 AM) Lipase Lvl [73-393 unit/L] 5.9 % *LOW* (01/26/19 4:25 AM) 17.2 % *LOW* (01/25/19 3:22 AM) 15.6 % *LOW* (01/24/19 5:03 AM) Lymphocytes [20.0-40.0 %] 31.8 pg *HI* (01/26/19 4:25 AM) 31.6 pg *HI* (01/25/19 3:22 AM) 31.9 pg *HI* (01/24/19 5:03 AM) MCH [27.0-31.0 pg] 34.4 g/dL (01/26/19 4:25 AM) 34.1 g/dL (01/25/19 3:22 AM) 34.5 g/dL (01/24/19 5:03 AM) MCHC [32.0-36.0 g/dL] 92.4 fL (01/26/19 4:25 AM) 92.6 fL (01/25/19 3:22 AM) 92.5 fL (01/24/19 5:03 AM) MCV [80.0-94.0 fL] 2.1 mg/dL (01/23/19 6:45 AM) Magnesium Lvl [1.8-2.4 mg/dL] 6.5 % (01/26/19 4:25 AM) 10.8 % (01/25/19 3:22 AM) 10.8 % (01/24/19 5:03 AM) Monocytes [2.0-12.0 %] 8.1 fL (01/26/19 4:25 AM) 8.0 fL (01/25/19 3:22 AM) 7.9 fL (01/24/19 5:03 AM) MPV [7.4-10.4 fL] 139 mEq/L (01/24/19 5:03 AM) 138 mEq/L (01/23/19 6:45 AM) Sodium Lvl [135-145 mEq/L] 199 K/CMM (01/26/19 4:25 AM) 187 K/CMM (01/25/19 3:22 AM) 193 K/CMM (01/24/19 5:03 AM) Platelet [133-450 K/CMM] 87.6 % *HI* (01/26/19 4:25 AM) 69.5 % (01/25/19 3:22 AM) 71.0 % (01/24/19 5:03 AM) Segs [45.0-75.0 %] 6.2 g/dL *LOW* (01/24/19 5:03 AM) 7.1 g/dL (01/23/19 6:45 AM) Total Protein [6.4-8.4 g/dL] 14.7 seconds (01/25/19 3:22 AM) PT [12.0-14.7 seconds] 3.86 M/CMM *LOW* (01/26/19 4:25 AM) 3.76 M/CMM *LOW* (01/25/19 3:22 AM) 3.80 M/CMM *LOW* (01/24/19 5:03 AM) RBC [4.70-6.10 M/CMM] 13.9 % (01/26/19 4:25 AM) 13.7 % (01/25/19 3:22 AM) 14.0 % (01/24/19 5:03 AM) RDW [11.5-14.5 %] 0.4 mg/dL (01/24/19 5:03 AM) 0.7 mg/dL (01/23/19 6:45 AM) Bili Total [0.2-1.3 mg/dL] <0.02 ng/mL (01/23/19 6:45 AM) Troponin-I [0.00-0.40 ng/mL] Occasional /HPF *NA* (01/23/19 6:45 AM) UA Bacteria [None Seen /HPF] Negative *NA* (01/23/19 6:45 AM) UA Bili [Negative] Moderate *ABN* (01/23/19 6:45 AM) UA Blood [Negative] Yellow *NA* (01/23/19 6:45 AM) UA Color [Yellow] Negative mg/dL *NA* (01/23/19 6:45 AM) UA Glucose [Negative mg/dL] Negative mg/dL *NA* (01/23/19 6:45 AM) UA Ketones [Negative mg/dL] Small *ABN* (01/23/19 6:45 AM) UA Leuk Est [Negative] Few /LPF *NA* (01/23/19 6:45 AM) UA Mucus [None Seen /LPF] Negative (01/23/19 6:45 AM) UA Nitrite [Negative] 6.0 (01/23/19 6:45 AM) UA pH [5.0-8.0] Negative mg/dL (01/23/19 6:45 AM) UA Protein [Negative mg/dL] 22 /HPF *HI* (01/23/19 6:45 AM) UA RBC [0-2 /HPF] 1.014 (01/23/19 6:45 AM) UA Spec Grav [<=1.030] Occasional /LPF *NA* (01/23/19 6:45 AM) UA Sq Epi [Few /LPF] Slight *ABN* (01/23/19 6:45 AM) UA Turbidity [Clear] <=1.0 mg/dL *NA* (01/23/19 6:45 AM) UA Urobilinogen [0.1-1.0 mg/dL] 54 /HPF *HI* (01/23/19 6:45 AM) UA WBC [0-5 /HPF] 7.7 K/CMM (01/26/19 4:25 AM) 4.6 K/CMM (01/25/19 3:22 AM) 4.9 K/CMM (01/24/19 5:03 AM) WBC [3.7-10.4 K/CMM] 1Result Comment: The [...] be mul tiplied by the estimated BMI. Microbiology Reports TEST: Culture: Urine STATUS: Auth (Verified) BODY SITE: SOURCE: Urine, Clean Catch COLLECTED DATE/TIME: 01/23/19 6:45 AM FINAL REPORT 50,000 - 100,000 CFU/mL Staphylococcus Species, Not S. aureus If Identification Or Sensitivity Required, contact Microbiology At [phone] Within 48 Hours. Immunizations Given and Recorded Vaccine Date Status [...] Reg Smoking Cessation Counseling No entered on: 01/23/19 Assessment and Plan Extracted from: Title: Clinical Document Author: Bobby Blum MD Date: 01/26/19 Progress Note Gastroenterology and Hepatology ASSESSMENT /PLAN: 83 year-old male with medical history significant for hypertension, dyslipidemia, coronary artery disease post stents, proximal A. fib on Eliquis, sick sinus syndrome post pacemaker, chronic kidney disease, previous colon cancer post right hemicolectomy, bladder cancer post cystectomy with ileal conduit presents to [facility] with right upper quadrant abdominal pain. Labs reveal normal CMP, lipase 820, normal CBC, UA with 54 WBCs and 22 RBCs per high-power field. CT abdomen/pelvis with IV contrast shows upper abdominal retroperitoneal lymphadenopathy not significantly changed from prior exam, cholelithiasis, bilateral renal cysts, sigmoid diverticulosis and postsurgical changes of right hemicolectomy and cystoscopy prostatectomy with ileal conduit formation with small bowel containing parastomal hernia. Right upper quadrant ultrasound shows cholelithiasis. HIDA scan negative, no ejection fraction done. Status post cholecystectomy 01/25/19. Recommend -Postop care per surgeon. -Okay to discharge from GI perspective. SUBJECTIVE: Pt tolerating diet. No new GI complaints. Abdominal pain has resolved. Review of Systems: (-)=Negative,(+)=Positive 1) Const: (-) [...] cold intolerance OBJECTIVE: Vitals: See below General: Alert , Oriented x 3 CVS: s1s2 RRR Resp: CTA Bilaterally Abd : Soft, NT, ND , BS + Ext : no edema [employer]: No gross motor/sensory defects VitalsTmp(F)[id number] 01/26 08:[id number]--- 01/26 03:[id number]--- 01/25 [id number]--- 01/25 16:[id number]--- 24 Hr Tmax: No Data AvailableVital Signs are the last 5 in the past 48 hours. (all previously charted lines have been discontinued) Cardiac pacemaker procedure: 06/21/17 Insertion of Port-a-cath: 10/04/16 Partial resection of colon Cystoscopy and bladder biopsy Cardiac catheterization Biopsy of bladder Prostatectomy Partial colectomy Cystectomy Construction of urostomy I&ORecordInOutBal 01/324hr Tot 0 0 0 01/224hr Tot 0 0 0 No qualifying data available Labs (Last four charted values) WBC 7.7(JANUARY 26)4.6(JANUARY 25)4.9(JAN 24)7.6(JAN 23) Hgb L 12.3(JANUARY 26)L 11.9(JANUARY 25)L 12.1(JAN 24)L 13.1(JAN 23) Hct L 35.7(JANUARY 26)L 34.8(JANUARY 25)L 35.1(JAN 24)L 38.6(JAN 23) Plt 199(JANUARY 26)187(JANUARY 25)193(JAN 24)218(JAN 23) Na 139(JAN 24)138(JAN 23) K 4.6(JAN 24)4.2(JAN 23) CO2 L 23(JAN 24)L 20(JAN 23) Cl 108(JAN 24)109(JAN 23) Cr 1.28(JAN 24)1.30(JAN 23) BUN 18(JAN 24)21(JAN 23) Glucose Random 90(JAN 24)H 110(JAN 23) Mg 2.1(JAN 23) Ca L 8.4(JAN 24)8.7(JAN 23) PT 14.7(JANUARY 25) INR 1.17(JANUARY 25) Troponin <0.02(JAN 23) Extracted from: Title: Clinical Document Author: Bal Magallanes MD Date: 01/25/19 DATE OF PROCEDURE: 01/25/2019. PREOPERATIVE DIAGNOSIS: 1. Gallstones. 2. Intractable right upper quadrant pain. 3. Coronary artery disease post stents. 4. Atrial fibrillation on Eliquis. 5. Sick sinus syndrome with pacemaker. 6. Hypertension. 7. Previous colon cancer post resection. 8. Previous bladder cancer post resection with ileal conduit. POSTOPERATIVE DIAGNOSIS: 1. Gallstones. 2. Intractable right upper quadrant pain. 3. Coronary artery disease post stents. 4. Atrial fibrillation on Eliquis. 5. Sick sinus syndrome with pacemaker. 6. Hypertension. 7. Previous colon cancer post resection. 8. Previous bladder cancer post resection with ileal conduit. TECHNICAL PROCEDURE PERFORMED: 1. Laparoscopic cholecystectomy. 2. Diffuse intra-abdominal adhesions. SURGEON: Bal Magallanes M.D. ANESTHESIA: General endotracheal. SURGICAL WOUND CLASSIFICATION: Clean contaminate. OPERATIVE TIME: 35 minutes. ESTIMATED BLOOD LOSS: Minimal. FLUID REPLACEMENT: Per anesthesia. SPECIMENS SENT FOR PATHOLOGY: Gallbladder. COMPLICATIONS: None. FINDINGS: 1. Dense intra-abdominal adhesions. 2. We will visualize critical view. 3. Gallstones.. CONDITION: To recovery, stable. POSTOPERATIVE PLAN: To the floor INDICATIONS: A 83-year-old gentleman that presented to [facility] with abdominal pain. At this time, the history and physical as well as laboratory studies was consistent with diagnosis of intractable biliary colic, therefore, the option of laparoscopic versus open cholecystectomy was offered to the patient. Risks and benefits of the procedure were explained and the patient voiced understanding and consented to procedure. OPERATIVE NARRATIVE: Patient was taken the operating room, placed on the operating table, intubated by anesthesia. The abdomen was prepped and draped in the usual sterile fashion. A timeout was called and the correct patient, as well as procedure was verified. The patient had SCDs on for thromboembolic prophylaxis and received antibiotics within 1 hour of the incision. Due to the patient's previous midline laparotomy, the abdomen is accessed through the right upper quadrant using a 0.5 cm first entry [employer] trocar under direct visualization. The abdomen was insufflated with CO2 gas until 15 mmHg achieved. We identified diffuse midline adhesions. We identified an area free of adhesions epigastric in the right flank and placed a 1 cm trocar in the epigastrium and a 0.5 cm trocar in the right flank. Attention was turned to the midline adhesions and these adhesions were taken down with accommodation of sharp as well as blunt dissection. Excision lysis was extensive incorporating 50% of the time. A 0.5 cm trocar was then placed in the supraumbilical region under direct visualization after adhesions were cleared. The patient was placed in reverse Trendelenburg position airplaned to the left; 0.5 cm trocars were introduced in the epigastrium, right upper quadrant right periumbilical regions under direct visualization. The gallbladder was identified. It was grasped at the fundus and retracted to the head, infundibulum was identified, grasped and retracted towards the legs, exposing the triangle of Calot. The cystic duct was identified, it was dissected out from all surrounding structures, clipped proximally 3 times, distally once, transected in between. Of note, a well visualized critical view was identified; therefore we bypassed cholangiogram. The dissection continued to identify the cystic artery, it was dissected out from all surrounding structures, clipped proximally twice, distally once, and transected in between. The gallbladder was then elevated off the liver bed using electrocautery. It was placed in the Endopouch bag and removed from the abdomen through the umbilical port. The liver bed was inspected, all residual bleeding was identified and controlled. The abdomen was irrigated with copious amounts water until clear return was achieved. The patient was placed flat and all residual irrigation was suctioned out. The pneumoperitoneum was decompressed and the fascia at the epigastric port was closed using 0 Vicryl in a [id number] manner, and the skin was closed using 4-0 Monocryl in running subcuticular manner. The skin in the 5-mm ports were closed using 4-0 Monocryl in simple U-stitch manner. The patient was extubated in the operating room and transferred to recovery in stable condition. All instrument and laparotomy counts were correct. Extracted from: Title: Clinical Document Author: Reed Plaza MD Date: 01/24/19 Cardiology Note Reed Plaza MD, PA SUBJECTIVE: REASON FOR CONSULTATION: preop clearance HISTORY OF PRESENT ILLNESS: Thank you for allowing me to participate in the care of this patient. 83-year-old lady with medical history significant for hypertension, dyslipidemia, coronary artery disease post stents on Eliquis, sick sinus syndrome post pacemaker, chronic kidney disease, previous colon cancer post right hemicolectomy, bladder cancer post cystectomy with ileal conduit presents to [facility] with abdominal pain. Pain is described as cramping, sharp, stabbing nature, located in the epigastrium, right upper quadrant, increasing in severity without alleviating factors. Pain is colicky in nature, comes and goes, denies vomiting however admits to some nausea. Work- up of the pain including ultrasound revealed no evidence of gallstones however HIDA scan was negative for acute cholecystitis. But due to his persistent ongoing pain, surgery was consulted for further evaluation. Cardiac history notable for CAD s/p inferior NE in 2006 s/p PCI RCA and last cath in 2013 showed patent stent. He has paroxysmal afib maintained on Eliquis. He has normal EF. PAST MEDICAL HISTORY: 1. Hypertension. 2. Dyslipidemia. 3. Coronary artery disease post stents. 4. Atrial fibrillation on Eliquis. 5. Sick sinus syndrome post pacemaker. 6. Previous colon cancer. 7. Previous bladder cancer post cystectomy and ileal conduit. PAST SURGICAL HISTORY: 1. Right hemicolectomy. 2. Prostatectomy. 3. Cystectomy with ileal conduit. 4. Cardiac cath with stents. 5. Pacemaker. 6. Port-A-Cath placement. MEDS: Please refer to the medication reconciliation form. Allergies: morphine, Pacerone, penicillins SOCIAL HISTORY: Denies smoking, drinking, illicit drugs. FAMILY HISTORY: Noncontributory RVIEW OF SYSTEMS: Other than what was mentioned in the HPI, complete review of systems were performed and are negative. Vitals and Temp: VitalsTmp(F)[id number] 01/24 [id number]--- 01/24 04:[id number]--- 01/24 00:[id number]--- 01/23 20:[id number]--- 01/23 15:[id number]--- 24 Hr Tmax: 98.6F (37.00c) at 01/24 00:20Vital Signs are the last 5 in the past 48 hours. Scheduled Meds (4): 01/23/19 apixaban (Eliquis) 5 mg PO Q12H 01/23/19 cefTRIAXone + sterile water 10 mL 1 gm IVP [id number] 120 ml/hr 01/23/19 metoprolol (metoprolol tartrate) 25 mg PO Q12H 01/24/19 simvastatin 40 mg PO Daily Continuous Infusions (1): 01/23/19 Sodium Chloride 0.9% IV 1,000 mL (NS 1,000 mL) 1,000 mL 75 ml/hr Labs (Last four charted values) WBC 4.9(JAN 24)7.6(JAN 23) Hgb L 12.1(JAN 24)L 13.1(JAN 23) Hct L 35.1(JAN 24)L 38.6(JAN 23) Plt 193(JAN 24)218(JAN 23) Na 139(JAN 24)138(JAN 23) K 4.6(JAN 24)4.2(JAN 23) CO2 L 23(JAN 24)L 20(JAN 23) Cl 108(JAN 24)109(JAN 23) Cr 1.28(JAN 24)1.30(JAN 23) BUN 18(JAN 24)21(JAN 23) Glucose Random 90(JAN 24)H 110(JAN 23) Mg 2.1(JAN 23) Ca L 8.4(JAN 24)8.7(JAN 23) Troponin <0.02(JAN 23) EXAM: Good BP control; NSR; afebrile Head: normocephalic and atraumatic Neck: no carotid bruit; no JVD CV: Regular; -S3; no significant murmurs Lungs: Clear; no wheezing; good air entry Abd: soft and no organomegaly; + bowel sounds Ext: no CCE; good pulses distally Neuro: nonfocal; oriented *3 Psych: appropriate ASSESSMENT: abdominal pain and gallstones Cardiac history notable for CAD s/p inferior NE in 2006 s/p PCI RCA and last cath in 2013 showed patent stent. He has paroxysmal afib maintained on Eliquis. He has normal EF. PLAN: Clear to proceed with surgery (cholecystectomy). His last dose of Eliquis was last night. Extracted from: Title: General Admission H&P * Author: Kun Haro MD Date: 01/23/19 Impression and Plan Abdominal pain Likely secondary to acute pancreatitis/biliary colic GI consult N.p.o., IV fluids -Paroxysmal atrial fibrillation Metoprolol, Eliquis -Hypertension Metoprolol -Possible UTI Ceftriaxone -: colon and bladder cancer Follow-up as outpatient DVT prophylaxis Eliquis DISPO: expect 1-2 Mn stay
--- OUTSIDE RECORDS SUMMARY | 2019-03-05 07:30 | XMS REPORT | Summary of Care ---
Author Author [facility] Organization [facility] Address Unknown Phone Unavailable Encounter CAROLYN Pandya(LOLA) [id number] Date(s): 09/02/17 - 09/02/17 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
--- OUTSIDE RECORDS SUMMARY | 2019-03-05 07:30 | XMS REPORT | Summary of Care ---
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
--- OUTSIDE RECORDS SUMMARY | 2019-03-05 07:31 | XMS REPORT | Summary of Care ---
Author Author [facility] Organization [facility] Address Unknown Phone Unavailable Encounter CAROLYN Pandya(LOLA) [id number] Date(s): 01/11/19 - 01/12/19 [facility] [address] [place] [address]- Discharge Disposition: Home or Self Care Attending Physician: Lana Goddard MD Admitting Physician: Lana Goddard MD Vital Signs 1 2 3 Most recent to oldest [Reference Range]: 182.88 cm (01/11/19 10:31 PM) 182.88 cm (01/11/19 2:28 PM) Height 98.2 DegF (01/12/19 3:48 PM) 97.7 DegF (01/12/19 11:40 AM) 97.9 DegF (01/12/19 8:00 AM) Temperature Oral [96.4-99.1 DegF] 122/73 mmHg (01/12/19 3:48 PM) 133/69 mmHg (01/12/19 11:40 AM) 130/67 mmHg (01/12/19 8:00 AM) Blood Pressure [90-140/60-90 mmHg] 18 BRMIN (01/12/19 3:48 PM) 18 BRMIN (01/12/19 11:40 AM) 18 BRMIN (01/12/19 8:00 AM) Respiratory Rate [14-20 BRMIN] 69 bpm (01/12/19 3:48 PM) 70 bpm (01/12/19 11:40 AM) 70 bpm (01/12/19 8:00 AM) Peripheral Pulse Rate [60-100 bpm] 90.909 kg (01/11/19 10:31 PM) 93.182 kg (01/11/19 2:28 PM) Weight 27.18 m2 (01/11/19 10:31 PM) 27.86 m2 (01/11/19 2:28 PM) Body Mass Index Problem List Condition Effective Dates Status Health Status Informant Anemia(Confirmed) Active Benign bladder Active tumor(Confirmed) CAD (coronary artery Active disease)(Confirmed) Cancer of Resolved colon(Confirmed) Cancer of Active colon(Confirmed) Pacemaker(Confirmed) Resolved CHF - Congestive Active heart failure(Confirmed) 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) [place] (hard of Resolved hearing)(Confirmed) Hematuria(Confirmed) Resolved HTN - Active Hypertension(Confirm ed) Bladder Active cancer(Confirmed) DC - Myocardial < 09/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 ) Primary colon Resolved cancer(Confirmed) Allergies, Adverse Reactions, Alerts Substance Reaction Severity Status penicillins Active morphine Active Pacerone Active Medications Cipro 500 mg, 1 tab, Route: PO, Drug form: TAB, [id number], Dosing Weight 90.909, kg, Sta rt date: 01/12/19 12:00:00 CDT, Duration: 5 day, Stop date: 01/17/19 0:00:00 CDT , ABX Indication: Urinary Tract Infection Notes: May interfere w/enteral feedings - Take 1 hr before or 2 hrs after anta cids, dairy pdt & minerals. On empty stomach. Start Date: 01/12/19 Stop Date: 01/12/19 Status: Discontinued ciprofloxacin 500 mg oral tablet 500 mg=1 tab, PO, [id number], X 5 day, # 10 tab, 0 Refill(s), Pharmacy: [id number] Start Date: 01/12/19 Stop Date: 01/17/19 Status: Ordered Dextrose 50% Syringe 12.5 gm, 25 mL, Route: IVP, Drug Form: INJ, Dosing Weight 90.909, kg, PRN, PRN B lood Glucose Results, Start date: 01/11/19 23:42:00 CDT, Duration: 30 day, Stop date: 02/10/19 23:41:00 CDT Start Date: 01/11/19 Stop Date: 01/12/19 Status: Discontinued Dextrose 50% Syringe 25 gm, 50 mL, Route: IVP, Drug Form: INJ, Dosing Weight 90.909, kg, PRN, PRN Blo od Glucose Results, Start date: 01/11/19 23:42:00 CDT, Duration: 30 day, Stop da te: 02/10/19 23:41:00 CDT Start Date: 01/11/19 Stop Date: 01/12/19 Status: Discontinued Dilaudid 0.5 mg, 0.5 mL, Route: IVP, Drug form: SOLN, ONCE, Dosing Weight 93.182, kg, Maddison ority: STAT, Start date: 01/11/19 19:13:00 CDT, Stop date: 01/11/19 19:13:00 CDT Notes: (Same as: Dilaudid) Start Date: 01/11/19 Stop Date: 01/11/19 Status: Completed Dilaudid 0.2 mg, Route: IVP, ONCE, Dosing Weight 93.182, kg, Priority: STAT, Start date: 01/11/19 17:32:00 CDT, Stop date: 01/11/19 17:32:00 CDT Start Date: 01/11/19 Stop Date: 01/11/19 Status: Completed docusate 100 mg, 1 cap, Route: PO, Drug form: CAP, BID, Dosing Weight 90.909, kg, Start d ate: 01/12/19 9:00:00 CDT, Duration: 30 day, Stop date: 02/10/19 17:00:00 CDT Notes: (Same as: Colace) (Do Not Crush) Start Date: 01/12/19 Stop Date: 01/12/19 Status: Discontinued Eliquis 5 mg, 1 tab, Route: PO, Drug form: TAB, Q12H, Dosing Weight 90.909, kg, Start da te: 01/12/19 9:00:00 CDT, Duration: 30 day, Stop date: 02/10/19 21:00:00 CDT Notes: Same as: Eliquis Start Date: 01/12/19 Stop Date: 01/12/19 Status: Discontinued Eliquis 5 mg, PO, Q12H, 0 Refill(s) Start Date: 01/11/19 Status: Ordered glucagon 1 mg, Route: IM, Drug form: PDR/INJ, PRN, Dosing Weight 90.909, kg, PRN Blood Gl ucose Results, Start date: 01/11/19 23:42:00 CDT, Duration: 30 day, Stop date: 0 02/10/19 23:41:00 CDT Start Date: 01/11/19 Stop Date: 01/12/19 Status: Discontinued hydromorphone 0.5 mg, 0.5 mL, Route: IVP, Drug form: SOLN, Q4H, Dosing Weight 90.909, kg, PRN Pain Score 7-10, Start date: 01/11/19 23:42:00 CDT, Duration: 30 day, Stop date: 02/10/19 23:41:00 CDT Notes: (Same as: Dilaudid) Start Date: 01/11/19 Stop Date: 01/12/19 Status: Discontinued metoprolol 50 mg oral tablet, extended release 50 mg=1 tab, PO, BID, 0 Refill(s) Start Date: 01/11/19 Status: Ordered metoprolol tartrate 50 mg, 1 tab, Route: PO, Drug form: ERTAB, Q12H, Dosing Weight 90.909, kg, Start date: 01/11/19 23:52:00 CDT, Duration: 30 day, Stop date: 02/10/19 21:00:00 CDT Notes: (Same as: Toprol XL) May split tab, but do not crush. Start Date: 01/11/19 Stop Date: 01/12/19 Status: Discontinued morphine Sulfate 4 mg, 1 mL, Route: IVP, Drug form: SOLN, ONCE, Dosing Weight 90.909, kg, Priorit y: STAT, Start date: 01/11/19 14:33:00 CDT, Stop date: 01/11/19 14:33:00 CDT Notes: (Same as:MORPhine Sulfate) Start Date: 01/11/19 Stop Date: 01/11/19 Status: Completed NS 1,000 mL 1,000 mL, Rate: 125 ml/hr, Infuse over: 8 hr, Route: IV, Dosing Weight 93.182 kg , Total Volume: 1,000, Start date: 01/11/19 20:24:00 CDT, Duration: 30 day, Stop date: 02/10/19 20:23:00 CDT, 2.19, m2 Start Date: 01/11/19 Stop Date: 01/11/19 Status: Discontinued ondansetron 4 mg, 2 mL, Route: IVP, Drug form: INJ, Q8H, Dosing Weight 90.909, kg, PRN Nause a & Vomiting, Start date: 01/11/19 23:42:00 CDT, Duration: 30 day, Stop date: 02/10/19 23:41:00 CDT Notes: (Same as: Zoan) MEDICATION WASTE Product Size: 4 mgProduct Was ana cristina: ___ mg Start Date: 01/11/19 Stop Date: 01/12/19 Status: Discontinued ondansetron 4 mg, 2 mL, Route: IVP, Drug form: INJ, ONCE, Dosing Weight 90.909, kg, Priority : STAT, Start date: 01/11/19 14:33:00 CDT, Stop date: 01/11/19 14:33:00 CDT Notes: (Same as: Alisha) MEDICATION WASTE Product Size: 4 mgProduct Was ana cristina: ___ mg Start Date: 01/11/19 Stop Date: 01/11/19 Status: Completed Saline Flush 0.9% 10 ml, Route: IVP, Drug Form: INJ, Dosing Weight 90.909, kg, PRN, PRN Line Flush , Start date: 01/11/19 23:42:00 CDT, Duration: 30 day, Stop date: 02/10/19 23:41 :00 CDT Notes: (Same as: BD Posiflush) Start Date: 01/11/19 Stop Date: 01/12/19 Status: Discontinued Saline Flush 0.9% 10 mL, Route: IVP, Drug Form: INJ, Dosing Weight 90.909, kg, PRN, PRN Line Flush , Start date: 01/11/19 14:33:00 CDT, Duration: 30 day, Stop date: 02/10/19 14:32 :00 CDT Notes: Same as: BD Posiflush Sterile Start Date: 01/11/19 Stop Date: 01/12/19 Status: Discontinued simvastatin 40 mg, 1 tab, Route: PO, Drug form: TAB, Bedtime, Dosing Weight 90.909, kg, Star t date: 01/12/19 21:00:00 CDT, Duration: 30 day, Stop date: 02/10/19 21:00:00 CD T Notes: (Same as: Zocor) Start Date: 01/12/19 Stop Date: 01/12/19 Status: Canceled Sodium Chloride 0.9% (Bolus) IV 1,000 mL, 1000 ml/hr, Infuse Over: 1 hr, Route: IV, 1,000, Drug form: INJ, ONCE, Priority: STAT, Dosing Weight 90.909 kg, Start date: 01/11/19 14:33:00 CDT, Stop date: 01/11/19 14:33:00 CDT Start Date: 01/11/19 Stop Date: 01/11/19 Status: Completed Sodium Chloride 0.9% IV 1,000 mL 1,000 mL, Rate: 75 ml/hr, Infuse over: 13.3 hr, Route: IV, Dosing Weight 90.909 kg, Total Volume: 1,000, Start date: 01/11/19 23:42:00 CDT, Duration: 30 day, St op date: 02/10/19 23:41:00 CDT, 2.16, m2 Start Date: 01/11/19 Stop Date: 01/12/19 Status: Discontinued tramadol 50 mg oral tablet 50 mg=1 tab, PO, Q8H, PRN Pain, X 3 day, # 12 tab, 0 Refill(s) Start Date: 01/12/19 Stop Date: 01/15/19 Status: Ordered Zofran 4 mg, 2 mL, Route: IVP, Drug form: INJ, ONCE, Dosing Weight 93.182, kg, Priority : STAT, Start date: 01/11/19 16:54:00 CDT, Stop date: 01/11/19 16:54:00 CDT Notes: (Same as: Zofran) MEDICATION WASTE Product Size: 4 mgProduct Was ana cristina: ___ mg Start Date: 01/11/19 Stop Date: 01/11/19 Status: Completed Results ELECTROLYTES Most recent to 1 2 oldest [Reference Range]: Sodium Lvl [135-145 138 mEq/L 134 mEq/L mEq/L] (01/12/19 4:28 AM) *LOW* (01/11/19 4:50 PM) Potassium Lvl 4.3 mEq/L 4.1 mEq/L [3.5-5.1 mEq/L] (01/12/19 4:28 AM) (01/11/19 4:50 PM) Chloride Lvl [95-109 109 mEq/L 105 mEq/L mEq/L] (01/12/19 4:28 AM) (01/11/19 4:50 PM) CO2 [24-32 mEq/L] 24 mEq/L 27 mEq/L (01/12/19 4:28 AM) (01/11/19 4:50 PM) AGAP [10.0-20.0 9.3 mEq/L 6.1 mEq/L mEq/L] *LOW* *LOW* (01/12/19 4:28 AM) (01/11/19 4:50 PM) CHEM PANEL Most recent to 1 2 oldest [Reference Range]: Creatinine Lvl 1.28 mg/dL 1.31 mg/dL [0.50-1.40 mg/dL] (01/12/19 4:28 AM) (01/11/19 4:50 PM) eGFR 51 mL/min/1.73m2 1 49 mL/min/1.73m2 2 *NA* *NA* (01/12/19 4:28 AM) (01/11/19 4:50 PM) BUN [7-22 mg/dL] 14 mg/dL 16 mg/dL (01/12/19 4:28 AM) (01/11/19 4:50 PM) B/C Ratio [6-25] 12 (01/11/19 4:50 PM) Glucose Lvl [70-99 105 mg/dL 99 mg/dL mg/dL] *HI* (01/11/19 4:50 PM) (01/12/19 4:28 AM) Total Protein 8.1 g/dL [6.4-8.4 g/dL] (01/11/19 4:50 PM) Albumin Lvl [3.5-5.0 3.7 g/dL g/dL] (01/11/19 4:50 PM) Globulin [2.7-4.2 4.4 g/dL g/dL] *HI* (01/11/19 4:50 PM) A/G Ratio [0.7-1.6] 0.8 (01/11/19 4:50 PM) Calcium Lvl 8.6 mg/dL 9.2 mg/dL [8.5-10.5 mg/dL] (01/12/19 4:28 AM) (01/11/19 4:50 PM) ALT [0-65 unit/L] 19 unit/L (01/11/19 4:50 PM) AST [0-37 unit/L] 26 unit/L (01/11/19 4:50 PM) Alk Phos [39-136 72 unit/L unit/L] (01/11/19 4:50 PM) Bili Total [0.2-1.3 0.5 mg/dL mg/dL] (01/11/19 4:50 PM) Lipase Lvl [73-393 215 unit/L unit/L] (01/11/19 4:50 PM) 1Result Comment: The eGFR is calculated using [...] be mul tiplied by the estimated BMI. URINE AND STOOL Most recent to 1 2 oldest [Reference Range]: UA Turbidity [Clear] Marked *ABN* (01/12/19 7:48 AM) UA Color Ltyellow *NA* (01/12/19 7:48 AM) UA pH [5.0-8.0] >=9.0 *ABN* (01/12/19 7:48 AM) UA Spec Grav 1.011 [<=1.030] (01/12/19 7:48 AM) UA Glucose Negative [Negative] *NA* (01/12/19 7:48 AM) UA Blood [Negative] Negative (01/12/19 7:48 AM) UA Ketones Negative [Negative] *NA* (01/12/19 7:48 AM) UA Protein Negative [Negative] (01/12/19 7:48 AM) UA Urobilinogen <=1.0 mg/dL [0.1-1.0 mg/dL] *NA* (01/12/19 7:48 AM) UA Bili [Negative] Negative *NA* (01/12/19 7:48 AM) UA Leuk Est Small [Negative] *ABN* (01/12/19 7:48 AM) UA Nitrite Positive [Negative] *ABN* (01/12/19 7:48 AM) UA WBC [0-5 /HPF] 12 /HPF *HI* (01/12/19 7:48 AM) UA RBC [0-2 /HPF] 3 /HPF *HI* (01/12/19 7:48 AM) UA Bacteria [None Moderate /HPF Seen /HPF] *ABN* (01/12/19 7:48 AM) UA Sq Epi [Few /LPF] Occasional /LPF *NA* (01/12/19 7:48 AM) UA Mucus [None Seen Moderate /LPF /LPF] *ABN* (01/12/19 7:48 AM) UA [place] Yeast [None Occasional /HPF Seen /HPF] *ABN* (01/12/19 7:48 AM) HEMATOLOGY Most recent to 1 2 oldest [Reference Range]: WBC [3.7-10.4 K/CMM] 6.2 K/CMM 7.4 K/CMM (4/18/19 4:28 AM) (01/11/19 4:50 PM) RBC [4.70-6.10 4.13 M/CMM 4.55 M/CMM M/CMM] *LOW* *LOW* (01/12/19 4:28 AM) (01/11/19 4:50 PM) Hgb [14.0-18.0 g/dL] 12.9 g/dL 14.2 g/dL *LOW* (01/11/19 4:50 PM) (01/12/19 4:28 AM) Hct [42.0-54.0 %] 38.1 % 42.5 % *LOW* (01/11/19 4:50 PM) (01/12/19 4:28 AM) MCV [80.0-94.0 fL] 92.2 fL 93.4 fL (01/12/19 4:28 AM) (01/11/19 4:50 PM) MCH [27.0-31.0 pg] 31.3 pg 31.2 pg *HI* *HI* (01/12/19 4:28 AM) (01/11/19 4:50 PM) MCHC [32.0-36.0 34.0 g/dL 33.4 g/dL g/dL] (01/12/19 4:28 AM) (01/11/19 4:50 PM) RDW [11.5-14.5 %] 14.0 % 14.1 % (01/12/19 4:28 AM) (01/11/19 4:50 PM) MPV [7.4-10.4 fL] 7.6 fL 8.1 fL (01/12/19 4:28 AM) (01/11/19 4:50 PM) Platelet [133-450 191 K/CMM 220 K/CMM K/CMM] (01/12/19 4:28 AM) (01/11/19 4:50 PM) Segs [45.0-75.0 %] 71.6 % 76.0 % (01/12/19 4:28 AM) *HI* (01/11/19 4:50 PM) Lymphocytes 14.9 % 12.7 % [20.0-40.0 %] *LOW* *LOW* (01/12/19 4:28 AM) (01/11/19 4:50 PM) Monocytes [2.0-12.0 11.6 % 9.8 % %] (01/12/19 4:28 AM) (01/11/19 4:50 PM) Eosinophils [0.0-4.0 1.4 % 1.1 % %] (01/12/19 4:28 AM) (01/11/19 4:50 PM) Basophils [0.0-1.0 0.5 % 0.4 % %] (01/12/19 4:28 AM) (01/11/19 4:50 PM) Neutrophils # 4.4 K/CMM 5.6 K/CMM [1.5-8.1 K/CMM] (01/12/19 4:28 AM) (01/11/19 4:50 PM) Lymphocytes # 0.9 K/CMM 0.9 K/CMM [1.0-5.5 K/CMM] *LOW* *LOW* (01/12/19 4:28 AM) (01/11/19 4:50 PM) Monocytes # [0.0-0.8 0.7 K/CMM 0.7 K/CMM K/CMM] (01/12/19 4:28 AM) (01/11/19 4:50 PM) Eosinophils # 0.1 K/CMM 0.1 K/CMM [0.0-0.5 K/CMM] (01/12/19 4:28 AM) (01/11/19 4:50 PM) Microbiology Reports TEST: Culture: Urine STATUS: Auth (Verified) BODY SITE: SOURCE: Urine, Clean Catch COLLECTED DATE/TIME: 01/12/19 7:48 AM FINAL REPORT Specimen contains 3 or more potential pathogens; recommend correlation with urinalysis; if catheterized specimen recommend removal and recollection. If clinical situation warrants please call the laboratory for further testing. [place] [facility] [phone]. Immunizations Given and Recorded Vaccine Date Status [...] Reg Smoking Cessation Counseling No entered on: 01/11/19 Assessment and Plan Extracted from: Title: Clinical Document Author: Lety Black MD Date: 01/12/19 Initial Consult Note Gastroenterology and Hepatology Referring MD: Dr Goddard Reason for Consultation: ruq pain Assessment/Impression: 1. Suspect biliary colic currently resolved. Other possibilities include peptic ulcer disease, adhesions from prior surgery. Given his drastic improvement in symptoms patient is a stable for discharge planning from GI standpoint but would recommend nuclear medicine HIDA scan to evaluate for any biliary dyskinesia or chronic cholecystitis as an outpatient. 2. History of bladder cancer with lymphadenopathy that is stable 3. History of colon cancer Plan: -Recommend follow-up in office for workup for chronic cholecystitis and if positive consideration for surgery evaluation. He is however at high risk for cholecystectomy given multiple prior surgeries his age and comorbidities. Thank you for involving us in the care of this patient. Please feel free to call us with any questions or concerns. History Of Present Illness: With significant history of bladder cancerThis is a pleasant 83-year-old male with a urinary conduit, prior history of colon cancer 10 years ago status post resection, hypertension, coronary artery disease status post stent, sick sinus syndrome status post pacemaker placement who presented to the hospital with acute onset right upper quadrant pain nausea vomiting. Pain was sharp stabbing radiating to the back was severe enough for him to come to the ER. He had few doses of narcotics and currently his pain has completely resolved. He has been pain-free for over 8-10 hours. He is tolerated diet. She has been consulted for this problem. Workup in the ER showed normal liver function tests lipase normal white blood cell count 7.4 urinalysis was grossly positive. CT scan of the abdomen shows lymphadenopathy in the upper abdomen suspicious for metastatic disease from known cancer. Gallstones noted without any inflammatory changes. Right upper quadrant ultrasound did not show definitive gallstones but non- specific complex area in the fundus that could represent adenomyomatosis or malignancy noted. Renal cysts were also noted. No prior history of gallbladder problems. He had an upper endoscopy many years ago with his colonoscopy approximately 8-9 years ago which were negative. 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 Frequency: 1-2 times per month. Previous treatment: None. Alcohol use interferes with work or home: No. Drinks more than intended: No. Others hurt by drinking: No. Ready to change: No. Household alcohol concerns: No. Tobacco Details: Use: Never smoker. Tobacco smoke [...] Integument: rash, jaundice, generalized Vitals and Temp: VitalsTmp(F)[id number] 01/12 15:[id number]/830401--- 01/12 11:4097.558483/[id number]--- 01/12 08:[id number]/[id number]--- 01/12 04:0098.263162/[id number]--- 01/12 00:[id number]/501215--- 24 Hr Tmax: 98.2F (36.78c) at 01/12 15:48Vital Signs are the last 5 in the past 48 hours. Examination: Vitals: See above General: NAD Psych: alert ; ortiented x 3 Neck:supple CVS: s1s2 RRR Resp: CTA Bilaterally Abd : Soft, NT, ND , BS + ileal conduit noted in the right lower quadrant. Ext : No edema Skin: No rash [employer]PRESENTATIVE: No gross motor/sensory defect Labs: Labs (Last four charted values) WBC 6.2(JAN 12)7.4(JAN 11) Hgb L 12.9(JAN 12)14.2(JAN 11) Hct L 38.1(JAN 12)42.5(JAN 11) Plt 191(JAN 12)220(JAN 11) Na 138(JAN 12)L 134(JAN 11) K 4.3(JAN 12)4.1(JAN 11) CO2 24(JAN 12)27(DEC 17) Cl 109(DEC 18)105(DEC 17) Cr 1.28(DEC 18)1.31(DEC 17) BUN 14(JAN 12)16(JAN 11) Glucose Random H 105(JAN 12)99(JAN 11) Ca 8.6(JAN 12)9.2(JAN 11) Diagnostic Studies: Reviewed. Extracted from: Title: History and Physical Author: Gerson Travis MD Date: 01/12/19 Abdominal pain, acute(R10.9) Ordered: Admit/Condition, 01/11/19 20:22:00 CDT, Status: Out Patient with Observation Services, Acute, Expected LOS: 1 Midnight, Gerson Travis MD, Admit MD Review/Approve Yes, Isolation: No Isolation/Standard Precautions, Abdominal pain, acute Metastatic bladder cancer >Continue IV analgesia as needed. GI and oncology consulted in ED. WIll continue eliquis for now. Keep NPO for now, PRN antiemetics. No evidence of biliary obstruction on available imaging, LFT's are WNL.May need further imaging with MRI/abd pending GI evaluation. eliquis 1 midnight observation
--- OUTSIDE RECORDS SUMMARY | 2019-03-05 07:31 | XMS REPORT | Summary of Care ---
Author Author Organization Address Unknown Phone Unavailable Encounter CAROLYN Pandya([place]OL[place]) [id number] Date(s): 02/13/19 - 02/13/19 [address] [place] [address]- Discharge Disposition: Home or Self Care Attending Physician: Cory Cohen MD Referring Physician: Teresa Abdullahi DO Vital Signs Most recent to 1 oldest [Reference Range]: Height 182.88 cm (02/13/19 1:28 PM) Blood Pressure 147/73 mmHg [90-140/60-90 mmHg] *HI* (02/13/19 1:28 PM) Respiratory Rate 18 BRMIN [14-20 BRMIN] (02/13/19 1:28 PM) Peripheral Pulse 74 bpm Rate [60-100 bpm] (02/13/19 1:28 PM) Weight 91.364 kg (02/13/19 1:28 PM) Body Mass Index 27.32 m2 (02/13/19 1:28 PM) Problem List Condition Effective Dates Status Health Status Informant Anemia(Confirmed) Active Benign bladder Active tumor(Confirmed) CAD (coronary artery Active disease)(Confirmed) Cancer of Resolved colon(Confirmed) Cancer of Active colon(Confirmed) Pacemaker(Confirmed) Resolved CHF - Congestive Active heart failure(Confirmed) 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 Employment/School Status: Retired. Alcohol Past, Type Beer. Frequency: 1-2 times per month. Previous treatment: None. Alcohol use interferes with work or home: No. Drinks more than intended: No. Others hurt by drinking: No. Ready to change: No. Household alcohol concerns: No. Smoking Status Never smoker; Exposure to Tobacco Smoke None; Cigarette Smoking Last 365 Days No; Reg Smoking Cessation Counseling No entered on: 02/13/19 Assessment and Plan No data available for this section
--- OUTSIDE RECORDS SUMMARY | 2019-03-05 07:31 | XMS REPORT | Summary of Care ---
Author Organization Unknown Address Unknown Phone Unavailable Encounter CAROLYN Pandya([place]OL[place]) [id number] Date(s): 10/26/14 - 10/26/14 [facility] [address] [address] - [facility] Discharge Disposition: Home Physician Attending: Jeff Mendoza MD Physician_Referring: Jeff Mendoza MD Reason for Visit UNK Vital Signs 1 2 3 Most recent to oldest [Reference Range]: 182.88 cm (10/25/14 1:20 PM) Height 98.0 DegF (10/25/14 1:03 PM) Temperature Oral [96.4-99.1 DegF] 124 mmHg (10/26/14 10:15 AM) 133 mmHg (10/26/14 10:00 AM) 119 mmHg (10/26/14 9:45 AM) Systolic Blood Pressure [90-140 mmHg] 53 mmHg *LOW* (10/26/14 10:15 AM) 58 mmHg *LOW* (10/26/14 10:00 AM) 55 mmHg *LOW* (10/26/14 9:45 AM) Diastolic Blood Pressure [60-90 mmHg] 15 BRMIN (10/26/14 9:45 AM) 14 BRMIN (10/26/14 9:30 AM) 13 BRMIN *LOW* (10/26/14 9:15 AM) Respiratory Rate [14-20 BRMIN] 56 bpm *LOW* (10/26/14 7:00 AM) 61 bpm (10/25/14 1:03 PM) Peripheral Pulse Rate [60-100 bpm] 91.364 kg (10/25/14 1:20 PM) Weight 27.32 m2 (10/25/14 1:20 PM) Body Mass Index Problem List Condition Effective Dates Status Health Status Informant Anemia(Confirmed) Active Benign bladder Active tumor(Confirmed) Cancer of Resolved colon(Confirmed) Cancer of Active colon(Confirmed) CHF - Congestive Active heart failure(Confirmed) Hematuria(Confirmed) Active HTN - Active Hypertension(Confirm ed) [place] - Myocardial < 09/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 ) Allergies, Adverse Reactions, Alerts Substance Reaction Severity Status Pacerone Active penicillins Active Medications ciprofloxacin 400 mg, Route: IVPB, ONCALL, Dosing Weight 90.909, kg, Start date: 10/25/14 12:0 0:00, Duration: 30 day, Stop date: 11/24/14 11:59:00 Start Date: 10/25/14 Stop Date: 10/26/14 Status: Discontinued fentaNYL 50 microgram, Route: IVP, Q5Min, Dosing Weight 91.364, kg, PRN Pain Score 7-10, Start date: 10/26/14 9:05:00, Duration: 2 doses or times, Stop date: Limited # o f times Start Date: 10/26/14 Stop Date: 10/26/14 Status: Discontinued flumazenil 0.2 mg, Route: IVP, PRN, Dosing Weight 91.364, kg, PRN Benzodiazepine Reversal, Initial dose, Start date: 10/26/14 9:05:00, Duration: 30 day, Stop date: 5 9:04:00 Start Date: 10/26/14 Stop Date: 10/26/14 Status: Discontinued ketorolac 30 mg, 1 mL, Route: IVP, Drug form: INJ, ONCE, Dosing Weight 91.364, kg, Start d ate: 10/26/14 9:05:00, Duration: 1 doses or times, Stop date: 10/26/14 9:05:00 Notes: (Same as:Toradol) IV bolus must be given >15 seconds. Give IM administration slowly and deeply into the muscle. Not for use > 4 days Start Date: 10/26/14 Stop Date: 10/26/14 Status: Ordered Lactated Ringers Injection IV 1000 mL 1,000 mL, Rate: 25 ml/hr, Infuse over: 40 hr, Route: IV, Dosing Weight 91.364 kg , Total Volume: 1,000, Start date: 10/26/14 6:57:00, Duration: 30 day, Stop date : 11/25/14 6:56:00 Start Date: 10/26/14 Stop Date: 10/26/14 Status: Discontinued naloxone 0.04 mg, Route: IVP, Q2MIN, Dosing Weight 91.364, kg, PRN Narcotic Reversal, Sta rt date: 10/26/14 9:05:00, Duration: 8 doses or times, Stop date: Limited # of t imes Start Date: 10/26/14 Stop Date: 10/26/14 Status: Discontinued Port Tobacco 10/325 oral tablet 1 tab, Route: PO, Drug Form: TAB, Dosing Weight 91.364, kg, Q6H, PRN Pain, Start date: 10/26/14 9:05:00, Duration: 30 day, Stop date: 11/25/14 9:04:00 Start Date: 10/26/14 Stop Date: 10/26/14 Status: Discontinued Ofirmev 1,000 mg, Route: IV, Drug form: INJ, ONCE, Dosing Weight 91.364, kg, PRN Pain, f or > or=50 kg, Start date: 10/26/14 9:05:00 Start Date: 10/26/14 Stop Date: 10/26/14 Status: Discontinued ondansetron 4 mg, Route: IVP, ONCE, Dosing Weight 91.364, kg, PRN Nausea & Vomiting, Start date: 10/26/14 9:05:00 Start Date: 10/26/14 Stop Date: 10/26/14 Status: Discontinued Rocephin 1 gm, Route: IVPB, Drug form: PDR/INJ, ONCE, Dosing Weight 91.364, kg, Start gian e: 10/26/14 8:29:00, Stop date: 10/26/14 8:29:00 Start Date: 10/26/14 Stop Date: 10/26/14 Status: Completed Tylenol with Codeine #4 oral tablet 1 - 2 tab, PO, Q4H, Pain, # 20 tab, 0 Refill(s) Start Date: 10/26/14 Stop Date: 10/28/14 Status: Ordered Results ELECTROLYTES Most recent to 1 oldest [Reference Range]: Sodium Lvl [135-145 136 mEq/L mEq/L] (10/25/14 1:00 PM) Potassium Lvl 4.8 mEq/L [3.5-5.1 mEq/L] (10/25/14 1:00 PM) Chloride Lvl [95-109 104 mEq/L mEq/L] (10/25/14 1:00 PM) CO2 [24-32 mEq/L] 25 mEq/L (10/25/14 1:00 PM) AGAP [10.0-20.0 11.8 mEq/L mEq/L] (10/25/14 1:00 PM) CHEM PANEL Most recent to 1 oldest [Reference Range]: Creatinine Lvl 1.9 mg/dL [0.5-1.4 mg/dL] *HI* (10/25/14 1:00 PM) eGFR 32 mL/min/1.73m2 1 *NA* (10/25/14 1:00 PM) BUN [7-22 mg/dL] 30 mg/dL *HI* (10/25/14 1:00 PM) Glucose Lvl [70-99 97 mg/dL 2 mg/dL] (10/25/14 1:00 PM) Calcium Lvl 9.0 mg/dL [8.5-10.5 mg/dL] (10/25/14 1:00 PM) 1Result Comment: The eGFR is calculated [...] be mul tiplied by the estimated BMI. 2Interpretive Data: Adult reference range values reflect the clinical guidelines of the [employer]. HEMATOLOGY Most recent to 1 oldest [Reference Range]: WBC [3.7-10.4 K/CMM] 6.1 K/CMM (10/25/14 1:00 PM) RBC [4.70-6.10 4.49 M/CMM M/CMM] *LOW* (10/25/14 1:00 PM) Hgb [14.0-18.0 g/dL] 14.0 g/dL (10/25/14 1:00 PM) Hct [42.0-54.0 %] 41.6 % *LOW* (10/25/14 1:00 PM) MCV [80.0-94.0 fL] 92.7 fL (10/25/14 1:00 PM) MCH [27.0-31.0 pg] 31.1 pg *HI* (10/25/14 1:00 PM) MCHC [32.0-36.0 33.6 g/dL g/dL] (10/25/14 1:00 PM) RDW [11.5-14.5 %] 13.6 % (10/25/14 1:00 PM) Platelet [133-450 212 K/CMM K/CMM] (10/25/14 1:00 PM) MPV [7.4-10.4 fL] 9.2 fL (10/25/14 1:00 PM) Segs [45.0-75.0 %] 65.5 % (10/25/14 1:00 PM) Lymphocytes 20.5 % [20.0-40.0 %] (10/25/14 1:00 PM) Monocytes [2.0-12.0 11.2 % %] (10/25/14 1:00 PM) Eosinophils [0.0-4.0 2.1 % %] (10/25/14 1:00 PM) Basophils [0.0-1.0 0.7 % %] (10/25/14 1:00 PM) Segs-Bands # 4.0 K/CMM [1.5-8.1 K/CMM] (10/25/14 1:00 PM) Lymphocytes # 1.3 K/CMM [1.0-5.5 K/CMM] (10/25/14 1:00 PM) Monocytes # [0.0-0.8 0.7 K/CMM K/CMM] (10/25/14 1:00 PM) Eosinophils # 0.1 K/CMM [0.0-0.5 K/CMM] (10/25/14 1:00 PM) Medications Administered During Your Visit No data available for this section Immunizations No data available for this section Social History Social History Type Response Alcohol Previous treatment: None Smoking Status Never smoker, Exposure to Tobacco Smoke None, Cigarette Smoking Last 365 Days No, Reg Smoking Cessation Counseling No Assessment and Plan Extracted from: Title: Clinical Document Author: Jeff Mendoza MD Date: 10/26/14 *_*_* CHIEF COMPLAINT: Hematuria, bladder mass HISTORY OF PRESENT ILLNESS: 80 yo with several weeks of on and off gross hematuria, painless. He was found to have a bladder mass on cystoscopy, no findings of CT urogam other than questionable cecal mass. He has a history of colon cancer, stage I s/p resection many years ago. REVIEW OF SYSTEMS: No fevers, no chills, no nausea, no vomiting. Otherwise, negative on 10-point review of systems. 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 HOME MEDICATIONS Reviewed. PHYSICAL EXAMINATION: GENERAL: Patient is not in acute distress. Alert and oriented. HEENT: Atraumatic, normocephalic, EOMI. NECK: Supple, trachea is midline. LUNGS: Normal respiratory effort. CARDIAC: Regular rate and rhythm. ABDOMEN: Soft, nontender, nondistended. GENITOURINARY: normal phallus,scrotal exam Labs (Last four charted values) WBC 6.1(OCT 25) Hgb 14.0(OCT 25) Hct L 41.6(OCT 25) Plt 212(OCT 25) Na 136(OCT 25) K 4.8(OCT 25) CO2 25(OCT 25) Cl 104(OCT 25) Cr H 1.9(OCT 25) BUN H 30(OCT 25) Glucose Random 97(OCT 25) Ca 9.0(OCT 25) CT 10/24/14 Abdomen/pelvis noncontrast IMPRESSION: 1. Two bladder calculi, measuring as [...] a GIST or hyperdense enteric duplication cyst. ASSESSMENT AND PLAN: Pt with bladder mass, will proceed with TURBT.
--- OUTSIDE RECORDS SUMMARY | 2019-03-05 07:31 | XMS REPORT | Summary of Care ---
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
--- OUTSIDE RECORDS SUMMARY | 2019-03-05 07:31 | XMS REPORT | Summary of Care ---
Author Organization Unknown Address Unknown Phone Unavailable Encounter [facility]([place]) [id number] Date(s): 01/03/15 - 01/10/15 [facility] [address] [place] [address] [phone] Discharge Disposition: Home Physician Attending: Jeff Mendoza MD Physician Admitting: Jeff Mendoza MD Physician_Referring: Jeff Mendoza MD Vital Signs 1 2 3 Most recent to oldest [Reference Range]: 182.88 cm (12/26/14 10:40 AM) Height 98.8 DegF (01/10/15 8:11 AM) 98.2 DegF (01/10/15 4:00 AM) 98.9 DegF (01/09/15 8:00 PM) Temperature Oral [96.4-99.1 DegF] 162/76 mmHg *HI* (01/10/15 8:11 AM) 130/68 mmHg (01/10/15 4:00 AM) 133/65 mmHg (01/09/15 8:00 PM) Blood Pressure [90-140/60-90 mmHg] 17 BRMIN (01/10/15 8:11 AM) 16 BRMIN (01/10/15 4:00 AM) 16 BRMIN (01/09/15 8:00 PM) Respiratory Rate [14-20 BRMIN] 82 bpm (01/10/15 8:11 AM) 68 bpm (01/10/15 4:00 AM) 74 bpm (01/09/15 8:00 PM) Peripheral Pulse Rate [60-100 bpm] 88.1 kg (01/03/15 6:35 PM) 90.909 kg (12/26/14 10:40 AM) Weight 27.18 m2 (12/26/14 10:40 AM) Body Mass Index Problem List Condition Effective Dates Status Health Status Informant Anemia(Confirmed) Active Benign bladder Active tumor(Confirmed) CAD (coronary artery Active disease)(Confirmed) Cancer of Resolved colon(Confirmed) Cancer of Active colon(Confirmed) CHF - Congestive Active heart failure(Confirmed) Hematuria(Confirmed) Active HTN - Active Hypertension(Confirm ed) [place] - Myocardial < 09/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 ) Allergies, Adverse Reactions, Alerts Substance Reaction Severity Status Pacerone Active penicillins Active Medications acetaminophen 1,000 mg, Route: IVPB, Drug form: INJ, ONCE, Dosing Weight 90.909, kg, PRN Pain Score 1-3, Start date: 01/03/15 17:11:00, Duration: 1 doses or times, Stop date: Limited # of times Start Date: 01/03/15 Stop Date: 01/03/15 Status: Discontinued cefOXitin 1 gm, Route: IVPB, ONCE, Dosing Weight 90.909, kg, Start date: 01/03/15 12:50:00 , Stop date: 01/03/15 12:50:00 Start Date: 01/03/15 Stop Date: 01/03/15 Status: Completed cefOXitin 1 gm, Route: IVPB, ONCE, Dosing Weight 90.909, kg, Start date: 01/03/15 14:50:00 , Stop date: 01/03/15 14:50:00 Start Date: 01/03/15 Stop Date: 01/03/15 Status: Completed cefOXitin 2 gm, Route: IVPB, ONCE, Dosing Weight 90.909, kg, Start date: 01/03/15 11:37:00 , Stop date: 01/03/15 11:37:00 Start Date: 01/03/15 Stop Date: 01/03/15 Status: Completed cefOXitin 1 gm, Route: IVPB, ONCE, Dosing Weight 90.909, kg, Start date: 01/03/15 16:50:00 , Stop date: 01/03/15 16:50:00 Start Date: 01/03/15 Stop Date: 01/03/15 Status: Completed cefOXitin 1 gm, Route: IVPB, ONCE, Dosing Weight 90.909, kg, Start date: 01/03/15 11:38:00 , Stop date: 01/03/15 11:38:00 Start Date: 01/03/15 Stop Date: 01/03/15 Status: Completed cefOXitin + Sodium Chloride 0.9% IV 100 mL 2 gm, Route: IVPB, ONCALL, Dosing Weight 90.909, kg, Start date: 12/31/14 23:00: 00, Duration: 30 day, Stop date: 01/30/15 22:59:00 Notes: (Same As: Mefoxin) MEDICATION WASTE Product Size: 2000 mgProduct Wasted: ___ mg Start Date: 12/31/14 Stop Date: 01/09/15 Status: Discontinued Cipro 400 mg, Route: IVPB, ONCE, Dosing Weight 90.909, kg, Start date: 01/03/15 7:30:0 0, Stop date: 01/03/15 7:30:00 Start Date: 01/03/15 Stop Date: 01/03/15 Status: Completed ciprofloxacin (SCIP) 400 mg, 200 mL, Route: IVPB, Drug form: INJ, [id number], Dosing Weight 88.1, kg, St art date: 01/03/15 22:00:00, Duration: 1 doses or times, Stop date: 01/03/15 22: 00:00 Notes: Do not refrigerate Start Date: 01/03/15 Stop Date: 01/03/15 Status: Completed Co Q-10 0 Refill(s) Start Date: 12/26/14 Status: Ordered Colace 100 mg oral capsule 100 mg=1 cap, PO, BID, PRN Constipation, # 40 cap, 0 Refill(s) Start Date: 01/10/15 Status: Ordered diphenhydrAMINE 25 mg, 1 tab, Route: PO, Drug form: TAB, Bedtime, Dosing Weight 88.1, kg, PRN In somnia, Start date: 01/03/15 21:02:00, Duration: 30 day, Stop date: 02/02/15 21: 01:00 Start Date: 01/03/15 Stop Date: 01/10/15 Status: Discontinued diphenhydrAMINE 12.5 mg, Route: IVP, Drug form: INJ, Q6H, Dosing Weight 90.909, kg, PRN Itching, Start date: 01/03/15 17:11:00, Duration: 30 day, Stop date: 02/02/15 17:10:00 Start Date: 01/03/15 Stop Date: 01/03/15 Status: Discontinued docusate sodium 100 mg oral capsule 100 mg, 1 cap, Route: PO, Drug form: CAP, BID, Dosing Weight 88.1, kg, Start gian e: 01/04/15 9:00:00, Duration: 30 day, Stop date: 02/02/15 17:00:00 Notes: (Same as: Colace) (Do Not Crush) Start Date: 01/04/15 Stop Date: 01/10/15 Status: Discontinued enoxaparin 40 mg, 0.4 mL, Route: SUB-Q, Drug form: INJ, Q6AM, Dosing Weight 88.1, kg, Start date: 01/04/15 6:00:00, Duration: 30 day, Stop date: 02/02/15 6:00:00 Notes: (Same as: Lovenox) Start Date: 01/04/15 Stop Date: 01/10/15 Status: Discontinued Entereg 12 mg, Route: PO, ONCE, Dosing Weight 90.909, kg, Start date: 01/03/15 7:53:00, Stop date: 01/03/15 7:53:00 Start Date: 01/03/15 Stop Date: 01/03/15 Status: Completed Entereg 12 mg, 1 cap, Route: PO, Drug form: CAP, BID, Dosing Weight 88.1, kg, Start date : 01/04/15 9:00:00, Duration: 7 day, Stop date: 01/10/15 17:00:00 Notes: Same as: EnteregMaximum of 15 doses Alert Restricted medication Alvimopa n (Entergen) order form must be completed prior to dispensing. Start Date: 01/04/15 Stop Date: 01/09/15 Status: Discontinued famotidine 20 mg, 1 tab, Route: PO, Drug form: TAB, Q12H, Dosing Weight 88.1, kg, Start gian e: 01/04/15 9:00:00, Duration: 30 day, Stop date: 02/02/15 21:00:00 Notes: (Same as: Pepcid) Start Date: 01/04/15 Stop Date: 01/10/15 Status: Discontinued fentaNYL 25 microgram, 0.5 mL, Route: IVP, Drug form: INJ, Q5Min, Dosing Weight 90.909, k g, PRN Pain Score 4-6, Start date: 01/03/15 18:05:00, Duration: 4 doses or times , Stop date: Limited # of times Notes: (Same as: Sublimaze) Preservative free. Start Date: 01/03/15 Stop Date: 01/06/15 Status: Discontinued fentaNYL 50 microgram, Route: IVP, Q5Min, Dosing Weight 90.909, kg, PRN Pain Score 7-10, Start date: 01/03/15 17:11:00, Duration: 2 doses or times, Stop date: Limited # of times Start Date: 01/03/15 Stop Date: 01/03/15 Status: Completed fentaNYL 25 microgram, Route: IVP, Q5Min, Dosing Weight 90.909, kg, PRN Pain Score 4-6, S tart date: 01/03/15 17:11:00, Duration: 4 doses or times, Stop date: Limited # o f times Start Date: 01/03/15 Stop Date: 01/03/15 Status: Discontinued flumazenil 0.2 mg, 2 mL, Route: IVP, Drug form: INJ, PRN, Dosing Weight 90.909, kg, PRN [place] zodiazepine Reversal, Initial dose, Start date: 01/03/15 18:05:00, Duration: 30 day, Stop date: 02/02/15 18:04:00 Notes: (Same as: Romazicon) Start Date: 01/03/15 Stop Date: 01/06/15 Status: Discontinued flumazenil 0.2 mg, Route: IVP, PRN, Dosing Weight 90.909, kg, PRN Benzodiazepine Reversal, Initial dose, Start date: 01/03/15 17:11:00, Duration: 30 day, Stop date: 17:10:00 Start Date: 01/03/15 Stop Date: 01/03/15 Status: Discontinued hydrALAZINE 10 mg, 0.5 mL, Route: IVP, Drug form: INJ, Q20Min, Dosing Weight 90.909, kg, PRN Elevated BP, Start date: 01/03/15 18:05:00, Duration: 2 doses or times, Stop da te: Limited # of times Notes: (Same as: Apresoline)Push over 5 minutes Start Date: 01/03/15 Stop Date: 01/06/15 Status: Discontinued hydromorphone 2 mg, 2 mL, Route: IVP, Drug form: INJ, ONCE, Dosing Weight 88.1, kg, Priority: STAT, Start date: 01/05/15 20:58:00, Stop date: 01/05/15 20:58:00 Start Date: 01/05/15 Stop Date: 01/05/15 Status: Completed hydromorphone 0.5 mg, 0.5 mL, Route: IVP, Drug form: INJ, Q5Min, Dosing Weight 90.909, kg, PRN Pain Score 7-10, Start date: 01/03/15 18:05:00, Duration: 4 doses or times, Stop date: Limited # of times Start Date: 01/03/15 Stop Date: 01/06/15 Status: Discontinued hydromorphone 0.5 mg, Route: IVP, Q5Min, Dosing Weight 90.909, kg, PRN Pain Score 7-10, Start date: 01/03/15 17:11:00, Duration: 4 doses or times, Stop date: Limited # of keyanna es Start Date: 01/03/15 Stop Date: 01/03/15 Status: Discontinued HYDROmorphone 0.5mg/mL [employer] (15mg/30 mL) 15 mg 15 mg, 30 mL, Route: IV, Initial Loading Dose: 0.4mg, [employer] Dose: 0.2 mg, [employer] Lock out: 10 minutes, Continuous Basal Rate: 0 mg, 4 Hour Limit (In MG): 6, Drug Form : INJ, Continuous, Start date: 01/03/15 18:30:00, Duration: 30 day, Stop date: 0 02/02/15 18:... Notes: (Same as: Dilaudid) conc=0.5 mg/mlHydromorphone [employer] Dose: ;Delay: ;Basal: Start Date: 01/03/15 Stop Date: 01/08/15 Status: Discontinued indocyanine green 25 mg, Route: IV, Drug form: PDR/INJ, ONCE, Dosing Weight 90.909, kg, Start date : 01/03/15 7:16:00, Stop date: 01/03/15 7:16:00 Notes: (Same as: Cardio Green) Non-Formulary Drug. Start Date: 01/03/15 Stop Date: 01/03/15 Status: Completed ketOROLAC 30 mg, Route: IVP, ONCE, Dosing Weight 90.909, kg, Start date: 01/03/15 17:11:00 , Duration: 1 doses or times, Stop date: 01/03/15 17:11:00 Start Date: 01/03/15 Stop Date: 01/03/15 Status: Discontinued labetalol 10 mg, 2 mL, Route: IVP, Drug form: INJ, Q5Min, Dosing Weight 90.909, kg, PRN El evated BP, Start date: 01/03/15 18:05:00, Duration: 5 doses or times, Stop date: Limited # of times Notes: (Same as: Normodyne, Trandate)Push over 2 minutes Give bolus over 2-3 mi nutes. Start Date: 01/03/15 Stop Date: 01/06/15 Status: Discontinued Lactated Ringers Injection IV 1,000 mL 1,000 mL, Rate: 125 ml/hr, Infuse over: 8 hr, Route: IV, Dosing Weight 88.1 kg, Total Volume: 1,000, Start date: 01/03/15 21:02:00, Duration: 30 day, Stop date: 02/02/15 21:01:00 Start Date: 01/03/15 Stop Date: 01/05/15 Status: Discontinued Lactated Ringers Injection IV 1000 mL 1,000 mL, Rate: 25 ml/hr, Infuse over: 40 hr, Route: IV, Dosing Weight 90.909 kg , Total Volume: 1,000, Start date: 01/03/15 7:26:00, Duration: 30 day, Stop date : 02/02/15 7:25:00 Start Date: 01/03/15 Stop Date: 01/03/15 Status: Discontinued Lactated Ringers Injection IV 1000 mL 1,000 mL, Rate: 125 ml/hr, Infuse over: 8 hr, Route: IV, Dosing Weight 90.909 kg , Total Volume: 1,000, Start date: 01/03/15 17:11:00, Duration: 30 day, Stop gian e: 02/02/15 17:10:00 Start Date: 01/03/15 Stop Date: 01/03/15 Status: Discontinued Lactated Ringers Injection IV 1000 mL 1,000 mL, Rate: 25 ml/hr, Infuse over: 40 hr, Route: IV, Dosing Weight 90.909 kg , Total Volume: 1,000, Start date: 01/03/15 7:34:00, Duration: 30 day, Stop date : 02/02/15 7:33:00 Start Date: 01/03/15 Stop Date: 01/03/15 Status: Discontinued LORazepam 1 mg, 0.5 mL, Route: IVP, Drug form: INJ, Q6H, Dosing Weight 88.1, kg, PRN Anxie ty, Start date: 01/06/15 18:19:00, Duration: 30 day, Stop date: 02/05/15 18:18:0 0 Notes: (Same as: Ativan) Start Date: 01/06/15 Stop Date: 01/06/15 Status: Discontinued meperidine 12.5 mg, Route: IVP, Q30Min, Dosing Weight 90.909, kg, PRN Other -See Comment, F or shivering, Start date: 01/03/15 17:11:00, Duration: 2 doses or times, Stop da te: Limited # of times Start Date: 01/03/15 Stop Date: 01/03/15 Status: Discontinued morphine Sulfate 2 mg, Route: IVP, Q5Min, Dosing Weight 90.909, kg, PRN Pain Score 4-6, Start gian e: 01/03/15 17:11:00, Duration: 5 doses or times, Stop date: Limited # of times Start Date: 01/03/15 Stop Date: 01/03/15 Status: Discontinued morphine Sulfate 4 mg, Route: IVP, Q5Min, Dosing Weight 90.909, kg, PRN Pain Score 7-10, Start da te: 01/03/15 17:11:00, Duration: 3 doses or times, Stop date: Limited # of times Start Date: 01/03/15 Stop Date: 01/03/15 Status: Discontinued naloxone 0.04 mg, 0.04 mL, Route: IVP, Drug form: INJ, Q2MIN, Dosing Weight 90.909, kg, P RN Narcotic Reversal, Start date: 01/03/15 18:05:00, Duration: 30 day, Stop date : 02/02/15 18:04:00 Notes: (Same as: Narcan) MEDICATION WASTE Product Size: 2 mgProduct Was ana cristina: ___ mg Start Date: 01/03/15 Stop Date: 01/10/15 Status: Discontinued naloxone 0.04 mg, 0.1 mL, Route: IVP, Drug form: INJ, Q2MIN, Dosing Weight 90.909, kg, MD N Narcotic Reversal, Start date: 01/03/15 18:05:00, Duration: 8 doses or times, Stop date: Limited # of times Notes: Same as Narcan Start Date: 01/03/15 Stop Date: 01/06/15 Status: Discontinued naloxone 0.04 mg, Route: IVP, Q2MIN, Dosing Weight 90.909, kg, PRN Narcotic Reversal, Sta rt date: 01/03/15 17:11:00, Duration: 8 doses or times, Stop date: Limited # of times Start Date: 01/03/15 Stop Date: 01/03/15 Status: Discontinued NS (Bolus) IV 1,000 mL, 1,000 ml/hr, Infuse Over: 1 hr, Route: IV, 1,000, Drug form: INJ, ONCE , Priority: STAT, Dosing Weight 88.1 kg, Start date: 01/05/15 13:06:00, Duration : 1 doses or times, Stop date: 01/05/15 13:06:00 Start Date: 01/05/15 Stop Date: 01/05/15 Status: Completed ondansetron 4 mg, 2 mL, Route: IVP, Drug form: INJ, Q6H, Dosing Weight 88.1, kg, PRN Nausea & Vomiting, Start date: 01/03/15 21:02:00, Duration: 30 day, Stop date: 02/02/15 21:01:00 Notes: (Same as: Alisha) MEDICATION WASTE Product Size: 4 mgProduct Was ana cristina: ___ mg Start Date: 01/03/15 Stop Date: 01/10/15 Status: Discontinued ondansetron 4 mg, 2 mL, Route: IVP, Drug form: INJ, ONCE, Dosing Weight 90.909, kg, PRN Naus ea & Vomiting, Start date: 01/03/15 18:05:00 Notes: (Same as: Alisha) MEDICATION WASTE Product Size: 4 mgProduct Was ana cristina: ___ mg Start Date: 01/03/15 Stop Date: 01/06/15 Status: Completed ondansetron 4 mg, Route: IVP, ONCE, Dosing Weight 90.909, kg, PRN Nausea & Vomiting, Start date: 01/03/15 17:11:00 Start Date: 01/03/15 Stop Date: 01/03/15 Status: Completed oxyCODONE 10 mg, Route: PO, Drug form: TAB, Q4H, Dosing Weight 90.909, kg, PRN Pain Score 7-10, Start date: 01/03/15 17:11:00, Duration: 30 day, Stop date: 02/02/15 17:10 :00 Start Date: 01/03/15 Stop Date: 01/03/15 Status: Discontinued oxyCODONE 5 mg, Route: PO, Drug form: TAB, Q4H, Dosing Weight 90.909, kg, PRN Pain Score 4 -6, Start date: 01/03/15 17:11:00, Duration: 30 day, Stop date: 02/02/15 17:10:0 0 Start Date: 01/03/15 Stop Date: 01/03/15 Status: Discontinued oxyCODONE 5 mg/5 mL oral solution 10 mg, Route: NG, Drug form: LIQ, Q4H, Dosing Weight 90.909, kg, PRN Pain Score 7-10, Start date: 01/03/15 17:11:00, Duration: 30 day, Stop date: 02/02/15 17:10 :00 Start Date: 01/03/15 Stop Date: 01/03/15 Status: Discontinued oxyCODONE 5 mg/5 mL oral solution 5 mg, Route: NG, Drug form: LIQ, Q4H, Dosing Weight 90.909, kg, PRN Pain Score 4 -6, Start date: 01/03/15 17:11:00, Duration: 30 day, Stop date: 02/02/15 17:10:0 0 Start Date: 01/03/15 Stop Date: 01/03/15 Status: Discontinued promethazine 6.25 mg, Route: IVPB, ONCE, Dosing Weight 90.909, kg, PRN Nausea & Vomiting, Start date: 01/03/15 17:11:00 Start Date: 01/03/15 Stop Date: 01/03/15 Status: Discontinued Reglan 10 mg, 2 mL, Route: IVP, Drug form: INJ, Q6H, Dosing Weight 88.1, kg, PRN Hiccup s, Start date: 01/06/15 16:55:00, Duration: 30 day, Stop date: 02/05/15 16:54:00 Notes: (Same as: Reglan) Start Date: 01/06/15 Stop Date: 01/10/15 Status: Discontinued Rocephin + Sodium Chloride 0.9% IV 100 mL 1 gm, Route: IVPB, [id number], Dosing Weight 88.1, kg, Start date: 01/06/15 12:00:0 0, Duration: 30 day, Stop date: 02/04/15 12:00:00 Notes: (Same As: Rocephin).Use with 100ml NS mini-bag PLUS and infuse over 30 mi n MEDICATION WASTE Product Size: 1000 mgProduct Wasted: ___ mg Start Date: 01/06/15 Stop Date: 01/10/15 Status: Discontinued simethicone 40 mg, 0.5 tab, Route: CHEW, Drug form: CHEWTAB, [id number], Dosing Weight 88.1, kg , PRN Gas, Start date: 01/06/15 18:20:00, Duration: 30 day, Stop date: 02/05/15 18:19:00 Notes: (Same as: Mylicon) Start Date: 01/06/15 Stop Date: 01/10/15 Status: Discontinued simvastatin 40 mg, 1 tab, Route: PO, Drug form: TAB, Bedtime, Dosing Weight 88.1, kg, Start date: 01/06/15 21:00:00, Duration: 30 day, Stop date: 02/04/15 21:00:00 Notes: (Same as: Zocor) Start Date: 01/06/15 Stop Date: 01/10/15 Status: Discontinued Sodium Chloride 0.45% IV 1,000 mL 1,000 mL, Rate: 150 ml/hr, Infuse over: 6.7 hr, Route: IV, Dosing Weight 88.1 kg , Total Volume: 1,000, Start date: 01/05/15 18:42:00, Stop date: 02/04/15 18:41: 00 Start Date: 01/05/15 Stop Date: 01/08/15 Status: Discontinued Tylenol with Codeine #3 oral tablet 1 tab, PO, Q4H, PRN for pain, # 30 tab, 0 Refill(s) Start Date: 01/10/15 Stop Date: 01/10/15 Status: Completed Results BLOOD BANK RESULTS 1 2 3 Most recent to oldest [Reference Range]: A POS *Unknown* (01/03/15 7:39 AM) ABO/Rh Negative (01/03/15 7:39 AM) Antibody Scrn Product available 1 (01/03/15 7:24 AM) RBC product 1Result Comment: 01/03/2015 08:49 [id number] Notified Maureen 01/03/2015 08:49 AD ELECTROLYTES 1 2 3 Most recent to oldest [Reference Range]: 139 mEq/L (01/09/15 5:31 AM) 137 mEq/L (01/08/15 7:33 AM) 139 mEq/L (01/07/15 8:21 AM) Sodium Lvl [135-145 mEq/L] 4.0 mEq/L (01/09/15 5:31 AM) 4.0 mEq/L (01/08/15 7:33 AM) 4.2 mEq/L (01/07/15 8:21 AM) Potassium Lvl [3.5-5.1 mEq/L] 109 mEq/L (01/09/15 5:31 AM) 109 mEq/L (01/08/15 7:33 AM) 109 mEq/L (01/07/15 8:21 AM) Chloride Lvl [95-109 mEq/L] 21 mEq/L *LOW* (01/09/15 5:31 AM) 20 mEq/L *LOW* (01/08/15 7:33 AM) 21 mEq/L *LOW* (01/07/15 8:21 AM) CO2 [24-32 mEq/L] 13.0 mEq/L (01/09/15 5:31 AM) 12.0 mEq/L (01/08/15 7:33 AM) 13.2 mEq/L (01/07/15 8:21 AM) AGAP [10.0-20.0 mEq/L] CHEM PANEL 1 2 3 Most recent to oldest [Reference Range]: 1.4 mg/dL (01/09/15 5:31 AM) 1.3 mg/dL (01/08/15 7:33 AM) 1.6 mg/dL *HI* (01/07/15 8:21 AM) Creatinine Lvl [0.5-1.4 mg/dL] 47 mL/min/1.73m2 2 *NA* (01/09/15 5:31 AM) 51 mL/min/1.73m2 3 *NA* (01/08/15 7:33 AM) 40 mL/min/1.73m2 4 *NA* (01/07/15 8:21 AM) eGFR 18 mg/dL (01/09/15 5:31 AM) 24 mg/dL *HI* (01/08/15 7:33 AM) 33 mg/dL *HI* (01/07/15 8:21 AM) BUN [7-22 mg/dL] 113 mg/dL 5 *HI* (01/09/15 5:31 AM) 81 mg/dL 6 (01/08/15 7:33 AM) 93 mg/dL 7 (01/07/15 8:21 AM) Glucose Lvl [70-99 mg/dL] 7.6 mg/dL *LOW* (01/09/15 5:31 AM) 7.5 mg/dL *LOW* (01/08/15 7:33 AM) 7.2 mg/dL *LOW* (01/07/15 8:21 AM) Calcium Lvl [8.5-10.5 mg/dL] 2Result Comment: The eGFR is calculated using [...] be mul tiplied by the estimated BMI. 4Result Comment: The eGFR is calculated using [...] be mul tiplied by the estimated BMI. 5Interpretive Data: Adult reference range values reflect the clinical guidelines of the [place] [employer]. 6Interpretive Data: Adult reference range values reflect the clinical guidelines of the [place] [employer]. 7Interpretive Data: Adult reference range values reflect the clinical guidelines of the [place] [employer]. URINE CHEM 1 2 3 Most recent to oldest [Reference Range]: 250.7 mg/dL 8 *NA* (01/05/15 5:54 AM) U Creatinine 149.1 mg/dL 9 *NA* (01/05/15 5:54 AM) U Protein 0.6 *NA* (01/05/15 5:54 AM) U Prot/Creat 32 mEq/L 10 *NA* (01/05/15 5:54 AM) U Sodium None Seen (01/05/15 5:53 AM) U Eos [None Seen] 8Interpretive Data: No established reference ranges. 9Interpretive Data: No established reference ranges. 10Interpretive Data: No established reference ranges. HEMATOLOGY 1 2 3 Most recent to oldest [Reference Range]: 6.2 K/CMM (01/09/15 5:31 AM) 6.4 K/CMM (01/08/15 7:33 AM) 8.9 K/CMM (01/07/15 8:21 AM) WBC [3.7-10.4 K/CMM] 2.87 M/CMM *LOW* (01/09/15 5:31 AM) 2.68 M/CMM *LOW* (01/08/15 7:33 AM) 2.75 M/CMM *LOW* (01/07/15 8:21 AM) RBC [4.70-6.10 M/CMM] 9.2 g/dL *LOW* (01/09/15 5:31 AM) 8.5 g/dL *LOW* (01/08/15 7:33 AM) 8.8 g/dL *LOW* (01/07/15 8:21 AM) Hgb [14.0-18.0 g/dL] 26.9 % *LOW* (01/09/15 5:31 AM) 25.2 % *LOW* (01/08/15 7:33 AM) 26.1 % *LOW* (01/07/15 8:21 AM) Hct [42.0-54.0 %] 93.8 fL (01/09/15 5:31 AM) 93.8 fL (01/08/15 7:33 AM) 94.7 fL *HI* (01/07/15 8:21 AM) MCV [80.0-94.0 fL] 32.1 pg *HI* (01/09/15 5:31 AM) 31.8 pg *HI* (01/08/15 7:33 AM) 31.9 pg *HI* (01/07/15 8:21 AM) MCH [27.0-31.0 pg] 34.2 g/dL (01/09/15 5:31 AM) 33.9 g/dL (01/08/15 7:33 AM) 33.7 g/dL (01/07/15 8:21 AM) MCHC [32.0-36.0 g/dL] 14.3 % (01/09/15 5:31 AM) 14.5 % (01/08/15 7:33 AM) 14.9 % *HI* (01/07/15 8:21 AM) RDW [11.5-14.5 %] 180 K/CMM (01/09/15 5:31 AM) 168 K/CMM (01/08/15 7:33 AM) 166 K/CMM (01/07/15 8:21 AM) Platelet [133-450 K/CMM] 8.6 fL (01/09/15 5:31 AM) 8.1 fL (01/08/15 7:33 AM) 8.9 fL (01/07/15 8:21 AM) MPV [7.4-10.4 fL] 75.6 % *HI* (01/09/15 5:31 AM) 77.2 % *HI* (01/08/15 7:33 AM) 80.2 % *HI* (01/07/15 8:21 AM) Segs [45.0-75.0 %] 11.5 % *LOW* (01/09/15 5:31 AM) 10.7 % *LOW* (01/08/15 7:33 AM) 10.1 % *LOW* (01/07/15 8:21 AM) Lymphocytes [20.0-40.0 %] 9.2 % (01/09/15 5:31 AM) 9.4 % (01/08/15 7:33 AM) 8.9 % (01/07/15 8:21 AM) Monocytes [2.0-12.0 %] 3.4 % (01/09/15 5:31 AM) 2.4 % (01/08/15 7:33 AM) 0.7 % (01/07/15 8:21 AM) Eosinophils [0.0-4.0 %] 0.3 % (01/09/15 5:31 AM) 0.3 % (01/08/15 7:33 AM) 0.1 % (01/07/15 8:21 AM) Basophils [0.0-1.0 %] 4.7 K/CMM (01/09/15 5:31 AM) 4.9 K/CMM (01/08/15 7:33 AM) 7.1 K/CMM (01/07/15 8:21 AM) Segs-Bands # [1.5-8.1 K/CMM] 0.7 K/CMM *LOW* (01/09/15 5:31 AM) 0.7 K/CMM *LOW* (01/08/15 7:33 AM) 0.9 K/CMM *LOW* (01/07/15 8:21 AM) Lymphocytes # [1.0-5.5 K/CMM] 0.6 K/CMM (01/09/15 5:31 AM) 0.6 K/CMM (01/08/15 7:33 AM) 0.8 K/CMM (01/07/15 8:21 AM) Monocytes # [0.0-0.8 K/CMM] 0.2 K/CMM (01/09/15 5:31 AM) 0.2 K/CMM (01/08/15 7:33 AM) 0.1 K/CMM (01/07/15 8:21 AM) Eosinophils # [0.0-0.5 K/CMM] 0.1 K/CMM (01/05/15 5:53 AM) Basophils # [0.0-0.2 K/CMM] 16.1 seconds *HI* (01/04/15 6:30 AM) 13.2 seconds (12/26/14 10:58 AM) PT [12.0-14.7 seconds] 1.28 11 *HI* (01/04/15 6:30 AM) 1.00 12 (12/26/14 10:58 AM) INR [0.85-1.17] 36.9 seconds 13 *HI* (01/04/15 6:30 AM) 33.9 seconds 14 (12/26/14 10:58 AM) PTT [22.9-35.8 seconds] 11Interpretive Data: RECOMMENDED RANGES FOR PROTIME INR: 2.0-3.0 for most medical and surgical thromboembolic states. 2.5-3.5 for artificial heart valves and recurrent embolism. INR SHOULD BE USED ONLY FOR PATIENTS ON STABLE ANTICOAGULANT THERAPY. 12Interpretive Data: RECOMMENDED RANGES FOR PROTIME INR: 2.0-3.0 for most medical and surgical thromboembolic states. 2.5-3.5 for artificial heart valves and recurrent embolism. INR SHOULD BE USED ONLY FOR PATIENTS ON STABLE ANTICOAGULANT THERAPY. 13Interpretive Data: Heparin Therapeutic Range: 57 - 92 Seconds 14Interpretive Data: Heparin Therapeutic Range: 57 - 92 Seconds BACTERIAL - SEROLOGY 1 2 3 Most recent to oldest [Reference Range]: Negative 15 (01/03/15 5:54 PM) MRSA by PCR 15Interpretive Data: Interpretive Data: The [employer] [...] reaction (PCR) assay detects a proprietary sequence indicat wiliam of the integration of the SCCmec cassette into the Staphylococcus aureus chr omosome, indicating the presence of MRSA DNA. The assay utilizes FDA cleared IV D reagents. Performance characteristics have been verified by the [facility] within the [facility]. The [employer] [facility] is authorized under the Clinical Laboratory Improvement Amendment of 1 988 (CLIA-88) to perform high complexity testing. Immunizations No data available for this section Procedures Procedure Date Related Diagnosis Body Site Cardiac catheterization1 Cystoscopy and bladder biopsy Partial resection of colon 1with stents Social History Social History Type Response Alcohol Previous treatment: None. Smoking Status Never smoker; Exposure to Tobacco Smoke None; Cigarette Smoking Last 365 Days No; Reg Smoking Cessation Counseling No Assessment and Plan No data available for this section
--- OUTSIDE RECORDS SUMMARY | 2019-03-05 07:31 | XMS REPORT | Summary of Care ---
Author Organization Unknown Address Unknown Phone Unavailable Encounter HQ Ya(LOLA) [id number] Date(s): 10/24/14 - 10/24/14 [facility] [address] Discharge Disposition: Home Physician Attending: Jeff Mendoza MD Physician_Referring: Jeff Mendoza MD Reason for Visit CT UROGRAM DX:599.72=BENIGN ESSENTIAL MICROSCOPIC ENRIQUE Problem List Condition Effective Dates Status Health Status Informant Anemia(Confirmed) Active Benign bladder Active tumor(Confirmed) Cancer of Resolved colon(Confirmed) Cancer of Active colon(Confirmed) CHF - Congestive Active heart failure(Confirmed) Hematuria(Confirmed) Active HTN - Active Hypertension(Confirm ed) [place] - Myocardial < 09/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 ) Allergies, Adverse Reactions, Alerts Substance Reaction Severity Status Pacerone Active penicillins Active Medications No data available for this section Medications Administered During Your Visit No data available for this section Immunizations No data available for this section Social History Social History Type Response Alcohol Previous treatment: None Smoking Status Never smoker, Exposure to Tobacco Smoke None, Cigarette Smoking Last 365 Days No, Reg Smoking Cessation Counseling No
--- OUTSIDE RECORDS SUMMARY | 2019-03-05 07:31 | XMS REPORT | Summary of Care ---
Author Organization Unknown Address Unknown Phone Unavailable Encounter HQ Carlos A_tegan(LOLA) [id number] Date(s): 11/15/14 - 11/15/14 [facility] [address] [place] [address]- Discharge Disposition: Home Physician Attending: Teresa Abdullahi DO Physician_Referring: Teresa Abdullahi DO Vital Signs No data available for this section Problem List Condition Effective Dates Status Health Status Informant Anemia(Confirmed) Active Benign bladder Active tumor(Confirmed) Cancer of Resolved colon(Confirmed) Cancer of Active colon(Confirmed) CHF - Congestive Active heart failure(Confirmed) Hematuria(Confirmed) Active HTN - Active Hypertension(Confirm ed) [place] - Myocardial < 09/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 ) Allergies, Adverse Reactions, Alerts Substance Reaction Severity Status Pacerone Active penicillins Active Medications No data available for this section Results No data available for this section Immunizations No data available for this section Procedures No data available for this section Social History Social History Type Response Alcohol Previous treatment: None. Smoking Status Never smoker; Exposure to Tobacco Smoke None; Cigarette Smoking Last 365 Days No; Reg Smoking Cessation Counseling No Assessment and Plan No data available for this section
--- OUTSIDE RECORDS SUMMARY | 2019-03-05 07:31 | XMS REPORT | Summary of Care ---
Author Organization Unknown Address Unknown Phone Unavailable Encounter HQ Carlos A_tegan(LOLA) [id number] Date(s): 11/21/14 - 11/21/14 [facility] [address] [place] [address]- Discharge Disposition: Home Physician Attending: Teresa Abdullahi DO Physician_Referring: Teresa Abdullahi DO Vital Signs No data available for this section Problem List Condition Effective Dates Status Health Status Informant Anemia(Confirmed) Active Benign bladder Active tumor(Confirmed) Cancer of Resolved colon(Confirmed) Cancer of Active colon(Confirmed) CHF - Congestive Active heart failure(Confirmed) Hematuria(Confirmed) Active HTN - Active Hypertension(Confirm ed) [place] - Myocardial < 09/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 ) [...]
--- OUTSIDE RECORDS SUMMARY | 2019-03-05 07:31 | XMS REPORT | Summary of Care ---
Author Author [facility] General Surgery [facility] Organization [facility] General Surgery [facility] Address Unknown Phone Unavailable Encounter CAROLYN Pandya(LOLA) [id number] Date(s): 02/09/19 - 02/09/19 [facility] General Surgery 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
--- OUTSIDE RECORDS SUMMARY | 2019-03-05 07:31 | XMS REPORT | Summary of Care ---
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
--- OUTSIDE RECORDS SUMMARY | 2019-03-05 07:32 | XMS REPORT | Summary of Care ---
Author Organization Unknown Address Unknown Phone Unavailable Encounter CAROLYN Pandya(LOLA) [id number] Date(s): 01/29/15 - 01/29/15 [facility] [address] [place] [address]- Discharge Diagnosis: Weakness Discharge Disposition: Home Physician Attending: Greg Bullock MD Vital Signs 1 2 3 Most recent to oldest [Reference Range]: 182.88 cm (01/29/15 9:53 AM) Height 97.9 DegF (01/29/15 2:25 PM) 97.8 DegF (01/29/15 9:53 AM) Temperature Oral [96.4-99.1 DegF] 157/75 mmHg *HI* (01/29/15 2:25 PM) 144/70 mmHg *HI* (01/29/15 9:53 AM) Blood Pressure [90-140/60-90 mmHg] 16 BRMIN (01/29/15 2:25 PM) 17 BRMIN (01/29/15 12:36 PM) 18 BRMIN (01/29/15 9:53 AM) Respiratory Rate [14-20 BRMIN] 63 bpm (01/29/15 2:25 PM) 63 bpm (01/29/15 12:36 PM) 59 bpm *LOW* (01/29/15 9:53 AM) Peripheral Pulse Rate [60-100 bpm] 90.909 kg (01/29/15 9:53 AM) Weight 27.18 m2 (01/29/15 9:53 AM) Body Mass Index Problem List Condition Effective Dates Status Health Status Informant Anemia(Confirmed) Active Benign bladder Active tumor(Confirmed) CAD (coronary artery Active disease)(Confirmed) Cancer of Resolved colon(Confirmed) Cancer of Active colon(Confirmed) CHF - Congestive Active heart failure(Confirmed) Hematuria(Confirmed) Active HTN - Active Hypertension(Confirm ed) [place] - Myocardial < 09/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 ) Allergies, Adverse Reactions, Alerts Substance Reaction Severity Status Pacerone Active penicillins Active Medications No data available for this section Results ELECTROLYTES Most recent to 1 oldest [Reference Range]: Sodium Lvl [135-145 137 mEq/L mEq/L] (01/29/15 12:47 PM) Potassium Lvl 4.7 mEq/L [3.5-5.1 mEq/L] (01/29/15 12:47 PM) Chloride Lvl [95-109 106 mEq/L mEq/L] (01/29/15 12:47 PM) CO2 [24-32 mEq/L] 24 mEq/L (01/29/15:47 PM) AGAP [10.0-20.0 11.7 mEq/L mEq/L] (01/29/15 12:47 PM) CHEM PANEL Most recent to 1 oldest [Reference Range]: Creatinine Lvl 1.5 mg/dL [0.5-1.4 mg/dL] *HI* (01/29/15 12:47 PM) eGFR 43 mL/min/1.73m2 1 *NA* (01/29/15:47 PM) BUN [7-22 mg/dL] 18 mg/dL (01/29/15 12:47 PM) B/C Ratio [6-25] 12 (01/29/15 12:47 PM) Glucose Lvl [70-99 109 mg/dL 2 mg/dL] *HI* (01/29/15:47 PM) Total Protein 7.2 g/dL [6.4-8.4 g/dL] (01/29/15 12:47 PM) Albumin Lvl [3.5-5.0 3.6 g/dL g/dL] (01/29/15 12:47 PM) Globulin [2.0-4.0 3.6 g/dL g/dL] (01/29/15 12:47 PM) A/G Ratio [0.7-1.6] 1.0 (01/29/15 12:47 PM) Calcium Lvl 9.0 mg/dL [8.5-10.5 mg/dL] (01/29/15 12:47 PM) ALT [0-65 unit/L] 13 unit/L (01/29/15 12:47 PM) AST [0-37 unit/L] 8 unit/L (01/29/15 12:47 PM) Alk Phos [39-136 55 unit/L unit/L] (01/29/15 12:47 PM) Bili Total [0.2-1.3 0.4 mg/dL mg/dL] (01/29/15 12:47 PM) 1Result Comment: The eGFR is calculated [...] values reflect the clinical guidelines of the [place] [employer]. THYROID PANEL Most recent to 1 oldest [Reference Range]: TSH [0.360-3.740 1.360 uIU/mL uIU/mL] (01/29/15 12:47 PM) HEMATOLOGY Most recent to 1 oldest [Reference Range]: WBC [3.7-10.4 K/CMM] 6.1 K/CMM (01/29/15 12:47 PM) RBC [4.70-6.10 3.68 M/CMM M/CMM] *LOW* (01/29/15 12:47 PM) Hgb [14.0-18.0 g/dL] 11.4 g/dL *LOW* (01/29/15 12:47 PM) Hct [42.0-54.0 %] 34.2 % *LOW* (01/29/15 12:47 PM) MCV [80.0-94.0 fL] 93.0 fL (01/29/15 12:47 PM) MCH [27.0-31.0 pg] 30.9 pg (01/29/15 12:47 PM) MCHC [32.0-36.0 33.2 g/dL g/dL] (01/29/15 12:47 PM) RDW [11.5-14.5 %] 15.2 % *HI* (01/29/15 12:47 PM) Platelet [133-450 217 K/CMM K/CMM] (01/29/15 12:47 PM) MPV [7.4-10.4 fL] 8.7 fL (01/29/15 12:47 PM) Segs [45.0-75.0 %] 71.4 % (01/29/15 12:47 PM) Lymphocytes 16.3 % [20.0-40.0 %] *LOW* (01/29/15 12:47 PM) Monocytes [2.0-12.0 10.0 % %] (01/29/15 12:47 PM) Eosinophils [0.0-4.0 1.8 % %] (01/29/15 12:47 PM) Basophils [0.0-1.0 0.5 % %] (01/29/15 12:47 PM) Segs-Bands # 4.3 K/CMM [1.5-8.1 K/CMM] (01/29/15 12:47 PM) Lymphocytes # 1.0 K/CMM [1.0-5.5 K/CMM] (01/29/15 12:47 PM) Monocytes # [0.0-0.8 0.6 K/CMM K/CMM] (01/29/15 12:47 PM) Eosinophils # 0.1 K/CMM [0.0-0.5 K/CMM] (01/29/15 12:47 PM) Immunizations No data available for this section [...]
--- OUTSIDE RECORDS SUMMARY | 2019-03-05 07:32 | XMS REPORT | Summary of Care ---
Author Author [facility] Organization [facility] Address Unknown Phone Unavailable Encounter HQ Ya(FIN) [id number] Date(s): 06/04/16 - 06/04/16 [facility] [address] [place] [address]- Discharge Disposition: Home or Self Care Attending Physician: Jeff Mendoza MD Referring Physician: Jeff Mendoza MD Vital Signs No data available for this section Problem List Condition Effective Dates Status Health Status Informant Anemia(Confirmed) Active Benign bladder Active tumor(Confirmed) CAD (coronary artery Active disease)(Confirmed) Cancer of Resolved colon(Confirmed) Cancer of Active colon(Confirmed) CHF - Congestive Active heart failure(Confirmed) Hematuria(Confirmed) Resolved HTN - Active Hypertension(Confirm ed) [place] - Myocardial < 09/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 [...]
--- OUTSIDE RECORDS SUMMARY | 2019-03-05 07:32 | XMS REPORT | Summary of Care ---
Author Author [facility] Organization [facility] Address Unknown Phone Unavailable Encounter CAROLYN Pandya(LOLA) [id number] Date(s): 06/19/16 - 06/19/16 [facility] [address] [place] [address]- Discharge Disposition: Home or Self Care Attending Physician: Jeff Mendoza MD Referring Physician: Jeff Mendoza MD Vital Signs Most recent to 1 oldest [Reference Range]: Height 182.88 cm (06/19/16 8:34 AM) Weight 90 kg (06/19/16 8:34 AM) Body Mass Index 26.91 m2 (06/19/16 8:34 AM) Problem List Condition Effective Dates Status Health Status Informant Anemia(Confirmed) Active Benign bladder Active tumor(Confirmed) CAD (coronary artery Active disease)(Confirmed) Cancer of Resolved colon(Confirmed) Cancer of Active colon(Confirmed) CHF - Congestive Active heart failure(Confirmed) 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) [place]BY (hard of Resolved hearing)(Confirmed) Hematuria(Confirmed) Resolved HTN - Active Hypertension(Confirm ed) [place] - Myocardial < 09/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 ) Allergies, Adverse Reactions, Alerts Substance Reaction Severity Status Pacerone Active penicillins Active Medications No data available for this section Results No data available for this section Immunizations No data available for this section Procedures Procedure Date Related Diagnosis Body Site Cardiac catheterization1 Colostomy Cystoscopy and bladder biopsy Partial resection of colon 1with stents Social History Social History Type Response Alcohol Current, Type Beer. Frequency: 1-2 times per month. Previous treatment: None. Alcohol use interferes with work or home: No. Drinks more than intended: No. Others hurt by drinking: No. Ready to change: No. Household alcohol concerns: No. Smoking Status Never smoker; Previous treatment: None; Ready to change: No; Concerns about tobacco use in household: No; Exposure to Tobacco Smoke None; Cigarette Smoking Last 365 Days No; Reg Smoking Cessation Counseling No Assessment and Plan No data available for this section
--- OUTSIDE RECORDS SUMMARY | 2019-03-05 07:32 | XMS REPORT | Summary of Care ---
Author Author [facility] Organization [facility] Address Unknown Phone Unavailable Encounter CAROLYN Pandya(LOLA) [id number] Date(s): 11/09/16 - 11/09/16 [facility] [address] [place] [address]- Discharge Diagnosis: Generalized weakness Discharge Diagnosis: Acute UTI Discharge Diagnosis: Dehydration Discharge Disposition: Home or Self Care Attending Physician: John Finney DO Vital Signs 1 2 3 Most recent to oldest [Reference Range]: 182.88 cm (11/09/16 8:05 AM) Height 98 DegF (11/09/16 12:21 PM) 97.5 DegF (11/09/16 8:05 AM) Temperature Oral [96.4-99.1 DegF] 157/69 mmHg *HI* (11/09/16 12:21 PM) 139/67 mmHg (11/09/16 10:22 AM) 151/64 mmHg *HI* (11/09/16 8:45 AM) Blood Pressure [90-140/60-90 mmHg] 18 BRMIN (11/09/16 12:21 PM) 20 BRMIN (11/09/16 10:22 AM) 18 BRMIN (11/09/16 8:45 AM) Respiratory Rate [14-20 BRMIN] 60 bpm (11/09/16 8:05 AM) Peripheral Pulse Rate [60-100 bpm] 90.909 kg (11/09/16 8:05 AM) Weight 27.18 m2 (11/09/16 8:05 AM) Body Mass Index Problem List Condition Effective Dates Status Health Status Informant Anemia(Confirmed) Active Benign bladder Active tumor(Confirmed) CAD (coronary artery Active disease)(Confirmed) Cancer of Resolved colon(Confirmed) Cancer of Active colon(Confirmed) CHF - Congestive Active heart failure(Confirmed) 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) DIOMEDE (hard of Resolved hearing)(Confirmed) Hematuria(Confirmed) Resolved HTN - Active Hypertension(Confirm ed) Bladder Active cancer(Confirmed) [place] - Myocardial < 09/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 ) Allergies, Adverse Reactions, Alerts Substance Reaction Severity Status Pacerone Active penicillins Active Medications Cipro 400 mg, Route: IVPB, ONCE, Dosing Weight 90.909, kg, Priority: STAT, Start date: 11/09/16 10:54:00 [employer], Stop date: 11/09/16 10:54:00 [employer] Start Date: 11/09/16 Stop Date: 11/09/16 Status: Completed Cipro 500 mg oral tablet 500 mg=1 tab, PO, Q12H, X 7 day, # 14 tab, 0 Refill(s) Start Date: 11/09/16 Stop Date: 11/16/16 Status: Ordered Saline Flush 0.9% 10 mL, Route: IVP, Drug Form: INJ, Dosing Weight 90.909, kg, PRN, PRN Line Flush , Start date: 11/09/16 8:16:00 [employer], Duration: 30 day, Stop date: 12/09/16 9:15:0 0 CDT Notes: (Same as: BD Posiflush) Start Date: 11/09/16 Stop Date: 11/09/16 Status: Discontinued Sodium Chloride 0.9% (Bolus) IV 1,000 mL, Infuse Over: 1 hr, Route: IV, ONCE, Priority: STAT, Dosing Weight 90.9 09 kg, Start date: 11/09/16 10:53:00 [employer], Duration: 1 doses or times, Stop date: 11/09/16 10:53:00 [employer] Start Date: 11/09/16 Stop Date: 11/09/16 Status: Completed Sodium Chloride 0.9% IV (Sodium Chloride 0.9% (Bolus) IV) 500 mL, 500 ml/hr, Infuse Over: 1 hr, Route: IV, 500, Drug form: INJ, ONCE, Prio rity: STAT, Dosing Weight 90.909 kg, Start date: 11/09/16 8:16:00 [employer], Duration: 1 doses or times, Stop date: 11/09/16 8:16:00 [employer] Start Date: 11/09/16 Stop Date: 11/09/16 Status: Completed Results ELECTROLYTES Most recent to 1 2 oldest [Reference Range]: Sodium Lvl [135-145 135 mEq/L mEq/L] (11/09/16 8:33 AM) Potassium Lvl 4.2 mEq/L [3.5-5.1 mEq/L] (11/09/16 8:33 AM) Chloride Lvl [95-109 100 mEq/L mEq/L] (11/09/16 8:33 AM) CO2 [24-32 mEq/L] 21 mEq/L *LOW* (11/09/16 8:33 AM) AGAP [10.0-20.0 18.2 mEq/L mEq/L] (11/09/16 8:33 AM) CHEM PANEL Most recent to 1 2 oldest [Reference Range]: Creatinine Lvl 1.40 mg/dL [0.50-1.40 mg/dL] (11/09/16 8:33 AM) eGFR 46 mL/min/1.73m2 1 *NA* (11/09/16 8:33 AM) BUN [7-22 mg/dL] 32 mg/dL *HI* (11/09/16 8:33 AM) B/C Ratio [6-25] 23 (11/09/16 8:33 AM) Glucose Lvl [70-99 93 mg/dL mg/dL] (11/09/16 8:33 AM) Total Protein 6.9 g/dL [6.4-8.4 g/dL] (11/09/16 8:33 AM) Albumin Lvl [3.5-5.0 3.7 g/dL g/dL] (11/09/16 8:33 AM) Globulin [2.7-4.2 3.2 g/dL g/dL] (11/09/16 8:33 AM) A/G Ratio [0.7-1.6] 1.2 (11/09/16 8:33 AM) Calcium Lvl 8.6 mg/dL [8.5-10.5 mg/dL] (11/09/16 8:33 AM) Phosphorus [2.5-4.5 3.0 mg/dL mg/dL] (11/09/16 8:47 AM) Magnesium Lvl 1.9 mg/dL [1.8-2.4 mg/dL] (11/09/16 8:47 AM) ALT [0-65 unit/L] 24 unit/L (11/09/16 8:33 AM) AST [0-37 unit/L] 18 unit/L (11/09/16 8:33 AM) Alk Phos [39-136 44 unit/L unit/L] (11/09/16 8:33 AM) Bili Total [0.2-1.3 0.4 mg/dL mg/dL] (11/09/16 8:33 AM) 1Result Comment: The eGFR is calculated [...] tiplied by the estimated BMI. CARDIAC ENZYMES Most recent to 1 2 oldest [Reference Range]: Total CK [12-191 49 unit/L unit/L] (11/09/16 8:33 AM) CK MB [0.5-3.6 0.7 ng/mL ng/mL] (11/09/16 8:33 AM) CK MB Index 1.4 [0.0-2.5] (11/09/16 8:33 AM) Troponin-I 0.02 ng/mL 0.03 ng/mL [0.00-0.40 ng/mL] (11/09/16 11:07 AM) (11/09/16 8:33 AM) BNP [<=100 pg/mL] 20 pg/mL (11/09/16 8:33 AM) URINE AND STOOL Most recent to 1 2 oldest [Reference Range]: UA Turbidity [Clear] Slight *ABN* (11/09/16 9:57 AM) UA Color Ltyellow *NA* (11/09/16 9:57 AM) UA pH [5.0-8.0] 7.0 (11/09/16 9:57 AM) UA Spec Grav 1.016 [<=1.030] (11/09/16 9:57 AM) UA Glucose [Negative Negative mg/dL mg/dL] *NA* (11/09/16 9:57 AM) UA Blood [Negative] Small *ABN* (11/09/16 9:57 AM) UA Ketones [Negative Negative mg/dL mg/dL] *NA* (11/09/16 9:57 AM) UA Protein [Negative Negative mg/dL mg/dL] (11/09/16 9:57 AM) UA Urobilinogen <=1.0 mg/dL [0.1-1.0 mg/dL] *NA* (11/09/16 9:57 AM) UA Bili [Negative] Negative *NA* (11/09/16 9:57 AM) UA Leuk Est Large [Negative] *ABN* (11/09/16 9:57 AM) UA Nitrite Negative [Negative] (11/09/16 9:57 AM) UA WBC [0-5 /HPF] 46 /HPF *HI* (11/09/16 9:57 AM) UA RBC [0-2 /HPF] 14 /HPF *HI* (11/09/16 9:57 AM) UA Bacteria [None Occasional /HPF Seen /HPF] *NA* (11/09/16 9:57 AM) UA Sq Epi [Few /LPF] Occasional /LPF *NA* (11/09/16 9:57 AM) UA [place] Yeast [None Occasional /HPF Seen /HPF] *ABN* (11/09/16 9:57 AM) HEMATOLOGY Most recent to 1 2 oldest [Reference Range]: WBC [3.7-10.4 K/CMM] 5.2 K/CMM (11/09/16 8:33 AM) RBC [4.70-6.10 3.53 M/CMM M/CMM] *LOW* (11/09/16 8:33 AM) Hgb [14.0-18.0 g/dL] 11.7 g/dL *LOW* (11/09/16 8:33 AM) Hct [42.0-54.0 %] 34.1 % *LOW* (11/09/16 AM) MCV [80.0-94.0 fL] 96.6 fL *HI* (11/09/16 AM) MCH [27.0-31.0 pg] 33.1 pg *HI* (11/09/1633 AM) MCHC [32.0-36.0 34.2 g/dL g/dL] (11/09/16 AM) RDW [11.5-14.5 %] 17.4 % *HI* (11/09/1633 AM) Platelet [133-450 227 K/CMM K/CMM] (11/09/16 AM) MPV [7.4-10.4 fL] 8.9 fL (11/09/16 AM) Segs [45.0-75.0 %] 67.1 % (11/09/16 AM) Lymphocytes 25.5 % [20.0-40.0 %] (11/09/1633 AM) Monocytes [2.0-12.0 6.5 % %] (11/09/16: AM) Eosinophils [0.0-4.0 0.4 % %] (11/09/16: AM) Basophils [0.0-1.0 0.5 % %] (11/09/16 8:33 AM) Segs-Bands # 3.5 K/CMM [1.5-8.1 K/CMM] (11/09/16:33 AM) Lymphocytes # 1.3 K/CMM [1.0-5.5 K/CMM] (11/09/16 8:33 AM) Monocytes # [0.0-0.8 0.3 K/CMM K/CMM] (11/09/16 8:33 AM) PT [12.0-14.7 12.6 seconds seconds] (11/09/16 8:33 AM) INR [0.85-1.17] 0.92 (11/09/16 8:33 AM) PTT [22.9-35.8 26.1 seconds seconds] (11/09/16 8:33 AM) Immunizations No data available for this section [...]
--- OUTSIDE RECORDS SUMMARY | 2019-03-05 07:32 | XMS REPORT | Summary of Care ---
Author Author [facility] Organization [facility] Address Unknown Phone Unavailable Encounter HQ Ya(FIN) [id number] Date(s): 05/22/16 - 05/22/16 [facility] [address] [place] [address]- [phone] Discharge Disposition: Home or Self Care Attending [...] Hematuria(Confirmed) Resolved HTN - Active Hypertension(Confirm ed) [place] - Myocardial < 09/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 ) [...]
--- OUTSIDE RECORDS SUMMARY | 2019-03-05 07:32 | XMS REPORT | Summary of Care ---
Author Author [facility] Organization [facility] Address Unknown Phone Unavailable Encounter CAROLYN Pandya(LOLA) [id number] Date(s): 12/18/15 - 12/19/15 [facility] [address] [place] [address]- Discharge Disposition: Home Attending Physician: Reed Plaza MD Admitting Physician: Reed Plaza MD Vital Signs 1 2 3 Most recent to oldest [Reference Range]: 182.88 cm (12/18/15 3:04 PM) 182.88 cm (12/18/15 11:45 AM) Height 97.4 DegF (12/19/15 7:05 AM) 98.4 DegF (12/19/15 4:52 AM) 97.7 DegF (12/19/15 12:23 AM) Temperature Oral [96.4-99.1 DegF] 144/63 mmHg *HI* (12/19/15 1:53 PM) 137/62 mmHg (12/19/15 1:49 PM) 137/62 mmHg (12/19/15 1:37 PM) Blood Pressure [90-140/60-90 mmHg] 18 BRMIN (12/19/15 7:05 AM) 18 BRMIN (12/19/15 4:52 AM) 18 BRMIN (12/19/15 12:23 AM) Respiratory Rate [14-20 BRMIN] 70 bpm (12/19/15 1:53 PM) 63 bpm (12/19/15 1:37 PM) 61 bpm (12/19/15 1:22 PM) Peripheral Pulse Rate [60-100 bpm] 90.909 kg (12/18/15 3:04 PM) 90.909 kg (12/18/15 11:45 AM) Weight 27.18 m2 (12/18/15 3:04 PM) 27.18 m2 (12/18/15 11:45 AM) Body Mass Index Problem List Condition Effective Dates Status Health Status Informant Anemia(Confirmed) Active Benign bladder Active tumor(Confirmed) CAD (coronary artery Active disease)(Confirmed) Cancer of Resolved colon(Confirmed) Cancer of Active colon(Confirmed) CHF - Congestive Active heart failure(Confirmed) Hematuria(Confirmed) Resolved HTN - Active Hypertension(Confirm ed) [place] - Myocardial < 09/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 ) Allergies, Adverse Reactions, Alerts Substance Reaction Severity Status Pacerone Active penicillins Active Medications aspirin 81 mg, PO, Daily, 0 Refill(s) Start Date: 12/18/15 Status: Ordered aspirin 81 mg, Route: PO, Daily, Dosing Weight 90.909, kg, Start date: 12/19/15 9:00:00, Duration: 30 day, Stop date: 01/17/16 9:00:00 Start Date: 12/19/15 Stop Date: 12/18/15 Status: Deleted aspirin 324 mg, Route: PO, ONCE, Dosing Weight 90.909, kg, Priority: STAT, Start date: 0 12/18/15 12:03:00, Stop date: 12/18/15 12:03:00 Start Date: 12/18/15 Stop Date: 12/18/15 Status: Completed aspirin 81 mg tablet, chewable 81 mg, 1 tab, Route: PO, Drug form: CHEWTAB, Daily, Dosing Weight 90.909, kg, St art date: 12/19/15 9:00:00, Duration: 30 day, Stop date: 01/17/16 9:00:00 Notes: Take with food. Start Date: 12/19/15 Stop Date: 12/19/15 Status: Discontinued enoxaparin 40 mg, 0.4 mL, Route: SUB-Q, Drug form: INJ, [id number], Dosing Weight 90.909, kg, Start date: 12/18/15 18:00:00, Duration: 30 day, Stop date: 01/16/16 18:00:00 Notes: (Same as: Lovenox) Start Date: 12/18/15 Stop Date: 12/19/15 Status: Discontinued lisinopril 20 mg, 1 tab, Route: PO, Drug form: TAB, Bedtime, Dosing Weight 90.909, kg, Star t date: 12/18/15 21:00:00, Duration: 30 day, Stop date: 01/16/16 21:00:00 Notes: (Same as: Raquel Dominguez) Start Date: 12/18/15 Stop Date: 12/19/15 Status: Discontinued morphine Sulfate 2 mg, 1 mL, Route: IVP, Drug form: INJ, Q2H, Dosing Weight 90.909, kg, PRN Pain Score 4-6, Start date: 12/18/15 15:05:00, Duration: 30 day, Stop date: 01/17/16 15:04:00 Notes: (Same as:MORPhine Sulfate) Start Date: 12/18/15 Stop Date: 12/19/15 Status: Discontinued nitroglycerin SL Tab 0.4 mg, 1 tab, Route: SL, Drug form: TAB, Q5Min, Dosing Weight 90.909, kg, PRN C hest Pain, Start date: 12/19/15 11:53:00, Duration: 3 doses or times, Stop date: Limited # of times Notes: (Same as:Nitroquick, Nitrostat)"Do Not Crush" Sublingual tablet Start Date: 12/19/15 Stop Date: 12/19/15 Status: Discontinued nitroglycerin SL Tab 0.4 mg, 1 tab, Route: SL, Drug form: TAB, Q5Min, Dosing Weight 90.909, kg, PRN C hest Pain, Start date: 12/18/15 15:05:00, Duration: 3 doses or times, Stop date: Limited # of times Notes: (Same as:Nitroquick, Nitrostat)"Do Not Crush" Sublingual tablet Start Date: 12/18/15 Stop Date: 12/19/15 Status: Discontinued normal saline 0.9% IV 1,000 mL 1,000 mL, Rate: 75 ml/hr, Infuse over: 13.3 hr, Route: IV, Dosing Weight 90.909 kg, Total Volume: 1,000, Start date: 12/19/15 11:46:00, Duration: 30 day, Stop d ate: 01/18/16 11:45:00 Start Date: 12/19/15 Stop Date: 12/19/15 Status: Discontinued ondansetron 4 mg, 1 tab, Route: PO, Drug form: TAB, Q8H, Dosing Weight 90.909, kg, PRN Nause a & Vomiting, Start date: 12/18/15 15:05:00, Duration: 30 day, Stop date: 01/17/16 15:04:00 Notes: (Same as: Zofran) Start Date: 12/18/15 Stop Date: 12/18/15 Status: Discontinued Plavix 75 mg, 1 tab, Route: PO, Drug form: TAB, Daily, Dosing Weight 90.909, kg, Start date: 12/19/15 9:00:00, Duration: 30 day, Stop date: 01/17/16 9:00:00 Notes: (Same As: Plavix) Start Date: 12/19/15 Stop Date: 12/19/15 Status: Discontinued Plavix 75 mg oral tablet 75 mg=1 tab, PO, Daily, 0 Refill(s) Start Date: 12/18/15 Status: Ordered Saline Flush 0.9% 10 mL, Route: IVP, Drug Form: INJ, Dosing Weight 90.909, kg, PRN, PRN Line Flush , Start date: 12/18/15 12:03:00, Duration: 30 day, Stop date: 01/17/16 12:02:00 Notes: (Same as: BD Posiflush) Start Date: 12/18/15 Stop Date: 12/19/15 Status: Discontinued Saline Flush 0.9% 10 ml, Route: IVP, Drug Form: INJ, Dosing Weight 90.909, kg, PRN, PRN Line Flush , Start date: 12/18/15 15:05:00, Duration: 30 day, Stop date: 01/17/16 15:04:00 Notes: (Same as: BD Posiflush) Start Date: 12/18/15 Stop Date: 12/19/15 Status: Discontinued Saline Flush 0.9% 10 ml, Route: IVP, Drug Form: INJ, Dosing Weight 90.909, kg, Q12H, Start date: 0 12/18/15 21:00:00, Duration: 30 day, Stop date: 01/17/16 9:00:00 Notes: (Same as: BD Posiflush) Start Date: 12/18/15 Stop Date: 12/19/15 Status: Discontinued simvastatin 40 mg, 1 tab, Route: PO, Drug form: TAB, Daily, Dosing Weight 90.909, kg, Start date: 12/19/15 9:00:00, Duration: 30 day, Stop date: 01/17/16 9:00:00 Notes: (Same as: Zocor) Start Date: 12/19/15 Stop Date: 12/19/15 Status: Discontinued Sodium Chloride 0.9% (Bolus) IV 250 mL, 250 ml/hr, Infuse Over: 1 hr, Route: IV, 250, Drug form: INJ, ONCALL, Pr iority: Routine, Dosing Weight 90.909 kg, Start date: 12/18/15 18:00:00, Duratio n: 1 doses or times Start Date: 12/18/15 Stop Date: 12/19/15 Status: Discontinued Sodium Chloride 0.9% IV 250 mL 250 mL, Rate: 1 ml/hr, Infuse over: 250 hr, Route: IV, Dosing Weight 90.909 kg, Total Volume: 250, Start date: 12/19/15 11:53:00, Duration: 1 doses or times, St op date: 12/29/15 21:52:00 Start Date: 12/19/15 Stop Date: 12/19/15 Status: Discontinued Sodium Chloride 0.9% IV 750 mL 750 mL, Rate: 75 ml/hr, Infuse over: 10 hr, Route: IV, Dosing Weight 90.909 kg, Total Volume: 750, Start date: 12/18/15 17:20:00, Duration: 10 hr, Stop date: 3:19:00 Start Date: 12/18/15 Stop Date: 12/19/15 Status: Completed Results ELECTROLYTES 1 2 3 Most recent to oldest [Reference Range]: 135 mEq/L (12/18/15 12:04 PM) Sodium Lvl [135-145 mEq/L] 4.7 mEq/L (12/18/15 12:04 PM) Potassium Lvl [3.5-5.1 mEq/L] 107 mEq/L (12/18/15 12:04 PM) Chloride Lvl [95-109 mEq/L] 21 mEq/L *LOW* (12/18/15 12:04 PM) CO2 [24-32 mEq/L] 11.7 mEq/L (12/18/15 12:04 PM) AGAP [10.0-20.0 mEq/L] CHEM PANEL 1 2 3 Most recent to oldest [Reference Range]: 1.34 mg/dL (12/19/15 12:35 AM) 1.45 mg/dL *HI* (12/18/15 12:04 PM) Creatinine Lvl [0.50-1.40 mg/dL] 49 mL/min/1.73m2 1 *NA* (12/19/15 12:35 AM) 45 mL/min/1.73m2 2 *NA* (12/18/15 12:04 PM) eGFR 28 mg/dL *HI* (12/18/15 12:04 PM) BUN [7-22 mg/dL] 19 (12/18/15 12:04 PM) B/C Ratio [6-25] 94 mg/dL (12/18/15 12:04 PM) Glucose Lvl [70-99 mg/dL] 7.7 g/dL (12/18/15 12:04 PM) Total Protein [6.4-8.4 g/dL] 3.8 g/dL (12/18/15 12:04 PM) Albumin Lvl [3.5-5.0 g/dL] 3.9 g/dL (12/18/15 12:04 PM) Globulin [2.0-4.0 g/dL] 1.0 (12/18/15 12:04 PM) A/G Ratio [0.7-1.6] 8.8 mg/dL (12/18/15 12:04 PM) Calcium Lvl [8.5-10.5 mg/dL] 20 unit/L (12/18/15 12:04 PM) ALT [0-65 unit/L] 13 unit/L (12/18/15 12:04 PM) AST [0-37 unit/L] 62 unit/L (12/18/15 12:04 PM) Alk Phos [39-136 unit/L] 0.4 mg/dL (12/18/15 12:04 PM) Bili Total [0.2-1.3 mg/dL] 1Result Comment: [...] 3 Most recent to oldest [Reference Range]: 62 unit/L (12/19/15 12:35 AM) 65 unit/L (12/18/15 6:21 PM) 78 unit/L (12/18/15 12:04 PM) Total CK [12-191 unit/L] 1.5 ng/mL (12/18/15 12:04 PM) CK MB [0.5-3.6 ng/mL] 1.9 (12/18/15 12:04 PM) CK MB Index [0.0-2.5] <0.02 ng/mL (12/19/15 12:35 AM) <0.02 ng/mL (12/18/15 6:21 PM) <0.02 ng/mL (12/18/15 12:04 PM) Troponin-I [0.00-0.40 ng/mL] LIPIDS 1 2 3 Most recent to oldest [Reference Range]: 4.27 (12/19/15 4:55 AM) CHD Risk [4.00-7.30] 128 mg/dL (12/19/15 4:55 AM) Chol [<=199 mg/dL] 164 mg/dL *HI* (12/19/15 4:55 AM) Trig [<=149 mg/dL] 30 mg/dL *LOW* (12/19/15 4:55 AM) HDL [>=61 mg/dL] 65 mg/dL (12/19/15 4:55 AM) LDL (Calculated) [<=99 mg/dL] 33 *NA* (12/19/15 4:55 AM) VLDL HEMATOLOGY 1 2 3 Most recent to oldest [Reference Range]: 6.8 K/CMM (12/18/15 12:04 PM) WBC [3.7-10.4 K/CMM] 4.89 M/CMM (12/18/15 12:04 PM) RBC [4.70-6.10 M/CMM] 15.0 g/dL (12/18/15 12:04 PM) Hgb [14.0-18.0 g/dL] 45.0 % (12/18/15 12:04 PM) Hct [42.0-54.0 %] 92.1 fL (12/18/15 12:04 PM) MCV [80.0-94.0 fL] 30.6 pg (12/18/15 12:04 PM) MCH [27.0-31.0 pg] 33.2 g/dL (12/18/15 12:04 PM) MCHC [32.0-36.0 g/dL] 14.2 % (12/18/15 12:04 PM) RDW [11.5-14.5 %] 195 K/CMM (12/19/15 12:35 AM) 235 K/CMM (12/18/15 12:04 PM) Platelet [133-450 K/CMM] 8.7 fL (12/18/15 12:04 PM) MPV [7.4-10.4 fL] 74.3 % (3/23/16 12:04 PM) Segs [45.0-75.0 %] 14.7 % *LOW* (12/18/15 12:04 PM) Lymphocytes [20.0-40.0 %] 9.5 % (12/18/15 12:04 PM) Monocytes [2.0-12.0 %] 0.9 % (12/18/15 12:04 PM) Eosinophils [0.0-4.0 %] 0.6 % (12/18/15 12:04 PM) Basophils [0.0-1.0 %] 5.1 K/CMM (12/18/15 12:04 PM) Segs-Bands # [1.5-8.1 K/CMM] 1.0 K/CMM (12/18/15 12:04 PM) Lymphocytes # [1.0-5.5 K/CMM] 0.6 K/CMM (12/18/15 12:04 PM) Monocytes # [0.0-0.8 K/CMM] 0.1 K/CMM (12/18/15 12:04 PM) Eosinophils # [0.0-0.5 K/CMM] 13.8 seconds (12/18/15 12:04 PM) PT [12.0-14.7 seconds] 1.03 (12/18/15 12:04 PM) INR [0.85-1.17] 29.6 seconds (12/18/15 12:04 PM) PTT [22.9-35.8 seconds] Immunizations No data available for this section [...] Plan Extracted from: Title: Clinical Document Author: Reed Plaza MD Date: 12/19/15 The patient is doing well. Cardiac catheterization was done as scheduled and the patient did not require any coronary intervention. Will discharge today after completing bed rest. Discharge meds: no new prescriptions Discharge activity: regular but avoid stress to the groin Discharge diet: heart healthy Follow up: in 4 weeks
--- OUTSIDE RECORDS SUMMARY | 2019-03-05 07:32 | XMS REPORT | Summary of Care ---
Author Author [facility] Organization [facility] Address Unknown Phone Unavailable Encounter HQ Ya(LOLA) [id number] Date(s): 08/08/15 - 08/08/15 [facility] [address] [place] [address]- Discharge Disposition: Home Attending Physician: Teresa Abdullahi DO Admitting Physician: Teresa Abdullahi DO Vital Signs No data available for this section Problem List Condition Effective Dates Status Health Status Informant Anemia(Confirmed) Active Benign bladder Active tumor(Confirmed) CAD (coronary artery Active disease)(Confirmed) Cancer of Resolved colon(Confirmed) Cancer of Active colon(Confirmed) CHF - Congestive Active heart failure(Confirmed) Hematuria(Confirmed) Active HTN - Active Hypertension(Confirm ed) [place] - Myocardial < 09/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 ) [...]
--- OUTSIDE RECORDS SUMMARY | 2019-03-05 07:32 | XMS REPORT ---
Author Author Reed Plaza Organization [employer] Address Unknown Phone Unavailable Care Team Providers Care Project Admin Name Role Phone Reed Plaza CP Unavailable Allergies, Adverse Reactions, Alerts Substance Reaction Event Type penicillin Info Not Available Drug Allergy Amiodarone HCl Info Not Available Drug Allergy Problems Problem Type Condition Code Onset Dates Condition Status Assessment Malignant neoplasm of ascending colon C18.2 Active Assessment Malignant neoplasm of bladder, unspecified C67.9 Active Assessment Chronic kidney disease, unspecified N18.9 Active Assessment Pulmonary hypertension, secondary I27.2 Active Assessment Mixed hyperlipidemia E78.2 Active Assessment Ventricular premature depolarization I49.3 Active Assessment Peripheral vascular disease, unspecified I73.9 Active Problem Malignant neoplasm of bladder, unspecified C67.9 Active Assessment Coronary angioplasty status Z98.61 Active Problem Malignant neoplasm of ascending colon C18.2 Active Assessment Old myocardial infarction I25.2 Active Problem Chronic kidney disease, unspecified N18.9 Active Problem Mixed hyperlipidemia E78.2 Active Problem Pulmonary hypertension, secondary I27.2 Active Problem Atherosclerotic heart disease of [place] coronary artery with unspecified angina pectoris I25.119 Active Problem Atherosclerotic heart disease of [place] coronary artery without angina pectoris I25.10 Active Problem Mixed hyperlipidemia 272.2 Active Assessment Atherosclerotic heart disease of [place] coronary artery with unspecified angina pectoris I25.119 Active Problem Bradycardia, unspecified R00.1 Active Assessment Bradycardia, unspecified R00.1 Active Problem Peripheral vascular disease, unspecified I73.9 Active Problem Ventricular premature depolarization I49.3 Active Problem Old myocardial infarction I25.2 Active Problem Coronary angioplasty status Z98.61 Active Problem Other premature beats 427.69 Active Problem Peripheral vascular disease 443.9 Active Problem Chronic kidney disease, unspecified 585.9 Active Problem Malignant neoplasm of ascending colon 153.6 Active Problem Coronary atherosclerosis of [place] coronary artery 414.01 Active Problem Malignant neoplasm of bladder, part unspecified 188.9 Active Problem Postprocedural PCI status V45.82 Active Problem Old myocardial infarction 412 Active Medications Medication Code System Code Instructions Start Date End Date Status Dosage Clopidogrel Bisulfate [facility][NOTE 2] [address]-89 75 mg Orally Once a day December 17, 2015 Active 1 tablet Lisinopril [facility][NOTE 2] [address]-90 20 PO every day (qd) Active 1 tablet Opdivo [facility][NOTE 2] [address]-59 100 MG/10ML Intravenous Active not defined Simvastatin [facility][NOTE 2] [address]-74 40 PO once every night Active 1 tablet Aspirin [facility][NOTE 2] 27783-06157 81 MG Orally Once a day Active 1 tablet Vital Signs Date/Time: February 01, 2017 BMI 27.12 Index Weight 200 lbs Height 6ft in Cardiac Monitoring Heart Rate 64 /min Blood Pressure Diastolic 61 mm Hg Blood Pressure Systolic 160 mm Hg Results No Known Results Summary Purpose [employer] Submission
--- OUTSIDE RECORDS SUMMARY | 2019-03-05 07:32 | XMS REPORT | Summary of Care ---
Author Author [facility] Organization [facility] Address Unknown Phone Unavailable Encounter CAROLYN Pandya(LOLA) [id number] Date(s): 11/28/16 - 11/28/16 [facility] [address] [place] [address]- Discharge Disposition: Home or Self Care Attending Physician: Teresa Abdullahi DO Referring Physician: Teresa Abdullahi DO Vital Signs No data available for this section Problem List Condition Effective Dates Status Health Status Informant Anemia(Confirmed) Active Benign bladder Active tumor(Confirmed) CAD (coronary artery Active disease)(Confirmed) Cancer of Resolved colon(Confirmed) Cancer of Active colon(Confirmed) CHF - Congestive Active heart failure(Confirmed) 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
--- OUTSIDE RECORDS SUMMARY | 2019-03-05 07:32 | XMS REPORT | Summary of Care ---
Author Author [facility] Organization [facility] Address Unknown Phone Unavailable Encounter HQ Ya(FIN) [id number] Date(s): 10/14/15 - 10/14/15 [facility] [address] [place] [address]- [phone] Discharge Disposition: Home Attending Physician: Jeff Menodza MD Referring Physician: Jeff Mendoza MD Vital Signs No data available for this section Problem List Condition Effective Dates Status Health Status Informant Anemia(Confirmed) Active Benign bladder Active tumor(Confirmed) CAD (coronary artery Active disease)(Confirmed) Cancer of Resolved colon(Confirmed) Cancer of Active colon(Confirmed) CHF - Congestive Active heart failure(Confirmed) Hematuria(Confirmed) Active HTN - Active Hypertension(Confirm ed) [place] - Myocardial < 09/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 [...]
--- OUTSIDE RECORDS SUMMARY | 2019-03-05 07:32 | XMS REPORT | Summary of Care ---
Author Author [facility] Organization [facility] Address Unknown Phone Unavailable Encounter CAROLYN Pandya(LOLA) [id number] Date(s): 08/27/16 - 08/27/16 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
--- OUTSIDE RECORDS SUMMARY | 2019-03-05 07:32 | XMS REPORT | Summary of Care ---
Author Author [facility] Organization [facility] Address Unknown Phone Unavailable Encounter CAROLYN Pandya(LOLA) [id number] Date(s): 06/30/16 - 06/30/16 [facility] [address] [place] [address]- Discharge Disposition: Home or Self Care Attending Physician: Bal Magallanes MD Referring Physician: Bal Magallanes MD Vital Signs 1 2 3 Most recent to oldest [Reference Range]: 182.88 cm (06/25/16 12:02 PM) Height 98.1 DegF (06/25/16 12:32 PM) Temperature Oral [96.4-99.1 DegF] 131/52 mmHg (06/30/16 10:00 AM) 91/75 mmHg (06/30/16 9:30 AM) 134/56 mmHg (06/30/16 9:15 AM) Blood Pressure [90-140/60-90 mmHg] 12 BRMIN *LOW* (06/30/16 9:15 AM) 11 BRMIN *LOW* (06/30/16 9:00 AM) 12 BRMIN *LOW* (06/30/16 8:45 AM) Respiratory Rate [14-20 BRMIN] 56 bpm *LOW* (06/30/16 6:30 AM) 55 bpm *LOW* (06/25/16 12:32 PM) Peripheral Pulse Rate [60-100 bpm] 90.909 kg (06/25/16 12:02 PM) Weight 27.18 m2 (06/25/16 12:02 PM) Body Mass Index Problem List Condition Effective Dates Status Health Status Informant Anemia(Confirmed) Active Benign bladder Active tumor(Confirmed) CAD (coronary artery Active disease)(Confirmed) Cancer of Resolved colon(Confirmed) Cancer of Active colon(Confirmed) CHF - Congestive Active heart failure(Confirmed) 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) Hematuria(Confirmed) Resolved HTN - Active Hypertension(Confirm ed) Bladder Active cancer(Confirmed) [place] - Myocardial < 09/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 ) Allergies, Adverse Reactions, Alerts Substance Reaction Severity Status Pacerone Active penicillins Active Medications albuterol-ipratropium 2.5-0.5 mg inhalation solution 3 mL, NEB, ONCE, 0 Refill(s) Start Date: 06/30/16 Status: Ordered albuterol-ipratropium 2.5-0.5 mg inhalation solution 3 mL, Route: NEB, Drug Form: SOLN, Dosing Weight 90.909, kg, ONCE, STAT, Start d ate: 06/30/16 6:48:00 CDT, Stop date: 06/30/16 6:48:00 CDT Notes: (Same as: Obi) Start Date: 06/30/16 Stop Date: 06/30/16 Status: Ordered Colace 100 mg oral capsule 100 mg=1 cap, PO, BID, PRN Constipation, # 20 cap, 0 Refill(s) Start Date: 06/30/16 Status: Ordered famotidine (ANES) Route: IV, Drug form: INJ, ONCE, Stop date: 06/30/16 8:44:00 CDT Start Date: 06/30/16 Stop Date: 06/30/16 Status: Completed fentaNYL (ANES) Route: IV, Drug form: INJ, ONCE, Stop date: 06/30/16 8:39:00 CDT Start Date: 06/30/16 Stop Date: 06/30/16 Status: Completed Lactated Ringers 1,000 mL 1,000 mL, Rate: 25 ml/hr, Infuse over: 40 hr, Route: IV, Dosing Weight 90.909 kg , Total Volume: 1,000, Start date: 06/30/16 6:48:00 CDT, Duration: 1 day, Stop d ate: 07/01/16 6:47:00 CDT Start Date: 06/30/16 Stop Date: 06/30/16 Status: Discontinued lidocaine (ANES) Route: IV, Drug form: INJ, ONCE, Stop date: 06/30/16 8:39:00 CDT Start Date: 06/30/16 Stop Date: 06/30/16 Status: Completed LR 1000 mL INJ (ANES) Route: IV, Total Volume: 1,000, Start date: 06/30/16 7:30:00 CDT, Stop date: 01/10 8:30:00 CDT Start Date: 06/30/16 Stop Date: 06/30/16 Status: Completed metoclopramide (ANES) Route: IV, Drug form: INJ, ONCE, Stop date: 06/30/16 8:44:00 CDT Start Date: 06/30/16 Stop Date: 06/30/16 Status: Completed midazolam (ANES) Route: IV, Drug form: SOLN, ONCE, Stop date: 06/30/16 8:39:00 CDT Start Date: 06/30/16 Stop Date: 06/30/16 Status: Completed ondansetron (ANES) Route: IV, Drug form: INJ, ONCE, Stop date: 06/30/16 8:44:00 CDT Start Date: 06/30/16 Stop Date: 06/30/16 Status: Completed propofol (ANES) Route: IV, Drug form: INJ, ONCE, Stop date: 06/30/16 8:39:00 CDT Start Date: 06/30/16 Stop Date: 06/30/16 Status: Completed sodium chloride 0.9% 500 ml INJ 500 mL 500 mL, Rate: 25 ml/hr, Infuse over: 20 hr, Route: IV, Dosing Weight 90.909 kg, Total Volume: 500, Start date: 06/30/16 6:48:00 CDT, Duration: 1 day, Stop date: 07/01/16 6:47:00 CDT Start Date: 06/30/16 Stop Date: 06/30/16 Status: Discontinued Tylenol with Codeine #3 oral tablet 1 tab, PO, Q6H, PRN pain, X 7 day, # 28 tab, 0 Refill(s) Start Date: 06/30/16 Stop Date: 07/07/16 Status: Ordered vancomycin (ANES) (ANES) Route: IV, Drug form: INJ, Start date: 06/30/16 7:30:00 CDT, Stop date: 06/30/16 8:30:00 CDT Start Date: 06/30/16 Stop Date: 06/30/16 Status: Completed Results ELECTROLYTES Most recent to 1 oldest [Reference Range]: Sodium Lvl [135-145 137 mEq/L mEq/L] (06/25/16 12:14 PM) Potassium Lvl 4.6 mEq/L [3.5-5.1 mEq/L] (06/25/16 12:14 PM) Chloride Lvl [95-109 106 mEq/L mEq/L] (06/25/16 12:14 PM) CO2 [24-32 mEq/L] 26 mEq/L (06/25/16 12:14 PM) AGAP [10.0-20.0 9.6 mEq/L mEq/L] *LOW* (06/25/16 12:14 PM) CHEM PANEL Most recent to 1 oldest [Reference Range]: Creatinine Lvl 1.44 mg/dL [0.50-1.40 mg/dL] *HI* (06/25/16 12:14 PM) eGFR 45 mL/min/1.73m2 1 *NA* (06/25/16 12:14 PM) BUN [7-22 mg/dL] 28 mg/dL *HI* (06/25/16 12:14 PM) B/C Ratio [6-25] 19 (06/25/16 12:14 PM) Glucose Lvl [70-99 99 mg/dL mg/dL] (06/25/16 12:14 PM) Total Protein 8.0 g/dL [6.4-8.4 g/dL] (06/25/16 12:14 PM) Albumin Lvl [3.5-5.0 3.8 g/dL g/dL] (06/25/16 12:14 PM) Globulin [2.7-4.2 4.2 g/dL g/dL] (06/25/16 12:14 PM) A/G Ratio [0.7-1.6] 0.9 (06/25/16 12:14 PM) Calcium Lvl 8.9 mg/dL [8.5-10.5 mg/dL] (06/25/16 12:14 PM) ALT [0-65 unit/L] 15 unit/L (06/25/16 12:14 PM) AST [0-37 unit/L] 14 unit/L (06/25/16 12:14 PM) Alk Phos [39-136 60 unit/L unit/L] (06/25/16 12:14 PM) Bili Total [0.2-1.3 0.2 mg/dL mg/dL] (06/25/16 12:14 PM) 1Result Comment: The eGFR is calculated [...] 1 oldest [Reference Range]: WBC [3.7-10.4 K/CMM] 5.3 K/CMM (06/25/16 12:14 PM) RBC [4.70-6.10 4.55 M/CMM M/CMM] *LOW* (06/25/16 12:14 PM) Hgb [14.0-18.0 g/dL] 13.7 g/dL *LOW* (06/25/16 12:14 PM) Hct [42.0-54.0 %] 40.6 % *LOW* (06/25/16 12:14 PM) MCV [80.0-94.0 fL] 89.1 fL (06/25/16 12:14 PM) MCH [27.0-31.0 pg] 30.1 pg (06/25/16 12:14 PM) MCHC [32.0-36.0 33.8 g/dL g/dL] (06/25/16 12:14 PM) RDW [11.5-14.5 %] 14.7 % *HI* (06/25/16 12:14 PM) Platelet [133-450 217 K/CMM K/CMM] (06/25/16 12:14 PM) MPV [7.4-10.4 fL] 8.7 fL (06/25/16 12:14 PM) Segs [45.0-75.0 %] 68.5 % (06/25/16 12:14 PM) Lymphocytes 19.3 % [20.0-40.0 %] *LOW* (06/25/16 12:14 PM) Monocytes [2.0-12.0 9.3 % %] (06/25/16 12:14 PM) Eosinophils [0.0-4.0 2.3 % %] (06/25/16 12:14 PM) Basophils [0.0-1.0 0.6 % %] (06/25/16 12:14 PM) Segs-Bands # 3.6 K/CMM [1.5-8.1 K/CMM] (06/25/16 12:14 PM) Lymphocytes # 1.0 K/CMM [1.0-5.5 K/CMM] (06/25/16 12:14 PM) Monocytes # [0.0-0.8 0.5 K/CMM K/CMM] (06/25/16 12:14 PM) Eosinophils # 0.1 K/CMM [0.0-0.5 K/CMM] (06/25/16 12:14 PM) Immunizations No data available for this section Procedures Procedure Date Related Diagnosis Body Site Insertion of tunneled centrally inserted 06/30/16 central venous access device, with subcutaneous port; age 5 years or older Biopsy of bladder Cardiac catheterization1 Colostomy Cystoscopy [...]
--- OUTSIDE RECORDS SUMMARY | 2019-03-05 07:32 | XMS REPORT | Summary of Care ---
Author Author [facility] Organization [facility] Address Unknown Phone Unavailable Encounter HQ Ya(FIN) [id number] Date(s): 06/17/15 - 06/17/15 [facility] [address] [place] [address]- Discharge Disposition: Home Attending Physician: Jeff Mendoza MD Referring Physician: Jeff Mendoza MD Vital Signs No data available for this section Problem List Condition Effective Dates Status Health Status Informant Anemia(Confirmed) Active Benign bladder Active tumor(Confirmed) CAD (coronary artery Active disease)(Confirmed) Cancer of Resolved colon(Confirmed) Cancer of Active colon(Confirmed) CHF - Congestive Active heart failure(Confirmed) Hematuria(Confirmed) Active HTN - Active Hypertension(Confirm ed) [place] - Myocardial < 09/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 [...]
--- OUTSIDE RECORDS SUMMARY | 2019-03-05 07:32 | XMS REPORT | Summary of Care ---
Author Organization Unknown Address Unknown Phone Unavailable Encounter HQ Carlos A_tegan(LOLA) [id number] Date(s): 02/26/15 - 02/26/15 [facility] [address] [place] [address]- Discharge Disposition: Home Physician Attending: Jeff Mendoza MD Physician_Referring: Jeff Mendoza MD Vital Signs No data available for this section Problem List Condition Effective Dates Status Health Status Informant Anemia(Confirmed) Active Benign bladder Active tumor(Confirmed) CAD (coronary artery Active disease)(Confirmed) Cancer of Resolved colon(Confirmed) Cancer of Active colon(Confirmed) CHF - Congestive Active heart failure(Confirmed) Hematuria(Confirmed) Active HTN - Active Hypertension(Confirm ed) [place] - Myocardial < 09/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 ) [...]
--- OUTSIDE RECORDS SUMMARY | 2019-03-05 07:33 | XMS REPORT ---
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 Active Assessment Ventricular premature depolarization I49.3 Active Assessment Old myocardial infarction I25.2 Active Assessment Coronary angioplasty status Z98.61 Active Assessment Presence of cardiac pacemaker Z95.0 Active Assessment Atherosclerotic heart disease of [place] coronary artery with unspecified angina pectoris I25.119 Active Assessment Sick sinus syndrome I49.5 Active Assessment Paroxysmal atrial fibrillation I48.0 Active Problem Malignant neoplasm of ascending colon 153.6 Active Problem Mixed hyperlipidemia E78.2 Active Problem Postprocedural PCI status V45.82 Active Problem Malignant neoplasm of bladder, unspecified C67.9 Active Problem Chronic kidney disease, unspecified 585.9 Active Problem Malignant neoplasm of ascending colon C18.2 Active Problem Old myocardial infarction I25.2 Active Problem Ventricular premature depolarization I49.3 Active Problem Chronic kidney disease, stage 3 (moderate) N18.3 Active Problem Presence of cardiac pacemaker Z95.0 Active Problem Old myocardial infarction 412 Active Problem Coronary atherosclerosis of [place] coronary artery 414.01 Active Problem Unspecified atherosclerosis of [place] arteries of extremities, 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 Active Problem Other premature beats 427.69 Active Problem Bradycardia, unspecified R00.1 Active Problem Atherosclerotic heart disease of [place] coronary artery with unspecified angina pectoris I25.119 Active Problem Paroxysmal atrial fibrillation I48.0 Active Problem Sick sinus syndrome I49.5 Active Assessment Pulmonary hypertension, secondary I27.2 Active Problem Malignant neoplasm of bladder, part unspecified 188.9 Active Assessment Mixed hyperlipidemia E78.2 Active Problem Coronary angioplasty status Z98.61 Active Assessment Malignant neoplasm of ascending colon C18.2 Active Problem Peripheral vascular disease 443.9 Active Assessment Chronic kidney disease, stage 3 (moderate) N18.3 Active Problem Mixed hyperlipidemia 272.2 Active Problem Atherosclerotic heart disease of [place] coronary artery without angina pectoris I25.10 Active Assessment Malignant neoplasm of bladder, unspecified C67.9 Active Problem Chronic kidney disease, unspecified N18.9 Active Problem Pulmonary hypertension, secondary I27.2 Active Problem Peripheral vascular disease, unspecified I73.9 Active Medications Medication Code System Code Instructions Start Date End Date Status Dosage Warfarin Sodium [facility] 64790299931 5 MG Orally Once a day Jun 28, 2017 Inactive 1 tablet Opdivo [facility] 30955144145 100 MG/10ML Intravenous Active not defined Lisinopril [facility] [address]-60 20 PO every day (qd) Active 1 tablet Clopidogrel Bisulfate [facility] 72499996794 75 MG Orally Once a day December 17, 2015 Jun 28, 2017 Inactive 1 tablet Aspirin [facility] 02761081022 81 MG Orally Once a day Active 1 tablet Simvastatin [facility] [address]-13 40 PO once every night Active 1 tablet Eliquis [facility] 74390669091 5 MG Orally twice a day (bid) Jun 28, 2017 Active 1 tablet Metoprolol Tartrate [facility] 27612783623 25 MG Orally Twice a day Active 1 tablet with food Vital Signs Date/Time: Jun 28, 2017 BMI 28.21 Index Weight 208 lbs Height 72in in Cardiac Monitoring Heart Rate 61 /min Blood Pressure Diastolic 62 mm Hg Blood Pressure Systolic 134 mm Hg Results No Known Results Summary Purpose [employer] Submission
--- OUTSIDE RECORDS SUMMARY | 2019-03-05 07:33 | XMS REPORT ---
Author Author Reed Plaza Organization [employer] Address Unknown Phone Unavailable Care Team Providers Care Electrical Instrument Maker Name Role Phone Reed Plaza CP Unavailable Allergies No Known Allergies Problems Problem Type Condition Code Onset Dates Condition Status Problem Malignant neoplasm of ascending colon 153.6 [...] infarction 412 Active Problem Coronary atherosclerosis of [place] coronary artery 414.01 Active Problem Unspecified atherosclerosis of [place] arteries of extremities, 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 Active Problem Other premature beats 427.69 Active Problem Bradycardia, unspecified R00.1 Active Problem Atherosclerotic heart disease of [place] coronary artery with unspecified angina pectoris I25.119 Active Problem Paroxysmal atrial fibrillation I48.0 Active Problem Sick sinus syndrome I49.5 Active Problem Malignant neoplasm of bladder, part unspecified 188.9 Active Problem Coronary angioplasty status Z98.61 Active Problem Peripheral vascular disease 443.9 Active Problem Mixed hyperlipidemia 272.2 Active Problem Atherosclerotic heart disease of [place] coronary artery without angina pectoris I25.10 Active Problem Chronic kidney disease, unspecified N18.9 Active Problem Pulmonary hypertension, secondary I27.2 Active Problem Peripheral vascular disease, unspecified I73.9 Active Medications Medication Code System Code Instructions Start Date End Date Status Dosage Opdivo [facility] 31165336167 100 MG/10ML Intravenous Active not defined Eliquis [facility] 27862488192 5 MG Orally twice a day (bid) Jun 28, 2017 Active 1 tablet Simvastatin [facility] [address]-54 40 PO once every night Active 1 tablet Metoprolol Tartrate [facility] 91804363608 50 MG Orally Twice a day Active 1 tablet Lisinopril [facility] [address]-21 20 PO every day (qd) Active 1 tablet Results No Known Results Summary Purpose [employer] Submission
--- OUTSIDE RECORDS SUMMARY | 2019-03-05 07:33 | XMS REPORT ---
Author Author Reed Plaza Organization [employer] Address Unknown Phone Unavailable Care Team Providers Care Lining Stamper Name Role Phone Reed Plaza CP Unavailable Allergies No Known Allergies Problems Problem Type Condition Code Onset Dates Condition Status Assessment Presence of cardiac pacemaker Z95.0 Active Problem Presence of cardiac pacemaker Z95.0 Active Problem Malignant neoplasm of ascending colon [...] infarction 412 Active Problem Coronary atherosclerosis of [place] coronary artery 414.01 Active Problem Unspecified atherosclerosis of [place] arteries of extremities, 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 Active Problem Other premature beats 427.69 Active Problem Bradycardia, unspecified R00.1 Active Problem Atherosclerotic heart disease of [place] coronary artery with unspecified angina pectoris I25.119 Active Problem Paroxysmal atrial fibrillation I48.0 Active Problem Sick sinus syndrome I49.5 Active Problem Malignant neoplasm of bladder, part unspecified 188.9 Active Problem Peripheral vascular disease, unspecified I73.9 Active Problem Peripheral vascular disease 443.9 Active Problem Mixed hyperlipidemia 272.2 Active Problem Pulmonary hypertension, secondary I27.2 Active Problem Chronic kidney disease, unspecified N18.9 Active Problem Atherosclerotic heart disease of [place] coronary artery without angina pectoris I25.10 Active Problem Coronary angioplasty status Z98.61 Active Medications Medication Code System Code Instructions Start Date End Date Status Dosage Opdivo [facility] 04098831666 100 MG/10ML Intravenous Active not defined Metoprolol Tartrate [facility] 08245096502 50 mg Orally Twice a day Active 1 tablet Lisinopril [facility] [address]-10 20 PO every day (qd) Active 1 tablet Eliquis [facility] 34150068021 5 MG Orally twice a day (bid) Jun 28, 2017 Active 1 tablet Simvastatin [facility] [address]-46 40 PO once every night Active 1 tablet Results No Known Results Summary Purpose [employer] Submission
--- OUTSIDE RECORDS SUMMARY | 2019-03-05 07:33 | XMS REPORT ---
Author Author Reed Plaza Organization [employer] Address Unknown Phone Unavailable Care Team Providers Care Support Engineer Name Role Phone Reed Plaza CP Unavailable Allergies No Known Allergies Problems Problem Type Condition Code Onset Dates Condition Status Problem Presence of cardiac pacemaker Z95.0 Active Problem Malignant neoplasm of ascending colon 153.6 Active Problem Postprocedural PCI status V45.82 Active Problem Mixed hyperlipidemia E78.2 Active Problem Malignant neoplasm of bladder, unspecified C67.9 Active Problem Chronic kidney disease, unspecified 585.9 Active Problem Malignant neoplasm of ascending colon C18.2 Active Problem Old myocardial infarction I25.2 Active Problem Ventricular premature depolarization I49.3 Active Problem Chronic kidney disease, stage 3 (moderate) N18.3 Active Problem Presence of cardiac pacemaker Z95.0 Active Problem Old myocardial infarction 412 Active Problem Coronary atherosclerosis of [place] coronary artery 414.01 Active Problem Unspecified atherosclerosis of [place] arteries of extremities, 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 Active Problem Other premature beats 427.69 Active Problem Bradycardia, unspecified R00.1 Active Problem Atherosclerotic heart disease of [place] coronary artery with unspecified angina pectoris I25.119 [...] N18.9 Active Problem Atherosclerotic heart disease of [place] coronary artery without angina pectoris I25.10 Active Problem Coronary angioplasty status Z98.61 Active Medications Medication Code System Code Instructions Start Date End Date Status Dosage Plavix [facility] 76461717135 75 mg Orally Once a day February 23, 2019 Active 1 tablet Results No Known Results Summary Purpose [employer] Submission
--- OUTSIDE RECORDS SUMMARY | 2019-03-05 07:33 | XMS REPORT ---
Author Author Reed Plaza Organization [employer] Address Unknown Phone Unavailable Care Team Providers Care Muck Miner Name Role Phone Reed Plaza CP Unavailable Allergies No Known Allergies Problems Problem Type Condition Code Onset Dates Condition Status Problem Chronic kidney disease, unspecified N18.9 Active Problem Mixed hyperlipidemia E78.2 Active Problem Pulmonary hypertension, secondary I27.2 Active Problem Atherosclerotic heart disease of [place] coronary artery with unspecified angina pectoris I25.119 Active Problem Mixed hyperlipidemia 272.2 Active Problem Atherosclerotic heart disease of [place] coronary artery without angina pectoris I25.10 Active Problem Bradycardia, unspecified R00.1 Active Problem Peripheral vascular disease, unspecified I73.9 Active Problem Ventricular premature depolarization I49.3 Active Problem Old myocardial infarction I25.2 Active Problem Coronary angioplasty status Z98.61 Active Problem Other premature beats 427.69 Active Problem Peripheral vascular disease 443.9 Active Problem Chronic kidney disease, unspecified 585.9 Active Problem Malignant neoplasm of ascending colon 153.6 Active Problem Coronary atherosclerosis of [place] coronary artery 414.01 Active Problem Malignant neoplasm of bladder, part unspecified 188.9 Active Problem Postprocedural PCI status V45.82 Active Problem Malignant neoplasm of bladder, unspecified C67.9 Active Problem Old myocardial infarction 412 Active Problem Malignant neoplasm of ascending colon C18.2 Active Medications Medication Code System Code Instructions Start Date End Date Status Dosage Clopidogrel Bisulfate [facility] [address]-82 75 MG Orally Once a day December 17, 2015 Active 1 tablet Results No Known Results Summary Purpose [employer] Submission
--- OUTSIDE RECORDS SUMMARY | 2019-03-05 07:33 | XMS REPORT ---
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 Active Problem Other premature beats 427.69 Active Problem Bradycardia, unspecified R00.1 Active Problem Atherosclerotic heart disease of [place] coronary artery with unspecified angina pectoris I25.119 Active Problem Paroxysmal atrial fibrillation I48.0 Active Problem Sick sinus syndrome I49.5 Active Problem Malignant neoplasm of bladder, part unspecified 188.9 Active Problem Coronary angioplasty status Z98.61 Active Problem Peripheral vascular disease 443.9 Active Problem Mixed hyperlipidemia 272.2 Active Problem Atherosclerotic heart disease of [place] coronary artery without angina pectoris I25.10 Active Problem Chronic kidney disease, unspecified N18.9 Active Problem Pulmonary hypertension, secondary I27.2 Active Problem Peripheral vascular disease, unspecified I73.9 Active Medications Medication Code System Code Instructions Start Date End Date Status Dosage Simvastatin [facility] [address]-21 40 PO once every night Active 1 tablet Results No Known Results Summary Purpose [employer] Submission
--- OUTSIDE RECORDS SUMMARY | 2019-03-05 07:33 | XMS REPORT ---
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 Active Assessment Ventricular premature depolarization I49.3 Active Assessment Old myocardial infarction I25.2 Active Assessment Coronary angioplasty status Z98.61 Active Assessment Presence of cardiac pacemaker Z95.0 Active Assessment Atherosclerotic heart disease of [place] coronary artery with unspecified angina pectoris I25.119 [...] infarction 412 Active Problem Coronary atherosclerosis of [place] coronary artery 414.01 Active Problem Unspecified atherosclerosis of [place] arteries of extremities, 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 Active Problem Other premature beats 427.69 Active Problem Bradycardia, unspecified R00.1 Active Problem Atherosclerotic heart disease of [place] coronary artery with unspecified angina pectoris I25.119 [...] 272.2 Active Problem Atherosclerotic heart disease of [place] coronary artery without angina pectoris I25.10 Active Assessment Malignant neoplasm of bladder, unspecified C67.9 Active Problem Chronic kidney disease, unspecified N18.9 Active Problem Pulmonary hypertension, secondary I27.2 Active Problem Peripheral vascular disease, unspecified I73.9 Active Medications Medication Code System Code Instructions Start Date End Date Status Dosage Eliquis [facility] 47198323671 5 MG Orally twice a day (bid) Jun 28, 2017 Active 1 tablet Lisinopril [facility] [address]-42 20 PO every day (qd) Active 1 tablet Metoprolol Tartrate [facility] 22068035790 50 MG Orally Twice a day Active 1 tablet Opdivo [facility] 04819460866 100 MG/10ML Intravenous Active not defined Simvastatin [facility] [address]-43 40 PO once every night Active 1 tablet Vital Signs Date/Time: Jul 06, 2017 BMI 27.12 Index Weight 200 lbs Height 6ft 0in in Cardiac Monitoring Heart Rate 60 /min Blood Pressure Diastolic 60 mm Hg Blood Pressure Systolic 135 mm Hg Results No Known Results Summary Purpose [employer] Submission
--- OUTSIDE RECORDS SUMMARY | 2019-03-05 07:33 | XMS REPORT ---
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 Active Problem Other premature beats 427.69 Active Problem Bradycardia, unspecified R00.1 Active Problem Atherosclerotic heart disease of [place] coronary artery with unspecified angina pectoris I25.119 [...] N18.9 Active Problem Atherosclerotic heart disease of [place] coronary artery without angina pectoris I25.10 Active Problem Coronary angioplasty status Z98.61 Active Medications Medication Code System Code Instructions Start Date End Date Status Dosage Opdivo [facility] 58733304286 100 MG/10ML Intravenous Active not defined Metoprolol Tartrate [facility] 58800415529 50 mg Orally Twice a day Active 1 tablet Lisinopril [facility] [address]-84 20 PO every day (qd) Active 1 tablet Eliquis [facility] 60501448136 5 MG Orally twice a day (bid) Jun 28, 2017 Active 1 tablet Simvastatin [facility] [address]-74 40 PO once every night Active 1 tablet Results No Known Results Summary Purpose [employer] Submission
--- OUTSIDE RECORDS SUMMARY | 2019-03-05 07:33 | XMS REPORT ---
Author Author Reed Plaza Organization [employer] Address Unknown Phone Unavailable Care Team Providers Care Motion Picture Film Examiner Name Role Phone Reed Plaza CP Unavailable Allergies No Known Allergies Problems Problem Type Condition Code Onset Dates Condition Status Problem Chronic kidney disease, unspecified N18.9 Active Problem Mixed hyperlipidemia E78.2 Active Problem Pulmonary hypertension, secondary I27.2 Active Problem Atherosclerotic heart disease of [place] coronary artery with unspecified angina pectoris I25.119 Active Problem Mixed hyperlipidemia 272.2 Active Problem Atherosclerotic heart disease of [place] coronary artery without angina pectoris I25.10 Active [...] colon 153.6 Active Problem Coronary atherosclerosis of [place] coronary artery 414.01 Active Problem Malignant neoplasm of bladder, part unspecified 188.9 Active Problem Postprocedural PCI status V45.82 Active Problem Malignant neoplasm of bladder, unspecified C67.9 Active Problem Old myocardial infarction 412 Active Problem Malignant neoplasm of ascending colon C18.2 Active Medications Medication Code System Code Instructions Start Date End Date Status Dosage Clopidogrel Bisulfate [facility] [address]-83 75 MG Orally Once a day December 17, 2015 Active [address] [facility] [address]-55 20 PO every day (qd) Active [address] [facility] [address]-42 40 PO once every night Active 1 tablet Results No Known Results Summary Purpose [employer] Submission
--- OUTSIDE RECORDS SUMMARY | 2019-03-05 07:33 | XMS REPORT ---
Author Author Idalia Saunders Organization [employer] Address Unknown Phone Unavailable Care Team Providers Care Financial Management Name Role Phone Idalia Saunders CP Unavailable Allergies No Known Allergies Problems Problem Type Condition Code Onset Dates Condition Status Problem Pulmonary hypertension, secondary I27.2 Active Problem Ventricular premature depolarization I49.3 Active Problem Mixed hyperlipidemia E78.2 Active Problem Bradycardia, unspecified R00.1 Active Problem Chronic kidney disease, unspecified 585.9 Active Problem Atherosclerotic heart disease of [place] coronary artery with unspecified angina pectoris I25.119 Active Problem Mixed hyperlipidemia 272.2 Active Problem Sick sinus syndrome I49.5 Active Problem Coronary angioplasty status Z98.61 Active Problem Peripheral vascular disease, unspecified I73.9 Active Problem Atherosclerotic heart disease of [place] coronary artery without angina pectoris I25.10 Active Problem Old myocardial infarction I25.2 Active Problem Peripheral vascular disease 443.9 Active Problem Postprocedural PCI status V45.82 Active Problem Malignant neoplasm of ascending colon 153.6 Active Problem Other premature beats 427.69 Active Problem Malignant neoplasm of bladder, part unspecified 188.9 Active Problem Malignant neoplasm of bladder, unspecified C67.9 Active Problem Old myocardial infarction 412 Active Problem Malignant neoplasm of ascending colon C18.2 Active Problem Coronary atherosclerosis of [place] coronary artery 414.01 Active Problem Chronic kidney disease, unspecified N18.9 Active Medications No Known Medications Results No Known Results Summary Purpose [employer] Submission
--- OUTSIDE RECORDS SUMMARY | 2019-03-05 07:33 | XMS REPORT ---
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 Assessment Presence of cardiac pacemaker Z95.0 Active Assessment Presence of cardiac pacemaker Z95.0 Active Assessment Paroxysmal atrial fibrillation I48.0 Active Problem Presence of cardiac pacemaker Z95.0 [...] infarction 412 Active Problem 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 Active Problem Unspecified atherosclerosis of [place] arteries of extremities, 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 Active Problem Other premature beats 427.69 Active Problem Bradycardia, unspecified R00.1 Active Problem 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 Problem Paroxysmal atrial fibrillation I48.0 Active Problem Sick sinus syndrome I49.5 Active Assessment Ventricular premature depolarization I49.3 Active Problem Malignant neoplasm of bladder, part unspecified 188.9 Active Assessment Unspecified atherosclerosis of [place] arteries of extremities, 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 Active Problem Peripheral vascular disease, unspecified I73.9 Active Assessment Chronic kidney disease, stage 3 (moderate) N18.3 Active Problem Peripheral vascular disease 443.9 Active Assessment Mixed hyperlipidemia E78.2 Active Problem Mixed hyperlipidemia 272.2 Active Assessment Malignant neoplasm of bladder, unspecified C67.9 Active Problem Pulmonary hypertension, secondary I27.2 Active Assessment Malignant neoplasm of ascending colon C18.2 Active Problem Chronic kidney disease, unspecified N18.9 Active Problem Atherosclerotic heart disease of [place] coronary artery without angina pectoris I25.10 Active Problem Coronary angioplasty status Z98.61 Active Medications Medication Code System Code Instructions Start Date End Date Status Dosage Opdivo [facility] 38493829794 100 MG/10ML Intravenous Active not defined Simvastatin [facility] [address]-11 40 PO once every night Active 1 tablet Eliquis [facility] 48395979885 5 MG Orally twice a day (bid) Jun 28, 2017 Active 1 tablet Metoprolol Tartrate [facility] 45221159784 50 mg Orally Twice a day Active 1 tablet Lisinopril [facility] [address]-50 20 PO every day (qd) Active 1 tablet Vital Signs Date/Time: Sep 22, 2018 BMI 27.66 Index Weight 204 lbs Height 6ft 0in in Cardiac Monitoring Heart Rate 70 /min Blood Pressure Diastolic 60 mm Hg Blood Pressure Systolic 130 mm Hg Results No Known Results Summary Purpose [employer] Submission
--- OUTSIDE RECORDS SUMMARY | 2019-03-05 07:33 | XMS REPORT ---
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 Problem Paroxysmal atrial fibrillation I48.0 Active Problem Sick sinus syndrome I49.5 Active Problem Malignant neoplasm of bladder, part unspecified 188.9 Active Problem Coronary angioplasty status Z98.61 Active Problem Peripheral vascular disease 443.9 Active Problem Mixed hyperlipidemia 272.2 Active Problem Atherosclerotic heart disease of [place] coronary artery without angina pectoris I25.10 Active Problem Chronic kidney disease, unspecified N18.9 Active Problem Pulmonary hypertension, secondary I27.2 Active Problem Peripheral vascular disease, unspecified I73.9 Active Medications Medication Code System Code Instructions Start Date End Date Status Dosage Lisinopril [facility] [address]-17 20 PO every day (qd) Active 1 tablet Eliquis [facility] 23015333059 5 MG Orally twice a day (bid) Jun 28, 2017 Active 1 tablet Simvastatin [facility] [address]-62 40 PO once every night Active 1 tablet Opdivo [facility] 65426012396 100 MG/10ML Intravenous Active not defined Metoprolol Tartrate [facility] 58988960364 50 MG Orally Twice a day Active 1 tablet Results No Known Results Summary Purpose [employer] Submission
--- OUTSIDE RECORDS SUMMARY | 2019-03-05 07:33 | XMS REPORT ---
Author Author Reed Plaza Organization [employer] Address Unknown Phone Unavailable Care Team Providers Care Marketing Operations Analyst Name Role Phone Reed Plaza CP Unavailable Allergies, Adverse Reactions, Alerts Substance Reaction Event Type penicillin Info Not Available Drug Allergy Amiodarone HCl Info Not Available Drug Allergy Problems Problem Type Condition Code Onset Dates Condition Status Assessment Malignant neoplasm of bladder, unspecified C67.9 Active Assessment Sick sinus syndrome I49.5 Active Assessment Chronic kidney disease, unspecified N18.9 Active Assessment Malignant neoplasm of ascending colon C18.2 Active Assessment Pulmonary hypertension, secondary I27.2 Active Assessment Mixed hyperlipidemia E78.2 Active Assessment Ventricular premature depolarization I49.3 Active Assessment Peripheral vascular disease, unspecified I73.9 Active Assessment Coronary angioplasty status Z98.61 Active Problem Malignant neoplasm of ascending colon C18.2 Active Assessment Old myocardial infarction I25.2 Active Problem Chronic kidney disease, unspecified N18.9 Active Assessment 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 Problem Pulmonary hypertension, secondary I27.2 Active Problem Ventricular premature depolarization I49.3 Active Problem Mixed hyperlipidemia E78.2 Active Problem Bradycardia, unspecified R00.1 Active Problem 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 Problem Chronic kidney disease, unspecified 585.9 Active Problem Mixed hyperlipidemia 272.2 Active Problem Sick sinus syndrome I49.5 Active Assessment Bradycardia, unspecified R00.1 Active Problem Coronary angioplasty status Z98.61 Active Problem Peripheral vascular disease, unspecified I73.9 Active Problem Atherosclerotic heart disease of [place] coronary artery without angina pectoris I25.10 Active [...] infarction 412 Active Problem 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 Active Medications Medication Code System Code Instructions Start Date End Date Status Dosage Lisinopril [facility] [address]-87 20 PO every day (qd) Active 1 tablet Aspirin [facility] 86889-77630 81 MG Orally Once a day Active 1 tablet Simvastatin [facility] [address]-22 40 PO once every night Active 1 tablet Opdivo [facility] [address]-80 100 MG/10ML Intravenous Active not defined Clopidogrel Bisulfate [facility] [address]-88 75 MG Orally Once a day December 17, 2015 Active 1 tablet Vital Signs Date/Time: Jun 17, 2017 BMI 29.02 Index Weight 214 lbs Height 72 in Cardiac Monitoring Heart Rate 52 /min Blood Pressure Diastolic 60 mm Hg Blood Pressure Systolic 132 mm Hg Results No Known Results Summary Purpose [employer] Submission
--- OUTSIDE RECORDS SUMMARY | 2019-03-05 07:33 | XMS REPORT ---
Author Author Reed Plaza Organization [employer] Address Unknown Phone Unavailable Care Team Providers Care Six Sigma Black Trainer Name Role Phone Reed Plaza CP Unavailable Allergies, Adverse Reactions, Alerts Substance Reaction Event Type penicillin Info Not Available Drug Allergy Amiodarone HCl Info Not Available Drug Allergy Problems Problem Type Condition Code Onset Dates Condition Status Assessment Ventricular premature depolarization I49.3 Active Assessment Mixed hyperlipidemia E78.2 Active Assessment Coronary angioplasty status Z98.61 Active Assessment Unspecified atherosclerosis of [place] arteries of extremities, 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 Active Assessment Old myocardial infarction I25.2 Active Assessment Presence of cardiac pacemaker Z95.0 Active Assessment 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 Assessment Paroxysmal atrial fibrillation I48.0 Active [...] infarction 412 Active Problem 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3 Active Problem Coronary angioplasty status Z98.61 Active Problem Peripheral vascular disease 443.9 Active Assessment Malignant neoplasm of bladder, unspecified C67.9 Active Problem Mixed hyperlipidemia 272.2 Active Problem Atherosclerotic heart disease of [place] coronary artery without angina pectoris I25.10 Active Problem Chronic kidney disease, unspecified N18.9 Active Problem Pulmonary hypertension, secondary I27.2 Active Problem Peripheral vascular disease, unspecified I73.9 Active Medications Medication Code System Code Instructions Start Date End Date Status Dosage Metoprolol Tartrate [facility] 26082709301 50 mg Orally Twice a day Active 1 tablet Eliquis [facility] 41117075369 5 MG Orally twice a day (bid) Jun 28, 2017 Active 1 tablet Simvastatin [facility] [address]-00 40 PO once every night Active 1 tablet Opdivo [facility] 78795130274 100 MG/10ML Intravenous Active not defined Lisinopril [facility] [address]-74 20 PO every day (qd) Active 1 tablet Vital Signs Date/Time: April 06, 2018 BMI 27.66 Index Weight 204 lbs Height 6ft 0in in Cardiac Monitoring Heart Rate 70 /min Blood Pressure Diastolic 80 mm Hg Blood Pressure Systolic 122 mm Hg Results No Known Results Summary Purpose [employer] Submission
--- OUTSIDE RECORDS SUMMARY | 2019-03-05 07:33 | XMS REPORT ---
Author Author Reed Plaza Organization [employer] Address Unknown Phone Unavailable Care Team Providers Care Title Clerk Automobile Name Role Phone Reed Plaza CP Unavailable Allergies, Adverse Reactions, Alerts Substance Reaction Event Type penicillin Info Not Available Drug Allergy Amiodarone HCl Info Not Available Drug Allergy Problems Problem Type Condition Code Onset Dates Condition Status Assessment Ventricular premature depolarization I49.3 Active Assessment Mixed hyperlipidemia E78.2 Active Assessment Coronary angioplasty status Z98.61 Active Assessment Unspecified atherosclerosis of [place] arteries of extremities, 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 Active Assessment Old myocardial infarction I25.2 Active Assessment Presence of cardiac pacemaker Z95.0 Active Assessment 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 [...] infarction 412 Active Problem 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.01 Active Problem Unspecified atherosclerosis of [place] arteries of extremities, 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 Active Problem Other premature beats 427.69 Active Problem Bradycardia, unspecified R00.1 Active Problem 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 [...] 272.2 Active Problem Atherosclerotic heart disease of [place] coronary artery without angina pectoris I25.10 Active Problem Chronic kidney disease, unspecified N18.9 Active Problem Pulmonary hypertension, secondary I27.2 Active Problem Peripheral vascular disease, unspecified I73.9 Active Medications Medication Code System Code Instructions Start Date End Date Status Dosage Lisinopril [facility] [address]-60 20 PO every day (qd) Active 1 tablet Metoprolol Tartrate [facility] 85044066465 50 MG Orally Twice a day Active 1 tablet Opdivo [facility] 94695714187 100 MG/10ML Intravenous Active not defined Simvastatin [facility] [address]-68 40 PO once every night Active 1 tablet Eliquis [facility] 83279672180 5 MG Orally twice a day (bid) Jun 28, 2017 Active 1 tablet Vital Signs Date/Time: Oct 04, 2017 BMI 27.66 Index Weight 204 lbs Height 6ft 0in in Cardiac Monitoring Heart Rate 69 /min Blood Pressure Diastolic 80 mm Hg Blood Pressure Systolic 138 mm Hg Results No Known Results Summary Purpose eClinicalWorks Submission
--- OUTSIDE RECORDS SUMMARY | 2019-03-05 07:34 | XMS REPORT ---
Author Author Reed Plaza Organization e[employer] Address Unknown Phone Unavailable Care Team Providers Care Senior Underwriting Assistant Name Role Phone Reed Plaza CP Unavailable Allergies, Adverse Reactions, Alerts Substance Reaction Event Type penicillin Info Not Available Drug Allergy Amiodarone HCl Info Not Available Drug Allergy Encounters Encounter Location Date Follow[place]Up [place] Oct 08, 2015 Problems Problem Type Condition ICD-9 Code Onset Dates Condition Status Assessment Malignant neoplasm of bladder, unspecified C67.9 Active Assessment Malignant neoplasm of ascending colon C18.2 Active Assessment Chronic kidney disease, unspecified N18.9 Active Assessment Pulmonary hypertension, secondary I27.2 Active Problem 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 Active Assessment Mixed hyperlipidemia E78.2 Active Problem Malignant neoplasm of bladder, part unspecified 188.9 Active Assessment Ventricular premature depolarization I49.3 Active Problem Malignant neoplasm of bladder, unspecified C67.9 Active Problem Chronic kidney disease, unspecified N18.9 Active Problem Malignant neoplasm of ascending colon C18.2 Active Problem Old myocardial infarction I25.2 Active Problem Coronary angioplasty status Z98.61 Active Assessment Old myocardial infarction I25.2 Active Assessment Coronary angioplasty status Z98.61 Active Problem Atherosclerotic heart disease of [place] coronary artery without angina pectoris I25.10 Active Assessment Peripheral vascular disease, unspecified I73.9 Active Problem Mixed hyperlipidemia E78.2 Active Problem Pulmonary hypertension, secondary I27.2 Active Problem Peripheral vascular disease, unspecified I73.9 Active Problem Ventricular premature depolarization I49.3 Active Problem Chronic kidney disease, unspecified 585.9 Active Problem Malignant neoplasm of ascending colon 153.6 Active Assessment Atherosclerotic heart disease of [place] coronary artery without angina pectoris I25.10 Active Problem Mixed hyperlipidemia 272.2 Active Problem Postprocedural PCI status V45.82 Active Problem Old myocardial infarction 412 Active Problem Other premature beats 427.69 Active Problem Peripheral vascular disease 443.9 Active Medications Medication Code System Code Instructions Start Date End Date Status Dosage Omeprazole [facility] [address]-87 40 MG Orally Once a day Active 1 capsule Aspirin [facility] [address]-15 81 MG Orally Once a day Active 1 tablet Simvastatin [facility] [address]-33 40 PO once a day Active 1 tablet in the evening Lisinopril [facility] [address]-01 20 PO daily Active 1 tablet Social History Social History Element Qualifiers Date Reported Tobacco Use: . Are you a: never smoker Oct 08, 2015 Marital Status: . Oct 08, 2015 Caffeine intake? . Status: No Oct 08, 2015 Do you drink alcohol? . Status: No Oct 08, 2015 Vital Signs Date/Time: Oct 08, 2015 Weight 200 lbs Cardiac Monitoring Heart Rate 60 /min Blood Pressure Diastolic 68 mm Hg Blood Pressure Systolic 134 mm Hg Summary Purpose eClinicalWorks Submission
--- OUTSIDE RECORDS SUMMARY | 2019-03-05 07:34 | XMS REPORT ---
Author Author Reed Plaza [facility] eClinicalWorks Address Unknown Phone Unavailable Care Team Providers Care Receiving Supervisor Name Role Phone Reed Plaza CP Unavailable Encounters Encounter Location Date Refill [place] April 22, 2016 Follow-Up Reed [place] Apr 28, 2016 echo/carotid/arterial dopplers Reed Plaza [place] May 05, 2016 Refill [place] May 21, 2016 Follow-Up Reed [place] Oct 08, 2015 Follow-Up Reed [place] December 17, 2015 Follow-Up Reed [place] January 09, 2016 Follow-Up Reed [place] Aug 06, 2016 Refill Reed [place], [place] Sep 07, 2016 Problems Problem Type Condition ICD-9 Code Onset Dates Condition Status Problem Chronic kidney disease, unspecified N18.9 Active Problem Mixed hyperlipidemia E78.2 Active Problem Pulmonary hypertension, secondary I27.2 Active Problem 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 Problem Mixed hyperlipidemia 272.2 Active Problem Atherosclerotic heart disease of [place] coronary artery without angina pectoris I25.10 Active [...] colon 153.6 Active Problem 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 Are you a: never smoker Aug 06, 2016 Marital Status: . Aug 06, 2016 Caffeine intake? . Status: No Aug 06, 2016 Do you drink alcohol? . Status: No Aug 06, 2016 Summary Purpose eClinicalWorks Submission
--- OUTSIDE RECORDS SUMMARY | 2019-03-05 07:34 | XMS REPORT ---
Author Author Reed Plaza [facility] e[employer] Address Unknown Phone Unavailable Care Team Providers Care Space Physicist Name Role Phone Reed Plaza Unavailable Encounters Encounter Location Date Refill [place] April 22, 2016 Follow-Up Reed [place] Apr 28, 2016 echo/carotid/arterial dopplers [place] May 05, 2016 Refill [place] May 21, 2016 Follow-Up Reed Plaza MD, [place] Oct 08, 2015 Follow-Up Reed Plaza [place] December 17, 2015 Follow-Up Reed [place] January 09, 2016 Problems Problem Type Condition ICD-9 Code Onset Dates Condition Status Problem Chronic kidney disease, unspecified N18.9 Active Problem Mixed hyperlipidemia E78.2 Active Problem Pulmonary hypertension, secondary I27.2 Active Problem 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 Problem Mixed hyperlipidemia 272.2 Active Problem Atherosclerotic heart disease of [place] coronary artery without angina pectoris I25.10 Active [...] colon 153.6 Active Problem 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 Are you a: never smoker Apr 28, 2016 Marital Status: . Apr 28, 2016 Caffeine intake? . Status: No Apr 28, 2016 Do you drink alcohol? . Status: No Apr 28, 2016 Summary Purpose eClinicalWorks Submission
--- OUTSIDE RECORDS SUMMARY | 2019-03-05 07:34 | XMS REPORT ---
Author Author Reed Plaza Organization [employer] Address Unknown Phone Unavailable Care Team Providers Care Seismograph Chief Name Role Phone Reed Plaza CP Unavailable Encounters Encounter Location Date Refill [place] April 22, 2016 Follow-Up Reed [place] Oct 08, 2015 Follow-Up Reed [place] December 17, 2015 Follow-Up Reed [place] January 09, 2016 Problems Problem Type Condition ICD-9 Code Onset Dates Condition Status Problem Chronic kidney disease, unspecified N18.9 Active Problem Mixed hyperlipidemia E78.2 Active Problem Pulmonary hypertension, secondary I27.2 Active Problem 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 Problem Mixed hyperlipidemia 272.2 Active Problem Atherosclerotic heart disease of [place] coronary artery without angina pectoris I25.10 Active [...] colon 153.6 Active Problem 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 Are you a: never smoker January 09, 2016 Marital Status: . January 09, 2016 Caffeine intake? . Status: No January 09, 2016 Do you drink alcohol? . Status: No January 09, 2016 Summary Purpose eClinicalWorks Submission
--- OUTSIDE RECORDS SUMMARY | 2019-03-05 07:34 | XMS REPORT ---
Author Author Reed Plaza Organization [employer] Address Unknown Phone Unavailable Care Team Providers Care Dielectric Press Operator Name Role Phone Reed Plaza Unavailable Allergies, Adverse Reactions, Alerts Substance Reaction Event Type penicillin Info Not Available Drug Allergy Amiodarone HCl Info Not Available Drug Allergy Encounters Encounter Location Date Refill [place] April 22, 2016 Follow-Up Reed [place] Apr 28, 2016 echo/carotid/arterial dopplers Reed [place] May 05, 2016 Refill [place] May 21, 2016 Follow-Up Reed [place] Oct 08, 2015 Follow-Up Reed Plaza [place] December 17, 2015 Follow-Up Reed [place] January 09, 2016 Follow-Up Reed [place] Aug 06, 2016 Problems Problem Type Condition ICD-9 Code [...] I27.2 Active Problem 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 Problem Atherosclerotic heart disease of [place] coronary artery without angina pectoris I25.10 Active Problem Mixed hyperlipidemia 272.2 Active Assessment 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.119 [...] colon 153.6 Active Problem 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.01 Active Problem Malignant neoplasm of bladder, part unspecified 188.9 Active Problem Postprocedural PCI status V45.82 Active Problem Old myocardial infarction 412 Active Medications Medication Code System Code Instructions Start Date End Date Status Dosage Simvastatin [facility] [address]-21 40 PO once every night Active 1 tablet Lisinopril [facility] [address]-46 20 PO every day (qd) Active 1 tablet Aspirin [facility] [address]40 81 MG Orally Once a day Active 1 tablet Clopidogrel Bisulfate [facility] [address]-07 75 mg Orally Once a day December 17, 2015 Active 1 tablet Social History Social History Element Qualifiers Date Reported Tobacco Use: . Are you a: never smoker Aug 06, 2016 Marital Status: . Aug 06, 2016 Caffeine intake? . Status: No Aug 06, 2016 Do you drink alcohol? . Status: No Aug 06, 2016 Vital Signs Date/Time: Aug 06, 2016 Weight 205 lbs Cardiac Monitoring Heart Rate 65 /min Blood Pressure Diastolic 70 mm Hg Blood Pressure Systolic 140 mm Hg Summary Purpose eClinicalWorks Submission
--- OUTSIDE RECORDS SUMMARY | 2019-03-05 07:34 | XMS REPORT ---
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 Problem Atherosclerotic heart disease of [place] coronary artery without angina pectoris I25.10 Active Problem Mixed hyperlipidemia 272.2 Active Assessment 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 [...] colon 153.6 Active Problem Coronary atherosclerosis of [place] coronary artery 414.01 Active Problem Malignant neoplasm of bladder, part unspecified 188.9 Active Problem Postprocedural PCI status V45.82 Active Problem 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 Are you a: never smoker Apr 28, 2016 Marital Status: . Apr 28, 2016 Caffeine intake? . Status: No Apr 28, 2016 Do you drink alcohol? . Status: No Apr 28, 2016 Vital Signs Date/Time: Apr 28, 2016 Weight 197 lbs Cardiac Monitoring Heart Rate 59 /min Blood Pressure Diastolic 61 mm Hg Blood Pressure Systolic 138 mm Hg Summary Purpose eClinicalWorks Submission
--- OUTSIDE RECORDS SUMMARY | 2019-03-05 07:34 | XMS REPORT ---
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 Problem Atherosclerotic heart disease of [place] coronary artery without angina pectoris I25.10 Active Problem Mixed hyperlipidemia 272.2 Active Assessment 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 [...] colon 153.6 Active Problem Coronary atherosclerosis of [place] coronary artery 414.01 Active Problem Malignant neoplasm of bladder, part unspecified 188.9 Active Problem Postprocedural PCI status V45.82 Active Problem 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 Are you a: never smoker December 17, 2015 Marital Status: . December 17, 2015 Caffeine intake? . Status: No December 17, 2015 Do you drink alcohol? . Status: No December 17, 2015 Vital Signs Date/Time: December 17, 2015 Weight 200 lbs Cardiac Monitoring Heart Rate 47 /min Blood Pressure Diastolic 70 mm Hg Blood Pressure Systolic 110 mm Hg Summary Purpose eClinicalWorks Submission
--- OUTSIDE RECORDS SUMMARY | 2019-03-05 07:34 | XMS REPORT ---
Author Author Reed Plaza Organization e[employer] Address Unknown Phone Unavailable Care Team Providers Care Devulcanizer Tender Name Role Phone Reed Plaza CP Unavailable Encounters Encounter Location Date Refill [place] April 22, 2016 Follow-Up Reed [place] Apr 28, 2016 echo/carotid/arterial dopplers Reed Plaza MD [place] May 05, 2016 Follow-Up Reed [place] Oct 08, 2015 Follow-Up Reed Plaza [place] December 17, 2015 Follow-Up Reed Plaza [place] January 09, 2016 Problems Problem Type Condition ICD-9 Code Onset Dates Condition Status Problem Chronic kidney disease, unspecified N18.9 Active Problem Mixed hyperlipidemia E78.2 Active Problem Pulmonary hypertension, secondary I27.2 Active Problem 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 Active Problem Mixed hyperlipidemia 272.2 Active Problem Atherosclerotic heart disease of [place] coronary artery without angina pectoris I25.10 Active [...] colon 153.6 Active Problem Coronary atherosclerosis of [place] coronary artery 414.01 Active Problem Malignant neoplasm of bladder, part unspecified 188.9 Active Problem Postprocedural PCI status V45.82 Active Problem Malignant neoplasm of bladder, unspecified C67.9 Active Problem 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 Are you a: never smoker Apr 28, 2016 Marital Status: . Apr 28, 2016 Caffeine intake? . Status: No Apr 28, 2016 Do you drink alcohol? . Status: No Apr 28, 2016 Summary Purpose eClinicalWorks Submission
--- OUTSIDE RECORDS SUMMARY | 2019-03-05 07:34 | XMS REPORT ---
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.119 [...] colon 153.6 Active Problem Coronary atherosclerosis of [place] coronary artery 414.01 Active Problem Malignant neoplasm of bladder, part unspecified 188.9 Active Problem Postprocedural PCI status V45.82 Active Problem 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 Are you a: never smoker January 09, 2016 Marital Status: . January 09, 2016 Caffeine intake? . Status: No January 09, 2016 Do you drink alcohol? . Status: No January 09, 2016 Vital Signs Date/Time: January 09, 2016 Weight 200 lbs Cardiac Monitoring Heart Rate 56 /min Blood Pressure Diastolic 60 mm Hg Blood Pressure Systolic 130 mm Hg Summary Purpose eClinicalWorks Submission
--- NOTE | 2019-03-05 07:40 | NUR ---
PT VERY UPSET AND ABRUPT AND STATES HE HAS HAD 5 CT'S IN LAST MONTH AT [facility], BUT STATES THEY DON'T GO FAST ENOUGHT AND HE WAS TOLD TO COME TO [facility] FOR FASTER SERVICE. PT WAS BROUGHT BACK WHILE REGISTERED PT. PT REMAINED UNHAPPY AND ABRUPT. PT STATES HE IS VERY HARD OF HEARING AND REPEATLY ASKED NURSE TO SPEAK LOUDER. NURSE APPOLOGIZED AND SPOKE MORE CLEARLY WITH PT AND VERY SLIGHTLY LOUDER. PT REPEATEDLY CALLING NURSE, "GIRL" AND ASKED TO USE BY NAME, NURSE OR MAMA. PT APPOLOGIZED AND STATES WILL USE PROPER ADDRESS TO STAFF.
--- NOTE | 2019-03-05 07:45 | NUR ---
HAS PORT A CATH WHICH PT DOESNT WANT PORT ACCESSED. ONLY USED FOR IMMUNE THERAPY
[2019-03-05] MEDS ORDERED: SIMVASTATIN40 MG PO (07:56)
[2019-03-05] MEDS ORDERED: PLAVIX75 MG PO (07:56)
[2019-03-05] MEDS ORDERED: METOPROLOL TART50 MG PO (07:56)
[2019-03-05] MEDS ORDERED: ELIQUIST PO (07:56)
[2019-03-05] MEDS ORDERED: IOPAMIDOL 370 MG/ML 200 ML INFUS..BTL INJ ONE (08:12)
[2019-03-05] MEDS ORDERED: SODIUM CHLORIDE 0.9% 50ML 0 ML ONE (08:12)
--- NOTE | 2019-03-05 08:42 | NUR ---
CREATIN TOO HIGH FOR IV CONTRAST PER MD. CT WITHOUT
--- NOTE | 2019-03-05 09:24 | Diagnostic Imaging Report ---
EXAM: CT of the abdomen and pelvis WITHOUT contrast HISTORY: Left lower quadrant pain, 2 days, history of colon cancer, bladder cancer, urostomy COMPARISON: None available. TECHNIQUE: The abdomen and pelvis were scanned utilizing a multidetector helical scanner. Coronal and sagittal reformats are available. PROTOCOL: Renal colic IV CONTRAST: None, which limits sensitivity and specificity of evaluation of the soft tissues and vascular structures. ORAL CONTRAST: None, which limits sensitivity and specificity of evaluation of the bowel. RADIATION DOSE: Total DLP: 764.68 mGy*cm Estimated effective dose: (DLP x 0.015 x size factor) Dose modulation, iterative reconstruction, and/or weight based adjustment of the mA/kV was utilized to reduce the radiation dose to as low as reasonably achievable. COMPLICATIONS: None FINDINGS: LOWER THORAX: Radiopaque cardiac leads and coronary stents versus dense atherosclerosis. HEPATOBILIARY: No definite focal hepatic lesions. No biliary ductal dilatation. Metallic clips in the right upper quadrant of the abdomen are compatible with prior cholecystectomy. SPLEEN: No splenomegaly. PANCREAS: No focal masses or ductal dilatation. Diffuse parenchymal atrophy. ADRENALS: No adrenal nodule. KIDNEYS/URETERS: No hydronephrosis, stones, or solid mass lesion identified. Multiple bilateral cysts, including exophytic cysts, the largest 11 cm in diameter on the left. One of the smaller cyst on the right near the inferior pole has mild thin peripheral calcification (Bosniak II). PELVIC ORGANS/BLADDER: Postsurgical changes, including cystectomy and urinary diversion with ostomy. Fat and bowel herniation at the right lower quadrant ostomy without associated inflammatory changes. PERITONEUM / RETROPERITONEUM: No free air or fluid. GI TRACT: On limited evaluation of the gastrointestinal tract, no dilation or wall thickening identified. The appendix appears normal. The stomach is partially decompressed, which limits evaluation. Right lower quadrant post surgical changes. LYMPH NODES: No pathologically enlarged lymph nodes. VESSELS: Scattered atherosclerotic vascular calcifications, including the coronary arteries. BONES: No aggressive osseous lesion or acute fracture. Multifocal degenerative changes. SOFT TISSUES: Otherwise, unremarkable. IMPRESSION: 1. Bilateral benign-appearing renal cysts, the largest 11 cm on the left. 2. Postsurgical changes including cystectomy and urinary diversion with right lower quadrant ostomy. 3. No acute inflammatory changes within the abdomen or pelvis. Signed by: Dr. Carlos Rogers D.O., M.M.M. on 03/05/2019 9:20 AM
[2019-03-05] MEDS ORDERED: BACTRIM DS TAB1 EACH PO (09:30)
[2019-03-05] MEDS ORDERED: COLACE100 MG PO (09:30)
--- NOTE | 2019-03-05 09:30 | NUR ---
PER , CANCEL LACTIC.
== END 2019-03-05 09:40 | disposition home or self-care (01) ==
LOC: FSED 07:21
DX: R10.32 Left lower quadrant pain (principal); R10.12 Left upper quadrant pain; N30.91 Cystitis, unspecified with hematuria; Z85.038 Personal history of other malignant neoplasm of large intestine; Z98.0 Intestinal bypass and anastomosis status
CPT/HCPCS: 74150; 80053; 81003; 82553; 84484; 85025; 87086; 87186; 93005; 99284; Q9967